=== PATIENT | female | born 1960 | race Caucasian/White ===

== ENCOUNTER 2020-07-10 14:17 | Outpatient (REF) | payer OTHER, SELFPAY ==
[2020-07-10 15:11] LABS: MANUAL DIFF FLAG NO
[2020-07-10 15:15] LABS: Basophils Percent Auto 0.3 % (0-2); Eosinophils Absolute Auto 0.4 X10*3/uL (0.0-0.4); Eosinophils Percent Auto 4.3 % (0-4); Hematocrit 40.3 % (37-47); Hemoglobin 12.6 g/dl (12.0-16.0); Imm Gran Abs Auto 0.02 X10*3/uL (0.00-0.03); Imm Gran Pct Auto 0.2 % (0.0-0.4); Lymphocytes Absolute Auto 1.5 X10*3/uL (1.2-4.9); Lymphocytes Percent Auto 16.5 % (20-40); Mean Corpuscular HGB Conc 31.3 g/dl (31.0-35.0); Mean Corpuscular Hemoglobin 29.6 pg (27.0-33.0); Mean Corpuscular Volume 94.6 fL (80-98); Mean Platelet Volume 9.6 fL (9.4-12.3); Monocytes Absolute Auto 0.6 X10*3/uL (0.1-1.2); Monocytes Percent Auto 6.3 % (2-11); Neutrophils Absolute Auto 6.5 X10*3/uL (2.0-8.3); Neutrophils Percent Auto 72.4 % (45-73); Platelet Count 260 X10*3/uL (160-400); Red Blood Count 4.26 X10*6/uL (4.20-5.50); Red Cell Distribution Width 15.1 % (11.0-16.0); White Blood Count 8.9 X10*3/uL (4.8-10.8)
[2020-07-10 15:23] LABS: Appearance Urine CLEAR; Color Urine YELLOW; Glucose Urine UA NEG (NEG); Leukocyte Esterase Urine NEG (NEG); Nitrite Urine NEG (NEG); PH 5.5 (5.0-8.0); Specific Gravity - Urine 1.025 (1.005-1.025); Urine Blood TRACE (NEG); Urine Ketones NEG (NEG); Urine Protein TRACE MG/DL (NEG-TRACE)
[2020-07-10 15:33] LABS: Bacteria Urine TRACE /LPF; RBC Urine 0-2 /HPF (0); Squamous Epithelial Cell Urine TRACE /LPF; WBC Urine 0 /HPF (0-4)
[2020-07-10 15:52] LABS: Alanine Aminotransferase 19 U/L (0-31); Anion Gap 12 (12-20); Aspartate Amino Transferase 22 U/L (5-31); Blood Urea Nitrogen 22 mg/dL (9-16); Calcium 9.8 mg/dL (8.4-10.2); Carbon Dioxide 33 mmol/L (22-29); Chloride 101 mmol/L (96-108); Estimated Glomerular Filt Rate 48; Potassium 4.7 mmol/l (3.3-5.1); Sodium 141 mmol/L (135-145)
[2020-07-10 15:54] LABS: Creatinine Urine 149.08 mg/dL; Protein/Creatinine Ratio, Ur 0.19 (<0.2); Total Protein Urine Random 29 mg/dL (<12)
[2020-07-11 13:32] LABS: Complement C3 152 mg/dL (83-193)
== END 2020-07-10 14:18 | disposition home or self-care (01) ==
LOC: HO.LAB 14:17
PROVIDERS: PCP Internal Medicine; Visit Provider Internal Medicine Hypertension Specialist
DX: N18.30 Chronic kidney disease, stage 3 unspecified (principal); Z95.0 Presence of cardiac pacemaker
CPT/HCPCS: 36415; 80051; 81001; 82310; 82565; 84156; 84450; 84460; 84520; 85025; 86160

== ENCOUNTER 2020-10-17 14:49 | Outpatient (REF) | payer OTHER, SELFPAY ==
--- NOTE | 2020-10-17 16:07 | XR_ITS ---
EXAMINATION: XR ANKLE, RIGHT XR ANKLE, LEFT XR LUMBAR SPINE XR KNEE, LEFT XR KNEE, RIGHT XR SHOULDER, RIGHT CLINICAL INFORMATION: Pain. COMPARISON: None TECHNIQUE: Three views each ankle, 3 views each knee, 3 views lumbar spine, and 4 views right shoulder. FINDINGS: RIGHT ANKLE: There is a right flatfoot appearance. The ankle mortise joint appears unremarkable. The subtalar joint is suboptimally visualized. There is a small calcaneal heel spur. There is mild bimalleolar soft tissue swelling secondary to edema or obesity. LEFT ANKLE: There is a left flatfoot appearance. The ankle mortise is intact. The subtalar joint is not well visualized. There is likely eversion deformity of the ankle joint. The soft tissues are unremarkable. LEFT KNEE: There is loss of tricompartment joint space without periarticular spurring. No bony erosive changes seen. The soft tissues are normal. RIGHT KNEE: There is loss of tricompartment joint space, severe along the lateral compartment with moderate periarticular spurring in the lateral and the patellofemoral compartments. No loose body seen. There is mild suprapatellar joint effusion suspected. LUMBAR SPINE: There is normal lumbar lordosis. The vertebral heights and alignment are normal. Mild loss of L5-S1 disc height is seen. The rest of the disc heights are normal. RIGHT SHOULDER: There is no visible acute fracture, dislocation or subluxation seen. The soft tissues are normal. XR/XR shoulder RT min 2V IMPRESSION: Severe degenerative changes lateral and patellofemoral compartment right knee with moderate periarticular spurring and mild suprapatellar joint effusion. Unremarkable left knee, right ankle, lumbar spine and right shoulder. Likely eversion deformity left ankle with incomplete visualization of subtalar joint. No visible fracture seen. Bimalleolar soft tissue edema or obesity changes in both ankle joints.
[2020-10-17 18:26] LABS: MANUAL DIFF FLAG NO
[2020-10-17 18:31] LABS: Basophils Percent Auto 0.4 % (0-2); Eosinophils Absolute Auto 0.2 X10*3/uL (0.0-0.4); Eosinophils Percent Auto 2.2 % (0-4); Hematocrit 43.6 % (37-47); Hemoglobin 13.5 g/dl (12.0-16.0); Imm Gran Abs Auto 0.02 X10*3/uL (0.00-0.03); Imm Gran Pct Auto 0.2 % (0.0-0.4); Lymphocytes Absolute Auto 1.3 X10*3/uL (1.2-4.9); Lymphocytes Percent Auto 12.3 % (20-40); Mean Corpuscular Hemoglobin 29.3 pg (27.0-33.0); Mean Corpuscular Volume 94.8 fL (80-98); Mean Platelet Volume 10.1 fL (9.4-12.3); Monocytes Absolute Auto 0.7 X10*3/uL (0.1-1.2); Neutrophils Absolute Auto 8.2 X10*3/uL (2.0-8.3); Neutrophils Percent Auto 77.9 % (45-73); Platelet Count 342 X10*3/uL (160-400); Red Cell Distribution Width 14.8 % (11.0-16.0); White Blood Count 10.5 X10*3/uL (4.8-10.8)
[2020-10-17 18:39] LABS: Estimated Average Glucose 128 mg/dL; Hemoglobin A1C 152.5188 umol/L; Hemoglobin A1c % 6.1 %
[2020-10-17 19:01] LABS: Cholesterol 115 mg/dL; HDL Cholesterol 32 mg/dL; LDL Cholesterol Calculated 63 mg/dl; Triglycerides 101 mg/dL
[2020-10-17 19:02] LABS: Alanine Aminotransferase 15 U/L (0-31); Albumin Level 4.2 g/dL (3.5-5.0); Alkaline Phosphatase 97 U/L (39-117); Anion Gap 15 (12-20); Aspartate Amino Transferase 21 U/L (5-31); Bilirubin Total 0.9 mg/dL (0.0-1.0); Blood Urea Nitrogen 22 mg/dL (9-16); C Reactive Protein 4.32 mg/dL (< or = 0.50); Calcium 9.4 mg/dL (8.4-10.2); Carbon Dioxide 31 mmol/L (22-29); Chloride 97 mmol/L (96-108); Estimated Glomerular Filt Rate 43; Glucose Random 130 mg/dL (60-115); Potassium 4.4 mmol/l (3.3-5.1); Rheumatoid Factor < 15.0 IU/mL (<15.0); Sodium 139 mmol/L (135-145); Total Protein 7.9 g/dL (6.5-8.0)
[2020-10-17 19:20] LABS: Creatinine Urine 38.37 mg/dL; Microalbum/Creatinine Ratio Ur 117.2 ug/mg cr
[2020-10-17 19:22] LABS: Thyroid Stimulating Hormone 1.39 uIU/mL (0.32-4.0)
[2020-10-17 19:24] LABS: Thyroid Stimulating Hormone 1.39 uIU/mL (0.32-4.0)
[2020-10-17 19:30] LABS: Erythrocyte Sedimentation Rate 32 MM/HR (0-20)
[2020-10-19 20:52] LABS: Anti Nuclear Antibody Screen NEGATIVE (NEGATIVE)
[2020-10-20 22:43] LABS: Cyclic Citrullinated Peptide <16 UNITS
[2020-10-22 12:22] LABS: Vitamin D 25-OH, D2 <4 ng/mL; Vitamin D 25-OH, D3 33 ng/mL; Vitamin D 25-OH, Total 33 ng/mL (30-100)
== END 2020-10-17 14:50 | disposition home or self-care (01) ==
LOC: HO.LAB 14:49
PROVIDERS: PCP Internal Medicine; Referring Provider Internal Medicine; Visit Provider Student in an Organized Health Care Education/Training Program
DX: M25.50 Pain in unspecified joint (principal)
CPT/HCPCS: 36415; 72100; 73030; 73562; 73600; 80053; 80061; 82043; 82306; 83036; 84443; 85025; 85652; 86038; 86039; 86140; 86200; 86431; 99202

== ENCOUNTER → 2020-11-07 15:21 | Outpatient (BNVA) | payer OTHER, SELFPAY | PROVIDERS: PCP Internal Medicine; Visit Provider Student in an Organized Health Care Education/Training Program | DX: M25.50 Pain in unspecified joint (principal); M79.7 Fibromyalgia | CPT/HCPCS: 99212 ==

== ENCOUNTER 2021-10-20 11:19 | Outpatient (REF) | payer OTHER, SELFPAY ==
[2021-10-20 11:41] LABS: MANUAL DIFF FLAG NO
[2021-10-20 11:48] LABS: Basophils Percent Auto 0.4 % (0-2); Eosinophils Absolute Auto 0.5 X10*3/uL (0.0-0.4); Eosinophils Percent Auto 5.1 % (0-4); Hemoglobin 12.5 g/dl (12.0-16.0); Imm Gran Abs Auto 0.03 X10*3/uL (0.00-0.03); Imm Gran Pct Auto 0.3 % (0.0-0.4); Lymphocytes Absolute Auto 1.3 X10*3/uL (1.2-4.9); Mean Corpuscular HGB Conc 30.5 g/dl (31.0-35.0); Mean Corpuscular Hemoglobin 29.2 pg (27.0-33.0); Mean Corpuscular Volume 95.8 fL (80.0-98.0); Mean Platelet Volume 9.1 fL (9.4-12.3); Monocytes Absolute Auto 0.6 X10*3/uL (0.1-1.2); Monocytes Percent Auto 6.3 % (2-11); Neutrophils Absolute Auto 6.6 x10*3/uL (2.0-8.3); Neutrophils Percent Auto 73.9 % (45-73); Platelet Count 307 X10*3/uL (160-400); Red Blood Count 4.28 X10*6/uL (4.20-5.50); Red Cell Distribution Width 15.8 % (11.0-16.0); White Blood Count 8.9 X10*3/uL (4.8-10.8)
[2021-10-20 11:53] LABS: Estimated Average Glucose 123 mg/dL; Hemoglobin A1c % 5.9 %
[2021-10-20 12:23] LABS: Alanine Aminotransferase 15 U/L (0-31); Albumin Level 3.9 g/dL (3.5-5.0); Alkaline Phosphatase 106 U/L (39-117); Anion Gap 14 (12-20); Aspartate Amino Transferase 21 U/L (5-31); Bilirubin Total 0.8 mg/dL (0.0-1.0); Blood Urea Nitrogen 34 mg/dL (9-16); Calcium 9.5 mg/dL (8.4-10.2); Carbon Dioxide 30 mmol/L (22-29); Chloride 100 mmol/L (96-108); Cholesterol 103 mg/dL; Estimated Glomerular Filt Rate 35; Glucose Random 138 mg/dL (60-115); HDL Cholesterol 29 mg/dL; LDL Cholesterol Calculated 55 mg/dl; Potassium 4.6 mmol/L (3.3-5.1); Sodium 139 mmol/L (135-145); Triglycerides 98 mg/dL
[2021-10-20 12:44] LABS: Thyroid Stimulating Hormone 2.93 uIU/mL (0.32-4.0)
== END 2021-10-20 11:20 | disposition home or self-care (01) ==
LOC: HO.LAB 11:19
PROVIDERS: PCP Internal Medicine; Visit Provider Internal Medicine
DX: Z00.01 Encounter for general adult medical examination with abnormal findings (principal); I12.9 Hypertensive chronic kidney disease with stage 1 through stage 4 chronic kidney disease, or unspecified chronic kidney disease; N18.9 Chronic kidney disease, unspecified
CPT/HCPCS: 36415; 80053; 80061; 83036; 84443; 85025

== ENCOUNTER 2022-02-09 14:07 | Outpatient (REF) | payer OTHER, SELFPAY ==
[2022-02-09 14:22] LABS: MANUAL DIFF FLAG NO
[2022-02-09 14:45] LABS: Basophils Absolute Auto 0.1 X10*3/uL (0.0-0.2); Basophils Percent Auto 0.7 % (0-2); Eosinophils Absolute Auto 0.3 X10*3/uL (0.0-0.4); Hemoglobin 12.9 g/dl (12.0-16.0); Imm Gran Abs Auto 0.06 X10*3/uL (0.00-0.03); Imm Gran Pct Auto 0.6 % (0.0-0.4); Lymphocytes Percent Auto 9.6 % (20-40); Mean Corpuscular HGB Conc 30.7 g/dl (31.0-35.0); Mean Corpuscular Hemoglobin 29.5 pg (27.0-33.0); Mean Corpuscular Volume 95.9 fL (80.0-98.0); Mean Platelet Volume 9.1 fL (9.4-12.3); Monocytes Absolute Auto 0.7 X10*3/uL (0.1-1.2); Monocytes Percent Auto 6.7 % (2-11); NRBC Pct Auto 0.4 /100WBC (0.0-0.2); Neutrophils Absolute Auto 8.5 x10*3/uL (2.0-8.3); Neutrophils Percent Auto 79.4 % (45-73); Platelet Count 358 X10*3/uL (160-400); Red Blood Count 4.38 X10*6/uL (4.20-5.50); Red Cell Distribution Width 15.9 % (11.0-16.0); White Blood Count 10.7 X10*3/uL (4.8-10.8)
[2022-02-09 14:58] LABS: Estimated Average Glucose 117 mg/dL; Hemoglobin A1c % 5.7 %
[2022-02-09 15:11] LABS: Alanine Aminotransferase 14 U/L (0-31); Albumin Level 4.3 g/dL (3.5-5.0); Alkaline Phosphatase 93 U/L (39-117); Anion Gap 15 (12-20); Aspartate Amino Transferase 18 U/L (5-31); Bilirubin Total 1.4 mg/dL (0.0-1.0); Blood Urea Nitrogen 25 mg/dL (9-16); Calcium 10.1 mg/dL (8.4-10.2); Carbon Dioxide 29 mmol/L (22-29); Chloride 99 mmol/L (96-108); Estimated Glomerular Filt Rate 40; Glucose Random 118 mg/dL (60-115); Potassium 4.8 mmol/L (3.3-5.1); Sodium 138 mmol/L (135-145); Total Protein 8.4 g/dL (6.5-8.0)
== END 2022-02-09 14:08 | disposition home or self-care (01) ==
LOC: HO.LAB 14:07
PROVIDERS: PCP Internal Medicine; Visit Provider Internal Medicine
DX: I12.9 Hypertensive chronic kidney disease with stage 1 through stage 4 chronic kidney disease, or unspecified chronic kidney disease (principal); N18.9 Chronic kidney disease, unspecified; M21.072 Valgus deformity, not elsewhere classified, left ankle; R00.2 Palpitations
CPT/HCPCS: 36415; 80053; 83036; 85025

== ENCOUNTER 2022-05-18 15:06 | Outpatient (REF) | payer OTHER, SELFPAY ==
[2022-05-18 16:29] LABS: Anion Gap 16 (12-20); Blood Urea Nitrogen 30 mg/dL (9-16); Calcium 9.4 mg/dL (8.4-10.2); Carbon Dioxide 30 mmol/L (22-29); Chloride 100 mmol/L (96-108); Estimated Glomerular Filt Rate 44; Glucose Random 119 mg/dL (60-115); Potassium 5.1 mmol/L (3.3-5.1); Sodium 141 mmol/L (135-145)
[2022-05-18 18:06] LABS: Creatinine Urine 113.91 mg/dL; Microalbum/Creatinine Ratio Ur 94.8 ug/mg cr; Protein/Creatinine Ratio, Ur 0.22 (<0.2); Total Protein Urine Random 25 mg/dL (<12)
== END 2022-05-18 15:07 | disposition home or self-care (01) ==
LOC: HO.LAB 15:06
PROVIDERS: PCP Internal Medicine; Visit Provider Internal Medicine Hypertension Specialist
DX: N18.30 Chronic kidney disease, stage 3 unspecified (principal)
CPT/HCPCS: 36415; 80048; 82043; 84156

== ENCOUNTER 2022-10-23 10:40 | Outpatient (REF) | payer OTHER, SELFPAY ==
--- NOTE | ~2022-10-23 | US_ITS ---
EXAMINATION: US RETROPERITONEAL LIMITED (RENAL ONLY) CLINICAL INFORMATION: Chronic kidney disease stage 3. COMPARISON: CTA abdomen and pelvis dated 05/27/2019; abdominal ultrasound dated 04/11/2018. TECHNIQUE: Real-time imaging of the kidneys. FINDINGS: RIGHT KIDNEY: Surgically removed. LEFT KIDNEY: 13.3 x 7.0 x 7.0 cm (SAG x AP x TRV). The kidney is normal in size, contour, and echogenicity. Renal cortical thickness is normal. No renal calculi or hydronephrosis. At the interpolar aspect, a 3.7 cm in maximal diameter anechoic, simple cyst is seen. US/US renal BI IMPRESSION: 1. The right kidney is surgically absent. No abnormal mass or fluid collection is seen within the former right renal bed. 2. A 3.7 cm in maximal diameter benign, simple left renal cyst is redemonstrated, for which no imaging follow-up is recommended.
== END 2022-10-23 10:41 | disposition home or self-care (01) ==
LOC: HO.US 10:40
PROVIDERS: PCP Internal Medicine; Visit Provider Internal Medicine Hypertension Specialist
DX: N18.30 Chronic kidney disease, stage 3 unspecified (principal)
CPT/HCPCS: 76775

== ENCOUNTER 2023-05-14 11:30 | Outpatient (AMB) | payer OTHER, SELFPAY ==
[2023-05-14 11:31] VITALS: BP 128/86; PULSE 70; O2SAT 90
--- NOTE | 2023-05-14 11:31 | MHC.PC.OV ---
Vital Signs 05/14/23 11:31 Height 5 ft 2 in BMI Reason not done Patient refused/unable BP 128/86 Blood Pressure Location Lt brachial Position Sitting Pulse 70 Pulse Source Pulse Oximeter Pulse Oximetry (%) 90 L Oxygen Delivery Method Room Air Intake Visit Reasons: med review Allergies No Known Allergies [No Known Allergies*] Allergy (Unknown, Verified 05/14/23 11:37) Tobacco use date assessed: 02/01/23 Dental Screening Dental Screen Date: 05/14/23 Did you have a dental visit in the last 12 months?: No Did you have a dental problem in the last 6 months where you did not have access to dental care?: No Was dental information given to patient?: Yes HPI HPI Comments History of Present Illness Details 62-year-old female past medical history significant for hypertension, asthma, fibromyalgia, renal cell carcinoma status post right nephrectomy, CKD, anxiety and depression, substance abuse on methadone.? Patient currently on methadone 34 mg, follows with [facility] methadone clinic.? Patient also states she has a counselor through [facility] that she speaks with every 2 weeks as well as the psychiatrist who she follows with a couple months who prescribes her clonazepam, aripiprazole,sertraline and bupropion.??The patient presents today for prescriptions for compression stockings, a new later wheelchair as hers is broken for gas and electric paperwork completed. Past check paperwork completed the patient requires continuous electricity due to her history of asthma and require nebulizer treatments. Form copied in to be scanned to patient's chart. Patient handed scripts for compression socks and Rollator walker to be filled at medical supply store patient is using. Patient does report bilateral worsening knee pain x-rays completed in 2020 showed Severe degenerative changes lateral and patellofemoral compartmentright knee with moderate periarticular spurring and mild suprapatellar,joint effusion. Unremarkable left knee. Referral placed to orthopedic for severe degenerative changes and right knee. Patient advised time x-ray data ice to reduce BMI to alleviate pressure on her joints. [facility] Medical History (Updated 05/14/23 @ 12:01 by JOHN Gary) H/O renal cell cancer History of opioid abuse Hypertension Morbid obesity Surgical History History of right nephrectomy Family History Father HTN (hypertension) Diabetes Mother HTN (hypertension) Diabetes Sister Diabetes Brother HTN (hypertension) Maternal Aunt Breast cancer Social History Housing: Apartment Alcohol intake: never Patient Tobacco Use Status: Never used Tobacco service: No Cognitive needs: Yes Hearing needs: No Vision needs: No Questionnaire PHQ-9 Over the last 2 weeks, how often have you been bothered by any of the following problems? 1. Little interest or pleasure in doing things: more than half the days 2. Feeling down, depressed, or hopeless: more than half the days 3. Trouble falling or staying asleep, or sleeping too much: nearly every day 4. Feeling tired or having little energy: not at all 5. Poor appetite or overeating: several days 6. Feeling bad about yourself - or that you are a failure or have let yourself or your family down: nearly every day 7. Trouble concentrating on things, such as reading the newspaper or watching television: more than half the days 8. Moving or speaking so slowly that other people could have noticed. Or the opposite - being so fidgety or restless that you have been moving around a lot more than usual: not at all 9. Thoughts that you would be better off or of hurting yourself in some way: not at all Total score: 13 Depression Screening Interpretation: Positive 68206 - PHQ-9 Billing: Yes Source: Developed by Drs. Ryan Pendleton, Rebecca High, Jose M Wilson and colleagues, with an educational ayan from [email or web address]. Thrive Questionnaire Date Thrive assessed: 05/14/23 I am a: Patient What is your living situation today?: I have a steady place to live Within the past 12 months, did the food you bought not last and you didn't have the money to get more?: Never true Within the past 12 months, did you worry whether your food would run out before you got money to buy more?: Never true Do you have trouble paying for medicines?: No Do you have trouble getting transportation to medical appointments?: No Do you have trouble paying your heating and electricity bill?: Yes Do you have trouble taking care of your child, family member or friend?: No Do you have trouble with day-to-day activities such as bathing, preparing meals, shopping, managing finances, etc.?: No Are you currently unemployed and looking for a job?: No Are you interested in more education?: No Currently or been in a relationship where the following occur: no concerns reported AUDIT C Alcohol Use Questionnaire (AUDIT-C) 1. How often do you have a drink containing alcohol?: Never 3. How often do you have six or more drinks on one occasion?: Never Total Score: 0 ISHMAEL-7 AMB Questionnaire ISHMAEL-7 Date ISHMAEL - 7 assessed: 02/01/23 Feeling nervous, anxious, or on edge: 1 = Several days Not being able to stop or control worryin = Several days Worrying too much about different things: 1 = Several days Trouble relaxin = Not at all Being so restless that it is hard to sit still: 0 = Not at all Becoming easily annoyed or irritable: 1 = Several days Feeling afraid as if something awful might happen: 1 = Several days Total ISHMAEL-7 score (0-4 normal; 5-9 mild; 10-14 moderate; 15-21 severe): 5 Source: Developed by Drs. Ryan Pendleton, Rebecca High, Jose M Wilson and colleagues, with an educational ayan from [email or web address]. Review of Systems Const Denies chills, Denies fatigue, Denies fever(s) and Denies poor appetite Eyes Denies no additional complaints ENT Reports Normal hearing present Card Denies chest pain, Denies syncope, Denies rapid heart rate and Denies dyspnea Resp Denies cough and Denies dyspnea GI Denies change in stool character, Denies constipation, Denies diarrhea, Denies nausea and Denies vomiting Denies urinary frequency, Denies dysuria and Denies urinary urgency Neuro Reports Normal hearing present, Denies confusion and Denies syncope Psych Denies confusion Endo Denies fatigue Physical exam (Primary Care) Vital Signs: Last Vital Signs Pulse 70 05/14/23 11:31 BP 128/86 05/14/23 11:31 Pulse Ox 90 L 05/14/23 11:31 Oxygen Delivery Method Room Air 05/14/23 11:31 Tobacco/Smoking Status: Tobacco use Status Tobacco use date assessed 02/01/23 05/14/23 11:42 Patient Tobacco Use Status Never used Tobacco 05/14/23 11:42 PHQ-9: PHQ-9 Score PHQ-9: Total score 13 05/14/23 11:50 Depression Screening Interpretation: Positive Thrive Assessment: Date of Thrive Assessment Date Thrive assessed 05/14/23 05/14/23 11:42 Currently or been in a relationship where the following occur: no concerns reported Const General: No confusion Orientation/consciousness: No confusion HENMT Head: Yes normocephalic and Yes atraumatic Eyes Conjunctivae: conjunctivae normal Chest Chest palpation & inspection: normal inspection of the chest Resp Effort & Inspection: normal respiratory effort Auscultation: clear to auscultation bilaterally, no crackles, no rhonchi and no wheezes Cardio Rate: regular rate Rhythm: regular rhythm Heart sounds: S1 normal heart sound present and S2 normal heart sound present GI Inspection: Yes normal to inspection Neuro General: No confusion Cranial nerves: Yes Normal hearing present Extrem General: No edema Assessment and Plan Assessment & Plan (1) CKD (chronic kidney disease): Code(s): N18.9 - Chronic kidney disease, unspecified Plan: Patient previous reffered to nerphology. (2) Asthma: Code(s): J45.909 - Unspecified asthma, uncomplicated Plan: Continue on albuterol as needed. (3) Anxiety and depression: Code(s): F41.9 - Anxiety disorder, unspecified; F32.A - Depression, unspecified Plan: Continue to follow with [facility]. (4) Fibromyalgia: Code(s): M79.7 - Fibromyalgia (5) Bilateral knee pain: Code(s): M25.561 - Pain in right knee; M25.562 - Pain in left knee Plan: Referral entered orthopedic. Plan Schedule follow-up in 1 month. Orders: Referrals Orthopedics Referral M25.561 - Pain in right knee, M25.562 - Pain in left knee Medications: New miscellaneous medical supply 1 pair of compression stockings 1 ea miscellaneous DAILY 1 ea 0RF R60.0 - Localized edema miscellaneous medical supply Rollator walker 1 ea miscellaneous ONCE 1 ea 0RF Coding Level of Care Code Est Pt Level 4 (49629) Diagnoses CKD (chronic kidney disease) N18.9 Asthma J45.909 Anxiety and depression F41.9; F32.A Fibromyalgia M79.7 Bilateral knee pain M25.561; M25.562
== END 2023-05-14 12:06 | disposition home or self-care (01) ==
PROVIDERS: PCP Nurse Practitioner Family; Visit Provider Nurse Practitioner Family
DX: N18.9 Chronic kidney disease, unspecified (principal); J45.909 Unspecified asthma, uncomplicated; F41.9 Anxiety disorder, unspecified; F32.A Depression, unspecified; M79.7 Fibromyalgia; M25.561 Pain in right knee; M25.562 Pain in left knee
CPT/HCPCS: 99214

== ENCOUNTER 2023-05-19 07:47 | Outpatient (REF) | payer OTHER, SELFPAY ==
--- NOTE | ~2023-05-19 | XR_ITS ---
EXAMINATION: XR KNEE, RIGHT XR KNEE, LEFT CLINICAL INFORMATION: Bilateral knee pain. COMPARISON: Bilateral knees 10/17/2020 TECHNIQUE: 3 views each knee. FINDINGS: RIGHT KNEE: Tricompartmental degenerative changes are present most marked in the lateral compartment with increased sclerosis and subchondral cyst formation. There is some narrowing and osteophyte formation in the medial compartment as well as the patellofemoral compartment. A small right knee joint effusion is present. When comparison is made to the 10/17/2020 study, there has been no interval change LEFT KNEE: Mild degenerative changes are present in the left knee with some narrowing in the medial compartment. Small osteophytes are present in the lateral compartment. The patellofemoral compartment is unremarkable. A tiny knee joint effusion is seen. Compared to the prior 10/17/2020 study, there has been no significant interval change. XR/XR knee LT 3V IMPRESSION: Bilateral degenerative changes, right greater than left. No significant interval change since 10/17/2020.
--- NOTE | ~2023-05-19 | XR_ITS ---
EXAMINATION: XR KNEE, RIGHT XR KNEE, LEFT CLINICAL INFORMATION: Bilateral knee pain. COMPARISON: Bilateral knees 10/17/2020 TECHNIQUE: 3 views each knee. FINDINGS: RIGHT KNEE: Tricompartmental degenerative changes are present most marked in the lateral compartment with increased sclerosis and subchondral cyst formation. There is some narrowing and osteophyte formation in the medial compartment as well as the patellofemoral compartment. A small right knee joint effusion is present. When comparison is made to the 10/17/2020 study, there has been no interval change LEFT KNEE: Mild degenerative changes are present in the left knee with some narrowing in the medial compartment. Small osteophytes are present in the lateral compartment. The patellofemoral compartment is unremarkable. A tiny knee joint effusion is seen. Compared to the prior 10/17/2020 study, there has been no significant interval change. XR/XR knee RT 3V IMPRESSION: Bilateral degenerative changes, right greater than left. No significant interval change since 10/17/2020.
== END 2023-05-19 07:48 | disposition home or self-care (01) ==
LOC: HO.HOSX 07:47
PROVIDERS: Visit Provider Orthopaedic Surgery
DX: M17.0 Bilateral primary osteoarthritis of knee (principal); Z79.899 Other long term (current) drug therapy
CPT/HCPCS: 73562; 99202

== ENCOUNTER 2023-05-19 10:05 | Outpatient (AMB) | payer OTHER, SELFPAY ==
[2023-05-19 10:18] VITALS: BMI 51.6
--- NOTE | 2023-05-19 10:18 | MHC.OFFVIS ---
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 She describes her pains as sharp and severe in nature, 10/10. Her pains have gotten worse over the last few years in spite of continued non operative treatments. At this time she gets around mostly in a wheelchair. She has tried Tylenol and anti-inflammatory medicines which gave her minimal relief. She has also had multiple cortisone injections in the recent past which gave her no relief. She has done physical therapy exercises which aggravated her pain. She has not tried a viscosupplementation injection. The patient has difficulty walking even short distances because of her pain. Allergies No Known Allergies [No Known Allergies*] Allergy (Unknown, Verified 05/19/23 10:30) Medication List - Last Reconciled 05/19/23 by Omega Fierro MD albuterol (refill) 90 mcg/actuation mcg inhalation albuterol sulfate 90 mcg/actuation (Ventolin HFA) 2 puffs inhalation Q4-6H PRN aripiprazole 2 mg PO DAILY aspirin 81 mg PO DAILY atorvastatin 80 mg PO DAILY bupropion HCl 150 mg PO .twice a day cholecalciferol (vitamin D3) 125 mcg PO DAILY clonazepam 1 mg PO TID docusate sodium 100 mg PO BID fluticasone propionate 220 mcg/actuation (Flovent HFA) 1 puff inhalation BID gabapentin 300 mg PO DAILY hydrochlorothiazide 25 mg PO DAILY lisinopril 20 mg PO DAILY metoprolol succinate ER 50 mg PO DAILY miscellaneous medical supply 1 ea miscellaneous DAILY miscellaneous medical supply 1 ea miscellaneous DAILY miscellaneous medical supply 1 ea miscellaneous ONCE montelukast 10 mg PO DAILY sertraline 100 mg PO DAILY zolpidem 10 mg PO BEDTIME [facility] Medical History (Updated 05/19/23 @ 10:58 by Omega Fierro MD) H/O renal cell cancer History of opioid abuse Hypertension Morbid obesity Surgical History History of right nephrectomy Family History Father HTN (hypertension) Diabetes Mother HTN (hypertension) Diabetes Sister Diabetes Brother HTN (hypertension) Maternal Aunt Breast cancer Social History Housing: Apartment Alcohol intake: never Patient Tobacco Use Status: Never used Tobacco service: No Cognitive needs: Yes Hearing needs: No Vision needs: No Physical Exam Vital Signs: BMI result Body Mass Index 51.6 Const Other: Well-nourished well-developed very friendly female awake alert and oriented x3 in no acute distress Extrem Other: Bilateral upper extremity examination shows good capillary refill, no skin lesions noted, normal sensation light touch Bilateral knee examination shows minimal effusions, palpable crepitus with range of motion, pain with range of motion, no instability Results Reviewed Results Reviewed: X-rays of the patient's left knee taken today show moderate joint space narrowing, subchondral sclerosis, no acute bony abnormalities X-rays of the patient's right knee taken today show severe joint space narrowing with grade 4 [id number] arthritis, subchondral sclerosis, osteophyte formation, no acute bony abnormalities Assessment & Plan Assessment & Plan (1) Arthritis of both knees: Code(s): M17.0 - Bilateral primary osteoarthritis of knee Plan Ms. Ramirez presents with progressively worsening bilateral knee pain due to degenerative joint disease. I had a lengthy discussion with the patient regarding the treatment options. At this point the patient is non a surgical candidate because her BMI is 51. In order to be a candidate for a total knee replacement she would need to get her BMI below 40. We did discuss the risks and benefits of a viscosupplementation injection for both of her knees. The patient has not gotten relief from cortisone injections in the past. She wishes to proceed with the viscosupplementation injections. Thus, I will see whether not her insurance company will cover a viscosupplementation injection for both of her knees. I will see her back once the injections are available. I also discussed the importance of weight loss with the patient. She states that she has been to the [facility] weight loss clinic approximately 2 years ago. She states that she was not able to stick to the program and did not lose any weight. I did recommend that she think about going back to the clinic to try again. Feel free to call me at any time should questions regarding her orthopedic management arise. Thank you very much for asking me to see this very friendly patient. Her I spent 22 minutes in reviewing the patient's records and imaging studies, seeing the patient and documenting in the medical record. Orders: Orders XR knee LT 3V Today M25.562 - Pain in left knee XR knee RT 3V Today M25.561 - Pain in right knee Coding Level of Care Code New Pt Level 2 (66017) Diagnoses Arthritis of both knees M17.0
== END 2023-05-19 11:02 | disposition home or self-care (01) ==
PROVIDERS: PCP Nurse Practitioner Family; Visit Provider Orthopaedic Surgery
DX: M17.0 Bilateral primary osteoarthritis of knee (principal)
CPT/HCPCS: 99202

== ENCOUNTER 2023-06-08 11:23 | Outpatient (AMB) | payer OTHER, SELFPAY ==
--- NOTE | 2023-06-08 11:38 | MHC.OFFVIS ---
Intake Vital Signs 06/08/23 11:39 Height 5 ft 2 in Weight 282 lb BMI 51.6 Intake Visit Reasons: ov- bilateral knee Durolane injection Intake Note: Nicolasa a 62 year old female who presents today as a new patient with complaints of progressively worsening bilateral knee pains, right greater than left. She describes her pains as sharp and severe in nature, 10/10. Her pains have gotten worse over the last few years in spite of continued non operative treatments. At this time she gets around mostly in a wheelchair. She has tried Tylenol and anti-inflammatory medicines which gave her minimal relief. She has also had multiple cortisone injections in the recent past which gave her no relief. She has done physical therapy exercises which aggravated her pain. She has not tried a viscosupplementation injection. The patient has difficulty walking even short distances because of her pain. Allergies No Known Allergies [No Known Allergies*] Allergy (Unknown, Verified 05/19/23 10:30) Medication List - Last Reconciled 06/08/23 by Omega Fierro MD albuterol (refill) 90 mcg/actuation mcg inhalation albuterol sulfate 90 mcg/actuation (Ventolin HFA) 2 puffs inhalation Q4-6H PRN aripiprazole 2 mg PO DAILY aspirin 81 mg PO DAILY atorvastatin 80 mg PO DAILY bupropion HCl 150 mg PO .twice a day cholecalciferol (vitamin D3) 125 mcg PO DAILY clonazepam 1 mg PO TID docusate sodium 100 mg PO BID fluticasone propionate 220 mcg/actuation (Flovent HFA) 1 puff inhalation BID gabapentin 300 mg PO DAILY hydrochlorothiazide 25 mg PO DAILY lisinopril 20 mg PO DAILY metoprolol succinate ER 50 mg PO DAILY miscellaneous medical supply 1 ea miscellaneous DAILY miscellaneous medical supply 1 ea miscellaneous DAILY miscellaneous medical supply 1 ea miscellaneous ONCE montelukast 10 mg PO DAILY sertraline 100 mg PO DAILY zolpidem 10 mg PO BEDTIME [facility] Medical History (Updated 06/08/23 @ 12:19 by Omega Fierro MD) History of opioid abuse H/O renal cell cancer Morbid obesity Hypertension Surgical History History of right nephrectomy Family History Father HTN (hypertension) Diabetes Mother HTN (hypertension) Diabetes Sister Diabetes Brother HTN (hypertension) Maternal Aunt Breast cancer Social History Housing: Apartment Alcohol intake: never Patient Tobacco Use Status: Never used Tobacco service: No Cognitive needs: Yes Hearing needs: No Vision needs: No Physical Exam Vital Signs: BMI result Body Mass Index 51.6 Const Other: Well-nourished well-developed very friendly female awake alert and oriented x3 in no acute distress Extrem Other: Bilateral lower extremity examination shows good capillary refill, no skin lesions noted, normal sensation light touch Bilateral knee examination shows minimal effusions, palpable crepitus with range of motion, pain with range of motion, range of motion from -3 degrees to 115 degrees, no instability Office Procedures Joint Injection/Drain Joint Injection/Drain Primary Site: left knee Prep: site was prepped using aseptic technique Injected: 60 mg of (Durolane) and 1% plain lidocaine Procedure: The patient tolerated the procedure well Coding 76724 - Large joint Procedure code (CPT) selection complete Joint Injection/Drain Joint Injection/Drain Primary Site: right knee Prep: site was prepped using aseptic technique Injected: 60 mg of (Durolane) and 1% plain lidocaine Procedure: The patient tolerated the procedure well Coding 86196 - Large joint Procedure code (CPT) selection complete Results Reviewed Results Reviewed: 06/08/23 11:37 Hyaluronate Sodium, Stabilized [Durolane] 60 mg INTRAARTIC .STK-MED ONE Lidocaine HCl 2 % MPF [Xylocaine 2 % MPF] 5 ml .ROUTE .STK-MED ONE X-rays of the patient's bilateral knee show joint space narrowing, subchondral sclerosis, no acute bony abnormalities Assessment & Plan Assessment & Plan (1) Arthritis of right knee: Code(s): M17.11 - Unilateral primary osteoarthritis, right knee Plan: Ms. Ramirez presents with bilateral knee pains due to degenerative joint disease. I had a lengthy discussion with the patient regarding the treatment options. At this point the patient is not a candidate for total knee replacement surgery because her BMI is greater than 50. She has had cortisone injections in the past which gave her minimal relief. Thus, the risks and benefits of bilateral knee viscosupplementation injections were discussed at length with the patient. The patient wished to proceed. She tolerated the bilateral knee Durolane injections well. She will continue with her home exercise program and weight loss program. She will follow up with me on an as-needed basis should her symptoms not plateau at an unacceptable level over the next few months. Feel free to call me at any time should questions regarding her orthopedic management arise. I spent 23 minutes in reviewing the patient's records and imaging studies, seeing the patient and documenting in the medical record. (2) Arthritis of left knee: Code(s): M17.12 - Unilateral primary osteoarthritis, left knee Orders: Orders AMB Joint Injection/Aspiration Today M17.12 - Unilateral primary osteoarthritis, left knee AMB Joint Injection/Aspiration Today M17.11 - Unilateral primary osteoarthritis, right knee Coding Level of Care Code Est Pt Level 2 (09838) Diagnoses Arthritis of right knee M17.11 Arthritis of left knee M17.12 CPT Codes Coding - 59490 Large joint: 96596 - Large joint ([id number]) Coding - 33132 Large joint: 30434 - Large joint ([id number])
[2023-06-08 11:39] VITALS: BMI 51.6
== END 2023-06-08 12:03 | disposition home or self-care (01) ==
PROVIDERS: PCP Nurse Practitioner Family; Visit Provider Orthopaedic Surgery
DX: M17.0 Bilateral primary osteoarthritis of knee (principal)
CPT/HCPCS: 20610; 99214

== ENCOUNTER → 2023-06-08 11:23 | Outpatient (BNVA) | payer OTHER, SELFPAY | PROVIDERS: PCP Nurse Practitioner Family; Visit Provider Orthopaedic Surgery | DX: M17.0 Bilateral primary osteoarthritis of knee (principal) | CPT/HCPCS: 20610; J7318 ==

== ENCOUNTER 2023-07-23 16:14 | Outpatient (AMB) | payer OTHER, SELFPAY ==
--- NOTE | 2023-07-23 16:14 | A.OFFPC_ITS ---
Intake Visit Reasons: Hospital Bed RX Intake Note: pt states bed bound due to bilateral knee pain, pt states comode in pt bathroom, pt has wheel chair, no transportation wheel chair. 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 Allergies No Known Allergies [No Known Allergies*] Allergy (Unknown, Verified 07/23/23 16:36) Medication List - Last Reconciled 07/23/23 by Libertad Collazo, JOHN albuterol (refill) 90 mcg/actuation mcg inhalation albuterol sulfate 90 mcg/actuation (Ventolin HFA) 2 puffs inhalation Q4-6H PRN amlodipine 5 mg PO DAILY aripiprazole 2 mg PO DAILY aspirin 81 mg PO DAILY atorvastatin 80 mg PO DAILY bupropion HCl 150 mg PO .twice a day cholecalciferol (vitamin D3) 125 mcg PO DAILY clonazepam 1 mg PO TID docusate sodium 100 mg PO BID fluticasone propionate 220 mcg/actuation (Flovent HFA) 1 puff inhalation BID gabapentin 300 mg PO DAILY hydrochlorothiazide 25 mg PO DAILY lisinopril 20 mg PO DAILY metoprolol succinate ER 50 mg PO DAILY miscellaneous medical supply 1 ea miscellaneous DAILY miscellaneous medical supply 1 ea miscellaneous DAILY miscellaneous medical supply 1 ea miscellaneous ONCE montelukast 10 mg PO DAILY sertraline 100 mg PO DAILY zolpidem 10 mg PO BEDTIME Tobacco use date assessed: 07/23/23 [facility] Hospital Bed RX HPI Details This is a telehealth visit and patient was verified by name and date of . Patient is a 62-year-old female who presents today requesting prescription for a hospital bed, this is a first-time talking to this patient. Medical history significant for fibromyalgia, asthma, CKD, anxiety, depression, arthritis of both knees, hypertension. Patient reports that she is bedbound due to bilateral knee pains, she has commode in her bedroom, she also has a big wheelchair and she requesting prescription for a transport wheelchair. She also followed by [facility] for bilateral knee injections, last injection 05/2023, patient reports relief only for 3 days. She also reports taking Tylenol with no much improvement. Patient reports that she is always in bed and hardly walk, she reports when she takes 1-2 steps her knees crack and she hardly can move. 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 04/2023 XR/XR knee RT 3V IMPRESSION: Bilateral degenerative changes, right greater than left. No significant interval change since 10/17/2020. [facility] Medical History History of opioid abuse H/O renal cell cancer Morbid obesity Hypertension Surgical History History of right nephrectomy Family History Father HTN (hypertension) Diabetes Mother HTN (hypertension) Diabetes Sister Diabetes Brother HTN (hypertension) Maternal Aunt Breast cancer Social History Housing: Apartment Alcohol intake: never Patient Tobacco Use Status: Never used Tobacco service: No Cognitive needs: Yes Hearing needs: No Vision needs: No Questionnaire Thrive Questionnaire Date Thrive assessed: 05/14/23 AUDIT C Alcohol Use Questionnaire (AUDIT-C) 1. How often do you have a drink containing alcohol?: Never 3. How often do you have six or more drinks on one occasion?: Never Total Score: 0 Score Reviewed/Action Taken: No ISHMAEL-7 AMB Questionnaire ISHMAEL-7 Date ISHMAEL - 7 assessed: 02/01/23 Source: Developed by Drs. Ryan Pendleton, Rebecca High, Jose M Wilson and colleagues, with an educational ayan from [employer]. Review of Systems Const Reports no additional complaints ENT Reports no additional complaints Card Reports no additional complaints Resp Reports no additional complaints GI Reports no additional complaints Musc Reports as per HPI Physical exam (Primary Care) Tobacco/Smoking Status: Tobacco use Status Tobacco use date assessed 07/23/23 07/23/23 16:22 Patient Tobacco Use Status Never used Tobacco 07/23/23 16:17 Thrive Assessment: Date of Thrive Assessment Date Thrive assessed 05/14/23 07/23/23 16:17 Const Other: Speech is normal Telehealth Telehealth Location of provider rendering services: practice address Location of patient: address on file Patient Identification confirmed using: Name, : Yes Telehealth method: voice only Patient verbally consented to treatment: Yes Patient verbally consented to billing insurance company: Yes Patient informed of any privacy concerns related to visit: Yes Minutes spent on Phone/Video with Pt.: 12 Assessment and Plan Assessment & Plan (1) Arthritis of left knee: Code(s): M17.12 - Unilateral primary osteoarthritis, left knee Plan: Continue to follow-up with orthopedics Prescriptions provided for transport wheelchair and hospital bed Will also provide patient with lidocaine patch p.r.n. (2) Arthritis of right knee: Code(s): M17.11 - Unilateral primary osteoarthritis, right knee Plan: Same as above Medications: New hospital bed As directed 1 ea 0RF M17.11 - Unilateral primary osteoarthritis, right knee, M17.12 - Unilateral primary osteoarthritis, left knee miscellaneous medical supply Transport wheelchair 1 ea miscellaneous DAILY 1 ea 0RF M17.11 - Unilateral primary osteoarthritis, right knee, M17.12 - Unilateral primary osteoarthritis, left knee lidocaine 4% (Aspercreme (lidocaine)) 2 patches topical DAILY PRN 30 ea 1RF pain M17.11 - Unilateral primary osteoarthritis, right knee, M17.12 - Unilateral primary osteoarthritis, left knee Coding Level of Care Code Tele Est Pt Level 3 (44009) Diagnoses Arthritis of left knee M17.12 Arthritis of right knee M17.11
== END 2023-07-23 16:59 | disposition home or self-care (01) ==
LOC: HO.HMGH 16:14
PROVIDERS: PCP Nurse Practitioner Family; Visit Provider Nurse Practitioner Family
DX: M17.0 Bilateral primary osteoarthritis of knee (principal)
CPT/HCPCS: 99442

== ENCOUNTER 2023-08-13 10:55 | Outpatient (AMB) | payer OTHER, SELFPAY ==
[2023-08-13 11:00] VITALS: BP 140/92; PULSE 76; O2SAT 92
--- NOTE | 2023-08-13 11:00 | MHC.PC.OV ---
Vital Signs 08/13/23 11:00 Height 5 ft 2 in BMI Reason not done Patient refused/unable BP 140/92 H Blood Pressure Location Lt brachial Position Sitting Pulse 76 Pulse Source Pulse Oximeter Pulse Oximetry (%) 92 Oxygen Delivery Method Room Air Intake Visit Reasons: PE Intake Note: Patient is here today for a physical. 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: No Allergies No Known Allergies [No Known Allergies*] Allergy (Unknown, Verified 08/13/23 11:11) Medication List - Last Reconciled 08/13/23 by JOHN Ray albuterol (refill) 90 mcg/actuation mcg inhalation albuterol sulfate 90 mcg/actuation (Ventolin HFA) 2 puffs inhalation Q4-6H PRN amlodipine 5 mg PO DAILY aripiprazole 2 mg PO DAILY aspirin 81 mg PO DAILY atorvastatin 80 mg PO DAILY bupropion HCl 150 mg PO .twice a day clonazepam 1 mg PO TID docusate sodium 100 mg PO BID fluticasone propionate 220 mcg/actuation (Flovent HFA) 1 puff inhalation BID gabapentin 300 mg PO DAILY hospital bed As directed hydrochlorothiazide 25 mg PO DAILY lidocaine 4% (Aspercreme (lidocaine)) 2 patches topical DAILY PRN lisinopril 20 mg PO DAILY metoprolol succinate ER 50 mg PO DAILY miscellaneous medical supply 1 ea miscellaneous DAILY miscellaneous medical supply 1 ea miscellaneous DAILY montelukast 10 mg PO DAILY sertraline 100 mg PO DAILY Tobacco use date assessed: 08/13/23 Dental Screening Dental Screen Date: 08/13/23 Did you have a dental visit in the last 12 months?: No Did you have a dental problem in the last 6 months where you did not have access to dental care?: No HPI PE HPI Details Patient is a 62-year-old female who presents today for physical exam. Medical history significant for polyarthralgia, fibromyalgia, asthma, CKD-followed by [facility]-reports next visit 08/2023, anxiety and depression-followed by Psychiatry and therapist who manage mental health medications, arthritis of both knees, hypertension. Today we discussed patient's need for mammogram, Pap smear, pneumonia and tetanus vaccines. She reports normal blood pressures at home, BP this morning 116/76. She reports normal colonoscopy at [facility] in 2018 and repeat in 10 years per patient. Patient was encouraged to complete her blood work. Patient is in a wheelchair, unable to transfer on exam table. Also patient requesting hospital bed due to arthritis of both knees, see below from previous visit. Patient is due for eye exam and she will call for an appointment. 07/23/23 Patient is a 62-year-old female who presents today requesting prescription for a hospital bed, this is a first-time talking to this patient. Medical history significant for fibromyalgia, asthma, CKD, anxiety, depression, arthritis of both knees, hypertension. Patient reports that she is bedbound due to bilateral knee pains, she has commode in her bedroom, she also has a big wheelchair and she requesting prescription for a transport wheelchair. She also followed by [facility] for bilateral knee injections, last injection 05/2023, patient reports relief only for 3 days. She also reports taking Tylenol with no much improvement. Patient reports that she is always in bed and hardly walk, she reports when she takes 1-2 steps her knees crack and she hardly can move. 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 04/2023ORDER #: [id number] XR/XR knee RT 3V IMPRESSION: Bilateral degenerative changes, right greater than left. No significant interval change since 10/17/2020. [facility] Medical History (Updated 08/13/23 @ 13:30 by JOHN Ray) History of opioid abuse H/O renal cell cancer Morbid obesity Hypertension Surgical History (Updated 08/13/23 @ 13:30 by JHON Ray) History of colonoscopy History of right nephrectomy Family History Father HTN (hypertension) Diabetes Mother HTN (hypertension) Diabetes Sister Diabetes Brother HTN (hypertension) Maternal Aunt Breast cancer Social History Housing: Apartment Alcohol intake: never Patient Tobacco Use Status: Never used Tobacco service: No Cognitive needs: Yes Hearing needs: No Vision needs: No Questionnaire PHQ-9 Over the last 2 weeks, how often have you been bothered by any of the following problems? 1. Little interest or pleasure in doing things: more than half the days 2. Feeling down, depressed, or hopeless: more than half the days 3. Trouble falling or staying asleep, or sleeping too much: nearly every day 4. Feeling tired or having little energy: not at all 5. Poor appetite or overeating: several days 6. Feeling bad about yourself - or that you are a failure or have let yourself or your family down: nearly every day 7. Trouble concentrating on things, such as reading the newspaper or watching television: more than half the days 8. Moving or speaking so slowly that other people could have noticed. Or the opposite - being so fidgety or restless that you have been moving around a lot more than usual: not at all 9. Thoughts that you would be better off or of hurting yourself in some way: not at all Total score: 13 Depression Screening Interpretation: Positive Depression Screening Follow-up: In treatment Depression Screening Done: Yes 80123 - PHQ-9 Billing: Yes Source: Developed by Drs. Ryan Pendleton, Rebecca High, Jose M Wilson and colleagues, with an educational ayan from [employer]. Thrive Questionnaire Date Thrive assessed: 05/14/23 AUDIT C Alcohol Use Questionnaire (AUDIT-C) 1. How often do you have a drink containing alcohol?: Never 3. How often do you have six or more drinks on one occasion?: Never Total Score: 0 Score Reviewed/Action Taken: No ISHMAEL-7 AMB Questionnaire ISHMAEL-7 Date ISHMAEL - 7 assessed: 02/01/23 Feeling nervous, anxious, or on edge: 1 = Several days Not being able to stop or control worryin = Several days Worrying too much about different things: 1 = Several days Trouble relaxin = Several days Being so restless that it is hard to sit still: 1 = Several days Becoming easily annoyed or irritable: 1 = Several days Feeling afraid as if something awful might happen: 0 = Not at all Total ISHMAEL-7 score (0-4 normal; 5-9 mild; 10-14 moderate; 15-21 severe): 6 Source: Developed by Drs. Ryan Pendleton, Rebecca High, Jose M Wilson and colleagues, with an educational ayan from [employer]. ISHMAEL-7 Assessment Billing ISHMAEL-7 Assessment Tool: ISHMAEL-7 Assessment 50915 Review of Systems Const Denies body aches, Denies chills, Denies fever(s) and Denies headache(s) Eyes Denies change in vision ENT Denies dizziness, Denies otalgia, Denies headache(s), Denies nasal discharge, Denies sinus pain and Denies sore throat Card Denies chest pain, Denies edema, Denies lightheadedness and Denies dyspnea Resp Denies cough, Denies dyspnea and Denies wheezing GI Denies abdominal pain, Denies constipation, Denies diarrhea, Denies nausea and Denies vomiting Denies dysuria Musc Reports as per HPI, Denies myalgias, Reports arthralgias and Denies joint swelling Skin/Breast Denies rash Neuro Denies dizziness and Denies headache(s) Aller/Immun Denies wheezing Physical exam (Primary Care) Vital Signs: Last Vital Signs Pulse 76 08/13/23 11:00 BP 140/92 H 08/13/23 11:00 Pulse Ox 92 08/13/23 11:00 Oxygen Delivery Method Room Air 08/13/23 11:00 Tobacco/Smoking Status: Tobacco use Status Tobacco use date assessed 08/13/23 08/13/23 11:01 Patient Tobacco Use Status Never used Tobacco 08/13/23 11:01 PHQ-9: PHQ-9 Score PHQ-9: Total score 13 08/13/23 11:11 Depression Screening Interpretation: Positive Depression Screening Follow-up: In treatment Thrive Assessment: Date of Thrive Assessment Date Thrive assessed 05/14/23 08/13/23 11:01 Const Other: Patient is in a wheelchair, unable to transfer on the exam table General: cooperative and no acute distress Orientation/consciousness: patient oriented x3 HENMT Head: Yes normocephalic and Yes atraumatic Ears: TM's normal bilaterally Face and sinus: Yes sinuses nontender Mouth: oropharynx normal and moist mucous membranes Throat: Yes posterior oropharynx normal Eyes General: appearance normal, both eyes and all related structures Pupils: Equal, round and reactive pupils present EOM: EOMs intact bilaterally Neck Neck: Yes normal visual inspection, Yes full ROM and Yes no lymphadenopathy Thyroid: Thyroid normal Resp Effort & Inspection: normal respiratory effort and able to speak in complete sentences Auscultation: clear to auscultation bilaterally, no crackles, no rales, no rhonchi and no wheezes Cardio Rate: regular rate Rhythm: regular rhythm Heart sounds: S1 normal heart sound present, S2 normal heart sound present and no murmurs GI Palpation (GI): Soft to palpation, not firm, nontender, no guarding, not rigid and no hepatosplenomegaly Auscultation: normal bowel sounds Skin General skin exam: no rashes or lesions noted Neuro General: patient oriented x3 Cranial nerves: Yes Equal, round and reactive pupils present Extrem Other: Trace edema to bilateral lower extremity General: Yes full ROM Immunizations pneumoc 20-aditya conj-dip cr(PF) 0.5 mL IM syringe Performing Provider: JOHN Ray Performing Location: [facility] Adult Primary [facility] Administered by: BOO Enriquez on 08/13/23 11:33 Dose Route Admin Location Dispensed Lot Number Expiration Date ND Freight Caller 0.5 mL IM Left Deltoid 0.5 mL [id number] 05/28/24 6419-2420-68 [place]/[employer] VIS Given Date VIS Provided VIS Publication Date 08/13/23 Single Vaccine 21 Eligibility Eligibility Date Funding Source Not VFC Eligible 08/13/23 Private Boostrix Tdap 2.5 Lf unit-8 mcg-5 Lf/0.5 mL intramuscular syringe Performing Provider: JOHN Ray Performing Location: [facility] Administered by: BOO Enriquez on 08/13/23 11:33 Dose Route Admin Location Dispensed Lot Number Expiration Date NDC Freight Caller 0.5 mL IM Left Deltoid 0.5 mL [id number] 08/13/23 05931-677-37 SIM Digital VIS Given Date VIS Provided VIS Publication Date 08/13/23 Single Vaccine 21 Eligibility Eligibility Date Funding Source Not VFC Eligible 08/13/23 Private Assessment and Plan Assessment & Plan (1) Adult general medical exam: Code(s): Z00.00 - Encounter for general adult medical examination without abnormal findings (2) Cervical cancer screening: Code(s): Z12.4 - Encounter for screening for malignant neoplasm of cervix (3) Hypertension: Code(s): I10 - Essential (primary) hypertension Plan: Goal BP equal or less than 140/90 Patient reports normal blood pressures at home Continue amlodipine, hydrochlorothiazide, lisinopril, metoprolol Low-sodium diet (4) Arthritis of both knees: Code(s): M17.0 - Bilateral primary osteoarthritis of knee Plan: Continue to follow-up with [facility] Prescription provided for hospital bed (5) CKD (chronic kidney disease): Code(s): N18.9 - Chronic kidney disease, unspecified Plan: Patient was encouraged to complete her blood work Continue to follow-up with [facility] (6) Anxiety and depression: Code(s): F41.9 - Anxiety disorder, unspecified; F32.A - Depression, unspecified Plan: Continue current treatment as prescribed by Psychiatry, also follows with therapist (7) Asthma: Code(s): J45.909 - Unspecified asthma, uncomplicated Plan: Stable Continue current inhalers as prescribed (8) Screening for breast cancer: Code(s): Z12.39 - Encounter for other screening for malignant neoplasm of breast Orders: Orders TDaP Immunization Today Z23 - Encounter for immunization MM tomosynthesis screening BI Today Z12.31 - Encounter for screening mammogram for malignant neoplasm of breast Pneumococcal 20 Immunization Today Z23 - Encounter for immunization Referrals DINING CHAIR SEAT CUSHION TRIMMER Referral Z12.4 - Encounter for screening for malignant neoplasm of cervix Medications: Changed From hospital bed As directed 1 ea 0RF M17.11 - Unilateral primary osteoarthritis, right knee, M17.12 - Unilateral primary osteoarthritis, left knee To hospital bed As directed. Full electric 1 ea 0RF M17.11 - Unilateral primary osteoarthritis, right knee, M17.12 - Unilateral primary osteoarthritis, left knee Coding Level of Care Code Est Pt Prev Care 40-64y(23103) Diagnoses Adult general medical exam Z00.00 Cervical cancer screening Z12.4 Hypertension I10 Arthritis of both knees M17.0 CKD (chronic kidney disease) N18.9 Anxiety and depression F41.9; F32.A Asthma J45.909 Screening for breast cancer Z12.39 Additional Codes ISHMAEL-7 Assessment Billing - ISHMAEL-7 Assessment Tool: ISHMAEL-7 Assessment 35314 ([id number])
== END 2023-08-13 11:35 | disposition home or self-care (01) ==
PROVIDERS: PCP Nurse Practitioner Family; Visit Provider Nurse Practitioner Family
DX: Z00.00 Encounter for general adult medical examination without abnormal findings (principal); I12.9 Hypertensive chronic kidney disease with stage 1 through stage 4 chronic kidney disease, or unspecified chronic kidney disease; N18.9 Chronic kidney disease, unspecified; M17.0 Bilateral primary osteoarthritis of knee; F41.9 Anxiety disorder, unspecified; F32.A Depression, unspecified; J45.909 Unspecified asthma, uncomplicated; Z12.39 Encounter for other screening for malignant neoplasm of breast; Z23 Encounter for immunization
CPT/HCPCS: 90471; 90677; 90715; 96127; 99396

== ENCOUNTER 2023-08-26 17:43 | Inpatient (IN) | payer OTHER, SELFPAY ==
[2023-08-26] VITALS (7 sets, daily range): BP systolic 103–175; BP diastolic 44–91; PULSE 66–100; RESP 11–26; TEMP 36.7; O2SAT 80–100; BMI 56.0
--- NOTE | ~2023-08-26 | XR_ITS ---
EXAMINATION: XR CHEST CLINICAL INFORMATION: Shortness of breath. COMPARISON: Chest radiograph 05/19/2020. CTA chest 05/20/2020. TECHNIQUE: Frontal view of the chest was obtained. FINDINGS: Patient is rotated, limiting evaluation. Stable prominence of the cardiomediastinal silhouette, including unchanged asymmetric engorgement of the right hilum/parahilar region. Mild diffuse interstitial prominence. No focal consolidation, pleural effusion or pneumothorax. No acute osseous findings. XR/XR chest 1V IMPRESSION: Findings suggesting mild pulmonary edema versus infectious/inflammatory process of the small airways.
--- NOTE | ~2023-08-26 | CT_ITS ---
EXAMINATION: CT HEAD WITHOUT CONTRAST CLINICAL INFORMATION: Altered mental status COMPARISON: None available. TECHNIQUE: Contiguous axial imaging was performed from the skull base to vertex without intravenous administration of contrast. This CT examination was performed using dose optimization techniques as appropriate, variously including the following: *Automated exposure control *Adjustment of mA and/or kV according to patient size (this includes techniques or standardized protocols for targeted exams where dose is matched to indication/reason for exam; i.e. extremities or head) *Use of iterative reconstruction technique DLP: 1521 mGy-cm FINDINGS: There is no evidence of acute intracranial hemorrhage or territorial infarction. No abnormal mass-effect is seen. There is mild rightward bowing of the falx, of uncertain chronicity and clinical significance. Gross to white matter differentiation is well preserved. No extra-axial fluid collections are identified. The ventricles are normal in size. There is mild periventricular white matter hypoattenuation consistent with chronic small vessel ischemic disease. The osseous structures and soft tissues are normal. The mastoid air cells and visualized portions of the paranasal sinuses are well-aerated. CT/CT head/brain wo IV con IMPRESSION: Mild rightward bowing of the falx, of uncertain chronicity and clinical significance. No additional findings are seen to suggest edema in the brain parenchyma. Further workup could be performed with pre and postcontrast brain MRI as clinically warranted to exclude an underlying mass lesion.
--- NOTE | ~2023-08-26 | CT_ITS ---
EXAMINATION: CT CHEST WITHOUT CONTRAST CLINICAL INFORMATION: Rule out pneumonia COMPARISON: 05/20/2020, 05/19/2020 TECHNIQUE: Multidetector volumetric CT imaging of the chest was done. Axial MIP volume rendering provided. Sagittal and coronal reformatted images were obtained. This CT examination was performed using dose optimization techniques as appropriate, variously including the following: *Automated exposure control *Adjustment of mA and/or kV according to patient size (this includes techniques or standardized protocols for targeted exams where dose is matched to indication/reason for exam; i.e. extremities or head) *Use of iterative reconstruction technique DLP: 1521 mGy-cm FINDINGS: LUNGS: Limited detailed evaluation due to respiratory motion artifact. There are a few regions of subpleural opacity bilaterally which are more suggestive of atelectasis. No definite superimposed consolidation is seen, though assessment in the perihilar regions is limited due to prominent unenhanced central vasculature. There is a redemonstrated left lower lobe nodule measuring 5 mm on image [id number] which was also present on 05/19/2020, most consistent with a benign etiology for which no specific follow-up is recommended. MEDIASTINUM: The visualized thyroid gland is unremarkable. There is suggestion of a small hiatal hernia. No definite lymphadenopathy is seen, though assessment is limited on this noncontrast exam. There is cardiomegaly without significant pericardial effusion. Scattered calcification along the aorta. CORONARY ARTERY CALCIFICATION: Mild PLEURA: No pneumothorax or pleural effusion. AXILLA: No lymphadenopathy. UPPER ABDOMEN: Mild fatty atrophy of the pancreas. OSSEOUS STRUCTURES: Multilevel degenerative changes in the spine. CT/CT chest wo IV con IMPRESSION: 1. Limited detailed evaluation due to respiratory motion artifact. There are a few regions of subpleural opacity bilaterally which are more suggestive of atelectasis. No definite superimposed consolidation is seen, though assessment in the perihilar regions is limited due to prominent unenhanced central vasculature. 2. Cardiomegaly. 3. Suggestion of a small hiatal hernia. 4. Coronary artery calcifications. Correlation with cardiac risk factors is recommended.
--- NOTE | 2023-08-26 17:51 | ECG_ITS ---
Test Reason : DYSPNEA Blood Pressure : / mmHG Vent. Rate : 075 BPM Atrial Rate : 075 BPM P-R Int : 176 ms QRS Dur : 100 ms QT Int : 360 ms P-R-T Axes : 056 -05 032 degrees QTc Int : 402 ms Normal sinus rhythm Minimal voltage criteria for LVH, may be normal variant ( Bodega product ) Borderline ECG When compared with ECG of 19-MAY-2020 14:42, Vent. rate has increased BY 25 BPM Nonspecific T wave abnormality has replaced inverted T waves in Inferior leads Nonspecific T wave abnormality no longer evident in Anterior leads Referred By: Alanis Root Electronically Signed By:MYA BARRON MD
--- NOTE | 2023-08-26 18:04 | PC.NURSE ---
Placed on BiPAP by respiratory therapist. Dr. Root evaluated the patient at the bedside. Increased work of breathing. Hx asthma. Denies hx of COPD, denies smoking currently or in the past. Acute onset this AM per EMS & patient statements.
[2023-08-26] MEDS: Albuterol Sulfate 5 MG, Albuterol/Iprat 2.5/0.5MG 3 ML 3 ML INHALE (18:10)
--- NOTE | 2023-08-26 18:16 | PC.NURSE ---
18g IV access established in left AC. Patent, functional. Labs drawn and sent for analysis. Awaiting results. EKG in progress. Provider aware.
[2023-08-26 18:19] LABS: MANUAL DIFF FLAG NO
[2023-08-26 18:20] LABS: Basophils Absolute Auto 0.1 X10*3/uL (0.0-0.2); Basophils Percent Auto 0.6 % (0-2); Eosinophils Absolute Auto 0.3 X10*3/uL (0.0-0.4); Eosinophils Percent Auto 2.9 % (0-4); Hematocrit 40.8 % (37.0-47.0); Hemoglobin 12.4 g/dl (12.0-16.0); Imm Gran Abs Auto 0.03 X10*3/uL (0.00-0.03); Imm Gran Pct Auto 0.3 % (0.0-0.4); Lymphocytes Absolute Auto 0.3 X10*3/uL (1.2-4.9); Lymphocytes Percent Auto 3.6 % (20-40); Mean Corpuscular HGB Conc 30.4 g/dl (31.0-35.0); Mean Corpuscular Hemoglobin 29.4 pg (27.0-33.0); Mean Corpuscular Volume 96.7 fL (80.0-98.0); Mean Platelet Volume 9.3 fL (9.4-12.3); Monocytes Absolute Auto 0.7 X10*3/uL (0.1-1.2); Monocytes Percent Auto 7.9 % (2-11); Neutrophils Absolute Auto 7.6 x10*3/uL (2.0-8.3); Neutrophils Percent Auto 84.7 % (45-73); Platelet Count 260 X10*3/uL (160-400); Red Blood Count 4.22 X10*6/uL (4.20-5.50); Red Cell Distribution Width 15.1 % (11.0-16.0)
[2023-08-26 18:21] LABS: Venous Blood Gas Refer to POC result
[2023-08-26 18:21] LABS: VBG HCO3 31 mmol/L (22-26); VBG pCO2 65 mmHg; VBG pH 7.28 (7.32-7.43); VBG pO2 61 mmHg
[2023-08-26 18:26] LABS: Prothrombin Time 11.7 SEC (11.1-13.3)
[2023-08-26 18:34] LABS: Alanine Aminotransferase 16 U/L (0-31); Albumin Level 4.1 g/dL (3.5-5.0); Alkaline Phosphatase 93 U/L (39-117); Anion Gap 10 (12-20); Aspartate Amino Transferase 22 U/L (5-31); Bilirubin Direct 0.3 mg/dL (0.0-0.5); Bilirubin Total 0.5 mg/dL (0.0-1.0); Blood Urea Nitrogen 26 mg/dL (9-16); Calcium 9.2 mg/dL (8.4-10.2); Carbon Dioxide 32 mmol/L (22-29); Chloride 102 mmol/L (96-108); Creatinine Clr Calc Pharmacy 64.9; Estimated Glomerular Filt Rate 47; Glucose Random 136 mg/dL (60-115); Magnesium 2.7 mg/dL (1.6-2.6); Potassium 4.5 mmol/L (3.3-5.1); Sodium 139 mmol/L (135-145); Total Protein 8.3 g/dL (6.5-8.0)
[2023-08-26 18:39] LABS: B Type Natriuretic Peptide 164 pg/mL (<100)
[2023-08-26 18:40] LABS: Troponin-I High Sensitivity 9.5 ng/L (<3.5-17.0)
[2023-08-26 18:45] LABS: COVID-19 Test Negative (Negative); IDNOW Serial# 9DB6401D; IDNOW Serial# BCCEAD1C; Influenza A Negative (Negative); Influenza B2 Negative (Negative)
--- NOTE | 2023-08-26 20:02 | ED.GENADULT ---
HPI - General Adult General Chief complaint: Dyspnea Stated complaint: SOB,HX ASTHMA, 84% RA, ON DUO NEB, 96%CURRENTLY Source: patient and EMS Mode of arrival: EMS Limitations: other (Difficulty breathing) History of Present Illness HPI narrative: Patient comes to the emergency room complaining of severe shortness of breath. Patient states that this morning she woke up with asthma exacerbations, she has used several nebulization treatments but having been working. When EMS arrived, patient's oxygen saturation was in the low 80s. Patient was given per EMS 125 mg Solu-Medrol, DuoNeb, albuterol, 2 g of magnesium. On arrival, patient is somnolent, still able to answer some questions with 1 or 2 words due to the shortness of breath. Denies chest pain. And states that she has never smoked, diagnosis of COPD. Related Data Home Medications Medication Instructions Recorded Confirmed albuterol (refill) 90 mcg inhalation 10/17/20 08/13/23 mcg/actuation aerosol inhaler aripiprazole 2 mg tablet 2 mg PO DAILY 10/17/20 08/13/23 aspirin 81 mg tablet,delayed 81 mg PO DAILY 10/17/20 08/13/23 release bupropion HCl 150 mg 24 hr tablet, 150 mg PO .twice a day 10/17/20 08/13/23 extended release clonazepam 1 mg tablet 1 mg PO TID 10/17/20 08/13/23 fluticasone propionate 220 1 puff inhalation BID 10/17/20 08/13/23 mcg/actuation HFA aerosol inhaler (Flovent HFA) hydrochlorothiazide 25 mg tablet 25 mg PO DAILY 10/17/20 08/13/23 docusate sodium 100 mg tablet 100 mg PO BID 02/01/23 08/13/23 montelukast 10 mg tablet 10 mg PO DAILY 02/01/23 08/13/23 sertraline 100 mg tablet 100 mg PO DAILY 02/01/23 08/13/23 gabapentin 300 mg capsule 300 mg PO DAILY 05/14/23 08/13/23 albuterol sulfate 90 mcg/actuation 2 puff inhalation Q4-6H PRN 05/19/23 08/13/23 aerosol inhaler (Ventolin HFA) Previous Rx's Medication Instructions Recorded atorvastatin 80 mg tablet 80 mg PO DAILY #90 tabs 02/14/21 miscellaneous medical supply 1 miscellaneous DAILY #1 ea 05/14/23 lisinopril 20 mg tablet 20 mg PO DAILY #30 tabs 06/25/23 lidocaine 4 % topical patch 2 patch topical DAILY PRN pain #30 07/23/23 [facility] miscellaneous DAILY #1 ea 08/03/23 amlodipine 5 mg tablet 5 mg PO DAILY #30 tabs 08/04/23 metoprolol succinate 50 mg 50 mg PO DAILY #30 tabs 08/04/23 tablet,extended release 24 hr hospital bed #1 08/13/23 Allergies Allergy/AdvReac Type Severity Reaction Status Date / Time No Known Allergies Allergy Unknown Verified 08/26/23 18:03 [No Known Allergies*] Review of Systems Review of Systems: Constitutional : No Weight loss, No Fever, No Chills, No Night Sweats, No Fatigue, No Malaise ENT/Mouth : No Hearing loss, No Ear Pain, No Nasal Congestion, No Sinus Pain, No Hoarseness, No sore throat, No Rhinorrhea, No Swallowing Difficulty Eyes: No Eye Pain, No Swelling, No Redness, No Foreign Body, No Discharge, No Vision Changes Cardiovascular : No Chest Pain, No SOB, No Dyspnea on Exertion, No Orthopnea, No Edema, No Palpitations Respiratory : Complaining of difficulty breathing since this morning, coughing, no relief from nebulization treatment Gastrointestinal : No Nausea, No Vomiting, No Diarrhea, No Constipation, No abdominal Pain, No Hematochezia, No Melena Genitourinary : no irregular bleeding, No Dysuria, No Urinary Frequency, No Hematuria, No Urinary Incontinence, No Urgency, No Flank Pain, No Urinary Flow Changes, No Hesitancy Musculoskeletal : No joint pain, No Myalgias, No Joint Swelling Skin : No Skin Lesions, No rash Neuro : No Weakness, No Numbness, No Paresthesias, No Loss of Consciousness, No Dizziness, No Headache Psych : No Anxiety/Panic, No Depression, No SI/HI/AH/VH, No Social Issues, Heme/Lymph: No Bruising, No Bleeding,No Lymphadenopathy Endocrine : No Polyuria, No Polydipsia, No Temperature Intolerance [facility] Past Medical History Medical History (Updated 08/27/23 @ 01:32 by Alanis oRot MD) Cocaine abuse History of opioid abuse H/O renal cell cancer Morbid obesity Hypertension Surgical History (Updated 08/13/23 @ 13:30 by JOHN Ray) History of colonoscopy History of right nephrectomy Family History Family History Father HTN (hypertension) Diabetes Mother HTN (hypertension) Diabetes Sister Diabetes Brother HTN (hypertension) Maternal Aunt Breast cancer Social History Social History Housing: Apartment Alcohol intake: never Patient Tobacco Use Status: Never used Tobacco Smoked in Last 30 Days: No Use of substances other than those prescribed or required for medical reasons: No Advance Directives: No Patient : No service: No Cognitive needs: Yes Hearing needs: No Vision needs: No Physical Exam ED Vital Signs: Vital Signs - 24 hr 08/26/23 17:55 08/26/23 18:08 08/26/23 18:10 Temperature 98.0 F Pulse Rate 76 72 Respiratory Rate 26 H 12 14 Blood Pressure 130/63 Pulse Oximetry 99 Oxygen Delivery Method Non-Rebreather Mask Oxygen Flow Rate 08/26/23 20:01 08/26/23 20:02 08/26/23 20:08 Temperature Pulse Rate 66 90 Respiratory Rate 14 14 14 Blood Pressure 121/44 L Pulse Oximetry 100 Oxygen Delivery Method BiPAP Oxygen Flow Rate 08/26/23 23:08 Temperature Pulse Rate 74 Respiratory Rate 11 L Blood Pressure 103/47 L Pulse Oximetry 92 Oxygen Delivery Method BiPAP Oxygen Flow Rate 3 BMI result Body Mass Index 56.0 Const Other: Appearance: Very somnolent, barely arousable Eyes: Pupils equal, round and reactive to light. ENT: Pharynx normal. Neck: Normal inspection. Neck supple. No lymph nodes noted. No crepitus CVS: Normal heart rate and rhythm. Pulses normal. Normal S1 and S2 Respiratory: Patient having difficulty breathing, tachypneic, CPAP, bilateral wheezing, significantly decreased air movement Abdomen: Soft and nontender. No rigidity. No distention. Skin: Skin warm and dry. Normal skin color. Normal skin turgor. Extremities: No lower extremity edema. No Lacerations. No Rash Neuro: Unable to participate in cranial nerve assessment Psych: Somnolent Medications Administered Discontinued Medications Generic Name Dose Route Start Last Admin Trade Name Freq PRN Reason Stop Dose Admin Albuterol Sulfate 5 mg/ 7.5 mg 08/26/23 20:02 08/26/23 20:08 Albuterol Sulfate 2.5 mg INHALE 08/26/23 20:03 7.5 mg ONCE ONE Administration Albuterol Sulfate 5 mg/ 0 mg 08/26/23 17:57 08/26/23 18:10 Albuterol/Ipratropium 3 ml INHALE 08/26/23 17:58 1 each ONCE ONE Administration Medical Decision Making Medical Decision Making [facility] Narrative: -patient was on CPAP, already got Solu-Medrol per EMS, also magnesium, albuterol and DuoNeb -we will continue albuterol treatments and DuoNebs in the ED. -after 2 hours of CPAP, blood gases were checked, no changes. PCO2 still elevated in the mid 60s. -after 4 hours of CPAP in total, the blood gases have no change. However, clinically the patient seems to be slightly more awake, responsive, list wheezing and significantly improved air movement. Patient was switched from CPAP to OxyMask, oxygen saturation remained around 94% on 6 L. No desaturation. However, patient continues being very drowsy. -patient has known history of opiate abuse. Patient's urine toxicology tested negative for opiates with positive for cocaine which patient admits. -I discussed the patient with Dr. Bryson and Dr. Meléndez, borderline admission to ICU versus telemetry unit. For the moment, it would be best to admit the patient to the ICU. Since patient is still significantly somnolent, we will go ahead and restart BiPAP -per ICU request, we will obtain a head CT and a chest CT, results pending, patient has been admitted to the ICU. -patient's urinalysis positive for cocaine. It is possible the cocaine may have triggered patient's asthma exacerbation -chest x-ray shows mild pulmonary edema versus infectious/inflammatory process. More likely this is an inflammatory process. Patient has no history of pulmonary edema. The BNP is slightly elevated which has been elevated in the past, patient is morbidly obese. No history of CHF. Also, patient has no fever, no chills, pneumonia not suspected at this time, no antibiotics indicated. As mentioned above, after 4 hours of CPAP, patient did not improve but not as expected Differential Diagnosis Differential Diagnoses: The differential diagnosis associated with the presentation includes (Asthma, undiagnosed COPD, drug overdose, pneumonia) Admission/Observation Consideration of admission/observation: Escalation of care including admission/observation considered Consult Healthcare Provider Management of the patient was discussed with: Hospitalist and Blanket Cutter Hand Lab Data MDM Lab Attestation statement: I reviewed the patient's lab results. 08/26/23 18:10 08/26/23 18:10 Labs: Lab Results 08/26/23 08/26/23 08/26/23 Range/Units 18:10 18:16 20:20 WBC 9.0 (4.8-10.8) X10*3/uL RBC 4.22 (4.20-5.50) X10*6/uL Hgb 12.4 (12.0-16.0) g/dl Hct 40.8 (37.0-47.0) % MCV 96.7 (80.0-98.0) fL MCH 29.4 (27.0-33.0) pg MCHC 30.4 L (31.0-35.0) g/dl RDW 15.1 (11.0-16.0) % Plt Count 260 D (160-400) X10*3/uL MPV 9.3 L (9.4-12.3) fL Immature Gran % (Auto) 0.3 (0.0-0.4) % Neut % (Auto) 84.7 H (45-73) % Lymph % (Auto) 3.6 L (20-40) % [place] % (Auto) 7.9 (2-11) % Eos % (Auto) 2.9 (0-4) % Baso % (Auto) 0.6 (0-2) % Lymph # (Auto) 0.3 L (1.2-4.9) X10*3/uL [place] # (Auto) 0.7 (0.1-1.2) X10*3/uL Eos # (Auto) 0.3 (0.0-0.4) X10*3/uL Baso # (Auto) 0.1 (0.0-0.2) X10*3/uL Abs Immat Gran (auto) 0.03 (0.00-0.03) X10*3/uL Absolute Neuts (auto) 7.6 (2.0-8.3) x10*3/uL Absolute Nucleated RBC 0.000 (0.0-0.012) X10*3/uL Nucleated RBC % (auto) 0.0 (0.0-0.2) /100WBC PT 11.7 (11.1-13.3) SEC INR 1.0 (0.9-1.1) VBG pH 7.28 L 7.31 L (7.32-7.43) VBG pCO2 65 62 mmHg VBG pO2 61 65 mmHg VBG HCO3 31 H 32 H (22-26) mmol/L VBG O2 Saturation 87.0 91.0 % VBG Base Excess 3.0 4.0 mmol/L Sodium 139 (135-145) mmol/L Potassium 4.5 (3.3-5.1) mmol/L Chloride 102 (96-108) mmol/L Carbon Dioxide 32 H (22-29) mmol/L Anion Gap 10 L (12-20) BUN 26 H (9-16) mg/dL Creatinine 1.17 (0.5-1.4) mg/dL Estim Creat Clear Calc 64.9 Estimated GFR 47 Random Glucose 136 H (60-115) mg/dL Calcium 9.2 (8.4-10.2) mg/dL Magnesium 2.7 H (1.6-2.6) mg/dL Total Bilirubin 0.5 (0.0-1.0) mg/dL Direct Bilirubin 0.3 (0.0-0.5) mg/dL AST 22 (5-31) U/L ALT 16 (0-31) U/L Alkaline Phosphatase 93 (39-117) U/L Troponin I High Sens 9.5 (<3.5-17.0) ng/L B-Natriuretic Peptide 164 H (<100) pg/mL Total Protein 8.3 H (6.5-8.0) g/dL Albumin 4.1 (3.5-5.0) g/dL Urine Color Urine Appearance Urine pH (5.0-9.0) Ur Specific [place] (1.005-1.025) Urine Protein (Neg-Trace) mg/dL Urine Glucose (UA) (Negative) mg/dL Urine Ketones (Negative) mg/dL Urine Blood (Negative) Urine Nitrite (Negative) Ur Leukocyte Esterase (Negative) Urine RBC (0-2) /HPF Urine WBC (0-5) /HPF Ur Squamous Epith Cells (0-2) /HPF Urine Bacteria (None Seen) Hyaline Casts (0-2) /LPF Urine Opiates Screen (Not Detect) Urine Fentanyl Screen (Not Detect) Ur Barbiturates Screen (Not Detect) Ur Phencyclidine Scrn (Not Detect) Ur Amphetamines Screen (Not Detect) U Benzodiazepines Scrn (Not Detect) Urine Cocaine Screen (Not Detect) U Marijuana (THC) Screen (Not Detect) COVID-19 (LUANN) Negative (Negative) COVID-19 Clin Com See Note Influenza Type A (LENA) Negative (Negative) Influenza Type B (LENA) Negative (Negative) Influenza A & B Note See Note 08/26/23 08/26/23 Range/Units 22:46 23:46 WBC (4.8-10.8) X10*3/uL RBC (4.20-5.50) X10*6/uL Hgb (12.0-16.0) g/dl Hct (37.0-47.0) % MCV (80.0-98.0) fL MCH (27.0-33.0) pg MCHC (31.0-35.0) g/dl RDW (11.0-16.0) % Plt Count (160-400) X10*3/uL MPV (9.4-12.3) fL Immature Gran % (Auto) (0.0-0.4) % Neut % (Auto) (45-73) % Lymph % (Auto) (20-40) % [place] % (Auto) (2-11) % Eos % (Auto) (0-4) % Baso % (Auto) (0-2) % Lymph # (Auto) (1.2-4.9) X10*3/uL [place] # (Auto) (0.1-1.2) X10*3/uL Eos # (Auto) (0.0-0.4) X10*3/uL Baso # (Auto) (0.0-0.2) X10*3/uL Abs Immat Gran (auto) (0.00-0.03) X10*3/uL Absolute Neuts (auto) (2.0-8.3) x10*3/uL Absolute Nucleated RBC (0.0-0.012) X10*3/uL Nucleated RBC % (auto) (0.0-0.2) /100WBC PT (11.1-13.3) SEC INR (0.9-1.1) VBG pH 7.30 L (7.32-7.43) VBG pCO2 62 mmHg VBG pO2 95 mmHg VBG HCO3 31 H (22-26) mmol/L VBG O2 Saturation 99.0 % VBG Base Excess 3.5 mmol/L Sodium (135-145) mmol/L Potassium (3.3-5.1) mmol/L Chloride (96-108) mmol/L Carbon Dioxide (22-29) mmol/L Anion Gap (12-20) BUN (9-16) mg/dL Creatinine (0.5-1.4) mg/dL Estim Creat Clear Calc Estimated GFR Random Glucose (60-115) mg/dL Calcium (8.4-10.2) mg/dL Magnesium (1.6-2.6) mg/dL Total Bilirubin (0.0-1.0) mg/dL Direct Bilirubin (0.0-0.5) mg/dL AST (5-31) U/L ALT (0-31) U/L Alkaline Phosphatase (39-117) U/L Troponin I High Sens (<3.5-17.0) ng/L B-Natriuretic Peptide (<100) pg/mL Total Protein (6.5-8.0) g/dL Albumin (3.5-5.0) g/dL Urine Color Yellow Urine Appearance Cloudy Urine pH 5.0 (5.0-9.0) Ur Specific [place] 1.020 (1.005-1.025) Urine Protein 30 (1+) H (Neg-Trace) mg/dL Urine Glucose (UA) Negative (Negative) mg/dL Urine Ketones Negative (Negative) mg/dL Urine Blood Negative (Negative) Urine Nitrite Negative (Negative) Ur Leukocyte Esterase Negative (Negative) Urine RBC 0-2 (0-2) /HPF Urine WBC 0-5 (0-5) /HPF Ur Squamous Epith Cells 3-5 (0-2) /HPF Urine Bacteria 1+ (None Seen) Hyaline Casts 0-2 (0-2) /LPF Urine Opiates Screen Not Detected (Not Detect) Urine Fentanyl Screen Not Detected (Not Detect) Ur Barbiturates Screen Not Detected (Not Detect) Ur Phencyclidine Scrn Not Detected (Not Detect) Ur Amphetamines Screen Not Detected (Not Detect) U Benzodiazepines Scrn Not Detected (Not Detect) Urine Cocaine Screen POSITIVE H (Not Detect) U Marijuana (THC) Screen Not Detected (Not Detect) COVID-19 (LUANN) (Negative) COVID-19 Clin Com Influenza Type A (LENA) (Negative) Influenza Type B (LENA) (Negative) Influenza A & B Note Independent Interpretation I performed an independent interpretation of an: CT Scan Radiology Impression Discussion of test interpretation with radiology: I have reviewed the radiologist's reading. Radiologist Impression: FINDINGS: Patient is rotated, limiting evaluation. Stable prominence of the cardiomediastinal silhouette, including unchanged asymmetric engorgement of the right hilum/parahilar region. Mild diffuse interstitial prominence. No focal consolidation, pleural effusion or pneumothorax. No acute osseous findings. XR/XR chest 1V IMPRESSION: Findings suggesting mild pulmonary edema versus infectious/inflammatory process of the small airways. Critical Care Time Critical Care Time Critical Care Time: Yes Total Critical Care Time: 120 Attestation: I have personally provided critical care time. Time includes review of lab data, radiology results, discussion with consultants, and monitoring for potential decompensation. Intervention performed as documented. Discharge Plan Discharge Clinical Impression: Asthma exacerbation, Cocaine abuse Patient Disposition: Admitted As Inpatient Prescriptions: No Action atorvastatin 80 mg tablet 80 mg PO DAILY Qty: 90 3RF lisinopril 20 mg tablet 20 mg PO DAILY Qty: 30 1RF miscellaneous medical supply Misc 1 ea miscellaneous DAILY Qty: 1 0RF Rx Instructions: Transport wheelchair amlodipine 5 mg tablet 5 mg PO DAILY Qty: 30 1RF metoprolol succinate 50 mg tablet extended release 24 hr 50 mg PO DAILY Qty: 30 1RF montelukast 10 mg tablet 10 mg PO DAILY docusate sodium 100 mg tablet 100 mg PO BID sertraline 100 mg tablet 100 mg PO DAILY (DME) hospital bed Kit See Rx Instructions .Route Qty: 1 0RF Rx Instructions: As directed. Full electric gabapentin 300 mg capsule 300 mg PO DAILY miscellaneous medical supply Kit 1 ea miscellaneous DAILY Qty: 1 0RF Rx Instructions: 1 pair of compression stockings lidocaine [Aspercreme (lidocaine)] 4 % adhesive patch,medicated 2 patch topical DAILY PRN (Reason: pain) Qty: 30 1RF aspirin 81 mg tablet,delayed release (DR/EC) 81 mg PO DAILY hydrochlorothiazide 25 mg tablet 25 mg PO DAILY Flovent HFA 220 mcg/actuation HFA aerosol inhaler 1 puff inhalation BID albuterol (refill) 90 mcg/actuation aerosol inhalation aripiprazole 2 mg tablet 2 mg PO DAILY clonazepam 1 mg tablet 1 mg PO TID bupropion HCl 150 mg tablet extended release 24 hr 150 mg PO .twice a day albuterol sulfate [Ventolin HFA] 90 mcg/actuation HFA aerosol inhaler 2 puff inhalation Q4-6H PRN
[2023-08-26] MEDS: Albuterol Sulfate 5 MG, Albuterol Sulfate (0.083%) 2.5 MG 7.5 MG INHALE (20:08)
[2023-08-26 20:26] LABS: VBG HCO3 32 mmol/L (22-26); VBG pCO2 62 mmHg; VBG pH 7.31 (7.32-7.43); VBG pO2 65 mmHg
[2023-08-26 20:26] LABS: Venous Blood Gas Refer to POC result
--- NOTE | 2023-08-26 20:32 | PC.NURSE ---
pt resting comfortably on stretcher wearing bipap machine. RT in room assessing pt. repeat vbg sent to lab. pt on cardiac catheterization technologist. sister at bedside. resp even and unlabored. pt reporting pain in bilateral LE d/t increased swelling to the ankles. call mojica within reach. plan of care ongoing
[2023-08-26 22:52] LABS: VBG Base Excess 3.5 mmol/L; VBG HCO3 31 mmol/L (22-26); VBG pCO2 62 mmHg; VBG pO2 95 mmHg
[2023-08-26 22:53] LABS: Venous Blood Gas Refer to POC result
[2023-08-27] VITALS (24 sets, daily range): BP systolic 95–142; BP diastolic 41–74; PULSE 59–97; RESP 10–18; TEMP 36.1–37.4; O2SAT 89–97; BMI 53.9
[2023-08-27 00:11] LABS: Appearance Urine Cloudy; Color Urine Yellow; Glucose Urine UA Negative (Negative); Leukocyte Esterase Urine Negative (Negative); Nitrite Urine Negative (Negative); UMIC TRIGGER UACC YES; Urine Blood Negative (Negative); Urine Ketones Negative (Negative); Urine Protein 30 (1+) mg/dL (Neg-Trace)
[2023-08-27 00:14] LABS: Bacteria Urine 1+ (None Seen); Hyaline Casts Urine 0-2 /LPF (0-2); RBC Urine 0-2 /HPF (0-2); WBC Urine 0-5 /HPF (0-5)
--- NOTE | 2023-08-27 00:27 | PC.NURSE ---
@2330 pt taken off bipap placed on 4L oxymask reports relief of breathing symptoms, O2 96%. pt resting comfortably. no increased work of breathing or apparent respiratory distress. aware.
[2023-08-27 01:06] LABS: Amphetamine Screen Urine Not Detected (Not Detect); Barbiturates, Urine Not Detected (Not Detect); Benzodiazepines Screen Urine Not Detected (Not Detect); Cannabinoid Screen Urine Not Detected (Not Detect); Cocaine Screen Urine POSITIVE (Not Detect); Fentanyl, urine Not Detected (Not Detect); Opiate Screen Urine Not Detected (Not Detect); Phencyclidine Screen Urine Not Detected (Not Detect)
--- NOTE | 2023-08-27 01:25 | P.HPCC_ITS ---
History of Present Illness Date of Service: 08/27/23 Attending physician on admission: Tracy Bryson Chief Complaint: Hypercarbic respiratory failure/toxic encephalopathy/cocaine abuse HPI:? 62-year-old female with underlying history of morbid obesity, renal cell carcinoma status post right nephrectomy, hypertension, fibromyalgia and polyarthralgia, anxiety, depression, chronic kidney disease stage 3, asthma, opioid abuse.? Patient presented to the emergency room complaints of shortness of breath satting 85% on room air which improved with a DuoNeb.? Patient's symptoms had started yesterday morning and had been using her nebulizer quite frequently.? Patient was transported via EMS noted her O2 sat was in the low 80s, she received Solu-Medrol 125 mg x 1 along with DuoNeb and albuterol, magnesium and route.? Upon arrival to the emergency room the patient's O2 sat had improved to 96% however the patient had continuously being somnolent, about 2 hours after arrival the patient was placed on BiPAP as her initial VBG showed pH of 7.28, pCO2 65, PO2 61, HC03 of 31, despite of BiPAP for about 4 hours, repeated venous blood gases did not show significant improvement and the patient continues to be somnolent.? It was subsequently noted that the patient's U tox is negative for opioids but positive for cocaine.? Otherwise the remainder of her workup does not have any significant findings on laboratories.? Her chest x- ray however shows slight pattern pulmonary edema to my view.? Her BNP is only 164 but given her significant body habitus this would not correlate with the clinical picture. Currently patient still has some work of breathing, head CT and chest CT is pending, following these studies the patient will be admitted to the ICU for further care. ROS:? Unable to obtain Past Medical History:? As above Past Surgical History: Right nephrectomy Colonoscopy Family history:? Both of her parents, brother and sister had hypertension and diabetes.? Maternal aunt had breast cancer. Social History:? Lives at home, bedbound, prior history of opioid abuse, no history of tobacco or alcohol use. CODE STATUS: FULL CODE Allergies: NKDA Home Medications: See Med Rec PHYSICAL EXAM: VS:? 103/47, 74, 11, 92% on BiPAP 14 over 8 at 21% FiO2 General:? Morbidly obese, Alert, oriented x3 no acute distress, not somnolent at all, speaking full sentences, thought process is coherent.? Following all commands. Skin:? Intact, no lesions, edema, erythema, clubbing or cyanosis.? No ulcers. HEENT:? Head is normocephalic, atraumatic, pupils equal round reactive to light accommodation bilaterally.? Extraocular movements appear intact.? Buccal mucosa is moist, Neck is supple without lymphadenopathy. Cardiac:? Clear S1-S2, no murmurs rubs or gallops. Pulmonary:? Diminished lung sounds bilaterally with fine crackles at the bases and expiratory wheezing, no rhonchi. Abdomen:? Protuberant, positive bowel sounds in all 4 quadrants.? Soft, nontender, no rebound or guarding.? Musculoskeletal:? Moving all 4 extremities upon request a major joints, there is no crepitus or tenderness.? The strength is 5/5 bilaterally and throughout all 4 extremities.? There is no leg edema , no calf tenderness , no leg asymmetry.? Gait not assessed at this point. Neurologic:? As above, cranial nerves 2-12 are grossly intact.? No focal deficits noted. Vascular:? 2+ pulses upper and lower extremities distally. SIGNIFICANT LABORATORY DATA:? As above REVIEW OF IMAGES: CHEST X-RAY IMPRESSION Findings suggesting mild pulmonary edema versus infectious/inflammatory process of the small airways. EKG REVIEW:? To my view this sinus rhythm ventricular rate of 75 beats per minute.? There is no ST elevations, no ST depressions.? LVH criteria.? QTC 402.? No comparison available. ASSESSMENT : 1. Acute hypercarbic respiratory failure 2. Resolved Toxic encephalopathy due to CO2 retention and other substance abuse 3. Acute asthma exacerbation 4. Stable essential hypertension 5. Chronic kidney disease stage 3 (stable) single kidney (left) 6. Chronic polyarthralgia and fibromyalgia 7. Chronic anxiety and depression 8. Cocaine use with prior history of opioid abuse 9. Morbid obesity and bed-bound PLAN OF CARE: Patient will be admitted to the ICU, monitor vital signs, I and O's, case discussed with the ER physician Dr. Root to my kindly asked for a head CT to rule out other causes of her encephalopathy, she will also have a CT of the chest given her ongoing somnolence, I kindly asked her to put her back on BiPAP 14/8 and with a FiO2 achieving a goal O2 sat of 92% or above, will place the patient on standing doses of DuoNeb and steroids, albuterol p.r.n. wheezing, will hold her home medications for now until she is off BiPAP, opiates for work of breathing as needed, avoid sedatives.? Repeat laboratories in the morning as well as venous blood gas.? I do not think the patient is fluid overloaded, order a formal echo.? Avoid BB. GI PROPHYLAXIS:? Famotidine IV DVT PROPHYLAXIS:? Lovenox subQ Critical care time used for critical evaluation of this patient, diagnosis, treatment and coordination of care, review her records and documentation TOTAL CRITICAL CARE TIME 90?? MIN . discussion and coordination with consultants, completely separate from any procedures performed. Patient's care was discussed in detail with Dr. Bryson.? He is aware of all the above as well as the plan of care for this patient. [facility] Past Medical History Medical History Cocaine abuse History of opioid abuse H/O renal cell cancer Morbid obesity Hypertension Family History Family History Father HTN (hypertension) Diabetes Mother HTN (hypertension) Diabetes Sister Diabetes Brother HTN (hypertension) Maternal Aunt Breast cancer Surgical History Surgical History History of colonoscopy History of right nephrectomy Social History Social History Household Members: None Housing: Apartment Do you presently have visiting nurse or other home services: Yes ([facility] TO GIVE METHADONE DAILY, [employer] EVERYDAY) Alcohol intake: never Patient Tobacco Use Status: Never used Tobacco Smoked in Last 30 Days: No Use of substances other than those prescribed or required for medical reasons: Yes Substance Use Type: Crack/Cocaine Substance Use Frequency: Daily Last Used Substance: Days (ago) Currently Displaying Signs/Symptoms of Drug Intoxication Withdrawal: No Any prior treatment program specific to substance use: Yes Have you been hit, kicked, punched, or otherwise hurt by someone within the past year? If so, by whom?: No Do you feel safe in your current relationship?: No Current Relationship Is there a partner from a previous relationship who is making you feel unsafe now?: No Are you made to feel afraid or neglected: No Spiritual Healthcare Practices: PENTACOSTAL Sabianist Healthcare Practices: NONE Cultural Healthcare Practices: NONE Advance Directives: No Do you have thoughts of harming others: None Do you have a plan to hurt others: No Plan Recently lost weight without trying: No Eating poorly because of decreased appetite: No Nutrition Risks: No Nutritional Risk Patient : No : No Poor oral hygiene: No service: No Cognitive needs: Yes Hearing needs: No Vision needs: No Meds Allergies Allergy/AdvReac Type Severity Reaction Status Date / Time No Known Allergies Allergy Unknown Verified 08/26/23 18:03 [No Known Allergies*] Active Medications: Current Medications Albuterol Sulfate (Albuterol Sulfate (0.083%) 2.5 Mg/3 Ml Vial.Neb) 2.5 mg INHALE Q2H PRN PRN Reason: wheezing Famotidine (Famotidine/Pf 20 Mg/2 Ml Vial) 20 mg IVPUSH DAILY ONE Stop: 08/27/23 06:01 Doxycycline Hyclate 100 mg/ (Sodium Chloride) 250 mls @ 166.67 mls/hr IV ONCE ONE Stop: 08/27/23 02:38 Methylprednisolone Sodium Succinate (Methylprednisolone Sod Succ 125 Mg/2 Ml Vial) 60 mg IVPUSH Q8H KENZIE Home Medications Medication Instructions Recorded Confirmed Last Taken Type aripiprazole 2 mg tablet 2 mg PO DAILY 10/17/20 08/27/23 Unknown History aspirin 81 mg tablet,delayed 81 mg PO DAILY 10/17/20 08/27/23 Unknown History release fluticasone propionate 220 1 puff inhalation BID 10/17/20 08/27/23 Unknown History mcg/actuation HFA aerosol inhaler (Flovent HFA) hydrochlorothiazide 25 mg tablet 25 mg PO DAILY 10/17/20 08/27/23 Unknown History montelukast 10 mg tablet 10 mg PO DAILY 02/01/23 08/27/23 Unknown History albuterol sulfate 90 mcg/actuation 2 puff inhalation Q4H PRN Wheezing 05/19/23 08/27/23 Unknown History aerosol inhaler (Ventolin HFA) bupropion HCl 300 mg 24 hr tablet, 300 mg PO QAM 08/27/23 08/27/23 Unknown History extended release clonazepam 1 mg tablet 1.5 mg PO DAILY PRN ANEXITY 08/27/23 08/27/23 Unknown History sertraline 100 mg tablet 150 mg PO DAILY 08/27/23 08/27/23 Unknown History Physical Exam 2 Vital Signs: Vital Signs: Last Vital Signs Temp 98.0 F 08/26/23 17:55 Pulse 74 08/26/23 23:08 Resp 11 L 08/26/23 23:08 BP 103/47 L 08/26/23 23:08 Pulse Ox 92 08/26/23 23:08 O2 Del Method BiPAP 08/26/23 23:08 O2 Flow Rate 3 08/26/23 23:08 BMI result Body Mass Index 56.0 Results Labs 08/27/23 05:11 08/27/23 05:11 Labs: Laboratory Results - last 24 hr 08/26/23 08/26/23 08/26/23 18:10 18:16 20:20 MCV 96.7 MCH 29.4 MCHC 30.4 L RDW 15.1 Plt Count 260 D MPV 9.3 L Immature Gran % (Auto) 0.3 Neut % (Auto) 84.7 H Lymph % (Auto) 3.[address] % (Auto) 7.9 Eos % (Auto) 2.9 Baso % (Auto) 0.6 Lymph # (Auto) 0.[address] # (Auto) 0.7 Eos # (Auto) 0.3 Baso # (Auto) 0.1 Abs Immat Gran (auto) 0.03 Absolute Neuts (auto) 7.6 Absolute Nucleated RBC 0.000 Nucleated RBC % (auto) 0.0 PT 11.7 INR 1.0 VBG pH 7.28 L 7.31 L VBG pCO2 65 62 VBG pO2 61 65 VBG HCO3 31 H 32 H VBG O2 Saturation 87.0 91.0 VBG Base Excess 3.0 4.0 Anion Gap 10 L Estim Creat Clear Calc 64.9 Estimated GFR 47 Random Glucose 136 H Calcium 9.2 Magnesium 2.7 H Total Bilirubin 0.5 Direct Bilirubin 0.3 AST 22 ALT 16 Alkaline Phosphatase 93 B-Natriuretic Peptide 164 H Total Protein 8.3 H Albumin 4.1 Urine Color Urine Appearance Urine pH Ur Specific [place] Urine Protein Urine Glucose (UA) Urine Ketones Urine Blood Urine Nitrite Ur Leukocyte Esterase Urine RBC Urine WBC Ur Squamous Epith Cells Urine Bacteria Hyaline Casts Urine Opiates Screen Urine Fentanyl Screen Ur Barbiturates Screen Ur Phencyclidine Scrn Ur Amphetamines Screen U Benzodiazepines Scrn Urine Cocaine Screen U Marijuana (THC) Screen COVID-19 (LUANN) Negative COVID-19 Clin Com See Note Influenza Type A (LENA) Negative Influenza Type B (LENA) Negative Influenza A & B Note See Note 08/26/23 08/26/23 22:46 23:46 MCV MCH MCHC RDW Plt Count MPV Immature Gran % (Auto) Neut % (Auto) Lymph % (Auto) Lane % (Auto) Eos % (Auto) Baso % (Auto) Lymph # (Auto) Lane # (Auto) Eos # (Auto) Baso # (Auto) Abs Immat Gran (auto) Absolute Neuts (auto) Absolute Nucleated RBC Nucleated RBC % (auto) PT INR VBG pH 7.30 L VBG pCO2 62 VBG pO2 95 VBG HCO3 31 H VBG O2 Saturation 99.0 VBG Base Excess 3.5 Anion Gap Estim Creat Clear Calc Estimated GFR Random Glucose Calcium Magnesium Total Bilirubin Direct Bilirubin AST ALT Alkaline Phosphatase B-Natriuretic Peptide Total Protein Albumin Urine Color Yellow Urine Appearance Cloudy Urine pH 5.0 Ur Specific [place] 1.020 Urine Protein 30 (1+) H Urine Glucose (UA) Negative Urine Ketones Negative Urine Blood Negative Urine Nitrite Negative Ur Leukocyte Esterase Negative Urine RBC 0-2 Urine WBC 0-5 Ur Squamous Epith Cells 3-5 Urine Bacteria 1+ Hyaline Casts 0-2 Urine Opiates Screen Not Detected Urine Fentanyl Screen Not Detected Ur Barbiturates Screen Not Detected Ur Phencyclidine Scrn Not Detected Ur Amphetamines Screen Not Detected U Benzodiazepines Scrn Not Detected Urine Cocaine Screen POSITIVE H U Marijuana (THC) Screen Not Detected COVID-19 (LUANN) COVID-19 Clin Com Influenza Type A (LENA) Influenza Type B (LENA) Influenza A & B Note Imaging Radiologist's Impressions: Impressions Chest X-Ray 08/26/23 19:16 IMPRESSION: Findings suggesting mild pulmonary edema versus infectious/inflammatory process of the small airways.
[2023-08-27] MEDS: Enoxaparin Sodium 40 MG/0.4 ML SYRINGE SUBCUT (01:45)
[2023-08-27] MEDS: methylPREDNISolone Sod Succ 125 MG/2 ML VIAL 60 MG IVPUSH ×3 (01:45→17:53)
[2023-08-27 01:46] LABS: Thyroid Stimulating Hormone 1.43 uIU/mL (0.32-4.0)
[2023-08-27] MEDS: Doxycycline Hyclate 100 MG in 0.9 % Sodium Chloride 250 ML 166.67 MG IV (01:46)
--- NOTE | 2023-08-27 02:04 | PC.NURSE ---
per ED doctor - tried to admit to hospitalist since pt came off bipap, however hospitalist not wiling to accept pt to floor d/t vbg's and feels she needs admit to ICU - ICU accepting pt. pt placed back on bipap for the night to improve vbg. rudi ordered but held d/t BP low BP. DELL Corrales informed pt BP is 99/41 and advised this RN to hold lasix.
[2023-08-27] MEDS: Albuterol/Iprat 2.5/0.5MG 3 ML AMPUL.NEB INHALE ×4 (02:05→20:21)
--- NOTE | 2023-08-27 03:02 | PC.NURSE ---
report called to Yuli DE LEON. pt going to ICU
--- NOTE | 2023-08-27 04:38 | PC.NURSE ---
TO ICU IN NO ACUTE DISTRESS ON BIPAP [id number]/5 AND 21 % O2. O2 SATS 94-95%. PT AWAKE, A&OX3. BIPAP TAKEN OFF AND OXYMASK APPLIED AT 1L FOR ADMISSION ASSESSMENT. PT ABLE TO SPEAK FULL SENTANCES. DENIES PAIN. MONITOR SHOWS NSR, RATE 60'S-70'S, OCC PAC NOTED. BP STABLE 140/74 ON ARRRIVAL. PT SEEN BY PROVIDER NGUYỄN BORRERO PA-C. PLAN TO DO ECHO IN AM. AFTER ADMISSION ASSESSMENT DONE, PT PUT BACK ON BIPAP MASK AND WILL TRY TO NAP BEFORE LAB COMES TO DRAW BLOOD.
[2023-08-27 05:29] LABS: VBG Base Excess 3.7 mmol/L; VBG HCO3 29 mmol/L (22-26); VBG pCO2 48 mmHg; VBG pH 7.39 (7.32-7.43); VBG pO2 70 mmHg
[2023-08-27 05:30] LABS: Venous Blood Gas Refer to POC result
[2023-08-27 05:50] LABS: Basophils Percent Auto 0.2 % (0-2); Hematocrit 36.8 % (37.0-47.0); Hemoglobin 11.2 g/dl (12.0-16.0); Imm Gran Abs Auto 0.03 X10*3/uL (0.00-0.03); Imm Gran Pct Auto 0.6 % (0.0-0.4); Lymphocytes Absolute Auto 0.3 X10*3/uL (1.2-4.9); Lymphocytes Percent Auto 5.3 % (20-40); MANUAL DIFF FLAG SCAN; Mean Corpuscular HGB Conc 30.4 g/dl (31.0-35.0); Mean Corpuscular Hemoglobin 29.9 pg (27.0-33.0); Mean Corpuscular Volume 98.1 fL (80.0-98.0); Mean Platelet Volume 9.6 fL (9.4-12.3); Monocytes Absolute Auto 0.1 X10*3/uL (0.1-1.2); Monocytes Percent Auto 1.2 % (2-11); Neutrophils Absolute Auto 4.5 x10*3/uL (2.0-8.3); Neutrophils Percent Auto 92.7 % (45-73); Platelet Count 244 X10*3/uL (160-400); Red Blood Count 3.75 X10*6/uL (4.20-5.50); Red Cell Distribution Width 15.1 % (11.0-16.0); SCAN SMEAR FLAG 1; White Blood Count 4.9 X10*3/uL (4.8-10.8)
[2023-08-27 06:07] LABS: Alanine Aminotransferase 12 U/L (0-31); Albumin Level 3.6 g/dL (3.5-5.0); Alkaline Phosphatase 71 U/L (39-117); Anion Gap 13 (12-20); Aspartate Amino Transferase 19 U/L (5-31); Bilirubin Total 0.3 mg/dL (0.0-1.0); Blood Urea Nitrogen 27 mg/dL (9-16); Carbon Dioxide 26 mmol/L (22-29); Chloride 105 mmol/L (96-108); Creatinine Clr Calc Pharmacy 64.3; Estimated Glomerular Filt Rate 48; Glucose Random 171 mg/dL (60-115); Potassium 4.5 mmol/L (3.3-5.1); Sodium 139 mmol/L (135-145); Total Protein 7.1 g/dL (6.5-8.0)
[2023-08-27] MEDS: Famotidine/PF 20 MG/2 ML VIAL IVPUSH (06:10)
[2023-08-27 06:32] LABS: SLIDE REVIEW VERIFIED
--- NOTE | 2023-08-27 07:00 | CA_ITS ---
Transthoracic Echocardiogram Patient (Last, First, Middle): Nicolasa Ramirez L Gender: Female Date of : 1960 Age: 62 Procedure Date: 08/27/2023 Procedure Type: Transthoracic Echocardiogram Location: ICU Height: 154.94 cm Weight: 129.28 kg BSA: 2.20 m2 Heart Rate: bpm BP: 128 / 59 mmHg Clinical Documentation Consultant: TO Referring MD: Toñito SHARPE Director Corporate: Jos Hancock MD Symptoms: chf Study Quality: Technically Difficult/contrast ECG Rhythm: Sinus Conclusions: - 1. Normal LV ejection fraction of 60 65% with mild LVH with possible pseudonormal filling pattern 2. At least mildly dilated left atrium 3. Mild mitral regurgitation 4. Upper limits of normal RV systolic pressure with mildly elevated right atrial pressures 5. No gross pericardial effusion Findings Procedure Information Contrast agent, definity, is being given per protocol without apparent complications. Left Ventricle Normal left ventricular size and systolic function. There is mildly increased left ventricular wall thickness. The visually estimated ejection fraction is between 60-65%. Spectral Doppler is indicative of a pseudonormal filling pattern. There is mild septal asymmetric hypertrophy. Right Ventricle The right ventricle was not well visualized. Atria The left atrium is mildly dilated. Interatrial shunt cannot be excluded. The right atrium was not well visualized. Aortic Valve The aortic valve was not well visualized. There is no aortic valve stenosis. There is no aortic valve regurgitation. Mitral Valve The mitral valve was not well visualized. There is mild mitral valve regurgitation. There is no mitral valve stenosis. Pulmonic Valve The pulmonic valve was not well visualized. Tricuspid Valve Likely normal tricuspid valve structure and function. There is mild tricuspid valve regurgitation. Mildly elevated right atrial pressure. There is no evidence of pulmonary hypertension. Great Vessels All visible segments of the aorta are normal in size. The pulmonary artery was not well visualized. Venous The inferior vena cava is mildly dilated and collapses greater than 50% with inspiration. Pericardium/Pleural There is no evidence of pericardial effusion. Prior Study Comparison No significant change compared to prior study dated: 06/09/2017. Measurements 2D Linear Measurements IVSd: 1.44 0.6-0.9/0.6-1.0 cm LVIDd: 5.62 3.9-5.3/4.2-5.9 cm LVIDd Index: 2.55 2.4-3.2/2.2-3.1 cm/m2 LVIDs: 3.90 2.0-3.6 cm LVPWd: 1.05 0.7-1.1 cm LV Mass: 370.14 67-162/88-224 g LV Mass Index: 168.25 43-95/49-115 g/m2 LVOT Diam: 2.10 3.0+(-)1.3 cm 2D Systolic Function EF 4C: 64.80 >55% EF 2C: 57.60 >55% EF BiP: 61.70 >55% Mitral Valve MV VTI: 0.32 MV Pk Jr: 1.13 MV Mn Jr: 0.63 MV Pk Grad: 5.00 MV Mn Grad: 2.00 MV Pk E: 1.10 MV PK A: 0.78 MV Decel Time: 212.00 E/A: 1.40 E'Lateral: 7.40 E'Medial: 5.44 E/E' Med: 20.20 E/E' Lat: 14.90 PHT: 62.00 MVA PHT: 3.55 MVA Continuity: 3.21 Decel Rooks: 5.17 Aortic Valve AoV Pk Jr: 2.02 AoV Mn Jr: 1.27 AoV VTI: 0.37 AoV Pk Grad: 16.00 Aov Mn Grad: 7.00 DANIELLA Cont.VTI: 2.78 LVOT LVOT Pk Jr: 1.33 LVOT Mn Jr: 0.95 LVOT VTI: 0.30 LVOT Pk Grad: 7.00 LVOT Mn Grad: 4.00 LVOT Diam: 2.10 LVOT Area: 3.46 Diastolic Function MV Pk E: 1.10 MV Pk A: 0.78 E/A: 1.40 E'Medial: 5.44 E/E' Med: 20.20 E' Laterial: 7.40 E/E' Lat: 14.90 Right Ventricle TAPSE (mm): 29.80 TVS' Jr: 18.20 Tricuspid Valve TR Pk Jr: 2.74 TR Pk Grad: 30.00 RA Press: 8.00 RVSP: 38.00 Great Vessels Aorta Sinus of Valsalva: 3.52 2.0-3.[address] [place]: 2.71 1.7-3.4 cm Ao Asc: 3.40 2.1-3.4 cm Updated in Other Vendor System with Status of Final Jos Hancock MD electronically signed on 08/27/2023 1:23:56 PM with status of Final
--- NOTE | 2023-08-27 09:28 | HE.PHANOTE ---
RE: METHADONE VERIFICATION Last methadone dose 43mg was given on 08/26/23 per Leslie HALE ([facility], Estela Macdonald RN [phone]).
--- NOTE | 2023-08-27 09:51 | MHC.CM.PN ---
Addendum entered by Hailee Nava RN 08/27/23 10:18: PT'S VISITING NURSE FROM [facility] IS DAWSON [phone] Original Note: IMM 08/27/2023, EMR REVIEWED, PT ADMITTED HYPERCARBIC RESP FAILURE, ON BIPAP INITIALLY AND NOW ON 2L NC. ANTIC PT WILL DOWNGRADE TO MEDICAL UNIT TODAY. PT IS SERBIAN SPEAKING AND REPORTS SHE LIVES ALONE IN [place] AND SON LIVES IN [place] ABOVE HER, MS REPORTS SHE HAS A NEBULIZER, A CANE/WALKER AND A WC FOR OUTINGS. PT ACTIVE W/ [facility] FOR DAILY METHADONE DELIVERY, REFERRAL PLACED. PT REPORTS GOAL FOR DC IS HOME W/RESUMPTION OF SERVICES, PT'S SISTER GEORGETET FOR TRANSPORT. PT REPORTS SHE IS FULLY VACC FOR COVID 19, PCP IS BO BALTAZAR AND HCP IS SISTER/PRIMARY CONTACT [address] [phone].
[2023-08-27] MEDS: lisinopriL 20 MG TABLET PO (10:27)
[2023-08-27] MEDS: Atorvastatin Calcium 80 MG TABLET PO (10:27)
[2023-08-27] MEDS: Aspirin 81 MG TAB.CHEW PO (10:27)
[2023-08-27] MEDS: amLODIPine Besylate 5 MG TABLET PO (10:27)
[2023-08-27] MEDS: methADONE HCl 20 MG/2 ML ORAL.CONC 43 MG PO (10:28)
[2023-08-27] MEDS: hydroCHLOROthiazide 25 MG TABLET PO (10:28)
--- NOTE | 2023-08-27 10:42 | PHA.MEDREC ---
Pharmacy Consult ? Medication Reconciliation Pharmacy has completed the medication reconciliation.
[2023-08-27] MEDS: cefTRIAXone sodium 1 GM in 0.9 % Sodium Chloride 50 ML IV (12:05)
[2023-08-27] MEDS: Azithromycin 500 MG TABLET PO (12:07)
[2023-08-27] MEDS: Montelukast Sodium 10 MG TABLET PO (21:22)
--- NOTE | 2023-08-27 22:57 | PC.RT ---
Pt started on overnight sleep study on room air. RN aware
[2023-08-28] VITALS (9 sets, daily range): BP systolic 103–151; BP diastolic 60–76; PULSE 62–89; RESP 16–20; TEMP 36.1–36.6; O2SAT 90–96
[2023-08-28] MEDS: Acetaminophen 325 MG TABLET 650 MG PO (01:50)
[2023-08-28] MEDS: methylPREDNISolone Sod Succ 125 MG/2 ML VIAL 60 MG IVPUSH ×4 (01:51→23:47)
--- NOTE | 2023-08-28 04:31 | ECG_ITS ---
Test Reason : afib Blood Pressure : / mmHG Vent. Rate : 058 BPM Atrial Rate : 000 BPM P-R Int : 000 ms QRS Dur : 116 ms QT Int : 396 ms P-R-T Axes : 000 193 185 degrees QTc Int : 388 ms Atrial fibrillation with slow ventricular response Right superior axis deviation ST & T wave abnormality, consider inferior ischemia Abnormal ECG When compared with ECG of 26-AUG-2023 18:16, Atrial fibrillation has replaced Sinus rhythm QRS axis Shifted left T wave inversion now evident in Inferior leads Referred By: Viry Vivar Electronically Signed By:DELANO DOWLING
--- NOTE | 2023-08-28 04:38 | ECG_ITS ---
Test Reason : afib Blood Pressure : / mmHG Vent. Rate : 063 BPM Atrial Rate : 000 BPM P-R Int : 000 ms QRS Dur : 118 ms QT Int : 394 ms P-R-T Axes : 000 193 181 degrees QTc Int : 403 ms Atrial fibrillation with premature ventricular or aberrantly conducted complexes and with ventricular escape complexes Right superior axis deviation Non-specific intra-ventricular conduction delay ST & T wave abnormality, consider inferior ischemia Abnormal ECG When compared with ECG of 28-AUG-2023 04:37, No significant changes seen Referred By: Viry Vivar Electronically Signed By:DELANO DOWLING
[2023-08-28] MEDS: Albuterol Sulfate (0.083%) 2.5 MG/3 ML VIAL.NEB INHALE (06:41)
[2023-08-28 08:44] LABS: Hematocrit 41.1 % (37.0-47.0); Hemoglobin 12.7 g/dl (12.0-16.0); Mean Corpuscular HGB Conc 30.9 g/dl (31.0-35.0); Mean Corpuscular Volume 97.2 fL (80.0-98.0); Mean Platelet Volume 9.5 fL (9.4-12.3); Platelet Count 239 X10*3/uL (160-400); Red Blood Count 4.23 X10*6/uL (4.20-5.50); Red Cell Distribution Width 15.2 % (11.0-16.0)
[2023-08-28 09:04] LABS: Anion Gap 11 (12-20); Blood Urea Nitrogen 29 mg/dL (9-16); Calcium 8.7 mg/dL (8.4-10.2); Carbon Dioxide 27 mmol/L (22-29); Chloride 105 mmol/L (96-108); Creatinine Clr Calc Pharmacy 59.7; Estimated Glomerular Filt Rate 44; Glucose Random 162 mg/dL (60-115); Potassium 4.6 mmol/L (3.3-5.1); Sodium 138 mmol/L (135-145)
[2023-08-28] MEDS: methADONE HCl 20 MG/2 ML ORAL.CONC 43 MG PO (09:46)
[2023-08-28] MEDS: cefTRIAXone sodium 1 GM in 0.9 % Sodium Chloride 50 ML IV (09:47)
[2023-08-28] MEDS: Atorvastatin Calcium 80 MG TABLET PO (09:47)
[2023-08-28] MEDS: Aspirin 81 MG TAB.CHEW PO (09:47)
[2023-08-28] MEDS: hydroCHLOROthiazide 25 MG TABLET PO (09:47)
[2023-08-28] MEDS: Azithromycin 500 MG TABLET PO (09:47)
[2023-08-28] MEDS: ARIPiprazole 2 MG TABLET PO (11:15)
[2023-08-28] MEDS: clonazePAM 0.5 MG TABLET 1.5 MG PO (11:15)
[2023-08-28] MEDS: Albuterol/Iprat 2.5/0.5MG 3 ML AMPUL.NEB INHALE ×3 (12:00→20:23)
--- NOTE | 2023-08-28 12:20 | HO.PM.IMPN ---
Subjective Subjective Date of Service: 08/28/23 Interval History: seen and examined this morning follow up for respiratory failure downgraded from the ICU on 08/27 reports improvement in breathing although still endorses wheezing, dry cough Review of Systems Review of Systems: Yes all other systems are reviewed and are negative Constitutional Constitutional: Denies chills and Denies fever(s) Cardiovascular Cardiovascular: Denies chest pain and Denies palpitations Respiratory Respiratory: Reports cough Gastrointestinal Gastrointestinal: Denies abdominal pain Endocrine Endocrine: Denies palpitations Physical Exam Vital Signs: Vital Signs: Last Vital Signs Temp 97.5 F 08/28/23 11:16 Pulse 73 08/28/23 12:00 Resp 16 08/28/23 12:00 BP 151/71 H 08/28/23 11:16 Pulse Ox 94 08/28/23 11:16 O2 Del Method Nasal Cannula 08/28/23 11:16 O2 Flow Rate 2 08/28/23 11:16 FiO2 24 08/27/23 08:00 BMI result Body Mass Index 53.9 Const: General: cooperative, comfortable, alert and awake Nutritional Appearance: obese Orientation/consciousness: patient oriented x3 Resp: Other: b/l expiratory wheezing Effort & Inspection: normal respiratory effort, able to speak in complete sentences and no respiratory distress Cardio: Rate: regular rate Rhythm: abnormal rhythm irregularly irregular GI: Inspection: Yes obesity Palpation (GI): Soft to palpation and nontender Neuro: General: patient oriented x3, moves all extremities and CN's II-XI intact bilaterally Extrem: General: Yes no pedal edema Objective Data Active Medications Acetaminophen (Acetaminophen 325 Mg Tablet) 650 mg PO Q6H PRN PRN Reason: Headache Last Admin: 08/28/23 01:50 Dose: 650 mg Documented By: CHARY Albuterol Sulfate (Albuterol Sulfate (0.083%) 2.5 Mg/3 Ml Vial.Neb) 2.5 mg INHALE Q2H PRN PRN Reason: wheezing Last Admin: 08/28/23 06:41 Dose: 2.5 mg Documented By: CLEO Albuterol/Ipratropium (Albuterol/Iprat 2.5/0.5mg 3 Ml Ampul.Neb) 3 ml INHALE RQ4H WHILE AWAKE KENZIE Last Admin: 08/28/23 12:00 Dose: 3 ml Documented By: GRZEGORZ Amlodipine Besylate (Amlodipine Besylate 5 Mg Tablet) 5 mg PO DAILY [facility]; Protocol Last Admin: 08/27/23 10:27 Dose: 5 mg Documented By: CORTNEY Aripiprazole (Aripiprazole 2 Mg Tablet) 2 mg PO DAILY [facility] Last Admin: 08/28/23 11:15 Dose: 2 mg Documented By: ROSA M Aspirin (Aspirin 81 Mg Tab.Chew) 81 mg PO DAILY [facility] Last Admin: 08/28/23 09:47 Dose: 81 mg Documented By: ROSA M Atorvastatin Calcium (Atorvastatin Calcium 80 Mg Tablet) 80 mg PO DAILY KENZIE Last Admin: 08/28/23 09:47 Dose: 80 mg Documented By: ROSA M Azithromycin (Azithromycin 500 Mg Tablet) 500 mg PO Q24H KENZIE Last Admin: 08/28/23 09:47 Dose: 500 mg Documented By: ROSA M Clonazepam (Clonazepam 0.5 Mg Tablet) 1.5 mg PO DAILY PRN PRN Reason: ANEXITY Last Admin: 08/28/23 11:15 Dose: 1.5 mg Documented By: ROSA M Guaifenesin/Dextromethorphan (Guaifenesin Dm 100/10/5 Ml 5 Ml Syrup) 5 ml PO Q6H PRN PRN Reason: Cough Hydrochlorothiazide (Hydrochlorothiazide 25 Mg Tablet) 25 mg PO DAILY [facility]; Protocol Last Admin: 08/28/23 09:47 Dose: 25 mg Documented By: ROSA M Ceftriaxone Sodium 1 gm/ (Sodium Chloride) 50 mls @ 100 mls/hr IV Q24H [facility] Last Infusion: 08/28/23 10:34 Dose: Infused Documented By: ROSA M Lisinopril (Lisinopril 20 Mg Tablet) 20 mg PO DAILY [facility]; Protocol Last Admin: 08/27/23 10:27 Dose: 20 mg Documented By: CORTNEY Methadone HCl (Methadone Hcl 20 Mg/2 Ml Oral.Conc) 43 mg PO DAILY [facility] Last Admin: 08/28/23 09:46 Dose: 43 mg Documented By: ROSA M Methylprednisolone Sodium Succinate (Methylprednisolone Sod Succ 125 Mg/2 Ml Vial) 60 mg IVPUSH Q12H [facility] Last Admin: 08/28/23 11:15 Dose: 60 mg Documented By: ROSA M Montelukast Sodium (Montelukast Sodium 10 Mg Tablet) 10 mg PO BEDTIME KENZIE Last Admin: 08/27/23 21:22 Dose: 10 mg Documented By: CHARY Labs 08/28/23 08:30 08/28/23 08:30 Labs: Laboratory Results - last 24 hr 08/28/23 08:30 MCV 97.2 MCH 30.0 MCHC 30.9 L RDW 15.2 Plt Count 239 MPV 9.5 Absolute Nucleated RBC 0.000 Nucleated RBC % (auto) 0.0 Anion Gap 11 L Estim Creat Clear Calc 59.7 Estimated GFR 44 Random Glucose 162 H Calcium 8.7 Assessment and Plan (1) Asthma exacerbation: Status: Acute Plan This is a 62-year-old female with underlying history of morbid obesity, renal cell carcinoma status post right nephrectomy, hypertension, fibromyalgia and polyarthralgia, anxiety, depression, chronic kidney disease stage 3, asthma, opioid abuse.? Patient presented to the emergency room complaints of shortness of breath satting 85% on room air and was admitted to the ICU for bipap. Acute hypoxic and hypercarbic respiratory failure due to asthma, obesity hypoventilation, and cocaine use and possible [place] s/p bipap in ICU, now on 2L NC start to wean steroids continue breathing treatments was covered empirically for possible pna, no definite evidence on CT, will d/c ceftriaxone, azithromycin possible [place] had sleep study overnight will need outpatient follow up with pulmonology to obtain results new onset atrial fibrillation echo from preserved EF [id number] - currently on ASA, will obtain cardiology input regarding need for anticoagulation rate controlled TSH, mag wnl avoid BB due to cocaine use cardiology consult pending toxic encephalopathy due to co2 retention, and substance abuse resolved HTN bp was soft norvasc, lisinopril, metoprolol on hold HCTZ continued follow bp closely ckd3 renal function at baseline HLD continue statin anxiety/depression resume home meds, abilify, klonopin h/o cocaine use seen by addiction medicine h/o opiate abuse on methadone at baseline per patient morbid obesity bmi 53.9 likely contributing to respiratory issues dvt ppx - lovenox attending - dr. arciniega patient requires ongoing inpatient stay for cardiology eval, cardiac monitoring, new afib, supplemental o2 Quality Stroke Does the patient have a stroke diagnosis?: No VTE Prior VTE?: No VTE Risk Level:: Medical - moderate - high VTE Device Contraindication: N/A - Device Ordered VTE Drug Contraindication: N/A - Med Ordered
[2023-08-28] MEDS: guaiFENesin DM 100/10/5 ML 5 ML SYRUP PO (13:02)
[2023-08-28] MEDS: Sertraline HCL 50 MG TABLET 150 MG PO (13:02)
--- NOTE | 2023-08-28 14:53 | MHC.RECOVRN ---
Recovery Support note: 62 year old Slovenian/Lao speaking female presented to [facility] ED on 08/26/23 via EMS for Resp. distress.? She was subsequently admitted to ICU and then tx to [facility] [place] where she is currently being treated for respiratory failure. T/w, met with pt to discuss opiate and cocaine use. Pt reports that she started using heroin via nasal route in her mid 30?s.? She was using a bag a day up until approx..a little over a year ago when she started methadone. Pt is currently receiving methadone 43mg/day for opiate use and reports effectiveness at this dose. No observed or reported cravings/W/D sx.? ?Pt reports that approx. 6 months ago she started using cocaine and has used ever since, approx.. ?2 sniffs a day?.? Up until now she has been unable to stop her cocaine use.? ?Pt denies IVDU or overdoses. Pt reports that she has narcan at home She reports that her father suffered from AUD but at an early age.? She shares her sadness of losing her mother a few years ago and not being able to be there due to her substance use.? She has gone to therapy in the past and it has helped and is interested in trying again.? She also shares a strong support sx in her pentecostal.? ??Pt reports family h/o alcoholism in both parents.? Pt reports he attended detox for drinking ?a few times? several years ago and that it was effective for a brief period.? Pt sees his drinking as now effecting his marriage, family relationships and health and wants to stop. Pt denied any other ongoing substance use.? ? Medication for StUD was discussed with patient along with services available to include CCC and therapy.? Harm reduction education was also provided to pt.? T/W will bring additional resources to pt. tomorrow and attempt to get her a clinic appt. prior to her D/C.? Case discussed with patients RN and Yaritza Andrews. T/w available as needed.
[2023-08-28] MEDS: Enoxaparin Sodium 40 MG/0.4 ML SYRINGE SUBCUT (18:07)
[2023-08-28] MEDS: Montelukast Sodium 10 MG TABLET PO (20:27)
[2023-08-28] MEDS: Fluticasone Propionate 250 MCG BLST.W.DEV 1 PUFF INHALE (20:35)
[2023-08-29] VITALS (10 sets, daily range): BP systolic 99–154; BP diastolic 66–99; PULSE 57–84; RESP 18–20; TEMP 36.1–36.8; O2SAT 90–100
[2023-08-29] MEDS: Albuterol/Iprat 2.5/0.5MG 3 ML AMPUL.NEB INHALE ×3 (08:11→20:08)
[2023-08-29] MEDS: Fluticasone Propionate 250 MCG BLST.W.DEV 1 PUFF INHALE ×2 (08:12→20:09)
[2023-08-29] MEDS: hydroCHLOROthiazide 25 MG TABLET PO (09:29)
[2023-08-29] MEDS: Atorvastatin Calcium 80 MG TABLET PO (09:29)
[2023-08-29] MEDS: Sertraline HCL 50 MG TABLET 150 MG PO (09:29)
[2023-08-29] MEDS: buPROPion HCl XL 300 MG TAB.ER.24H PO (09:29)
[2023-08-29] MEDS: methADONE HCl 20 MG/2 ML ORAL.CONC 43 MG PO (09:29)
[2023-08-29] MEDS: Aspirin 81 MG TAB.CHEW PO (09:29)
[2023-08-29] MEDS: ARIPiprazole 2 MG TABLET PO (09:35)
--- NOTE | 2023-08-29 10:46 | P.CONCA_ITS ---
History of Present Illness History of Present Illness Date of Service: 08/29/23 Consult reason: atrial fibrillation Chief complaint: Hypercarbic Resp Failure Narrative: I was consulted to see Nicolasa in cardiology consultation today for atrial fibrillation which is new onset. Patient is 62-year-old female with prior history of morbid obesity, asthma, hypertension, chronic kidney disease, cocaine use by urine toxicology this admission. Patient came to the hospital with acute shortness of breath diagnosed with asthma exacerbation. Was admitted to intensive care unit treated and subsequently transferred to the hospitalist team. Patient was noted to have new onset atrial fibrillation with controlled ventricular response by EKG. Patient denies any clear symptoms of palpitation or rapid heart rate. Heart rate at rest as remained controlled in the 70s and 80s although with mobility goes up to 160 beats per minute with going to the bathroom. Patient denies any worsening symptoms of shortness of breath, chest pain, lightheadedness, syncope. Cardiology consult was sought for new onset atrial fibrillation. Patient has no prior history of atrial fibrillation. Denies prior history of cardiac issues including prior history of heart attack or congestive heart failure. No history of diabetes. Echocardiogram was done while in intensive care unit which showed normal LV ejection fraction with pseudonormal filling pattern and mildly dilated left atrium. Patient has been told that she has sleep apnea but no results of sleep study in the chart here. Patient in between prior to this asthma exacerbation says walks around the house with help of a walker. Not on chronic oxygen therapy. Review of Systems 2 Constitutional: Constitutional: Reports no additional constitutional complaints Cardiovascular: Cardiovascular: Denies chest pain, Denies lightheadedness, Denies Loss of Consciousness, Denies palpitations and Reports dyspnea on exertion Respiratory: Respiratory: Reports dyspnea on exertion Gastrointestinal: Gastrointestinal: Reports no additional gastrointestinal complaints Genitourinary: Genitourinary: Reports no additional female genitourinary complaints Neurologic: Reports system reviewed and no additional complaints, except as documented Psychiatric: Psychiatric: Reports no additional psychiatric complaints Endocrine: Endocrine: Reports no additional endocrine complaints and Denies palpitations PMFSH Past Medical History Medical History Cocaine abuse History of opioid abuse H/O renal cell cancer Morbid obesity Hypertension Family History Family History Father HTN (hypertension) Diabetes Mother HTN (hypertension) Diabetes Sister Diabetes Brother HTN (hypertension) Maternal Aunt Breast cancer Surgical History Surgical History History of colonoscopy History of right nephrectomy Social History Social History Household Members: None Housing: Apartment Do you presently have visiting nurse or other home services: Yes ([facility] TO GIVE METHADONE DAILY, NEEDLE LO[employer] EVERYDAY) Alcohol intake: never Patient Tobacco Use Status: Never used Tobacco Smoked in Last 30 Days: No Use of substances other than those prescribed or required for medical reasons: Yes Substance Use Type: Crack/Cocaine Substance Use Frequency: Daily Last Used Substance: Days (ago) Currently Displaying Signs/Symptoms of Drug Intoxication Withdrawal: No Any prior treatment program specific to substance use: Yes Have you been hit, kicked, punched, or otherwise hurt by someone within the past year? If so, by whom?: No Do you feel safe in your current relationship?: No Current Relationship Is there a partner from a previous relationship who is making you feel unsafe now?: No Are you made to feel afraid or neglected: No Spiritual Healthcare Practices: [facility] Practices: NONE Cultural Healthcare Practices: NONE Advance Directives: No Do you have thoughts of harming others: None Do you have a plan to hurt others: No Plan Recently lost weight without trying: No Eating poorly because of decreased appetite: No Nutrition Risks: No Nutritional Risk Patient : No : No Poor oral hygiene: No service: No Cognitive needs: Yes Hearing needs: No Vision needs: No Meds Allergies Allergy/AdvReac Type Severity Reaction Status Date / Time No Known Allergies Allergy Unknown Verified 08/26/23 18:03 [No Known Allergies*] Active Medications: Current Medications Acetaminophen (Acetaminophen 325 Mg Tablet) 650 mg PO Q6H PRN PRN Reason: Headache Last Admin: 08/28/23 01:50 Dose: 650 mg Albuterol Sulfate (Albuterol Sulfate (0.083%) 2.5 Mg/3 Ml Vial.Neb) 2.5 mg INHALE Q2H PRN PRN Reason: wheezing Last Admin: 08/28/23 06:41 Dose: 2.5 mg Albuterol/Ipratropium (Albuterol/Iprat 2.5/0.5mg 3 Ml Ampul.Neb) 3 ml INHALE RQ4H WHILE AWAKE [facility] Last Admin: 08/29/23 08:11 Dose: 3 ml Apixaban (Apixaban 5 Mg Tablet) 5 mg PO BID [facility] Aripiprazole (Aripiprazole 2 Mg Tablet) 2 mg PO DAILY [facility] Last Admin: 08/29/23 09:35 Dose: 2 mg Atorvastatin Calcium (Atorvastatin Calcium 80 Mg Tablet) 80 mg PO DAILY [facility] Last Admin: 08/29/23 09:29 Dose: 80 mg Bupropion HCl (Bupropion Hcl Xl 300 Mg Tab.Er.24h) 300 mg PO DAILY [facility] Last Admin: 08/29/23 09:29 Dose: 300 mg Clonazepam (Clonazepam 0.5 Mg Tablet) 1.5 mg PO DAILY PRN PRN Reason: ANEXITY Last Admin: 08/28/23 11:15 Dose: 1.5 mg Diltiazem HCl (Diltiazem Hcl Cd 180 Mg Cap.Er.24h) 180 mg PO DAILY [facility]; Protocol Fluticasone Propionate (Fluticasone Propionate 250 Mcg Blst.W.Dev) 1 puff INHALE RBID [facility] Last Admin: 08/29/23 08:12 Dose: 1 puff Guaifenesin/Dextromethorphan (Guaifenesin Dm 100/10/5 Ml 5 Ml Syrup) 5 ml PO Q6H PRN PRN Reason: Cough Last Admin: 08/28/23 13:02 Dose: 5 ml Hydrochlorothiazide (Hydrochlorothiazide 25 Mg Tablet) 25 mg PO DAILY [facility]; Protocol Last Admin: 08/29/23 09:29 Dose: 25 mg Lisinopril (Lisinopril 20 Mg Tablet) 20 mg PO DAILY [facility]; Protocol Last Admin: 08/27/23 10:27 Dose: 20 mg Methadone HCl (Methadone Hcl 20 Mg/2 Ml Oral.Conc) 43 mg PO DAILY [facility] Last Admin: 08/29/23 09:29 Dose: 43 mg Methylprednisolone Sodium Succinate (Methylprednisolone Sod Succ 125 Mg/2 Ml Vial) 60 mg IVPUSH Q12H KENZIE Last Admin: 08/28/23 23:47 Dose: 60 mg Montelukast Sodium (Montelukast Sodium 10 Mg Tablet) 10 mg PO BEDTIME KENZIE Last Admin: 08/28/23 20:27 Dose: 10 mg Sertraline HCl (Sertraline Hcl 50 Mg Tablet) 150 mg PO DAILY KENZIE Last Admin: 08/29/23 09:29 Dose: 150 mg Home Medications Medication Instructions Recorded Confirmed Last Taken Type aripiprazole 2 mg tablet 2 mg PO DAILY 10/17/20 08/27/23 Unknown History aspirin 81 mg tablet,delayed 81 mg PO DAILY 10/17/20 08/27/23 Unknown History release fluticasone propionate 220 1 puff inhalation BID 10/17/20 08/27/23 Unknown History mcg/actuation HFA aerosol inhaler (Flovent HFA) hydrochlorothiazide 25 mg tablet 25 mg PO DAILY 10/17/20 08/27/23 Unknown History montelukast 10 mg tablet 10 mg PO DAILY 02/01/23 08/27/23 Unknown History albuterol sulfate 90 mcg/actuation 2 puff inhalation Q4H PRN Wheezing 05/19/23 08/27/23 Unknown History aerosol inhaler (Ventolin HFA) bupropion HCl 300 mg 24 hr tablet, 300 mg PO QAM 08/27/23 08/27/23 Unknown History extended release clonazepam 1 mg tablet 1.5 mg PO DAILY PRN ANEXITY 08/27/23 08/27/23 Unknown History sertraline 100 mg tablet 150 mg PO DAILY 08/27/23 08/27/23 Unknown History methadone 10 mg/mL oral 43 mg PO DAILY 08/28/23 08/28/23 08/26/23 History concentrate (Methadone Intensol) Physical Exam 2 Vital Signs: Vital Signs: Last Vital Signs Temp 98.3 F 08/29/23 08:00 Pulse 59 08/29/23 08:13 Resp 18 08/29/23 08:13 BP 154/99 H 08/29/23 08:00 Pulse Ox 96 08/29/23 08:00 O2 Del Method Nasal Cannula 08/29/23 08:00 O2 Flow Rate 2 08/29/23 00:00 FiO2 24 08/27/23 08:00 BMI result Body Mass Index 53.9 Const: General: cooperative, comfortable, no acute distress, alert and awake Nutritional Appearance: obese morbidly obese Orientation/consciousness: p atient oriented x3 HEENT: Head: Yes normocephalic and Yes atraumatic Neck: Neck: Yes trachea midline, Yes supple and Yes no JVD Resp: Effort & Inspection: normal respiratory effort Auscultation: clear to auscultation bilaterally Cardio: Jugular venous distension: no JVD Rhythm: abnormal rhythm irregularly irregular Heart sounds: S1 normal heart sound present, S2 normal heart sound present, no click, no gallops, no murmurs and no rubs GI: Auscultation: normal bowel sounds Skin: General skin exam: no rashes or lesions noted Neuro: General: patient oriented x3 and no focal motor deficits Extrem: General: Yes no clubbing, cyanosis or edema Objective Labs and Meds 08/28/23 08:30 08/28/23 08:30 Assessment and Plan (1) Atrial fibrillation: Status: Acute New onset atrial fibrillation this middle-aged woman with morbid obesity and hypertension risk factor with high likelihood of underlying obstructive sleep apnea. Will need sleep study as an outpatient. Currently rate is not controlled when she is moving around and will require rate control therapy. Will start on Cardizem CD 1 80 mg daily given her underlying asthma. Also CHADSVASc score of 2-3 with left atrial enlargement makes her at high risk for thromboembolic complication. Will start on Eliquis 5 mg b.i.d.. Discussed with her about it. She is agreeable. If rate remains controlled by tomorrow can potentially be discharged home tomorrow with outpatient follow-up for discussion for rhythm control. Complete cessation of cocaine as a stimulant should be pursued. Will set up for outpatient Holter and sleep study. Will sign of the case and follow-up as outpatient. Thank you for allowing me to partake in the care Procedures Date of Service Date of Service: 08/29/23
[2023-08-29] MEDS: methylPREDNISolone Sod Succ 125 MG/2 ML VIAL 60 MG IVPUSH ×2 (11:00→22:50)
[2023-08-29] MEDS: Apixaban 5 MG TABLET PO ×2 (11:00→20:36)
[2023-08-29] MEDS: dilTIAZem HCL CD 180 MG CAP.ER.24H PO (11:00)
--- NOTE | 2023-08-29 12:21 | P.PNIM_ITS ---
Subjective Subjective Date of Service: 08/29/23 Interval History: seen and examined this morning follow up for respiratory failure, asthma reports improvement in breathing, no fever, no significant cough and denies sob at rest desaturates with ambulation Review of Systems Review of Systems: Yes all other systems are reviewed and are negative Physical Exam 2 Vital Signs: Vital Signs: Last Vital Signs Temp 97.9 F 08/29/23 11:06 Pulse 60 08/29/23 11:55 Resp 18 08/29/23 11:55 BP 146/71 H 08/29/23 11:06 Pulse Ox 96 08/29/23 11:06 O2 Del Method Nasal Cannula 08/29/23 11:06 O2 Flow Rate 2 08/29/23 11:06 FiO2 24 08/27/23 08:00 BMI result Body Mass Index 53.9 Const: General: cooperative, comfortable, no acute distress, alert and awake Nutritional Appearance: obese Orientation/consciousness: patient oriented x3 Resp: Other: b/l expiratory wheezing Effort & Inspection: normal respiratory effort, able to speak in complete sentences, no respiratory distress and no use of accessory muscles Cardio: Rate: regular rate Rhythm: abnormal rhythm irregularly irregular GI: Inspection: Yes obesity Palpation (GI): Soft to palpation and nontender Neuro: General: patient oriented x3, moves all extremities and CN's II-XI intact bilaterally Extrem: General: Yes no pedal edema Objective Data Active Medications Acetaminophen (Acetaminophen 325 Mg Tablet) 650 mg PO Q6H PRN PRN Reason: Headache Last Admin: 08/28/23 01:50 Dose: 650 mg Documented By: CHARY Albuterol Sulfate (Albuterol Sulfate (0.083%) 2.5 Mg/3 Ml Vial.Neb) 2.5 mg INHALE Q2H PRN PRN Reason: wheezing Last Admin: 08/28/23 06:41 Dose: 2.5 mg Documented By: CLEO Albuterol/Ipratropium (Albuterol/Iprat 2.5/0.5mg 3 Ml Ampul.Neb) 3 ml INHALE RQ4H WHILE AWAKE [facility] Last Admin: 08/29/23 11:55 Dose: 3 ml Documented By: GRZEGORZ Apixaban (Apixaban 5 Mg Tablet) 5 mg PO BID [facility] Last Admin: 08/29/23 11:00 Dose: 5 mg Documented By: ROSA M Aripiprazole (Aripiprazole 2 Mg Tablet) 2 mg PO DAILY [facility] Last Admin: 08/29/23 09:35 Dose: 2 mg Documented By: ROSA M Atorvastatin Calcium (Atorvastatin Calcium 80 Mg Tablet) 80 mg PO DAILY [facility] Last Admin: 08/29/23 09:29 Dose: 80 mg Documented By: ROSA M Bupropion HCl (Bupropion Hcl Xl 300 Mg Tab.Er.24h) 300 mg PO DAILY [facility] Last Admin: 08/29/23 09:29 Dose: 300 mg Documented By: ROSA M Clonazepam (Clonazepam 0.5 Mg Tablet) 1.5 mg PO DAILY PRN PRN Reason: ANEXITY Last Admin: 08/28/23 11:15 Dose: 1.5 mg Documented By: ROSA M Diltiazem HCl (Diltiazem Hcl Cd 180 Mg Cap.Er.24h) 180 mg PO DAILY [facility]; Protocol Last Admin: 08/29/23 11:00 Dose: 180 mg Documented By: ROSA M Fluticasone Propionate (Fluticasone Propionate 250 Mcg Blst.W.Dev) 1 puff INHALE RBID [facility] Last Admin: 08/29/23 08:12 Dose: 1 puff Documented By: JONATHAN Guaifenesin/Dextromethorphan (Guaifenesin Dm 100/10/5 Ml 5 Ml Syrup) 5 ml PO Q6H PRN PRN Reason: Cough Last Admin: 08/28/23 13:02 Dose: 5 ml Documented By: ROSA M Hydrochlorothiazide (Hydrochlorothiazide 25 Mg Tablet) 25 mg PO DAILY [facility]; Protocol Last Admin: 08/29/23 09:29 Dose: 25 mg Documented By: ROSA M Lisinopril (Lisinopril 20 Mg Tablet) 20 mg PO DAILY [facility]; Protocol Last Admin: 08/27/23 10:27 Dose: 20 mg Documented By: CORTNEY Methadone HCl (Methadone Hcl 20 Mg/2 Ml Oral.Conc) 43 mg PO DAILY [facility] Last Admin: 08/29/23 09:29 Dose: 43 mg Documented By: ROSA M Methylprednisolone Sodium Succinate (Methylprednisolone Sod Succ 125 Mg/2 Ml Vial) 60 mg IVPUSH Q12H [facility] Last Admin: 08/29/23 11:00 Dose: 60 mg Documented By: ROSA M Montelukast Sodium (Montelukast Sodium 10 Mg Tablet) 10 mg PO BEDTIME [facility] Last Admin: 08/28/23 20:27 Dose: 10 mg Documented By: CHARY Sertraline HCl (Sertraline Hcl 50 Mg Tablet) 150 mg PO DAILY [facility] Last Admin: 08/29/23 09:29 Dose: 150 mg Documented By: ROSA M Labs 08/28/23 08:30 08/28/23 08:30 Assessment and Plan (1) Atrial fibrillation: Status: Acute (2) Cocaine abuse: Status: Acute (3) Asthma exacerbation: Status: Acute Plan This is a 62-year-old female with underlying history of morbid obesity, renal cell carcinoma status post right nephrectomy, hypertension, fibromyalgia and polyarthralgia, anxiety, depression, chronic kidney disease stage 3, asthma, opioid abuse.? Patient presented to the emergency room complaints of shortness of breath satting 85% on room air and was admitted to the ICU for bipap. Acute hypoxic and hypercarbic respiratory failure multifactorial due to asthma, obesity hypoventilation, and cocaine use and probable [place] continues to desaturate with ambulation s/p bipap in ICU, now on 2L NC start to wean steroids continue breathing treatments was covered empirically for possible pna, no definite evidence on CT, no white count, fever or phlegm production will d/c abx may need home o2 eval possible [place] had inpatient sleep study will need outpatient follow up with pulmonology to obtain results new onset atrial fibrillation echo from preserved EF [id number] 2 rate controlled at rest, but increases with ambulation TSH, mag wnl avoid BB due to cocaine use seen by cardiology - plan to start on Cardizem (d/c norvasc) and Eliquis for AC (will d/c ASA) toxic encephalopathy due to co2 retention, and substance abuse resolved HTN bp was soft and lisinopril, metoprolol were placed on hold, HCTZ was continued d/c metoprolol due to cocaine use d/c norvasc as starting cardizem for afib cardizem started for afib follow bp closely, if bp allows resume lisinopril ckd3 renal function at baseline HLD continue statin anxiety/depression resumed on home meds, abilify, klonopin h/o cocaine use seen by addiction medicine h/o opiate abuse on methadone at baseline per patient morbid obesity bmi 53.9 likely contributing to respiratory issues dvt ppx - [facility] attending - dr. arciniega patient requires ongoing inpatient stay for cardiac monitoring, new afib, supplemental o2 Quality Stroke Does the patient have a stroke diagnosis?: No VTE Prior VTE?: No VTE Risk Level:: Medical - moderate - high VTE Device Contraindication: N/A - Device Ordered VTE Drug Contraindication: N/A - Med Ordered
--- NOTE | 2023-08-29 14:21 | MHC.RECOVRN ---
T/W returned to bring pt. resources for StU[facility] including therapy services, medication services, harm reduction and community supports. Pt was thankful for the information and would like to explore medications for stimulant use disorder. We will continue to follow and offer support PRN
[2023-08-29] MEDS: clonazePAM 0.5 MG TABLET 1.5 MG PO (18:55)
[2023-08-29] MEDS: Montelukast Sodium 10 MG TABLET PO (20:36)
[2023-08-30] MEDS: guaiFENesin DM 100/10/5 ML 5 ML SYRUP PO ×2 (01:45→08:27)
[2023-08-30 03:41] VITALS: BP 136/86; PULSE 54; RESP 14; TEMP 36.1; O2SAT 93
[2023-08-30] MEDS: Albuterol/Iprat 2.5/0.5MG 3 ML AMPUL.NEB INHALE ×2 (07:27→11:20)
[2023-08-30 07:28] VITALS: PULSE 57; RESP 18; O2SAT 97
[2023-08-30] MEDS: Fluticasone Propionate 250 MCG BLST.W.DEV 1 PUFF INHALE (07:37)
[2023-08-30 08:00] VITALS: BP 144/75; PULSE 56; RESP 18; TEMP 36.4; O2SAT 96
[2023-08-30] MEDS: methADONE HCl 20 MG/2 ML ORAL.CONC 43 MG PO (08:25)
[2023-08-30] MEDS: Apixaban 5 MG TABLET PO (08:26)
[2023-08-30] MEDS: buPROPion HCl XL 300 MG TAB.ER.24H PO (08:26)
[2023-08-30] MEDS: Sertraline HCL 50 MG TABLET 150 MG PO (08:26)
[2023-08-30] MEDS: Atorvastatin Calcium 80 MG TABLET PO (08:26)
[2023-08-30] MEDS: dilTIAZem HCL CD 180 MG CAP.ER.24H PO (08:26)
[2023-08-30] MEDS: ARIPiprazole 2 MG TABLET PO (08:26)
[2023-08-30] MEDS: hydroCHLOROthiazide 25 MG TABLET PO (08:26)
[2023-08-30 09:21] LABS: Anion Gap 12 (12-20); Blood Urea Nitrogen 40 mg/dL (9-16); Calcium 8.9 mg/dL (8.4-10.2); Carbon Dioxide 32 mmol/L (22-29); Chloride 100 mmol/L (96-108); Creatinine Clr Calc Pharmacy 57.4; Estimated Glomerular Filt Rate 42; Glucose Random 166 mg/dL (60-115); Potassium 4.6 mmol/L (3.3-5.1); Sodium 139 mmol/L (135-145)
--- NOTE | 2023-08-30 09:59 | PM.PNCARD ---
Subjective Subjective Date of Service: 08/30/23 Interval history: Patient states she is feeling okay. No new complaints. Review of Systems Review of Systems Yes all other systems are reviewed and are negative Constitutional: Reports as per HPI and Reports no additional constitutional complaints Eyes: Reports as per HPI and Denies no additional eye complaints Denies system reviewed and no additional complaints, except as documented and Reports as per HPI Cardiovascular: Reports as per HPI, Reports no additional cardiovascular complaints, Denies acrocyanosis, Denies cool extremities, Denies chest pain, Denies leg edema, Denies lightheadedness, Denies palpitations and Denies dyspnea Respiratory: Reports as per HPI, Denies no additional respiratory complaints and Denies dyspnea Gastrointestinal: Reports as per HPI and Denies no additional gastrointestinal complaints Genitourinary: Reports as per HPI Musculoskeletal: Reports no additional musculoskeletal complaints and Reports as per HPI Skin/Breast: Reports system reviewed and no additional complaints, except as docu Reports system reviewed and no additional complaints, except as documented and Reports as per HPI Psychiatric: Reports no additional psychiatric complaints and Reports as per HPI Endocrine: Reports no additional endocrine complaints, Reports as per HPI and Denies palpitations Hematologic/Lymphatic: Reports no additional hematologic/lymphatic complaints and Reports as per HPI Allergic/Immunologic: Reports no additional allergic/immunologic complaints and Reports as per HPI Physical Exam Vital Signs: Last Vital Signs Temp 97.5 F 08/30/23 08:00 Pulse 56 08/30/23 08:00 Resp 18 08/30/23 08:00 BP 144/75 H 08/30/23 08:00 Pulse Ox 96 08/30/23 08:00 O2 Del Method Nasal Cannula 08/30/23 08:00 O2 Flow Rate 2 08/30/23 08:00 FiO2 24 08/27/23 08:00 BMI result Body Mass Index 53.9 Const General: comfortable and no acute distress Orientation/consciousness: patient oriented x3 HEENT Other: Unremarkable Head: Yes normal to inspection Neck Neck: Yes normal visual inspection Chest Chest palpation & inspection: normal inspection of the chest Resp Auscultation: clear to auscultation bilaterally Cardio Palpation: normal PMI Heart sounds: S1 normal heart sound present, S2 normal heart sound present, no gallops, no murmurs and no rubs GI Palpation (GI): Soft to palpation Back/Spine/Pelvis Other: unremarkable Skin General skin exam: no rashes or lesions noted Neuro General: patient oriented x3 Extrem General: Yes normal to inspection Psych Mental Status: mental status grossly normal Objective Labs and Meds 08/28/23 08:30 08/30/23 08:49 Lab results: Laboratory Results - last 24 hr 08/30/23 08:49 Hold Purple Top SEE NOTE Sodium 139 Potassium 4.6 Chloride 100 Carbon Dioxide 32 H Anion Gap 12 BUN 40 H Creatinine 1.29 Estim Creat Clear Calc 57.4 Estimated GFR 42 Random Glucose 166 H Calcium 8.9 Progress Note: A&P Assessment and plan (1) Atrial fibrillation: Status: Acute Assessment and Plan: On telemetry, she is in atrial fibrillation but controlled rate. Continue diltiazem and Eliquis. On the echocardiogram, LVEF is 60-65% with at least mildly dilated left atrium. (2) Cocaine abuse: Status: Acute Assessment and Plan: Cocaine positive on admission. Must abstain in the future. Time Spent With Patient Time: Total time managing care of this patient today ____ minutes. Progress Note: Quality Stroke Does the patient have a stroke diagnosis?: No Procedures Date of Service Date of Service: 08/30/23
--- NOTE | 2023-08-30 11:13 | PM.DS ---
DS: Providers Provider Date of Service: 08/30/23 Date of admission: 08/27/23 01:03 Primary care physician: Samantha Alejo MD Consults: 08/27/23 16:16 Addiction Medicine Routine Consulting Provider: Addiction Covering Reason for consultation: cocaine abuse Has provider been notified: No 08/28/23 15:13 Consult to Cardiology Routine Consulting Provider: [facility] Cardi[facility] Services Reason for consultation: new onset atrial fibrillation Has provider been notified: No DS: Diagnosis Discharge Diagnosis (1) Atrial fibrillation: Status: Acute (2) Cocaine abuse: Status: Acute DS: Summary Hospital Course Hospital Course: history and physical as per admitting provider. 62-year-old female with underlying history of morbid obesity, renal cell carcinoma status post right nephrectomy, hypertension, fibromyalgia and polyarthralgia, anxiety, depression, chronic kidney disease stage 3, asthma, opioid abuse.? Patient presented to the emergency room complaints of shortness of breath satting 85% on room air which improved with a DuoNeb.? Patient's symptoms had started yesterday morning and had been using her nebulizer quite frequently.? Patient was transported via EMS noted her O2 sat was in the low 80s, she received Solu-Medrol 125 mg x 1 along with DuoNeb and albuterol, magnesium and route.? Upon arrival to the emergency room the patient's O2 sat had improved to 96% however the patient had continuously being somnolent, about 2 hours after arrival the patient was placed on BiPAP as her initial VBG showed pH of 7.28, pCO2 65, PO2 61, HC03 of 31, despite of BiPAP for about 4 hours, repeated venous blood gases did not show significant improvement and the patient continues to be somnolent.? It was subsequently noted that the patient's U tox is negative for opioids but positive for cocaine.? Otherwise the remainder of her workup does not have any significant findings on laboratories.? Her chest x-ray however shows slight pattern pulmonary edema to my view.? Her BNP is only 164 but given her significant body habitus this would not correlate with the clinical picture. Currently patient still has some work of breathing, head CT and chest CT is pending, following these studies the patient will be admitted to the ICU for further care. 62-year-old woman treated for acute hypoxic and hypercarbic respiratory failure secondary to asthma, obesity hypoventilation syndrome and cocaine use. Patient was treated with BiPAP initially in the ICU and transition to 2 L nasal cannula on the medical floor. She was treated with IV steroids and scheduled albuterol treatments. Covered empirically for pneumonia with no definitive evidence on CT scan. She had home O2 evaluation but not requiring oxygen at home. She also had an inpatient sleep study which results should be followed up with by her primary care provider to determine whether she will need a CPAP at nighttime. During the hospitalization she developed new onset atrial fibrillation, echocardiogram showed a preserved ejection fraction. ChadsVasc score was 2. She was started on Eliquis and Cardizem, her metoprolol, Norvasc and aspirin were stopped. Metoprolol was also stopped in light of her history of cocaine abuse that she should avoid beta-blockers in this instance. CKD stage 3. Renal function at baseline Hyperlipidemia. Continue statin Mental health. Continue medications History of cocaine use. Discussed importance of cessation History of opiate abuse. On methadone at baseline Morbid obesity. Discussed importance of weight management as this may be contributing to worsening of other comorbidities Time Attestation Discharge coordination time: Greater than 30 minutes Quality: Safe Use of Opioids Does Pt have an Active Cancer Diagnosis on the Problem List?: No Quality: Stroke Does the patient have a stroke diagnosis?: No Physical Exam Vital Signs: Vital Signs: Last Vital Signs Temp 97.5 F 08/30/23 08:00 Pulse 56 08/30/23 08:00 Resp 18 08/30/23 08:00 BP 144/75 H 08/30/23 08:00 Pulse Ox 96 08/30/23 08:00 O2 Del Method Nasal Cannula 08/30/23 08:00 O2 Flow Rate 2 08/30/23 08:00 FiO2 24 08/27/23 08:00 BMI result Body Mass Index 53.9 Appearing in no acute distress head is normocephalic atraumatic eyes pupils are PERRLA sclera is anicteric mouth throat mucous membranes are intact and moist neck is supple no lymphadenopathy, no JVD noted lung sounds are clear to auscultation heart regular rate rhythm, clear S1, S2 positive bowel sounds, abdomen is soft, nontender neuro patient is alert x3, no focal deficits DS: Data Data Completed and Pending Labs on day of discharge: Laboratory Results - last 24 hr 08/30/23 08:49 Hold Purple Top SEE NOTE Sodium 139 Potassium 4.6 Chloride 100 Carbon Dioxide 32 H Anion Gap 12 BUN 40 H Creatinine 1.29 Estim Creat Clear Calc 57.4 Estimated GFR 42 Random Glucose 166 H Calcium 8.9 Discharge Plan Discharge Anticipated Discharge Date/Time: 08/30/23 11:05 Patient Disposition: Home, Self-Care Discharge Diagnosis: Acute hypoxic and hypercarbic respiratory failure New onset atrial fibrillation Toxic metabolic encephalopathy Referrals: [facility] [Other] - 1 Week Samantha Alejo MD [Primary Care Provider] - 1 Week Discharge Medications: New diltiazem HCl [Cardizem CD] 180 mg Capsule,Extended Release 24hr 180 mg PO DAILY Qty: 30 0RF Protocol: Hold for SBP/HR < HOLD for SBP < : 90 HOLD for HR < : 60 Eliquis 5 mg Tablet 5 mg PO BID Qty: 60 0RF Continued atorvastatin 80 mg tablet 80 mg PO DAILY Qty: 90 3RF lisinopril 20 mg tablet 20 mg PO DAILY Qty: 30 1RF clonazepam 1 mg tablet 1.5 mg PO DAILY PRN (Reason: ANEXITY) sertraline 100 mg tablet 150 mg PO DAILY bupropion HCl 300 mg tablet extended release 24 hr 300 mg PO QAM methadone [Methadone Intensol] 10 mg/mL Concentrate 43 mg PO DAILY montelukast 10 mg tablet 10 mg PO DAILY (DME) hospital bed Kit See Rx Instructions .Route Qty: 1 0RF Rx Instructions: As directed. Full electric lidocaine [Aspercreme (lidocaine)] 4 % adhesive patch,medicated 2 patch topical DAILY PRN (Reason: pain) Qty: 30 1RF Rx Instructions: APPLY TO BOTH KNEES hydrochlorothiazide 25 mg tablet 25 mg PO DAILY Flovent HFA 220 mcg/actuation HFA aerosol inhaler 1 puff inhalation BID aripiprazole 2 mg tablet 2 mg PO DAILY albuterol sulfate [Ventolin HFA] 90 mcg/actuation HFA aerosol inhaler 2 puff inhalation Q4H PRN (Reason: Wheezing) Discontinued amlodipine 5 mg tablet 5 mg PO DAILY Qty: 30 1RF metoprolol succinate 50 mg tablet extended release 24 hr 50 mg PO DAILY Qty: 30 1RF aspirin 81 mg tablet,delayed release (DR/EC) 81 mg PO DAILY Discharge Orders: Discharge Order (Routine); Ordered 08/30/23 Ordered By: Virgen Jenkins Diet: Advance to usual diet Activity on Discharge: As tolerated Care Plan Goals: Complete resolution of symptoms You have been started on 2 new medications for atrial fibrillation, Cardizem and Eliquis Health Concerns: Acute hypoxic and hypercarbic respiratory failure New onset atrial fibrillation Toxic metabolic encephalopathy Plan of Treatment: Follow-up with primary care provider for results of sleep study See Assessment: see discharge summary
[2023-08-30] MEDS: methylPREDNISolone Sod Succ 125 MG/2 ML VIAL 60 MG IVPUSH (11:16)
[2023-08-30 11:22] VITALS: PULSE 72; RESP 18; O2SAT 94
[2023-08-30 11:25] VITALS: BP 128/69; PULSE 70; RESP 20; TEMP 36.8; O2SAT 97
--- NOTE | 2023-08-30 11:30 | P.F2F_ITS ---
Service Date Service Date: 08/30/23 Reasons for Services Homebound: Leaving the home is medically contraindicated at this time without the asist of a device and/or another person due th the listed conditions above and below. Certification: Based on the above findings, I certify that this patient is confined to the home and needs intermittent intermediate care, physical therapy and/or speech therapy, or continues to need occupational therapy. The patient is under my care, and I have initiated the establishment of the plan of care. The patient will be followed by a physician who will periodically review the plan of care. Time Spent With Patient Time: Total time managing care of this patient today ____ minutes.
[2023-08-30 12:04] VITALS: PULSE 120; PULSE 88; O2SAT 95
--- NOTE | 2023-08-30 12:59 | MHC.CM.PN ---
Second IMM given 08/30. Pt is medically cleared for D/C home with resumption of [facility]. D/C summary faxed to [facility] at [phone]. Pts sister Geovanna will transport her home.
== END 2023-08-30 14:50 | disposition home or self-care (01) | DRG 917 ==
LOC: HO.ED 18:27 → HO.EDOVER 08-27 01:31 → HO.ICU 08-27 02:52 → HO.IMC 08-27 17:36
PROVIDERS: Physician Assistant Medical; Admitting Provider Physician Assistant Medical; Emergency Provider Emergency Medicine; PCP Internal Medicine; Visit Provider Nurse Practitioner Acute Care
DX: T40.5X1A Poisoning by cocaine, accidental (unintentional), initial encounter (principal); G92.8 Other toxic encephalopathy; J96.01 Acute respiratory failure with hypoxia; J45.901 Unspecified asthma with (acute) exacerbation; F11.20 Opioid dependence, uncomplicated; Z68.43 Body mass index [BMI] 50.0-59.9, adult; E66.2 Morbid (severe) obesity with alveolar hypoventilation; I48.91 Unspecified atrial fibrillation; F14.10 Cocaine abuse, uncomplicated; Z20.822 Contact with and (suspected) exposure to COVID-19; Z74.01 Bed confinement status; Z90.5 Acquired absence of kidney; Z79.51 Long term (current) use of inhaled steroids; Z79.899 Other long term (current) drug therapy
CPT/HCPCS: 36415; 70450; 71045; 71250; 80048; 80053; 80076; 80307; 81001; 81003; 82803; 83735; 83880; 84443; 84484; 85025; 85027; 85610; 87502; 87635; 93005; 93306; 94640; 94660; 99285; J0696; J1650; J2930

== ENCOUNTER → 2023-08-26 17:51 | Outpatient (BNV) | payer OTHER, SELFPAY | PROVIDERS: Admitting Provider Physician Assistant Medical; Emergency Provider Emergency Medicine; PCP Internal Medicine; Visit Provider Internal Medicine Cardiovascular Disease | DX: R06.09 Other forms of dyspnea (principal) | CPT/HCPCS: 93010 ==

== ENCOUNTER 2023-08-27 01:03 | Outpatient (BNV) | payer OTHER, SELFPAY | END 2023-08-28 04:31 | PROVIDERS: Admitting Provider Physician Assistant Medical; Emergency Provider Emergency Medicine; PCP Internal Medicine; Visit Provider Internal Medicine | DX: I48.91 Unspecified atrial fibrillation (principal); R94.31 Abnormal electrocardiogram [ECG] [EKG] | CPT/HCPCS: 93010 ==

== ENCOUNTER 2023-08-27 01:03 | Outpatient (BNV) | payer OTHER, SELFPAY | END 2023-08-27 07:00 | PROVIDERS: Admitting Provider Physician Assistant Medical; Emergency Provider Emergency Medicine; PCP Internal Medicine; Visit Provider Internal Medicine Cardiovascular Disease | DX: I34.0 Nonrheumatic mitral (valve) insufficiency (principal); I36.1 Nonrheumatic tricuspid (valve) insufficiency; I50.9 Heart failure, unspecified | CPT/HCPCS: 93306 ==

== ENCOUNTER → 2023-08-27 01:03 | Outpatient (BNV) | payer OTHER, SELFPAY | PROVIDERS: Admitting Provider Physician Assistant Medical; Emergency Provider Emergency Medicine; PCP Internal Medicine; Visit Provider Physician Assistant Medical | DX: I48.91 Unspecified atrial fibrillation (principal); F14.10 Cocaine abuse, uncomplicated | CPT/HCPCS: 99232; 99233; 99239 ==

== ENCOUNTER → 2023-08-27 01:03 | Outpatient (BNV) | payer OTHER, SELFPAY | PROVIDERS: Admitting Provider Physician Assistant Medical; Emergency Provider Emergency Medicine; PCP Internal Medicine; Visit Provider Internal Medicine Cardiovascular Disease | DX: I48.91 Unspecified atrial fibrillation (principal); F14.10 Cocaine abuse, uncomplicated | CPT/HCPCS: 99222; 99233 ==

== ENCOUNTER → 2023-08-27 01:03 | Outpatient (BNV) | payer OTHER, SELFPAY | PROVIDERS: Admitting Provider Physician Assistant Medical; Emergency Provider Emergency Medicine; PCP Internal Medicine; Visit Provider Physician Assistant Medical | DX: J96.00 Acute respiratory failure, unspecified whether with hypoxia or hypercapnia (principal); J45.901 Unspecified asthma with (acute) exacerbation; N18.30 Chronic kidney disease, stage 3 unspecified | CPT/HCPCS: 99291; 99292 ==

== ENCOUNTER 2023-09-01 11:02 | Inpatient (IN) | payer OTHER, SELFPAY ==
[2023-09-01] VITALS (9 sets, daily range): BP systolic 115–152; BP diastolic 71–104; PULSE 67–89; RESP 12–20; TEMP 36.9–37.4; O2SAT 89–97; BMI 45.4
--- NOTE | ~2023-09-01 | XR_ITS ---
EXAMINATION: XR CHEST CLINICAL INFORMATION: SOB. COMPARISON: CT chest 08/27/2023 TECHNIQUE: Frontal view of the chest was obtained. FINDINGS: The lungs are hypovolemic with patchy atelectasis right lung base.. The heart size and pulmonary vascularity is normal. No gross bony abnormality see XR/XR chest 1V IMPRESSION: Hypovolemic lungs with patchy atelectasis right lung base. No acute pneumonic process seen.
--- NOTE | ~2023-09-01 | CT_ITS ---
EXAMINATION: CT ANGIOGRAM OF THE CHEST WITH AND WITHOUT CONTRAST (CT PULMONARY ANGIOGRAM FOR PE) CLINICAL INFORMATION: Reason for Exam hypoxia. recent hospitalization COMPARISON: Chest x-ray 09/01/2023. TECHNIQUE: Prior to contrast administration, noncontrast localization images were obtained. Subsequently, multidetector volumetric imaging was performed from the thoracic inlet to below the diaphragms following the administration of 80 mL Omnipaque 350 intravenous contrast. No contrast reaction reported Sagittal, coronal, and MIP oblique sagittal reformatted images were obtained on the CT workstation, uploaded to PACS, and reviewed. This CT examination was performed using dose optimization techniques as appropriate, variously including the following: *Automated exposure control *Adjustment of mA and/or kV according to patient size (this includes techniques or standardized protocols for targeted exams where dose is matched to indication/reason for exam; i.e. extremities or head) *Use of iterative reconstruction technique Total exam dose-length product 418 mGy-cm FINDINGS: QUALITY OF STUDY/CONTRAST BOLUS: Satisfactory. PULMONARY ARTERIES: No pulmonary emboli. THORACIC AORTA: No aneurysm. LUNG: The lungs are well-expanded with bilateral lower lobe patchy opacities likely combination of infiltrate/atelectasis. Mild groundglass attenuation is seen in both upper lobes slightly greater on the right side. PLEURA: No pleural effusion or pneumothorax. MEDIASTINUM: Normal heart size. No pericardial effusion. No hilar or mediastinal lymphadenopathy. No evidence of septal bowing or right heart strain. CORONARY ARTERY CALCIFICATION: Mild coronary artery calcification is present. CHEST WALL/AXILLA: No axillary or internal mammary lymphadenopathy. OSSEOUS STRUCTURES: There is mild scoliosis and degenerative disc changes dorsal spine. No aggressive lytic or sclerotic process seen. No fracture identified. UPPER ABDOMEN: The liver is diffusely attenuated without focal lesion. Visualized spleen, pancreas appears unremarkable. The head of the pancreas on the [id number]. No reflux of contrast into the hepatic veins to suggest elevated right heart pressures. CT/CT angio chest PE protocol IMPRESSION: Bilateral lower lobe patchy infiltrate/atelectasis. Mild groundglass densities likely atelectatic changes seen in both upper lobes, slightly more prominent on the right side. Findings are concordant with abnormal chest x-ray from today No evidence of PE. No evidence aortic dissection or aneurysm. VTE: negative
--- NOTE | 2023-09-01 11:35 | ECG_ITS ---
Test Reason : DYSPNEA Blood Pressure : / mmHG Vent. Rate : 101 BPM Atrial Rate : 000 BPM P-R Int : 000 ms QRS Dur : 088 ms QT Int : 336 ms P-R-T Axes : 000 -01 038 degrees QTc Int : 435 ms Atrial fibrillation with rapid ventricular response Minimal voltage criteria for LVH, may be normal variant ( [place] product ) Abnormal ECG When compared with ECG of 28-AUG-2023 04:38, Vent. rate has increased BY 38 BPM Referred By: Judy Cortés Electronically Signed By:DELANO DOWLING
--- NOTE | 2023-09-01 11:40 | ED.SOB ---
HPI - SOB/Dyspnea General Chief Complaint: Dyspnea Stated Complaint: SOB Time Seen by Provider: 09/01/23 11:40 Source: patient, EMS, RN notes reviewed and old records reviewed Mode of arrival: EMS History of Present Illness HPI Narrative: 62-year-old female with a past medical history asthma, obesity, HTN, opiate abuse, recently admitted to our ICU on 08/26/2023 for acute hypoxic and hypercarbic respiratory failure secondary to asthma discharged from floor on 08/30/23, presenting to the ED via EMS from home complaining of continued/worsening SOB. Patient reports cough, noted to be 88-89% on RA. Reports compliance with DuoNebs/medications at home. Denies chest pain, worsening pedal edema, fever/chills or illicit substance use MD elicited complaint: shortness of breath and cough Related Data Home Medications Medication Instructions Recorded Confirmed aripiprazole 2 mg tablet 2 mg PO DAILY 10/17/20 08/27/23 fluticasone propionate 220 1 puff inhalation BID 10/17/20 08/27/23 mcg/actuation HFA aerosol inhaler (Flovent HFA) hydrochlorothiazide 25 mg tablet 25 mg PO DAILY 10/17/20 08/27/23 montelukast 10 mg tablet 10 mg PO DAILY 02/01/23 08/27/23 albuterol sulfate 90 mcg/actuation 2 puff inhalation Q4H PRN Wheezing 05/19/23 08/27/23 aerosol inhaler (Ventolin HFA) bupropion HCl 300 mg 24 hr tablet, 300 mg PO QAM 08/27/23 08/27/23 extended release clonazepam 1 mg tablet 1.5 mg PO DAILY PRN ANEXITY 08/27/23 08/27/23 sertraline 100 mg tablet 150 mg PO DAILY 08/27/23 08/27/23 methadone 10 mg/mL oral 43 mg PO DAILY 08/28/23 08/28/23 concentrate (Methadone Intensol) Previous Rx's Medication Instructions Recorded atorvastatin 80 mg tablet 80 mg PO DAILY #90 tabs 02/14/21 lisinopril 20 mg tablet 20 mg PO DAILY #30 tabs 06/25/23 lidocaine 4 % topical patch 2 patch topical DAILY PRN pain #30 07/23/23 (Aspercreme (lidocaine)) ea hospital bed #1 ea 08/13/23 apixaban 5 mg tablet (Eliquis) 5 mg PO BID #60 tabs 08/30/23 diltiazem HCl 180 mg 180 mg PO DAILY #30 caps 08/30/23 capsule,extended release 24 hr (Cardizem CD) Allergies Allergy/AdvReac Type Severity Reaction Status Date / Time No Known Allergies Allergy Unknown Verified 09/01/23 11:49 [No Known Allergies*] Review of Systems Review of Systems: Constitutional: No Fever, No Chills, No Fatigue, No Malaise ENT/Mouth: No Ear Pain, No sore throat, No Rhinorrhea, No Swallowing Difficulty Eyes: No Eye Pain, No Swelling, No Vision Changes Cardiovascular: No Chest Pain, + SOB, No Dyspnea on Exertion, No Orthopnea, No Edema, No Palpitations Respiratory: + Cough, No Sputum, No Wheezing, No Dyspnea Gastrointestinal: No Nausea, No Vomiting, No Diarrhea, No Constipation, No Abdominal pain Genitourinary: No Dysuria, No Urinary Frequency, No Hematuria, No Flank Pain Musculoskeletal: No joint pain, No Myalgias, No Joint Swelling Skin: No Skin Lesions, No rash Neuro: No Weakness, NNo Dizziness, No Headache Yes all other systems are reviewed and are negative Constitutional: Constitutional: Reports as per [facility] Past Medical History Attestation statement: The following information was validated with the patient. Source: old records reviewed Medical History Cocaine abuse History of opioid abuse H/O renal cell cancer Morbid obesity Hypertension Surgical History History of colonoscopy History of right nephrectomy Family History Family History Father HTN (hypertension) Diabetes Mother HTN (hypertension) Diabetes Sister Diabetes Brother HTN (hypertension) Maternal Aunt Breast cancer Social History Social History Household Members: None Housing: Apartment Do you presently have visiting nurse or other home services: Yes ([facility] TO GIVE METHADONE DAILY, [employer] EVERY[employer]) Alcohol intake: never Patient Tobacco Use Status: Never used Tobacco Substance Use Type: Crack/Cocaine Advance Directives: No Advance Directives Information Provided: Yes service: No Cognitive needs: Yes Hearing needs: No Vision needs: No Physical Exam Vital Signs: Vital Signs: Last Vital Signs Temp 99.3 F 09/01/23 11:45 Pulse 86 09/01/23 14:41 Resp 14 09/01/23 14:41 BP 128/84 09/01/23 14:41 Pulse Ox 96 09/01/23 14:41 O2 Del Method Nasal Cannula 09/01/23 14:41 O2 Flow Rate 2 09/01/23 14:41 BMI result Body Mass Index 45.4 Const: General: cooperative, healthy appearing and no acute distress Nutritional Appearance: obese Orientation/consciousness: patient oriented x3 Limitations: no limitations HEENT: Head: Yes normal to inspection and Yes atraumatic Ears: hearing grossly normal bilaterally General nose exam: Normal external nose present Face and sinus: Yes normal facial exam Eyes: General: appearance normal, both eyes and all related structures EOM: EOMs intact bilaterally Neck: Neck: Yes normal visual inspection and Yes no meningeal signs Resp: Other: Shallow breath sounds Effort & Inspection: normal respiratory effort and no respiratory distress Auscultation: no rhonchi and no wheezes Cardio: Rate: regular rate Heart sounds: S1 normal heart sound present and S2 normal heart sound present GI: Inspection: Yes normal to inspection Palpation (GI): Soft to palpation, nontender, no guarding and not rigid Skin: Rashes: no rashes Wounds: no wounds Neuro: General: patient oriented x3, tone normal and no meningeal signs Cranial nerves: Yes CN's II-XII intact bilaterally Gait exam (Neuro): Normal gait present Extrem: Other: + bilateral LE nonpitting edema Course Course Course Narrative: -1301--no leukocytosis. T bili minimally elevated. Troponin 57.3 > likely demand/from hypoxia > will obtain 3hr repeat -Influenza A positive 1516--XR chest 1V IMPRESSION: Hypovolemic lungs with patchy atelectasis right lung base. No acute pneumonic process seen CT angio chest PE protocol IMPRESSION: Bilateral lower lobe patchy infiltrate/atelectasis. Mild groundglass densities likely atelectatic changes seen in both upper lobes, slightly more prominent on the right side. Findings are concordant with abnormal chest x-ray from today No evidence of PE. No evidence aortic dissection or aneurysm. VTE: negative > likely viral with known influenza. Will defer antibiotics at this time, Tamiflu ordered. Will admit for further management Medications Administered Discontinued Medications Generic Name Dose Route Start Last Admin Trade Name Moy PRN Reason Stop Dose Admin Albuterol Sulfate 5 mg/ 0 mg 09/01/23 12:37 09/01/23 12:45 Albuterol/Ipratropium 3 ml INHALE 09/01/23 12:38 2.5 each ONCE ONE Administration Iohexol 65 ml 09/01/23 14:01 09/01/23 14:01 Iohexol 350 Mg/Ml 100 Ml Infus..Btl IV 09/01/23 14:02 65 ml ONCE ONE Administration Methylprednisolone Sodium Succinate 125 mg 09/01/23 11:49 09/01/23 12:06 Methylprednisolone Sod Succ 125 Mg/2 Ml Vial IVPUSH 09/01/23 11:50 125 mg ONCE ONE Administration Medical Decision Making Medical Decision Making MDM Narrative: 62-year-old female with a past medical history asthma, obesity, HTN, opiate abuse, recently admitted to our ICU on 08/26/2023 for acute hypoxic and hypercarbic respiratory failure secondary to asthma discharged from floor on 08/30/23, presenting to the ED via EMS from home complaining of continued/worsening SOB. Patient noted to be 88-89% on RA, 91-92% on 2 L NC, low-grade temp 99.3 degrees, shallow breath sounds however no appreciable wheeze or crackles. Obese, bilateral LE nonpitting edema, sleepy but arousable. Concern for substance abuse vs asthma exacerbation vs viral syndrome vs pneumonia or PE (with recent hospitalization/hypoxia). Lower suspicion for dissection/acute ACS Plan: EKG, labs, viral testing, UA, CXR, CT PE, ED bronch protocol, IV Solu-Medrol, admission Please refer to course for remaining clinical decision making, interpretation of labs/imaging results, and discussions with consultants and/or family members. Differential Diagnosis Differential Diagnoses: The differential diagnosis associated with the presentation includes As above Admission/Observation Consideration of admission/observation: Escalation of care including admission/observation considered Consult Healthcare Provider Management of the patient was discussed with: Hospitalist Lab Data [facility] Lab Attestation statement: I reviewed the patient's lab results. 09/01/23 12:24 09/01/23 12:23 Labs: Lab Results 12/06/23 12/06/23 12/06/23 Range/Units 12:04 12:23 12:24 WBC 9.2 (4.8-10.8) X10*3/uL RBC 4.71 (4.20-5.50) X10*6/uL Hgb 14.1 (12.0-16.0) g/dl Hct 44.0 (37.0-47.0) % MCV 93.4 (80.0-98.0) fL MCH 29.9 (27.0-33.0) pg MCHC 32.0 (31.0-35.0) g/dl RDW 15.0 (11.0-16.0) % Plt Count 248 (160-400) X10*3/uL MPV 9.5 (9.4-12.3) fL Immature Gran % (Auto) 0.8 H (0.0-0.4) % Neut % (Auto) 78.4 H (45-73) % Lymph % (Auto) 10.7 L (20-40) % [place] % (Auto) 9.8 (2-11) % Eos % (Auto) 0.2 (0-4) % Baso % (Auto) 0.1 (0-2) % Lymph # (Auto) 1.0 L (1.2-4.9) X10*3/uL [place] # (Auto) 0.9 (0.1-1.2) X10*3/uL Eos # (Auto) 0.0 (0.0-0.4) X10*3/uL Baso # (Auto) 0.0 (0.0-0.2) X10*3/uL Abs Immat Gran (auto) 0.07 H (0.00-0.03) X10*3/uL Absolute Neuts (auto) 7.2 (2.0-8.3) x10*3/uL Absolute Nucleated RBC 0.000 (0.0-0.012) X10*3/uL Nucleated RBC % (auto) 0.0 (0.0-0.2) /100WBC PT 14.3 H D (11.1-13.3) SEC INR 1.2 H (0.9-1.1) APTT 32.8 (26.0-36.4) SEC VBG pH (7.32-7.43) VBG pCO2 mmHg VBG pO2 mmHg VBG HCO3 (22-26) mmol/L VBG O2 Saturation % VBG Base Excess mmol/L Sodium 140 (135-145) mmol/L Potassium 4.4 (3.3-5.1) mmol/L Chloride 98 (96-108) mmol/L Carbon Dioxide 33 H (22-29) mmol/L Anion Gap 13 (12-20) BUN 33 H (9-16) mg/dL Creatinine 1.40 (0.5-1.4) mg/dL Estim Creat Clear Calc 49.4 Estimated GFR 38 Random Glucose 124 H (60-115) mg/dL Calcium 8.9 (8.4-10.2) mg/dL Magnesium 2.2 (1.6-2.6) mg/dL Total Bilirubin 1.4 H (0.0-1.0) mg/dL AST 31 (5-31) U/L ALT 27 (0-31) U/L Alkaline Phosphatase 76 (39-117) U/L Troponin I High Sens 57.3 H* D (<3.5-17.0) ng/L B-Natriuretic Peptide 39 (<100) pg/mL Total Protein 7.4 (6.5-8.0) g/dL Albumin 3.7 (3.5-5.0) g/dL Urine Color Urine Appearance Urine pH (5.0-9.0) Ur Specific [place] (1.005-1.025) Urine Protein (Neg-Trace) mg/dL Urine Glucose (UA) (Negative) mg/dL Urine Ketones (Negative) mg/dL Urine Blood (Negative) Urine Nitrite (Negative) Ur Leukocyte Esterase (Negative) Urine RBC (0-2) /HPF Urine WBC (0-5) /HPF Ur Squamous Epith Cells (0-2) /HPF Urine Bacteria (None Seen) Hyaline Casts (0-2) /LPF Urine Opiates Screen (Not Detect) Urine Fentanyl Screen (Not Detect) Ur Barbiturates Screen (Not Detect) Ur Phencyclidine Scrn (Not Detect) Ur Amphetamines Screen (Not Detect) U Benzodiazepines Scrn (Not Detect) Urine Cocaine Screen (Not Detect) U Marijuana (THC) Screen (Not Detect) Influenza Type A (PCR) POSITIVE A (Negative) Influenza Type B (PCR) NEGATIVE (Negative) RSV RNA Qual (PCR) NEGATIVE (Negative) SARS-CoV-2 RNA (RT-PCR) NEGATIVE (Negative) 09/01/23 09/01/23 Range/Units 12:27 14:42 WBC (4.8-10.8) X10*3/uL RBC (4.20-5.50) X10*6/uL Hgb (12.0-16.0) g/dl Hct (37.0-47.0) % MCV (80.0-98.0) fL MCH (27.0-33.0) pg MCHC (31.0-35.0) g/dl RDW (11.0-16.0) % Plt Count (160-400) X10*3/uL MPV (9.4-12.3) fL Immature Gran % (Auto) (0.0-0.4) % Neut % (Auto) (45-73) % Lymph % (Auto) (20-40) % [place] % (Auto) (2-11) % Eos % (Auto) (0-4) % Baso % (Auto) (0-2) % Lymph # (Auto) (1.2-4.9) X10*3/uL [place] # (Auto) (0.1-1.2) X10*3/uL Eos # (Auto) (0.0-0.4) X10*3/uL Baso # (Auto) (0.0-0.2) X10*3/uL Abs Immat Gran (auto) (0.00-0.03) X10*3/uL Absolute Neuts (auto) (2.0-8.3) x10*3/uL Absolute Nucleated RBC (0.0-0.012) X10*3/uL Nucleated RBC % (auto) (0.0-0.2) /100WBC PT (11.1-13.3) SEC INR (0.9-1.1) APTT (26.0-36.4) SEC VBG pH 7.35 (7.32-7.43) VBG pCO2 61 mmHg VBG pO2 41 mmHg VBG HCO3 34 H (22-26) mmol/L VBG O2 Saturation 64.0 % VBG Base Excess 7.0 mmol/L Sodium (135-145) mmol/L Potassium (3.3-5.1) mmol/L Chloride (96-108) mmol/L Carbon Dioxide (22-29) mmol/L Anion Gap (12-20) BUN (9-16) mg/dL Creatinine (0.5-1.4) mg/dL Estim Creat Clear Calc Estimated GFR Random Glucose (60-115) mg/dL Calcium (8.4-10.2) mg/dL Magnesium (1.6-2.6) mg/dL Total Bilirubin (0.0-1.0) mg/dL AST (5-31) U/L ALT (0-31) U/L Alkaline Phosphatase (39-117) U/L Troponin I High Sens (<3.5-17.0) ng/L B-Natriuretic Peptide (<100) pg/mL Total Protein (6.5-8.0) g/dL Albumin (3.5-5.0) g/dL Urine Color Yellow Urine Appearance Clear Urine pH 5.5 (5.0-9.0) Ur Specific [place] >= 1.030 H (1.005-1.025) Urine Protein 30 (1+) H (Neg-Trace) mg/dL Urine Glucose (UA) Negative (Negative) mg/dL Urine Ketones Negative (Negative) mg/dL Urine Blood Small (1+) H (Negative) Urine Nitrite Negative (Negative) Ur Leukocyte Esterase Negative (Negative) Urine RBC 3-5 H (0-2) /HPF Urine WBC 0-5 (0-5) /HPF Ur Squamous Epith Cells 0-2 (0-2) /HPF Urine Bacteria None Seen (None Seen) Hyaline Casts 0-2 (0-2) /LPF Urine Opiates Screen Not Detected (Not Detect) Urine Fentanyl Screen Not Detected (Not Detect) Ur Barbiturates Screen Not Detected (Not Detect) Ur Phencyclidine Scrn Not Detected (Not Detect) Ur Amphetamines Screen Not Detected (Not Detect) U Benzodiazepines Scrn Not Detected (Not Detect) Urine Cocaine Screen POSITIVE H (Not Detect) U Marijuana (THC) Screen Not Detected (Not Detect) Influenza Type A (PCR) (Negative) Influenza Type B (PCR) (Negative) RSV RNA Qual (PCR) (Negative) SARS-CoV-2 RNA (RT-PCR) (Negative) Radiology Impression Discussion of test interpretation with radiology: I have reviewed the radiologist's reading. Independent Historian Clinical information obtained from an independent historian. History obtained from or confirmed by: EMS External Record Review External record reviewed: Inpatient record, Office record, Outpatient record, Prior outpatient labs, Prior outpatient radiology, Primary care record and Outside ED record Tests considered The following testing was considered but not selected: As above Chronic Conditions Patient?s care impacted by: Hypertension and Other (Asthma) Social Determinants Patient?s care significantly limited by Social Determinants of Health including: Alcoholism and drug addiction in family Critical Care Time Critical Care Time Critical Care Time: Yes Total Critical Care Time: 50 Attestation: I have personally provided critical care time exclusive of time spent on separately billable procedures. Time includes review of lab data, radiology results, discussion with consultants, and monitoring for potential decompensation. Intervention performed as documented. Discharge Plan Discharge Clinical Impression: Influenza A, Hypoxia Patient Disposition: Admitted As Inpatient
[2023-09-01] MEDS: methylPREDNISolone Sod Succ 125 MG/2 ML VIAL IVPUSH (12:06)
[2023-09-01 12:30] LABS: MANUAL DIFF FLAG NO; Venous Blood Gas Refer to POC result
[2023-09-01 12:33] LABS: Basophils Percent Auto 0.1 % (0-2); Eosinophils Percent Auto 0.2 % (0-4); Hemoglobin 14.1 g/dl (12.0-16.0); Imm Gran Abs Auto 0.07 X10*3/uL (0.00-0.03); Imm Gran Pct Auto 0.8 % (0.0-0.4); Lymphocytes Percent Auto 10.7 % (20-40); Mean Corpuscular Hemoglobin 29.9 pg (27.0-33.0); Mean Corpuscular Volume 93.4 fL (80.0-98.0); Mean Platelet Volume 9.5 fL (9.4-12.3); Monocytes Absolute Auto 0.9 X10*3/uL (0.1-1.2); Monocytes Percent Auto 9.8 % (2-11); Neutrophils Absolute Auto 7.2 x10*3/uL (2.0-8.3); Neutrophils Percent Auto 78.4 % (45-73); Platelet Count 248 X10*3/uL (160-400); Red Blood Count 4.71 X10*6/uL (4.20-5.50); White Blood Count 9.2 X10*3/uL (4.8-10.8)
[2023-09-01 12:33] LABS: VBG HCO3 34 mmol/L (22-26); VBG pCO2 61 mmHg; VBG pH 7.35 (7.32-7.43); VBG pO2 41 mmHg
[2023-09-01 12:41] LABS: INTERNATIONAL NORM RATIO 1.2 (0.9-1.1); Prothrombin Time 14.3 SEC (11.1-13.3)
[2023-09-01 12:43] LABS: Partial Thromboplastin Time 32.8 SEC (26.0-36.4)
[2023-09-01] MEDS: Albuterol Sulfate 5 MG, Albuterol/Iprat 2.5/0.5MG 3 ML 3 ML INHALE (12:45)
[2023-09-01 12:46] LABS: Alanine Aminotransferase 27 U/L (0-31); Albumin Level 3.7 g/dL (3.5-5.0); Alkaline Phosphatase 76 U/L (39-117); Anion Gap 13 (12-20); Aspartate Amino Transferase 31 U/L (5-31); Bilirubin Total 1.4 mg/dL (0.0-1.0); Blood Urea Nitrogen 33 mg/dL (9-16); Calcium 8.9 mg/dL (8.4-10.2); Carbon Dioxide 33 mmol/L (22-29); Chloride 98 mmol/L (96-108); Creatinine Clr Calc Pharmacy 49.4; Estimated Glomerular Filt Rate 38; Glucose Random 124 mg/dL (60-115); Magnesium 2.2 mg/dL (1.6-2.6); Potassium 4.4 mmol/L (3.3-5.1); Sodium 140 mmol/L (135-145); Total Protein 7.4 g/dL (6.5-8.0)
[2023-09-01 12:53] LABS: B Type Natriuretic Peptide 39 pg/mL (<100)
[2023-09-01 13:01] LABS: Influenza A PCR POSITIVE (Negative); Influenza B PCR NEGATIVE (Negative); Resp Syncy Virus RNA Qual PCR NEGATIVE (Negative); SARS COV2 PCR INHOUSE NEGATIVE (Negative)
[2023-09-01 13:01] LABS: Troponin-I High Sensitivity 57.3 ng/L (<3.5-17.0)
[2023-09-01] MEDS: iohexoL 350 MG/ML 100 ML INFUS..BTL 65 ML IV (14:01)
[2023-09-01 14:55] LABS: Appearance Urine Clear; Color Urine Yellow; Glucose Urine UA Negative (Negative); Leukocyte Esterase Urine Negative (Negative); Nitrite Urine Negative (Negative); PH 5.5 (5.0-9.0); Specific Gravity - Urine >= 1.030 (1.005-1.025); UMIC TRIGGER UACC YES; Urine Blood Small (1+) (Negative); Urine Ketones Negative (Negative); Urine Protein 30 (1+) mg/dL (Neg-Trace)
[2023-09-01 15:00] LABS: Amphetamine Screen Urine Not Detected (Not Detect); Barbiturates, Urine Not Detected (Not Detect); Benzodiazepines Screen Urine Not Detected (Not Detect); Cannabinoid Screen Urine Not Detected (Not Detect); Cocaine Screen Urine POSITIVE (Not Detect); Fentanyl, urine Not Detected (Not Detect); Opiate Screen Urine Not Detected (Not Detect); Phencyclidine Screen Urine Not Detected (Not Detect)
[2023-09-01 15:16] LABS: Bacteria Urine None Seen (None Seen); Hyaline Casts Urine 0-2 /LPF (0-2); Squamous Epithelial Cell Urine 0-2 /HPF (0-2); WBC Urine 0-5 /HPF (0-5)
[2023-09-01] MEDS: Oseltamivir Phosphate 75 MG CAPSULE PO (15:28)
--- NOTE | 2023-09-01 15:38 | PHA.MEDREC ---
Pharmacy Consult ? Medication Reconciliation Pharmacy has completed the medication reconciliation. Patient recently discharge 08/30 from [facility]. Utilized discharge summary for med rec. Amlodipine, aspirin and metoprolol were discontinue on discharge. RN will need to verify last dose of methadone. Chelsea Brown, PharmD
--- NOTE | 2023-09-01 15:42 | PC.NURSE ---
Patient resting on stretcher, calm and cooperative with staff. Patient took Tamiflu without issue. No s/s of distress noted at this time.
--- NOTE | 2023-09-01 16:03 | P.HPHOSP_ITS ---
History of Present Illness Date of Service: 09/01/23 Chief Complaint: Shortness of Breath 62-year-old female morbid obesse with history of renal cell carcinoma status post right nephrectomy, hypertension, fibromyalgia and polyarthralgia, anxiety, depression, chronic kidney disease stage 3, asthma, substance abuse and AFIB on eliquis. She was recently admitted to the hospital from 08/27 to 08/30 for acute hypoxic respiratory failure d/t exacerbation of asthma and hypoventilation and required ICU level of care with rescue BIPAP use. She had inpatient sleep study but will need outpatient titration study to qualify for CPAP. Additionally was diagnosed with AFIB and was started on Eliquis. She report feeling fine when she went home, yet the the next day started having shortness of breath, dry cough, chills, malaise and body ache and not getting relief with use of inhalers and at home. In ED she was hypoxic with O2 of 89, work up revealed Influenza A. She's vaccinated for influenza. CXR abd CT of chest show no pneumonia Further testing has revealed elevated troponin I of 57-->48, however she is reporting no chest pain. ED treatment: Neb, IV steroid. Review of Systems 2 Review of Systems: Gen: no fever, +chills, body aches Resp: n+ sob, + cough CV: no chest pain, no LOUISE, no leg edema GI: No n/v, no abd pain Neuro: No confusion [facility] Medical History Cocaine abuse History of opioid abuse H/O renal cell cancer Morbid obesity Hypertension Family History Father HTN (hypertension) Diabetes Mother HTN (hypertension) Diabetes Sister Diabetes Brother HTN (hypertension) Maternal Aunt Breast cancer Surgical History History of colonoscopy History of right nephrectomy Social History Household Members: None Housing: Apartment Do you presently have visiting nurse or other home services: Yes ([facility] TO GIVE METHADONE DAILY, [employer] EVERYDAY) Alcohol intake: never Patient Tobacco Use Status: Never used Tobacco Substance Use Type: Crack/Cocaine service: No Cognitive needs: Yes Hearing needs: No Vision needs: No Meds Allergies Allergy/AdvReac Type Severity Reaction Status Date / Time No Known Allergies Allergy Unknown Verified 09/01/23 11:49 [No Known Allergies*] Home Medications Medication Instructions Recorded Confirmed Last Taken Type aripiprazole 2 mg tablet 2 mg PO DAILY 10/17/20 09/01/23 Unknown History fluticasone propionate 220 1 puff inhalation BID 10/17/20 09/01/23 Unknown History mcg/actuation HFA aerosol inhaler (Flovent HFA) hydrochlorothiazide 25 mg tablet 25 mg PO DAILY 10/17/20 09/01/23 Unknown History montelukast 10 mg tablet 10 mg PO DAILY 02/01/23 09/01/23 Unknown History albuterol sulfate 90 mcg/actuation 2 puff inhalation Q4H PRN Wheezing 05/19/23 09/01/23 Unknown History aerosol inhaler (Ventolin HFA) bupropion HCl 300 mg 24 hr tablet, 300 mg PO QAM 08/27/23 09/01/23 Unknown History extended release clonazepam 1 mg tablet 1.5 mg PO DAILY PRN ANEXITY 08/27/23 09/01/23 Unknown History sertraline 100 mg tablet 150 mg PO DAILY 08/27/23 09/01/23 Unknown History methadone 10 mg/mL oral 43 mg PO DAILY 08/28/23 08/28/23 08/26/23 History concentrate (Methadone Intensol) Physical Exam 2 Vital Signs and Narrative: Vital Signs: Last Vital Signs Temp 99.1 F 09/01/23 15:30 Pulse 86 09/01/23 14:41 Resp 14 09/01/23 14:41 BP 128/84 09/01/23 14:41 Pulse Ox 96 09/01/23 14:41 O2 Del Method Nasal Cannula 09/01/23 14:41 O2 Flow Rate 2 09/01/23 14:41 BMI result Body Mass Index 45.4 Const: Other: Constitutional: Alert, in no distress, overweight. Mental Status: Oriented to person, place and time. Eyes: Pupils are equal, round and reactive to light. Ear, Nose and Throat: Oropharynx clear, mucous membranes moist. Ears and nose without deformities. Trachea midline. Respiratory:some rhonchi, diminished breath sounds, no wheezes, no accessory muslce use Cardiovascular: S1 S2 regular. No murmurs, rubs or gallops. Gastrointestinal: Abdomen soft, non-tender, non-distended. Normal bowel sounds.? Neurologic: Cranial nerves II-XII grossly intact. No focal neurological deficits. Moves all extremities spontaneously.? Skin: No rashes or lesions.? Musculoskeletal: No cyanosis or clubbing. Psychiatric: Normal mood and affect? Results Labs 09/01/23 12:24 09/01/23 12: Labs: Laboratory Results - last 24 hr 09/01/23 09/01/23 09/01/23 12:04 12:23 12:24 MCV 93.4 MCH 29.9 MCHC 32.0 RDW 15.0 Plt Count 248 MPV 9.5 Immature Gran % (Auto) 0.8 H Neut % (Auto) 78.4 H Lymph % (Auto) 10.7 L [place] % (Auto) 9.8 Eos % (Auto) 0.2 Baso % (Auto) 0.1 Lymph # (Auto) 1.0 L [place] # (Auto) 0.9 Eos # (Auto) 0.0 Baso # (Auto) 0.0 Abs Immat Gran (auto) 0.07 H Absolute Neuts (auto) 7.2 Absolute Nucleated RBC 0.000 Nucleated RBC % (auto) 0.0 PT 14.3 H D INR 1.2 H APTT 32.8 VBG pH VBG pCO2 VBG pO2 VBG HCO3 VBG O2 Saturation VBG Base Excess Anion Gap 13 Estim Creat Clear Calc 49.4 Estimated GFR 38 Random Glucose 124 H Calcium 8.9 Magnesium 2.2 Total Bilirubin 1.4 H AST 31 ALT 27 Alkaline Phosphatase 76 B-Natriuretic Peptide 39 Total Protein 7.4 Albumin 3.7 Urine Color Urine Appearance Urine pH Ur Specific [place] Urine Protein Urine Glucose (UA) Urine Ketones Urine Blood Urine Nitrite Ur Leukocyte Esterase Urine RBC Urine WBC Ur Squamous Epith Cells Urine Bacteria Hyaline Casts Urine Opiates Screen Urine Fentanyl Screen Ur Barbiturates Screen Ur Phencyclidine Scrn Ur Amphetamines Screen U Benzodiazepines Scrn Urine Cocaine Screen U Marijuana (THC) Screen Influenza Type A (PCR) POSITIVE A Influenza Type B (PCR) NEGATIVE RSV RNA Qual (PCR) NEGATIVE SARS-CoV-2 RNA (RT-PCR) NEGATIVE 09/01/23 09/01/23 12:27 14:42 MCV MCH MCHC RDW Plt Count MPV Immature Gran % (Auto) Neut % (Auto) Lymph % (Auto) [place] % (Auto) Eos % (Auto) Baso % (Auto) Lymph # (Auto) [place] # (Auto) Eos # (Auto) Baso # (Auto) Abs Immat Gran (auto) Absolute Neuts (auto) Absolute Nucleated RBC Nucleated RBC % (auto) PT INR APTT VBG pH 7.35 VBG pCO2 61 VBG pO2 41 VBG HCO3 34 H VBG O2 Saturation 64.0 VBG Base Excess 7.0 Anion Gap Estim Creat Clear Calc Estimated GFR Random Glucose Calcium Magnesium Total Bilirubin AST ALT Alkaline Phosphatase B-Natriuretic Peptide Total Protein Albumin Urine Color Yellow Urine Appearance Clear Urine pH 5.5 Ur Specific [place] >= 1.030 H Urine Protein 30 (1+) H Urine Glucose (UA) Negative Urine Ketones Negative Urine Blood Small (1+) H Urine Nitrite Negative Ur Leukocyte Esterase Negative Urine RBC 3-5 H Urine WBC 0-5 Ur Squamous Epith Cells 0-2 Urine Bacteria None Seen Hyaline Casts 0-2 Urine Opiates Screen Not Detected Urine Fentanyl Screen Not Detected Ur Barbiturates Screen Not Detected Ur Phencyclidine Scrn Not Detected Ur Amphetamines Screen Not Detected U Benzodiazepines Scrn Not Detected Urine Cocaine Screen POSITIVE H U Marijuana (THC) Screen Not Detected Influenza Type A (PCR) Influenza Type B (PCR) RSV RNA Qual (PCR) SARS-CoV-2 RNA (RT-PCR) Imaging Radiologist's Impressions: Impressions Chest X-Ray 09/01/23 13:33 IMPRESSION: Hypovolemic lungs with patchy atelectasis right lung base. No acute pneumonic process seen. Chest CTA 09/01/23 14:10 IMPRESSION: Bilateral lower lobe patchy infiltrate/atelectasis. Mild groundglass densities likely atelectatic changes seen in both upper lobes, slightly more prominent on the right side. Findings are concordant with abnormal chest x-ray from today No evidence of PE. No evidence aortic dissection or aneurysm. VTE: negative Assessment and Plan (1) Hypoxia: Status: Acute (2) Influenza A: Status: Acute Plan This is a 62-year-old female with underlying history of morbid obesity, renal cell carcinoma status post right nephrectomy, hypertension, fibromyalgia and polyarthralgia, anxiety, depression, chronic kidney disease stage 3, asthma, substance use desorder, just discharged from the hospital 2 days ago following management fof acute respiratory failure that required ICU level of care and new AFIB and here again with acute hypoxic resp failure d/t influenza. Acute hypoxic respiratory failure due influeza with underlying asthma and obesity hypoventilation. Supportive care with oxygen goal of O2 92%, breathing treatment, cough medications. Add Tamiflu Moderate peristent asthma without exacerbation, continue bronchodilators. O2 as above Suspected [place], has inpatient sleep during last visit, result to be reviewed by gas maker on outpatient basis new onset atrial fibrillation, rate is controlled on cardizem, continue Eliquis for stroke prevention. Elevated troponin I 57 repeat 48, likely type 2 DC from hypoxia, no chest pain and therefore no further testing at this time HTN--BP presently within normal limit, resume home meds. CKD 3--renal function within baseline, monitor HLD--resume statin Moderate persistent asthma, no acute exacerbation at this time, nebs as above, avoid steroids for now anxiety/depression, continue abilify and klonopin Elevated glucose, trend less than 150--likely pre diabetic, check Hgb A1C h/o cocaine use, + cocaine, was seen by addiction med within the last week, cessation discussed yet again. h/o opioid use desorder, continue methadone morbid obesity d/t excess calory, weight loss advised to mitigate health effect dvt ppx - eliquis Given patient's recent admission for acute resp failure and dc days ago and returning with acute respiratory failure again with hypoxia d/t influenza, she nees close attention to unsure she does not deteliorate espceially in light of likely underlying [place]/hypoventilation and ASthma Full code Quality Stroke Does the patient have a stroke diagnosis?: No VTE Prior VTE?: No VTE Risk Level:: Medical - moderate - high VTE Device Contraindication: Treatment Not Tolerated VTE Drug Contraindication: N/A - Med Ordered
[2023-09-01 16:11] LABS: Troponin-I High Sensitivity 48.7 ng/L (<3.5-17.0)
[2023-09-01 17:09] LABS: Estimated Average Glucose 123 mg/dL; Hemoglobin A1C 148.8583 umol/L; Hemoglobin A1c % 5.9 % (<6.0)
[2023-09-01] MEDS: Albuterol Sulfate (0.083%) 2.5 MG/3 ML VIAL.NEB INHALE (18:55)
[2023-09-01] MEDS: Apixaban 5 MG TABLET PO (21:50)
[2023-09-01] MEDS: Acetaminophen 325 MG TABLET 650 MG PO (21:50)
--- NOTE | 2023-09-01 22:00 | PC.NURSE ---
Patient resting on stretcher, no s/s of distress noted. Patient complaining of headache at this time, medicated per NOV. Patient continues to be on 2l via NC, sating in the high 90's.
[2023-09-02] VITALS (14 sets, daily range): BP systolic 121–161; BP diastolic 72–96; PULSE 52–93; RESP 12–20; TEMP 36.3–37; O2SAT 86–97
[2023-09-02] MEDS: 0.9 % Sodium Chloride Flush 3 ML SYRINGE IVFLUSH ×3 (00:09→18:14)
--- NOTE | 2023-09-02 02:43 | PC.NURSE ---
Patient heart rate noted to be low on monitor, going down into the thirties. Patient asleep during points of severe bradycardia, when patient wakes up her heart rate comes up into the 50's. Vital signs obtained and noted to be within normal limits. Patient easily wakes with verbal and tactile stimulation, very drowsy at this time. Dr Root aware of heart rate and no new orders at this time.
[2023-09-02] MEDS: Albuterol Sulfate (0.083%) 2.5 MG/3 ML VIAL.NEB INHALE ×4 (07:41→20:39)
--- NOTE | 2023-09-02 07:45 | PC.NURSE ---
Pt is a&ox3 reports having a 3/10 headache from coughing. Denies N/V/D. Respirations even and unlabored on 2lt NC. Denies o2 use at home. Abd soft non tender. + cough.
[2023-09-02] MEDS: Sertraline HCL 50 MG TABLET 150 MG PO (08:44)
[2023-09-02] MEDS: ARIPiprazole 2 MG TABLET PO (08:44)
[2023-09-02] MEDS: Montelukast Sodium 10 MG TABLET PO (08:44)
[2023-09-02] MEDS: Atorvastatin Calcium 80 MG TABLET PO (08:45)
[2023-09-02] MEDS: hydroCHLOROthiazide 25 MG TABLET PO (08:45)
[2023-09-02] MEDS: dilTIAZem HCL CD 180 MG CAP.ER.24H PO (08:46)
[2023-09-02] MEDS: Apixaban 5 MG TABLET PO ×2 (08:46→21:30)
[2023-09-02] MEDS: lisinopriL 20 MG TABLET PO (08:46)
[2023-09-02] MEDS: buPROPion HCl XL 300 MG TAB.ER.24H PO (08:47)
--- NOTE | 2023-09-02 09:17 | MHC.CM.PN ---
Patient has Influenza; CM spoke to her via phone @ [phone] and addressed IMM with her (original will be given to Patient and a copy will be placed on the chart). Patient lives alone in her apartment and she uses a cane and a walker to assist with mobility. Patient receives a [employer] 49 hours/week and her Methadone from [facility] on [facility] in [place]. Home/resume said services is the goal and CM has initiated and will follow for dc planning. PCP is from [address] [place] [address] Alejo, as listed).
--- NOTE | 2023-09-02 09:23 | MHC.CM.PN ---
Patient's Sister is her HCP.
--- NOTE | 2023-09-02 10:01 | PC.NURSE ---
Pt assisted onto bedside commode, had bowel movement. Mild SOB with exertion. Hospitalist and Pulmo at bedside for eval. ?home 02. sat on room air 88-89% Dr Keys aware
--- NOTE | 2023-09-02 12:43 | P.CONPL_ITS ---
History of Present Illness History of Present Illness Consult date: 09/02/23 Chief complaint: Acute hypoxic resp failure Narrative: This is an inpatient pulmonary consultation. The patient is a 62-year-old female morbid obesse with history of renal cell carcinoma status post right nephrectomy, hypertension, fibromyalgia and polyarthralgia, anxiety, depression, chronic kidney disease stage 3, asthma, substance abuse and AFIB on eliquis. She was recently admitted to the hospital from 08/27 to 08/30 for acute hypoxic respiratory failure d/t exacerbation of asthma and hypoventilation and required ICU level of care with rescue BIPAP use. She had inpatient sleep study but will need outpatient titration study to qualify for CPAP. Additionally was diagnosed with AFIB and was started on Eliquis. She report feeling fine when she went home, yet the the next day started having shortness of breath, dry cough, chills, malaise and body ache and not getting relief with use of inhalers and at home. In ED she was hypoxic with O2 of 89, work up revealed Influenza A. She's vaccinated for influenza. CT of chest personally by me demonstrating decreased lung volumes in addition to airspace disease bilaterally consistent with viral pneumonia. Further testing has revealed elevated troponin I of 57-->48, however she is reporting no chest pain. ED treatment: Neb, IV steroid. The patient currently is feeling a little better on the oxygen. I did review the preliminary sleep study results demonstrating evidence of nocturnal hypoxia. But, no evidence of any sleep apnea. If the patient understands that the home sleep studies are very limited. She should be treated for her flow related pneumonia and should be provided with oxygen at this time. Closer to discharge the patient should have a 6 minute walk test to see if she qualifies for portability other oxygen and then ultimately be sent home on oxygen hopefully with portability and to use with activity and also to use at nighttime while sleeping. Once the patient is discharge she should follow up with outpatient Pulmonary and then at that point be scheduled to undergo an in-lab sleep study where additional evaluation for sleep apnea can be completed. Review of Systems 2 Review of Systems: Gen: no fever, +chills, body aches Resp: n+ sob, + cough CV: no chest pain, no LOUISE, no leg edema GI: No n/v, no abd pain Neuro: No confusion PMFSH Past Medical History Medical History Cocaine abuse History of opioid abuse H/O renal cell cancer Morbid obesity Hypertension Family History Family History Father HTN (hypertension) Diabetes Mother HTN (hypertension) Diabetes Sister Diabetes Brother HTN (hypertension) Maternal Aunt Breast cancer Surgical History Surgical History History of colonoscopy History of right nephrectomy Social History Social History Household Members: None Housing: Apartment Do you presently have visiting nurse or other home services: Yes ([facility] TO GIVE METHADONE DAILY, [employer] EVERYDAY) Alcohol intake: never Patient Tobacco Use Status: Never used Tobacco Substance Use Type: Crack/Cocaine service: No Cognitive needs: Yes Hearing needs: No Vision needs: No Meds Allergies Allergy/AdvReac Type Severity Reaction Status Date / Time No Known Allergies Allergy Unknown Verified 09/01/23 11:49 [No Known Allergies*] Active Medications: Current Medications Acetaminophen (Acetaminophen 325 Mg Tablet) 650 mg PO Q6H PRN PRN Reason: Pain, Mild (Pain Scale 1-3) Last Admin: 09/01/23 21:50 Dose: 650 mg Albuterol Sulfate (Albuterol Sulfate 90 Mcg 8 Gm Inhaler) 2 puff INHALE Q4H PRN PRN Reason: Wheezing Albuterol Sulfate (Albuterol Sulfate (0.083%) 2.5 Mg/3 Ml Vial.Neb) 2.5 mg INHALE RQ4H WHILE AWAKE [facility] Last Admin: 09/02/23 11:01 Dose: 2.5 mg Apixaban (Apixaban 5 Mg Tablet) 5 mg PO BID EKNZIE Last Admin: 09/02/23 08:46 Dose: 5 mg Aripiprazole (Aripiprazole 2 Mg Tablet) 2 mg PO DAILY KENZIE Last Admin: 09/02/23 08:44 Dose: 2 mg Atorvastatin Calcium (Atorvastatin Calcium 80 Mg Tablet) 80 mg PO DAILY KENZIE Last Admin: 09/02/23 08:45 Dose: 80 mg Bupropion HCl (Bupropion Hcl Xl 300 Mg Tab.Er.24h) 300 mg PO DAILY [facility] Last Admin: 09/02/23 08:47 Dose: 300 mg Clonazepam (Clonazepam 0.5 Mg Tablet) 1.5 mg PO DAILY PRN PRN Reason: ANEXITY Diltiazem HCl (Diltiazem Hcl Cd 180 Mg Cap.Er.24h) 180 mg PO DAILY [facility]; Protocol Last Admin: 09/02/23 08:46 Dose: 180 mg Fluticasone Propionate (Fluticasone Propionate 250 Mcg Blst.W.Dev) 1 puff INHALE RBID [facility] Last Admin: 09/02/23 07:44 Dose: Not Given Guaifenesin (Guaifenesin 100 Mg/5 Ml Liquid) 5 ml PO Q6H PRN PRN Reason: cough Hydrochlorothiazide (Hydrochlorothiazide 25 Mg Tablet) 25 mg PO DAILY [facility]; Protocol Last Admin: 09/02/23 08:45 Dose: 25 mg Lisinopril (Lisinopril 20 Mg Tablet) 20 mg PO DAILY [facility]; Protocol Last Admin: 09/02/23 08:46 Dose: 20 mg Melatonin (Melatonin 3 Mg Tablet) 3 mg PO BEDTIME PRN PRN Reason: Insomnia Montelukast Sodium (Montelukast Sodium 10 Mg Tablet) 10 mg PO DAILY [facility] Last Admin: 09/02/23 08:44 Dose: 10 mg Ondansetron HCl (Ondansetron Hcl 4 Mg/2 Ml Vial) 4 mg IVPUSH Q8H PRN PRN Reason: Nausea and Vomiting Oseltamivir Phosphate (Oseltamivir Phosphate 75 Mg Capsule) 75 mg PO BID [facility] Stop: 09/07/23 09:01 Sertraline HCl (Sertraline Hcl 50 Mg Tablet) 150 mg PO DAILY [facility] Last Admin: 09/02/23 08:44 Dose: 150 mg Sodium Chloride (0.9 % Sodium Chloride Flush 3 Ml Syringe) 3 ml IVFLUSH QSHIFT [facility] Last Admin: 09/02/23 08:48 Dose: 3 ml Home Medications Medication Instructions Recorded Confirmed Last Taken Type aripiprazole 2 mg tablet 2 mg PO DAILY 10/17/20 09/01/23 Unknown History fluticasone propionate 220 1 puff inhalation BID 10/17/20 09/01/23 Unknown History mcg/actuation HFA aerosol inhaler (Flovent HFA) hydrochlorothiazide 25 mg tablet 25 mg PO DAILY 10/17/20 09/01/23 Unknown History montelukast 10 mg tablet 10 mg PO DAILY 02/01/23 09/01/23 Unknown History albuterol sulfate 90 mcg/actuation 2 puff inhalation Q4H PRN Wheezing 05/19/23 09/01/23 Unknown History aerosol inhaler (Ventolin HFA) bupropion HCl 300 mg 24 hr tablet, 300 mg PO QAM 08/27/23 09/01/23 Unknown History extended release clonazepam 1 mg tablet 1.5 mg PO DAILY PRN ANEXITY 08/27/23 09/01/23 Unknown History sertraline 100 mg tablet 150 mg PO DAILY 08/27/23 09/01/23 Unknown History methadone 10 mg/mL oral 43 mg PO DAILY 08/28/23 08/28/23 08/26/23 History concentrate (Methadone Intensol) Physical Exam 2 Vital Signs: Vital Signs: Last Vital Signs Temp 98.6 F 09/02/23 07:39 Pulse 65 09/02/23 11:01 Resp 16 09/02/23 11:01 BP 141/82 H 09/02/23 07:39 Pulse Ox 88 L 09/02/23 10:04 O2 Del Method Room Air 09/02/23 10:04 O2 Flow Rate 2 09/02/23 07:39 BMI result Body Mass Index 45.4 Appearing in no acute distress head is normocephalic atraumatic eyes pupils are PERRLA sclera is anicteric mouth throat mucous membranes are intact and moist neck is supple no lymphadenopathy, no JVD noted lung sounds are clear to auscultation heart regular rate rhythm, clear S1, S2 positive bowel sounds, abdomen is soft, nontender neuro patient is alert x3, no focal deficits Results Laboratory Findings 09/01/23 12:24 09/01/23 12:23 ABG, PT/INR, D-dimer: PT/INR, D-dimer PT 14.3 SEC (11.1-13.3) H D 09/01/23 12:23 INR 1.2 (0.9-1.1) H 09/01/23 12:23 Abnormal lab findings: Abnormal Labs 09/01/23 09/01/23 09/01/23 12:04 12:23 12:24 Immature Gran % (Auto) 0.8 H Neut % (Auto) 78.4 H Lymph % (Auto) 10.7 L Lymph # (Auto) 1.0 L Abs Immat Gran (auto) 0.07 H PT 14.3 H D INR 1.2 H VBG HCO3 Carbon Dioxide 33 H BUN 33 H Random Glucose 124 H Total Bilirubin 1.4 H Troponin I High Sens 57.3 H* D Ur Specific [place] Urine Protein Urine Blood Urine RBC Urine Cocaine Screen Influenza Type A (PCR) POSITIVE A 09/01/23 09/01/23 09/01/23 12:27 14:42 15:38 Immature Gran % (Auto) Neut % (Auto) Lymph % (Auto) Lymph # (Auto) Abs Immat Gran (auto) PT INR VBG HCO3 34 H Carbon Dioxide BUN Random Glucose Total Bilirubin Troponin I High Sens 48.7 H Ur Specific [place] >= 1.030 H Urine Protein 30 (1+) H Urine Blood Small (1+) H Urine RBC 3-5 H Urine Cocaine Screen POSITIVE H Influenza Type A (PCR) Assessment and Plan (1) Asthma exacerbation: Qualifiers: Asthma severity: moderate Asthma persistence: persistent Qualified Code(s): J45.41 - Moderate persistent asthma with (acute) exacerbation Status: Acute (2) Influenza A: Status: Acute (3) Pneumonia: Qualifiers: Pneumonia type: due to influenza A virus Qualified Code(s): J10.00 - Influenza due to other identified influenza virus with unspecified type of pneumonia Status: Acute (4) Hypoxia: Status: Acute Plan Continue Tamiflu Continue respiratory therapy Start doxycycline Continue oxygen supplementation to maintain a pulse ox above 90%. Closer to discharge the patient should have a 6 minute walk test. Nasal start oxygen supplementation at nighttime while sleeping based on her sleep study results. The patient should use oxygen while sleeping and once she is discharged from the hospital she should follow up with Pulmonary in order to be set up for an in-lab sleep study to further address the question of sleep apnea. Procedures Date of Service Date of Service: 09/02/23
[2023-09-02] MEDS: Doxycycline Monohydrate 100 MG CAPSULE PO (13:35)
[2023-09-02 14:05] LABS: MRSA Nasal PCR POSITIVE (Negative); SA Nasal PCR POSITIVE (Negative)
[2023-09-02 15:03] LABS: Troponin-I High Sensitivity 17.9 ng/L (<3.5-17.0)
--- NOTE | 2023-09-02 15:57 | HO.PM.IMPN ---
Subjective Subjective Date of Service: 09/02/23 Interval History: f/u on acute resp failure due to flu, overall better +MRSA nasal screen Review of Systems Gen: no fever, +chills, body aches Resp: n+ sob, + cough CV: no chest pain, no LOUISE, no leg edema GI: No n/v, no abd pain Neuro: No confusion Physical Exam Vital Signs: Vital Signs: Last Vital Signs Temp 98.6 F 09/02/23 07:39 Pulse 93 09/02/23 13:36 Resp 18 09/02/23 13:36 BP 150/77 H 09/02/23 13:36 Pulse Ox 96 09/02/23 13:36 O2 Del Method Nasal Cannula 09/02/23 13:36 O2 Flow Rate 3 09/02/23 13:36 BMI result Body Mass Index 45.4 Const: Other: General: AO X 3, no acute distress Resp: diminished breath sounds CVS: S1,S2,RRR GI: +BS, NT, no distention Skin: No rash Neuro: motor grossly intact Psych: appropriate affect Objective Data Active Medications Acetaminophen (Acetaminophen 325 Mg Tablet) 650 mg PO Q6H PRN PRN Reason: Pain, Mild (Pain Scale 1-3) Last Admin: 09/01/23 21:50 Dose: 650 mg Documented By: YULIYA Albuterol Sulfate (Albuterol Sulfate 90 Mcg 8 Gm Inhaler) 2 puff INHALE Q4H PRN PRN Reason: Wheezing Albuterol Sulfate (Albuterol Sulfate (0.083%) 2.5 Mg/3 Ml Vial.Neb) 2.5 mg INHALE RQ4H WHILE AWAKE [facility] Last Admin: 09/02/23 11:01 Dose: 2.5 mg Documented By: GRZEGORZ Apixaban (Apixaban 5 Mg Tablet) 5 mg PO BID [facility] Last Admin: 09/02/23 08:46 Dose: 5 mg Documented By: JHONNY Aripiprazole (Aripiprazole 2 Mg Tablet) 2 mg PO DAILY [facility] Last Admin: 09/02/23 08:44 Dose: 2 mg Documented By: JHONNY Atorvastatin Calcium (Atorvastatin Calcium 80 Mg Tablet) 80 mg PO DAILY [facility] Last Admin: 09/02/23 08:45 Dose: 80 mg Documented By: JHONNY Bupropion HCl (Bupropion Hcl Xl 300 Mg Tab.Er.24h) 300 mg PO DAILY [facility] Last Admin: 09/02/23 08:47 Dose: 300 mg Documented By: JHONNY Clonazepam (Clonazepam 0.5 Mg Tablet) 1.5 mg PO DAILY PRN PRN Reason: ANEXITY Diltiazem HCl (Diltiazem Hcl Cd 180 Mg Cap.Er.24h) 180 mg PO DAILY [facility]; Protocol Last Admin: 09/02/23 08:46 Dose: 180 mg Documented By: JHONNY Doxycycline Monohydrate (Doxycycline Monohydrate 100 Mg Capsule) 100 mg PO Q12H [facility] Last Admin: 09/02/23 13:35 Dose: 100 mg Documented By: GONZALO Doxycycline Monohydrate (Doxycycline Monohydrate 100 Mg Capsule) 100 mg PO Q12H [facility] Fluticasone Propionate (Fluticasone Propionate 250 Mcg Blst.W.Dev) 1 puff INHALE RBID [facility] Last Admin: 09/02/23 07:44 Dose: Not Given Documented By: GRZEGORZ Non-Admin Reason: Med Not Available Guaifenesin (Guaifenesin 100 Mg/5 Ml Liquid) 5 ml PO Q6H PRN PRN Reason: cough Hydrochlorothiazide (Hydrochlorothiazide 25 Mg Tablet) 25 mg PO DAILY [facility]; Protocol Last Admin: 09/02/23 08:45 Dose: 25 mg Documented By: JHONNY Lisinopril (Lisinopril 20 Mg Tablet) 20 mg PO DAILY [facility]; Protocol Last Admin: 09/02/23 08:46 Dose: 20 mg Documented By: JHONNY Melatonin (Melatonin 3 Mg Tablet) 3 mg PO BEDTIME PRN PRN Reason: Insomnia Montelukast Sodium (Montelukast Sodium 10 Mg Tablet) 10 mg PO DAILY [facility] Last Admin: 09/02/23 08:44 Dose: 10 mg Documented By: JHONNY Ondansetron HCl (Ondansetron Hcl 4 Mg/2 Ml Vial) 4 mg IVPUSH Q8H PRN PRN Reason: Nausea and Vomiting Oseltamivir Phosphate (Oseltamivir Phosphate 75 Mg Capsule) 75 mg PO BID [facility] Stop: 09/07/23 09:01 Sertraline HCl (Sertraline Hcl 50 Mg Tablet) 150 mg PO DAILY [facility] Last Admin: 09/02/23 08:44 Dose: 150 mg Documented By: JHONNY Sodium Chloride (0.9 % Sodium Chloride Flush 3 Ml Syringe) 3 ml IVFLUSH QSHIFT [facility] Last Admin: 09/02/23 08:48 Dose: 3 ml Documented By: JHONNY Labs 09/01/23 12:24 12 12:23 Labs: Laboratory Results - last 24 hr 09/01/23 09/01/23 12:23 18:35 Estimat Average Glucose 123 Hemoglobin A1c % 5.9 Nasal Screen MRSA (PCR) POSITIVE A Nasal S. aureus Screen POSITIVE A Nasal MRSA/S.aureus Interp SEE NOTE Assessment and Plan (1) Influenza A: Status: Acute Plan This is a 62-year-old female with underlying history of morbid obesity, renal cell carcinoma status post right nephrectomy, hypertension, fibromyalgia and polyarthralgia, anxiety, depression, chronic kidney disease stage 3, asthma, substance use desorder, just discharged from the hospital 2 days ago following management fof acute respiratory failure that required ICU level of care and new AFIB and here again with acute hypoxic resp failure d/t influenza. Acute hypoxic respiratory failure due influeza with underlying asthma and obesity hypoventilation and positive MRSA in the nose Supportive care with oxygen goal of O2 92%, breathing treatment, cough medications, Tamiflu and Doxy for MRSA Moderate persistent asthma without exacerbation, continue bronchodilators. O2 as above, qualifies for home O2 Suspected [place], has inpatient sleep during last visit, result to be reviewed by car checker on outpatient basis new onset atrial fibrillation, rate is controlled on cardizem, continue Eliquis for stroke prevention. Elevated troponin I 57 repeat 48, then 17likely type 2 ID from hypoxia, no chest pain and therefore no further testing at this time HTN--BP presently within normal limit, resume home meds. CKD 3--renal function within baseline, monitor HLD--continue statin Moderate persistent asthma, no acute exacerbation at this time, nebs as above, avoid steroids for now anxiety/depression, continue abilify and klonopin Elevated glucose, trend less than 150--likely pre diabetic. Hgb AC1 is 5.9 h/o cocaine use, + cocaine, was seen by addiction med within the last week, cessation discussed yet again. h/o opioid use desorder, continue methadone morbid obesity d/t excess calory, weight loss advised to mitigate health effect dvt ppx - eliquis Given patient's recent admission for acute resp failure and dc days ago and returning with acute respiratory failure again with hypoxia d/t influenza, she nees close attention to unsure she does not deteliorate espceially in light of likely underlying [place]/hyperventilation and Asthma Full code Quality Stroke Does the patient have a stroke diagnosis?: No VTE Prior VTE?: No VTE Risk Level:: Medical - moderate - high VTE Device Contraindication: Treatment Not Tolerated VTE Drug Contraindication: N/A - Med Ordered
[2023-09-02] MEDS: Acetaminophen 325 MG TABLET 650 MG PO (18:14)
[2023-09-02] MEDS: Doxycycline Hyclate 100 MG in 0.9 % Sodium Chloride 250 ML 166.67 MG IV (21:28)
[2023-09-02] MEDS: Oseltamivir Phosphate 75 MG CAPSULE PO (22:58)
[2023-09-03 03:47] VITALS: BP 166/74; PULSE 60; RESP 18; TEMP 36.6; O2SAT 97
[2023-09-03 07:24] LABS: Glucose, Whole Blood 98 mg/dL (60-115)
[2023-09-03] MEDS: Albuterol Sulfate (0.083%) 2.5 MG/3 ML VIAL.NEB INHALE (07:32)
[2023-09-03 07:35] VITALS: PULSE 59; RESP 18; O2SAT 94
[2023-09-03 07:47] VITALS: BP 119/81; PULSE 67; RESP 20; TEMP 36.1; O2SAT 98
[2023-09-03] MEDS: Doxycycline Hyclate 100 MG in 0.9 % Sodium Chloride 250 ML 166.67 MG IV (08:46)
[2023-09-03] MEDS: 0.9 % Sodium Chloride Flush 3 ML SYRINGE IVFLUSH (08:46)
[2023-09-03] MEDS: Montelukast Sodium 10 MG TABLET PO (08:47)
[2023-09-03] MEDS: lisinopriL 20 MG TABLET PO (08:47)
[2023-09-03] MEDS: ARIPiprazole 2 MG TABLET PO (08:47)
[2023-09-03] MEDS: dilTIAZem HCL CD 180 MG CAP.ER.24H PO (08:47)
[2023-09-03] MEDS: buPROPion HCl XL 300 MG TAB.ER.24H PO (08:47)
[2023-09-03] MEDS: Apixaban 5 MG TABLET PO (08:47)
[2023-09-03] MEDS: Atorvastatin Calcium 80 MG TABLET PO (08:47)
[2023-09-03] MEDS: Sertraline HCL 50 MG TABLET 150 MG PO (08:47)
[2023-09-03] MEDS: Oseltamivir Phosphate 75 MG CAPSULE PO (08:47)
[2023-09-03] MEDS: hydroCHLOROthiazide 25 MG TABLET PO (08:47)
--- NOTE | 2023-09-03 09:44 | PM.DS ---
DS: Providers Provider Date of Service: 09/03/23 Date of admission: 09/01/23 16:33 Primary care physician: Samantha Alejo MD Consults: 09/01/23 16:44 Consult to Pulmonology Routine Consulting Provider: [facility] Reason for consultation: recurrent resp failure, asses for cpap use Has provider been notified: No DS: Diagnosis Discharge Diagnosis (1) Influenza A: Status: Acute DS: Summary Hospital Course Hospital Course: Admission HPI 62-year-old female morbid [place]esse with history of renal cell carcinoma status post right nephrectomy, hypertension, fibromyalgia and polyarthralgia, anxiety, depression, chronic kidney disease stage 3, asthma, substance abuse and AFIB on eliquis. She was recently admitted to the hospital from 08/27 to 08/30 for acute hypoxic respiratory failure d/t exacerbation of asthma and hypoventilation and required ICU level of care with rescue BIPAP use. She had inpatient sleep study but will need outpatient titration study to qualify for CPAP. Additionally was diagnosed with AFIB and was started on Eliquis. She report feeling fine when she went home, yet the the next day started having shortness of breath, dry cough, chills, malaise and body ache and not getting relief with use of inhalers and at home. In ED she was hypoxic with O2 of 89, work up revealed Influenza A. She's vaccinated for influenza. CXR abd CT of chest show no pneumonia Further testing has revealed elevated troponin I of 57-->48, however she is reporting no chest pain. ED treatment: Neb, IV steroid. Hospital course: The patient was hospitalized due to acute hypoxic respiratory failure caused by influenza, compounded by a preexisting hypoventilation syndrome. The coding validator reviewed her previous sleep study from a prior hospital stay and determined her eligibility for home oxygen therapy. Consequently, she will receive a prescription for oxygen at home. Regarding the flu, treatment with Tamiflu has been initiated to shorten the duration of symptoms, she will complete a 5 day course of Tamiflu. Additionally, a positive MRSA nasal swab prompted the coding validator to recommend doxycycline treatment for potential pneumonia. Overall, the patient's recovery is progressing well; her breathing is no longer labored. Despite a recommendation for rehabilitation, she prefers to go home instead. Time Attestation Discharge coordination time: Greater than 30 minutes Quality: Safe Use of Opioids Does Pt have an Active Cancer Diagnosis on the Problem List?: No Quality: Stroke Does the patient have a stroke diagnosis?: No Physical Exam Vital Signs: Vital Signs: Last Vital Signs Temp 97.0 F 09/03/23 07:47 Pulse 67 09/03/23 07:47 Resp 20 09/03/23 07:47 BP 119/81 09/03/23 07:47 Pulse Ox 98 09/03/23 07:47 O2 Del Method Nasal Cannula 09/03/23 07:47 O2 Flow Rate 3.5 09/03/23 07:47 BMI result Body Mass Index 45.4 DS: Data Data Completed and Pending Labs on day of discharge: Laboratory Results - last 24 hr 09/01/23 09/02/23 09/03/23 18:35 13:53 07:19 POC Glucose 98 Troponin I High Sens 17.9 H D Nasal Screen MRSA (PCR) POSITIVE A Nasal S. aureus Screen POSITIVE A Nasal MRSA/S.aureus Interp SEE NOTE Discharge Plan Discharge Anticipated Discharge Date/Time: 09/03/23 09:27 Patient Disposition: Home, Self-Care Discharge Diagnosis: Influenza pneumonia, acute respiratory failure Referrals: Samantha Alejo MD [Primary Care Provider] - 1 Week Discharge Medications: New doxycycline hyclate 100 mg capsule 100 mg PO DAILY Qty: 14 0RF oseltamivir [Tamiflu] 75 mg Capsule 75 mg PO BID Qty: 7 0RF Continued atorvastatin 80 mg tablet 80 mg PO DAILY Qty: 90 3RF lisinopril 20 mg tablet 20 mg PO DAILY Qty: 30 1RF clonazepam 1 mg tablet 1.5 mg PO DAILY PRN (Reason: ANEXITY) sertraline 100 mg tablet 150 mg PO DAILY bupropion HCl 300 mg tablet extended release 24 hr 300 mg PO QAM methadone [Methadone Intensol] 10 mg/mL Concentrate 43 mg PO DAILY diltiazem HCl [Cardizem CD] 180 mg Capsule,Extended Release 24hr 180 mg PO DAILY Qty: 30 0RF Protocol: Hold for SBP/HR < HOLD for SBP < : 90 HOLD for HR < : 60 Eliquis 5 mg Tablet 5 mg PO BID Qty: 60 0RF montelukast 10 mg tablet 10 mg PO DAILY (DME) hospital bed Kit See Rx Instructions .Route Qty: 1 0RF Rx Instructions: As directed. Full electric lidocaine [Aspercreme (lidocaine)] 4 % adhesive patch,medicated 2 patch topical DAILY PRN (Reason: pain) Qty: 30 1RF Rx Instructions: APPLY TO BOTH KNEES hydrochlorothiazide 25 mg tablet 25 mg PO DAILY Flovent HFA 220 mcg/actuation HFA aerosol inhaler 1 puff inhalation BID aripiprazole 2 mg tablet 2 mg PO DAILY albuterol sulfate [Ventolin HFA] 90 mcg/actuation HFA aerosol inhaler 2 puff inhalation Q4H PRN (Reason: Wheezing) Discharge Orders: Discharge Order (Routine); Ordered 09/03/23 Ordered By: Master Keys Diet: Advance to usual diet Activity on Discharge: As tolerated Stand Alone Forms: Patient Portal Discharge page Care Plan Goals: Resendiz recuperation from influenza and respiratory failure. Health Concerns: Influenza, chronic respiratory failure, Plan of Treatment: Take Tamiflu as recommended and follow up with your Doctor in a week, Use oxygen as directed Take Doxycycline as recommended for possible pneumonia follow-up with your doctor in a week, call for appointment. Assessment: as above
--- NOTE | 2023-09-03 10:30 | MHC.CM.PN ---
Pt has been medically cleared for DC. She will resume her prior home health services.
== END 2023-09-03 13:00 | disposition home or self-care (01) | DRG 193 ==
LOC: HO.ED 15:19 → HO.EDOVER 16:42 → HO.IMC 09-02 13:40
PROVIDERS: Hospitalist; Physician Assistant; Physician Assistant Medical; Admitting Provider Internal Medicine; Emergency Provider Emergency Medicine Emergency Medical Services; PCP Nurse Practitioner Family; Visit Provider Internal Medicine
DX: J10.01 Influenza due to other identified influenza virus with the same other identified influenza virus pneumonia (principal); I21.A1 Myocardial infarction type 2; J96.21 Acute and chronic respiratory failure with hypoxia; E66.2 Morbid (severe) obesity with alveolar hypoventilation; J45.41 Moderate persistent asthma with (acute) exacerbation; F11.20 Opioid dependence, uncomplicated; I12.9 Hypertensive chronic kidney disease with stage 1 through stage 4 chronic kidney disease, or unspecified chronic kidney disease; F41.9 Anxiety disorder, unspecified; F32.A Depression, unspecified; I48.91 Unspecified atrial fibrillation; E78.5 Hyperlipidemia, unspecified; R73.03 Prediabetes; N18.30 Chronic kidney disease, stage 3 unspecified; Z20.822 Contact with and (suspected) exposure to COVID-19; Z90.5 Acquired absence of kidney; Z85.528 Personal history of other malignant neoplasm of kidney; Z79.01 Long term (current) use of anticoagulants; Z79.899 Other long term (current) drug therapy
CPT/HCPCS: 0241U; 36415; 71045; 71275; 80053; 80307; 81001; 82803; 82947; 83036; 83735; 83880; 84484; 85025; 85610; 85730; 87640; 87641; 93005; 94640; 99285; J2930; Q9967

== ENCOUNTER → 2023-09-01 11:35 | Outpatient (BNV) | payer OTHER, SELFPAY | PROVIDERS: Emergency Provider Emergency Medicine Emergency Medical Services; PCP Internal Medicine; Visit Provider Internal Medicine | DX: I48.91 Unspecified atrial fibrillation (principal); R94.31 Abnormal electrocardiogram [ECG] [EKG] | CPT/HCPCS: 93010 ==

== ENCOUNTER → 2023-09-01 16:33 | Outpatient (BNV) | payer OTHER, SELFPAY | PROVIDERS: Admitting Provider Internal Medicine; Emergency Provider Emergency Medicine Emergency Medical Services; PCP Internal Medicine; Visit Provider Internal Medicine | DX: J96.01 Acute respiratory failure with hypoxia (principal); J10.1 Influenza due to other identified influenza virus with other respiratory manifestations | CPT/HCPCS: 99223; 99232; 99239 ==

== ENCOUNTER → 2023-09-01 16:33 | Outpatient (BNV) | payer OTHER, SELFPAY | PROVIDERS: Admitting Provider Internal Medicine; Emergency Provider Emergency Medicine Emergency Medical Services; PCP Internal Medicine; Visit Provider Hospitalist | DX: J45.41 Moderate persistent asthma with (acute) exacerbation (principal); J10.00 Influenza due to other identified influenza virus with unspecified type of pneumonia; R09.02 Hypoxemia | CPT/HCPCS: 99222 ==

== ENCOUNTER 2023-10-05 14:09 | Outpatient (AMB) | payer OTHER, SELFPAY ==
--- NOTE | 2023-10-05 14:12 | A.OFFPC_ITS ---
Vital Signs 10/05/23 14:15 Height 5 ft 2 in Weight 275 lb BMI 50.3 BP 114/68 Blood Pressure Location Lt brachial Position Sitting Intake Visit Reasons: [facility] Acute Respiratory Failure Intake Note: Patient is here for hospital discharge follow up. Patient was discharged from [facility] on 09/02/23 . Transfer of care from Data Officer Required: No School Photographer: Present Accompanied by: Sister Allergies No Known Allergies [No Known Allergies*] Allergy (Unknown, Verified 10/05/23 14:14) Medication List - Last Reconciled 10/05/23 by Rajiv Nguyen MD albuterol sulfate 90 mcg/actuation (Ventolin HFA) 2 puffs inhalation Q4H PRN apixaban (Eliquis) 5 mg PO BID aripiprazole 2 mg PO DAILY atorvastatin 80 mg PO DAILY bupropion HCl 300 mg PO QAM clonazepam 1.5 mg PO DAILY PRN diltiazem HCl (Cardizem CD) 180 mg See Protocol PO DAILY fluticasone propionate 220 mcg/actuation (Flovent HFA) 1 puff inhalation BID hospital bed As directed. Full electric hydrochlorothiazide 25 mg PO DAILY lidocaine 4% (Aspercreme (lidocaine)) 2 patches topical DAILY PRN lisinopril 20 mg PO DAILY methadone (Methadone Intensol) 43 mg PO DAILY montelukast 10 mg PO DAILY sertraline 150 mg PO DAILY Tobacco use date assessed: 10/05/23 Dental Screening Dental Screen Date: 10/05/23 Did you have a dental visit in the last 12 months?: No Did you have a dental problem in the last 6 months where you did not have access to dental care?: No Was dental information given to patient?: No HPI [facility] Acute Respiratory Failure HPI Details 62-year-old female [facility] a recent hospitalization. Patient was admitted twice with respiratory failure. During the 1st admission she developed atrial fibrillation and was put on Eliquis and Cardizem. She is feeling better and is not having much to use her home oxygen to a large extent. Patient is now wheelchair-bound for ambulation. At home she can walk a few steps. Unable to take care of her personal hygiene by herself. Patient has multiple recycling director at home. [facility] Medical History (Updated 10/05/23 @ 15:03 by Rajiv Nguyen MD) Atrial fibrillation Cocaine abuse Cocaine abuse History of opioid abuse H/O renal cell cancer Morbid obesity Hypertension Surgical History History of colonoscopy History of right nephrectomy Family History (Updated 10/05/23 @ 14:12 by BOO Swenson) Father HTN (hypertension) Diabetes Mother HTN (hypertension) Diabetes Sister Diabetes Brother HTN (hypertension) Maternal Aunt Breast cancer Social History Household Members: None Housing: Apartment Do you presently have visiting nurse or other home services: Yes Alcohol intake: never Patient Tobacco Use Status: Never used Tobacco e-Cigarette/Vaping Use: Never Used Second Hand Smoke Exposure: No Substance Use Type: Crack/Cocaine service: No Current occupational status: disabled Cognitive needs: Yes (wheelchair) Hearing needs: No Vision needs: No Questionnaire PHQ-9 Over the last 2 weeks, how often have you been bothered by any of the following problems? 1. Little interest or pleasure in doing things: not at all 2. Feeling down, depressed, or hopeless: not at all 3. Trouble falling or staying asleep, or sleeping too much: not at all 4. Feeling tired or having little energy: not at all 5. Poor appetite or overeating: not at all 6. Feeling bad about yourself - or that you are a failure or have let yourself or your family down: not at all 7. Trouble concentrating on things, such as reading the newspaper or watching television: not at all 8. Moving or speaking so slowly that other people could have noticed. Or the opposite - being so fidgety or restless that you have been moving around a lot more than usual: not at all 9. Thoughts that you would be better off or of hurting yourself in some way: not at all Total score: 0 Depression Screening Interpretation: Negative Depression Screening Done: Yes Source: Developed by Drs. Ryan Pendleton, Rebecca High, Jose M Wilson and colleagues, with an educational ayan from [employer]. Thrive Questionnaire Date Thrive assessed: 10/05/23 I am a: Patient What is your living situation today?: I have a steady place to live Within the past 12 months, did the food you bought not last and you didn't have the money to get more?: Never true Within the past 12 months, did you worry whether your food would run out before you got money to buy more?: Never true Do you have trouble paying for medicines?: No Do you have trouble getting transportation to medical appointments?: No Do you have trouble paying your heating and electricity bill?: No Do you have trouble taking care of your child, family member or friend?: No Do you have trouble with day-to-day activities such as bathing, preparing meals, shopping, managing finances, etc.?: No Are you currently unemployed and looking for a job?: No Are you interested in more education?: No Currently or been in a relationship where the following occur: no concerns reported AUDIT C Alcohol Use Questionnaire (AUDIT-C) 1. How often do you have a drink containing alcohol?: Never Total Score: 0 ISHMAEL-7 AMB Questionnaire ISHMAEL-7 Date ISHMAEL - 7 assessed: 10/05/23 Feeling nervous, anxious, or on edge: 1 = Several days Not being able to stop or control worryin = Several days Worrying too much about different things: 1 = Several days Trouble relaxin = Several days Being so restless that it is hard to sit still: 1 = Several days Becoming easily annoyed or irritable: 1 = Several days Feeling afraid as if something awful might happen: 1 = Several days Total ISHMAEL-7 score (0-4 normal; 5-9 mild; 10-14 moderate; 15-21 severe): 7 Source: Developed by Drs. Ryan Pendleton, Rebecca High, Jose M Wilson and colleagues, with an educational ayan from [employer]. Physical exam (Primary Care) Vital Signs: Last Vital Signs BP 114/68 10/05/23 14:15 BMI result Body Mass Index 50.3 Tobacco/Smoking Status: Tobacco use Status Tobacco use date assessed 10/05/23 10/05/23 14:18 Patient Tobacco Use Status Never used Tobacco 10/05/23 14:13 e-Cigarette/Vaping Use Never Used 10/05/23 14:13 PHQ-9: PHQ-9 Score PHQ-9: Total score 0 10/05/23 14:13 Depression Screening Interpretation: Negative Thrive Assessment: Date of Thrive Assessment Date Thrive assessed 10/05/23 10/05/23 14:13 Currently or been in a relationship where the following occur: no concerns reported Const General: cooperative and healthy appearing Nutritional Appearance: well nourished Orientation/consciousness: patient oriented x3 Limitations: no limitations HENMT Head: Yes normal to inspection Eyes General: appearance normal, both eyes and all related structures Neck Neck: Yes normal visual inspection Chest Chest palpation & inspection: normal palpation of entire chest wall Resp Effort & Inspection: normal respiratory effort Neuro General: patient oriented x3 Assessment and Plan Assessment & Plan (1) Atrial fibrillation: Code(s): I48.91 - Unspecified atrial fibrillation Plan: Hospital records reviewed for 30 minutes. Cardizem and Eliquis blood thinner was reordered. Other medications have been refilled. Patient has an appointment with the aerologist. (2) Influenza A: Code(s): J10.1 - Influenza due to other identified influenza virus with other respiratory manifestations Plan: Pulmonary appointment has been requested. Medications: Refilled diltiazem HCl (Cardizem CD) 180 mg See Protocol PO DAILY 30 caps 0RF Coding Level of Care Code Est Pt Level 4 (43390) Diagnoses Atrial fibrillation I48.91 Influenza A J10.1
[2023-10-05 14:15] VITALS: BP 114/68; BMI 50.3
== END 2023-10-05 14:53 | disposition home or self-care (01) ==
PROVIDERS: PCP Internal Medicine; Visit Provider Internal Medicine
DX: I48.91 Unspecified atrial fibrillation (principal); J10.1 Influenza due to other identified influenza virus with other respiratory manifestations
CPT/HCPCS: 99214

== ENCOUNTER 2023-10-27 10:12 | Outpatient (AMB) | payer OTHER, SELFPAY ==
[2023-10-27 10:28] VITALS: BP 147/77; PULSE 81; O2SAT 90
--- NOTE | 2023-10-27 10:28 | A.OFFVIS_ITS ---
Intake Vital Signs 10/27/23 10:28 Height 5 ft 2 in BP 147/77 H Blood Pressure Location Lt brachial Pulse 81 Pulse Source Doppler Pulse Oximetry (%) 90 L Oxygen Delivery Method Room Air Intake Visit Reasons: Idiopathic nonobstructive alveolar hypoventilation Allergies No Known Allergies [No Known Allergies*] Allergy (Unknown, Verified 10/27/23 10:36) HPI Idiopathic nonobstructive alveolar hypoventilation HPI Details 62-year-old lady with underlying morbid obesity, asthma, CO2 retention here for hospital follow-up. Patient has been admitted with acute hypercapnic respiratory failure requiring BiPAP rescue. She did have an unrevealing home sleep study. She denies any recent exacerbations. [facility] Medical History (Updated 10/27/23 @ 10:59 by Oli Evans MD) Atrial fibrillation Cocaine abuse Cocaine abuse History of opioid abuse H/O renal cell cancer Morbid obesity Hypertension Surgical History History of colonoscopy History of right nephrectomy Family History (Updated 10/05/23 @ 14:12 by BOO Swenson) Father HTN (hypertension) Diabetes Mother HTN (hypertension) Diabetes Sister Diabetes Brother HTN (hypertension) Maternal Aunt Breast cancer Social History Household Members: None Housing: Apartment Do you presently have visiting nurse or other home services: Yes Alcohol intake: never Patient Tobacco Use Status: Never used Tobacco e-Cigarette/Vaping Use: Never Used Second Hand Smoke Exposure: No Substance Use Type: Crack/Cocaine service: No Current occupational status: disabled Cognitive needs: Yes (wheelchair) Hearing needs: No Vision needs: No Review of Systems Const Denies daytime sleepiness, Denies excessive sweating, Denies fatigue, Denies fever(s), Denies lethargy, Denies malaise, Denies night sweats, Denies snoring and Denies weight loss Eyes Denies blurry vision and Denies itchy eyes ENT Denies nasal congestion, Denies post nasal drip, Denies sinus pain, Denies sinus pressure and Denies other ( Thrush) Card Denies chest pain, Denies pedal edema, Denies dyspnea, Denies orthopnea and Denies paroxysmal nocturnal dyspnea Resp Denies cough, Denies hemoptysis, Denies excessive phlegm production, Denies dyspnea, Denies snoring and Denies wheezing GI Denies abdominal pain and Denies heartburn Musc Denies myalgias, Denies arthralgias and Denies joint swelling Skin/Breast Denies rash Neuro Denies memory loss and Denies seizure-like activity Psych Denies abnormal sleep pattern, Denies anxiety and Denies memory loss Endo Denies excessive sweating, Denies fatigue and Denies heat intolerance Hung/Lymph Denies easy bruising Aller/Immun Denies itchy eyes, Denies seasonal rhinorrhea and Denies wheezing Physical Exam Vital Signs: Last Vital Signs Pulse 81 10/27/23 10:28 BP 147/77 H 10/27/23 10:28 Pulse Ox 90 L 10/27/23 10:28 Oxygen Delivery Method Room Air 10/27/23 10:28 Const General: no acute distress and alert Nutritional Appearance: obese Orientation/consciousness: Other orientation findings ( oriented) HEENT Head: Yes atraumatic Eyes General: appearance normal, both eyes and all related structures Sclerae: sclerae normal EOM: EOMs intact bilaterally Neck Neck: Yes supple Lymphatic: no lymphadenopathy noted Resp Effort & Inspection: normal respiratory effort and no use of accessory muscles Auscultation: clear to auscultation bilaterally Cardio Rate: regular rate Rhythm: regular rhythm Heart sounds: no gallops, no murmurs and no rubs Skin General skin exam: other ( warm) Extrem General: No clubbing, No cyanosis and Yes edema (2+ bilateral) Assessment & Plan Assessment & Plan (1) LOUISE (dyspnea on exertion): Code(s): R06.09 - Other forms of dyspnea Plan: Multifactorial with contribution from underlying cardiac and obesity/deconditioning etiologies. Patient is scheduled to see mechanical research engineer. (2) CO2 retention: Code(s): E87.29 - Other acidosis Plan: Likely secondary to obesity hypoventilation syndrome. Will proceed with in-lab study. (3) TRENTON (obstructive sleep apnea): Code(s): G47.33 - Obstructive sleep apnea (adult) (pediatric) Plan: Unrevealing home sleep study, background of CO2 retention and morbid obesity. Will proceed with an in-lab study. (4) Asthma: Code(s): J45.909 - Unspecified asthma, uncomplicated Plan: Baseline controlled on Flovent 220 and albuterol MDI. Continue current regimen. Orders: Orders RT PSG in-lab sleep study Today E87.29 - Other acidosis, G47.33 - Obstructive sleep apnea (adult) (pediatric) Medications: Changed From albuterol sulfate 90 mcg/actuation (Ventolin HFA) 2 puffs inhalation Q4H P RN Wheezing G47.33 - Obstructive sleep apnea (adult) (pediatric) To albuterol sulfate 90 mcg/actuation (Ventolin HFA) 2 puffs inhalation Q4H 30 days PRN 1 ea 6RF Wheezing G47.33 - Obstructive sleep apnea (adult) (pediatric) Coding Level of Care Code Est Pt Level 4 (21364) Diagnoses LOUISE (dyspnea on exertion) R06.09 CO2 retention E87.29 TRENTON (obstructive sleep apnea) G47.33 Asthma J45.909
== END 2023-10-27 10:59 | disposition home or self-care (01) ==
PROVIDERS: PCP Internal Medicine; Visit Provider Internal Medicine Pulmonary Disease
DX: R06.09 Other forms of dyspnea (principal); E87.29 Other acidosis; G47.33 Obstructive sleep apnea (adult) (pediatric); J45.909 Unspecified asthma, uncomplicated
CPT/HCPCS: 99214

== ENCOUNTER → 2023-10-27 10:12 | Outpatient (BNVA) | payer OTHER, SELFPAY | PROVIDERS: PCP Internal Medicine; Visit Provider Internal Medicine Pulmonary Disease | DX: J45.909 Unspecified asthma, uncomplicated (principal); R06.09 Other forms of dyspnea; E87.29 Other acidosis; G47.33 Obstructive sleep apnea (adult) (pediatric); Z79.899 Other long term (current) drug therapy | CPT/HCPCS: 99212 ==

== ENCOUNTER 2023-12-08 10:06 | Inpatient (IN) | payer OTHER, SELFPAY ==
[2023-12-08] VITALS (12 sets, daily range): BP systolic 87–181; BP diastolic 58–100; PULSE 98–119; RESP 16–46; TEMP 36.8–38.8; O2SAT 90–98; BMI 44.3
--- NOTE | ~2023-12-08 | XR_ITS ---
EXAMINATION: XR CHEST CLINICAL INFORMATION: Endotracheal tube placement. COMPARISON: 12/08/2023. TECHNIQUE: Frontal view of the chest was obtained. FINDINGS: The lung volumes are low. The cardiomediastinal silhouette is stable. There is an endotracheal tube in adequate position above the tiana. A gastric tube extends below the diaphragm beyond the field of imaging. There is mild diffuse increased markings and likely atelectatic change at the lung bases. The bony structures and soft tissues are unremarkable. XR/XR chest 1V IMPRESSION: Endotracheal tube in adequate position above the tiana. Gastric tube extends below the diaphragm beyond the field of imaging. Mild diffuse increased markings and likely atelectatic change at the lung bases.
--- NOTE | ~2023-12-08 | XR_ITS ---
EXAMINATION: XR CHEST CLINICAL INFORMATION: Central line placement. COMPARISON: Previous of the same day. TECHNIQUE: Frontal view of the chest was obtained. FINDINGS: The lung volumes are low and the patient is rotated both Limiting examination. The cardiomediastinal silhouette is stable. There is an endotracheal tube in a stable position. A gastric tube extends below the diaphragm beyond the field of imaging. A left approach central line terminates at the lower SVC/right atrial junction. Diffuse increased markings and lower lung field apparent atelectatic change is again noted. There is no pneumothorax. The bony structures and soft tissues are unremarkable. XR/XR chest 1V IMPRESSION: 1. Left approach central line terminates at the lower SVC/right atrial junction. The endotracheal tube and gastric tube are in stable position. 2. Low lung volumes with diffuse increased markings and lower lung field atelectatic change.
--- NOTE | ~2023-12-08 | XR_ITS ---
EXAMINATION: XR ABDOMEN KUB CLINICAL INDICATION: Abdominal pain. COMPARISON: None available. TECHNIQUE: AP view of the abdomen. FINDINGS: The bowel gas pattern is normal with no evidence of ileus or obstruction. A gastric tube extends below the diaphragm with tip at the midline mid to upper abdomen. There is retained stool. No unusual soft tissue calcifications are noted. The bones are unremarkable. XR/XR KUB IMPRESSION: Nonobstructive bowel gas pattern. Retained stool of uncertain significance. Gastric tube in place.
--- NOTE | ~2023-12-08 | XR_ITS ---
EXAMINATION: XR CHEST CLINICAL INFORMATION: NG tube placement. COMPARISON: Most recent CTA chest dated 09/01/2023. TECHNIQUE: Frontal view of the chest was obtained. FINDINGS: Hypoinflation of the lungs. Right basilar atelectasis, similar when compared to the prior CT. No pleural effusion or pneumothorax. Stable cardiomediastinal silhouette. Enterogastric tube with the tip in the region of the gastric body. XR/XR chest 1V IMPRESSION: 1. Enterogastric tube in appropriate position. 2. Hypoinflation of the lungs with right basilar atelectasis, similar when compared to the prior CT.
--- NOTE | ~2023-12-08 | CT_ITS ---
EXAMINATION: CT ABDOMEN AND PELVIS WITHOUT CONTRAST CLINICAL INFORMATION: Diffuse abdominal pain, vomiting COMPARISON: CT 05/27/2018 TECHNIQUE: Multidetector volumetric imaging was performed from the superior aspect of the liver through the pubic symphysis. Sagittal and coronal reformatted images were obtained on the technologist's workstation. This CT examination was performed using dose optimization techniques as appropriate, variously including the following: *Automated exposure control *Adjustment of mA and/or kV according to patient size (this includes techniques or standardized protocols for targeted exams where dose is matched to indication/reason for exam; i.e. extremities or head) *Use of iterative reconstruction technique DLP: 1166 mGy-cm FINDINGS: LUNG BASES: Bibasilar atelectasis. Small fluid-filled hiatal hernia. LIVER, GALLBLADDER, AND BILIARY TREE: The liver is normal in size, shape, and attenuation. No focal hepatic lesion or biliary ductal dilatation is present. The gallbladder is unremarkable with no evidence of radiopaque gallstones, gallbladder wall thickening, or obvious pericholecystic inflammatory changes. PANCREAS: Unremarkable. SPLEEN: Unremarkable. ADRENAL GLANDS: Unremarkable. KIDNEYS AND URETERS: The right kidney is surgically absent. There is a 3.2 cm simple fluid density left renal cyst which has increased in size since 2018. This does not require additional follow-up. BLADDER: Unremarkable. GASTROINTESTINAL TRACT: Small bowel loops are mildly prominent and diffusely fluid-filled with scattered air-fluid levels. The large bowel is stool filled and nondilated with a normal-appearing appendix. Some formed stool is present within the distal ileum and there is mild inflammatory stranding in the region of the distal ileum where the small bowel is slightly dilated. ABDOMINAL WALL: No significant hernia is appreciated. LYMPH NODES: Normal. VASCULAR: Scattered atherosclerotic calcifications. PELVIC VISCERA: Unremarkable. OSSEOUS STRUCTURES: Unremarkable. CT/CT abdomen pelvis wo IV con IMPRESSION: 1. Mildly prominent and fluid-filled small bowel loops with scattered air-fluid levels and mild inflammatory stranding in the region of the distal ileum where the bowel is mildly dilated with some formed stool contents. This may represent a low-grade partial small bowel obstruction and/or enteritis. 2. Small hiatal hernia. 3. Status post right nephrectomy. Fleischner guidelines were followed.
--- NOTE | ~2023-12-08 | XR_ITS ---
EXAMINATION: XR CHEST CLINICAL INFORMATION: Dyspnea. COMPARISON: Previous chest x-ray from earlier the same day TECHNIQUE: Frontal view of the chest was obtained. FINDINGS: The lung volumes are low. The cardiac and mediastinal contours are stable. The lungs are clear. No pleural effusion or pneumothorax. There is a nasogastric tube that projects over the mid stomach. Tip not seen. XR/XR chest 1V IMPRESSION: Low lung volumes. No evidence for acute disease in the chest.
--- NOTE | ~2023-12-08 | XR_ITS ---
EXAMINATION: XR CHEST CLINICAL INFORMATION: Hypoxia. Aspiration. COMPARISON: 12/09/2023 TECHNIQUE: Frontal view of the chest was obtained. FINDINGS: Endotracheal tube is approximately 2.5 cm of the tiana. The enteric tube courses along the esophagus has tip is in the region of the gastric body. The tip of the left IJ catheter is in region of junction of the SVC with right atrium. No pneumothorax. Lungs remain hypoinflated and suboptimally evaluated. There appears to be minimal atelectasis in the right midlung. The opacity in the retrocardiac area of the left lower lobe is grossly unchanged compared to 12/09/2023 but worse compared to 12/08/2023. No acute osseous abnormalities. XR/XR chest 1V IMPRESSION: * The tubes/lines are in satisfactory position. * No pneumothorax or pneumomediastinum. * The lower lobes are suboptimally evaluated due to patient body habitus and hypoinflation. * The opacity in the retrocardiac area of the left lower lobe (from atelectasis and/or infiltrate) is similar in appearance compared to 12/09/2023.
--- NOTE | 2023-12-08 10:16 | ECG_ITS ---
Test Reason : N/V Blood Pressure : / mmHG Vent. Rate : 111 BPM Atrial Rate : 111 BPM P-R Int : 194 ms QRS Dur : 106 ms QT Int : 336 ms P-R-T Axes : 042 -27 072 degrees QTc Int : 456 ms Sinus tachycardia Brugada pattern, type 2 Minimal voltage criteria for LVH, may be normal variant ( Matthew product ) Abnormal ECG When compared with ECG of 01-SEP-2023 12:03, Sinus rhythm has replaced Atrial fibrillation QRS duration has increased Brugada pattern is noted Referred By: Judy Cortés Electronically Signed By:MYA BARRON MD
--- NOTE | 2023-12-08 10:20 | PC.NURSE ---
a&ox4. vss and up to date aside from being sinus tachy on the bus monitor. pt presents to ED w/ n/v that started around 0300 after eating food from a restaurant around 1700 the night prior. pt denies any episodes of diarrhea. pt also c/o 9/10 generalized abd pain - increases when vomiting. pt presents to ED on 4L via NC which is her baseline. no sob/wob noted. respirations even and unlabored. plan of care ongoing. call mojica placed within reach.
--- NOTE | 2023-12-08 10:33 | ED.NAVMDI ---
HPI - Nausea/Vomiting/Diarrhea General Chief complaint: Nausea/Vomiting/Diarrhea Stated complaint: N/V SINCE 3AM PER EMS Time Seen by Provider: 12/08/23 10:32 Source: patient, EMS and RN notes reviewed Mode of arrival: EMS Limitations: no limitations History of Present Illness HPI Narrative: Patient is a 63-year-old female with history of asthma, afib, HTN, cocaine and opioid abuse, [place], CKD, fibromyalgia presenting to the emergency department with complaint of nausea and vomiting since 3am. Non-bloody, non-bilious emesis. Also complains of generalized abdominal pain. Denies diarrhea. Complains of chills. States symptoms began after eating rice and vegetables at a restaurant last night. Reports only previous abdominal surgery was . Denies chest pain, palpitations, shortness of breath. Wear O2 via nasal cannula at home as needed. MD elicited complaint: nausea, vomiting and abdominal pain Onset (ago): hour(s) Description of vomiting: food contents Associated nausea: Yes Associated abdominal pain: Yes Location of pain: diffuse Radiation: does not radiate Pain consistency: colicky Severity: mild Quality: aching Exacerbating factors: movement Relieving factors: rest Context: possible food poisoning Associated symptoms: denies other symptoms Treatment prior to arrival: none Related Data Home Medications Medication Instructions Recorded Confirmed fluticasone propionate 220 1 puff inhalation BID 10/17/20 12/08/23 mcg/actuation HFA aerosol inhaler (Flovent HFA) bupropion HCl 300 mg 24 hr tablet, 300 mg PO QAM 08/27/23 12/08/23 extended release clonazepam 1 mg tablet 1.5 mg PO DAILY PRN ANEXITY 08/27/23 12/08/23 sertraline 100 mg tablet 150 mg PO DAILY 08/27/23 12/08/23 methadone 10 mg/mL oral 43 mg PO DAILY 08/28/23 10/05/23 concentrate (Methadone Intensol) aripiprazole 5 mg tablet 5 mg PO QAM 12/08/23 12/08/23 Previous Rx's Medication Instructions Recorded lisinopril 20 mg tablet 20 mg PO DAILY #30 tabs 06/25/23 lidocaine 4 % topical patch 2 patch topical DAILY PRN pain #30 07/23/23 (Aspercreme (lidocaine)) ea hospital bed #1 ea 11/17/23 atorvastatin 80 mg tablet 80 mg PO DAILY #90 tabs 10/05/23 hydrochlorothiazide 25 mg tablet 25 mg PO DAILY #90 tabs 10/05/23 montelukast 10 mg tablet 10 mg PO DAILY #90 tabs 10/05/23 apixaban 5 mg tablet (Eliquis) 5 mg PO BID #60 tabs 10/18/23 albuterol sulfate 90 mcg/actuation 2 puff inhalation Q4H PRN Wheezing 10/27/23 aerosol inhaler (Ventolin HFA) 30 days #1 ea diltiazem HCl 180 mg 180 mg PO DAILY #30 caps 11/28/23 capsule,extended release 24 hr Allergies Allergy/AdvReac Type Severity Reaction Status Date / Time No Known Allergies Allergy Unknown Verified 12/08/23 10:18 [No Known Allergies*] Review of Systems Review of Systems: As per HPI. Yes all other systems are reviewed and are negative Constitutional: Constitutional: Reports as per HPI Gastrointestinal: Gastrointestinal: Reports nausea PMFSH Past Medical History Medical History (Updated 12/08/23 @ 16:40 by Anyi Gross NP) Atrial fibrillation Cocaine abuse Cocaine abuse History of opioid abuse H/O renal cell cancer Morbid obesity Hypertension Surgical History History of colonoscopy History of right nephrectomy Family History Family History (Updated 10/05/23 @ 14:12 by BOO Swenson) Father HTN (hypertension) Diabetes Mother HTN (hypertension) Diabetes Sister Diabetes Brother HTN (hypertension) Maternal Aunt Breast cancer Social History Social History Household Members: None Housing: Apartment Do you presently have visiting nurse or other home services: Yes Alcohol intake: never Patient Tobacco Use Status: Never used Tobacco Smoked in Last 30 Days: No e-Cigarette/Vaping Use: Never Used Second Hand Smoke Exposure: No Use of substances other than those prescribed or required for medical reasons: No Substance Use Type: Crack/Cocaine Advance Directives: No Patient : No service: No Current occupational status: disabled Cognitive needs: Yes (wheelchair) Hearing needs: No Vision needs: No Physical Exam Vital Signs: Vital Signs: Last Vital Signs Temp 101 F H 12/08/23 20:47 Pulse 98 12/08/23 23:38 Resp 16 12/08/23 23:38 BP 92/58 L 12/08/23 23:38 Pulse Ox 92 12/08/23 23:38 O2 Del Method Nasal Cannula 12/08/23 23:12 O2 Flow Rate 4 12/08/23 23:12 Oxygen Flow Rate 4 12/08/23 10:18 BMI result Body Mass Index 44.3 Vital signs have been reviewed and appear to be correct. Blood pressure elevated. Heart rate tachycardic. Respiratory rate normal. Temperature normal. Oxygen saturation normal. Const: General: cooperative, no acute distress, alert and awake Nutritional Appearance: obese Orientation/consciousness: oriented to person, oriented to place, oriented to time and patient oriented x3 Limitations: no limitations HEENT: Head: Yes normocephalic and Yes atraumatic Ears: external ears normal General nose exam: Normal external nose present Face and sinus: Yes face symmetric Mouth: oropharynx normal and moist mucous membranes Throat: Yes uvula midline Eyes: Pupils: Equal, round and reactive pupils present Neck: Neck: Yes normal visual inspection and Yes supple Resp: Effort & Inspection: normal respiratory effort and able to speak in complete sentences Auscultation: clear to auscultation bilaterally Cardio: Rate: regular rate Rhythm: regular rhythm Heart sounds: S1 normal heart sound present and S2 normal heart sound present GI: Palpation (GI): Soft to palpation, Tenderness to palpation present (GI) other (mild diffuse tenderness), no guarding, no pulsatile masses and No Rebound tenderness present Auscultation: normoactive bowel sounds : General: Yes no CVA tenderness Back/Spine/Pelvis: Back: no CVA tenderness Skin: General skin exam: elasticity normal and turgor normal Neuro: General: oriented to person, oriented to place, oriented to time, patient oriented x3, moves all extremities, no focal motor deficits and CN's II-XI intact bilaterally Cranial nerves: Yes Equal, round and reactive pupils present Cognition (Neuro): normal cognition Extrem: General: Yes full ROM, Yes no pedal edema and Yes no calf tenderness Psych: Mental Status: mental status grossly normal Affect: normal affect Thought process: Normal thought process present Medications Administered Generic Name Dose Route Start Last Admin Trade Name Freq PRN Reason Stop Dose Admin Aripiprazole 5 mg 12/08/23 17:30 12/08/23 17:53 Aripiprazole 5 Mg Tablet PO 5 mg DAILY KENZIE Administration Fluticasone Propionate 1 puff 12/08/23 20:00 12/08/23 20:53 Fluticasone Propionate 250 Mcg Blst.W.Dev INHALE Not Given RBID KENZIE Metronidazole 500 mg in 100 mls @ 100 mls/hr 12/08/23 18:00 12/08/23 19:00 Flagyl IV Infused Q12H KENZIE Infusion Albumin Human 100 mls @ 100 mls/hr 12/08/23 22:45 12/08/23 23:17 Kedbumin 25 % IV 12/09/23 00:44 100 mls/hr Q1H KENZIE Administration Lactated Ringer's 500 mls @ 500 mls/hr 12/08/23 23:00 12/08/23 23:06 Lr IV 12/08/23 23:59 500 mls/hr .Q1H KENZIE Administration Propofol 1,000 mg in 100 mls @ 0 mls/hr 12/08/23 23:30 12/08/23 23:38 Diprivan IVCONT 30 mcg/kg/min .Q0M KENZIE 22.41 mls/hr Administration Protocol Per Protocol Morphine Sulfate 2 mg 12/08/23 17:26 12/08/23 20:41 Morphine Sulfate 2 Mg/Ml Cartridge IVPUSH 2 mg Q3H PRN Administration moderate pain Protocol Discontinued Medications Generic Name Dose Route Start Last Admin Trade Name Freq PRN Reason Stop Dose Admin Acetaminophen 650 mg 12/08/23 16:07 12/08/23 16:19 Acetaminophen Supp 650 Mg Supp.Rect [place] 12/08/23 16:08 650 mg ONCE ONE Administration Diphenhydramine HCl 25 mg 12/08/23 15:54 12/08/23 15:58 Diphenhydramine Hcl 50 Mg/Ml Vial IVPUSH 12/08/23 15:55 25 mg ONCE ONE Administration Etomidate 20 mg 12/08/23 23:25 12/08/23 23:35 Etomidate 20 Mg/10 Ml Vial IVPUSH 12/08/23 23:26 20 mg NOW STA Administration Hydromorphone HCl 1 mg 12/08/23 12:27 12/08/23 12:39 Hydromorphone Hcl 1 Mg/Ml Syringe IVPUSH 12/08/23 12:28 1 mg ONCE ONE Administration Protocol Sodium Chloride 1,000 mls @ 999 mls/hr 12/08/23 10:45 12/08/23 15:12 Ns IV 12/08/23 11:45 Infused .Q1H1M KENZIE Infusion Ceftriaxone Sodium 1 gm/ 50 mls @ 100 mls/hr 12/08/23 16:11 12/08/23 17:14 Sodium Chloride IV 12/08/23 16:40 Infused ONCE ONE Infusion Lactated Ringer's 1,000 mls @ 80 mls/hr 12/08/23 17:30 12/08/23 20:57 Lr IVCONT Infused .[id number] KENZIE Infusion Mineral Oil 133 ml 12/08/23 16:40 12/08/23 17:53 Mineral Oil Enema 133 Ml Enema WA 12/08/23 16:41 133 ml ONCE ONE Administration Ondansetron HCl 4 mg 12/08/23 10:38 12/08/23 10:49 Ondansetron Hcl 4 Mg/2 Ml Vial IVPUSH 12/08/23 10:39 4 mg ONCE ONE Administration Rocuronium [place] 100 mg 12/08/23 23:25 12/08/23 23:36 Rocuronium [place] 50 Mg/5 Ml Vial IVPUSH 12/08/23 23:26 100 mg ONCE ONE Administration Procedures Intubation Intubation Type:: Endotracheal Tube Insertion Intubation Date:: 12/08/23 Intubation Time:: 23:45 Time out performed: Yes sedative: Etomidate Mg Given: 20 paralytic: Rocuronium Mg Given: 100 Laryngoscope: other (GlideScope) ET Tube Size: 7 ET Tube Uncuffed: No Tube Secured Depth (cm): 24 Tube Secured Location: lips Tube Placement Confirmation: visualized tube passing through cords, equal breath sounds bilaterally and no breath sounds over epigastrium Patient Tolerated Procedure: well and no complications Intubation Complications: none Medical Decision Making Medical Decision Making MDM Narrative: 10:30 Patient is a 63-year-old female with history of asthma, afib, HTN, cocaine and opioid abuse, [place], CKD, fibromyalgia presenting to the emergency department with complaint of nausea and vomiting since 3am. On exam patient is awake, A+Ox3, tachycardic, BP elevated, afebrile, normal neurological exam without focal deficits, physical exam findings as above. Given reported symptoms and physical exam findings, initial differential includes food poisoning, gastroenteritis, ACS, dehydration, electrolyte abnormality, obstruction. Do not suspect sepsis. EKG shows sinus tachycardia with Brugada pattern type 2 in leads V1, V2, not present on prior EKGs. Labs notable for leukocytosis with left shift, no anemia, chronic elevation of BUN/creatinine, flat troponins. CT notable for mildly prominent and fluid filled small bowel loops with scattered air-fluid levels and mild inflammatory stranding in distal ileum where bowel is mildly dilated with some formed stool; low-grade SBO vs enteritis. My interpretation is in agreement with the radiologist's. Case discussed with Dr. Monroe who will review imaging. 16:10 Notified by RN that patient is febrile, [place] Tylenol ordered as well as ceftriaxone as patient now meeting sepsis criteria. Benadryl ordered for nausea. 16:30 Dr. Monroe recommends futher evaluation, repeat CT with oral contrast, can be done tomorrow depending on how patient progresses overnight, NGT, enema, feels possible terminal ileitis or ileus. Admission to medicine accepted by Dr. Meléndez. At 23:20, I was informed by Dr. Hunt the patient is minimally responsive, tachypneic with a respiratory rate in the 40s. Patient ill-appearing. It is likely that patient aspirated earlier today. We will go ahead and intubate the patient. Dr. Hunt discussed the patient with Dr. Bryson from the ICU. Differential Diagnosis Differential Diagnoses: The differential diagnosis associated with the presentation includes As per [facility] Admission/Observation Consideration of admission/observation: Escalation of care including admission/observation considered Consult Healthcare Provider Management of the patient was discussed with: Meter Shop Superintendent (Dr. Monroe) Lab Data [facility] Lab Attestation statement: I reviewed the patient's lab results. As per [facility] 12/08/23 10:43 12/08/23 10:43 Labs: Lab Results 12/08/23 12/08/23 12/08/23 Range/Units 10:31 10:43 13:45 WBC 14.1 H (4.8-10.8) X10*3/uL RBC 4.83 (4.20-5.50) X10*6/uL Hgb 14.4 (12.0-16.0) g/dl Hct 44.8 (37.0-47.0) % MCV 92.8 (80.0-98.0) fL MCH 29.8 (27.0-33.0) pg MCHC 32.1 (31.0-35.0) g/dl RDW 14.2 (11.0-16.0) % Plt Count 329 D (160-400) X10*3/uL MPV 9.4 (9.4-12.3) fL Immature Gran % (Auto) 0.4 (0.0-0.4) % Neut % (Auto) 91.5 H (45-73) % Lymph % (Auto) 3.8 L (20-40) % [place] % (Auto) 4.0 (2-11) % Eos % (Auto) 0.1 (0-4) % Baso % (Auto) 0.2 (0-2) % Lymph # (Auto) 0.5 L (1.2-4.9) X10*3/uL [place] # (Auto) 0.6 (0.1-1.2) X10*3/uL Eos # (Auto) 0.0 (0.0-0.4) X10*3/uL Baso # (Auto) 0.0 (0.0-0.2) X10*3/uL Abs Immat Gran (auto) 0.05 H (0.00-0.03) X10*3/uL Absolute Neuts (auto) 12.9 H (2.0-8.3) x10*3/uL Absolute Nucleated RBC 0.000 (0.0-0.012) X10*3/uL Nucleated RBC % (auto) 0.0 (0.0-0.2) /100WBC Smear Tech's Comments VERIFIED Sodium 137 (135-145) mmol/L Potassium 4.4 (3.3-5.1) mmol/L Chloride 98 (96-108) mmol/L Carbon Dioxide 29 (22-29) mmol/L Anion Gap 14 (12-20) BUN 36 H (9-16) mg/dL Creatinine 1.51 H (0.5-1.4) mg/dL Estim Creat Clear Calc 51.3 Estimated GFR 35 Random Glucose 202 H (60-115) mg/dL Lactic Acid (0.5-2.0) mmol/L Calcium 10.4 H D (8.4-10.2) mg/dL Magnesium 2.7 H (1.6-2.6) mg/dL Total Bilirubin 1.0 (0.0-1.0) mg/dL AST 24 (5-31) U/L ALT 19 (0-31) U/L Alkaline Phosphatase 111 (39-117) U/L Troponin I High Sens 5.7 D 6.5 (<3.5-17.0) ng/L Total Protein 8.7 H (6.5-8.0) g/dL Albumin 4.2 (3.5-5.0) g/dL Influenza Type A (PCR) NEGATIVE (Negative) Influenza Type B (PCR) NEGATIVE (Negative) RSV RNA Qual (PCR) NEGATIVE (Negative) SARS-CoV-2 RNA (RT-PCR) NEGATIVE (Negative) 12/08/23 Range/Units 16:24 WBC (4.8-10.8) X10*3/uL RBC (4.20-5.50) X10*6/uL Hgb (12.0-16.0) g/dl Hct (37.0-47.0) % MCV (80.0-98.0) fL MCH (27.0-33.0) pg MCHC (31.0-35.0) g/dl RDW (11.0-16.0) % Plt Count (160-400) X10*3/uL MPV (9.4-12.3) fL Immature Gran % (Auto) (0.0-0.4) % Neut % (Auto) (45-73) % Lymph % (Auto) (20-40) % [place] % (Auto) (2-11) % Eos % (Auto) (0-4) % Baso % (Auto) (0-2) % Lymph # (Auto) (1.2-4.9) X10*3/uL [place] # (Auto) (0.1-1.2) X10*3/uL Eos # (Auto) (0.0-0.4) X10*3/uL Baso # (Auto) (0.0-0.2) X10*3/uL Abs Immat Gran (auto) (0.00-0.03) X10*3/uL Absolute Neuts (auto) (2.0-8.3) x10*3/uL Absolute Nucleated RBC (0.0-0.012) X10*3/uL Nucleated RBC % (auto) (0.0-0.2) /100WBC Smear Tech's Comments Sodium (135-145) mmol/L Potassium (3.3-5.1) mmol/L Chloride (96-108) mmol/L Carbon Dioxide (22-29) mmol/L Anion Gap (12-20) BUN (9-16) mg/dL Creatinine (0.5-1.4) mg/dL Estim Creat Clear Calc Estimated GFR Random Glucose (60-115) mg/dL Lactic Acid 2.1 H* (0.5-2.0) mmol/L Calcium (8.4-10.2) mg/dL Magnesium (1.6-2.6) mg/dL Total Bilirubin (0.0-1.0) mg/dL AST (5-31) U/L ALT (0-31) U/L Alkaline Phosphatase (39-117) U/L Troponin I High Sens (<3.5-17.0) ng/L Total Protein (6.5-8.0) g/dL Albumin (3.5-5.0) g/dL Influenza Type A (PCR) (Negative) Influenza Type B (PCR) (Negative) RSV RNA Qual (PCR) (Negative) SARS-CoV-2 RNA (RT-PCR) (Negative) Independent Interpretation I performed an independent interpretation of an: EKG (Sinus tachycardia with Brugada pattern type 2 in V1, V2 , rate 111bpm, normal WA interval, mild prolongation of QTc) and CT Scan Interpretation: CT shows mildly prominent and fluid filled small bowel loops with scattered air-fluid levels and mild inflammatory stranding in distal ileum where bowel is mildly dilated with some formed stool; low-grade SBO vs enteritis. Radiology Impression Discussion of test interpretation with radiology: I have reviewed the radiologist's reading. Radiologist Impression: CT/CT abdomen pelvis wo IV con IMPRESSION: 1. Mildly prominent and fluid-filled small bowel loops with scattered air-fluid levels and mild inflammatory stranding in the region of the distal ileum where the bowel is mildly dilated with some formed stool contents. This may represent a low-grade partial small bowel obstruction and/or enteritis. 2. Small hiatal hernia. 3. Status post right nephrectomy. Fleischner guidelines were followed. External Record Review External record reviewed: Inpatient record and Office record Prescription Management I considered prescription management with: Pain Medication and Antibiotic Critical Care Time Critical Care Time Critical Care Time: Yes Total Critical Care Time: 75 Attestation: I have personally provided critical care time. Time includes review of lab data, radiology results, discussion with consultants, and monitoring for potential decompensation. Intervention performed as documented. Discharge Plan Discharge Clinical Impression: Abdominal pain, Nausea with vomiting Patient Disposition: Admitted As Inpatient
[2023-12-08] MEDS: 0.9 % Sodium Chloride 1,000 ML 999 ML IV (10:44)
[2023-12-08] MEDS: ondansetron HCL 4 MG/2 ML VIAL IVPUSH (10:49)
--- NOTE | 2023-12-08 10:49 | PC.NURSE ---
20gIV placed in the left AC - labs obtained/sent to lab.
[2023-12-08 11:01] LABS: Basophils Percent Auto 0.2 % (0-2); Eosinophils Percent Auto 0.1 % (0-4); Hematocrit 44.8 % (37.0-47.0); Hemoglobin 14.4 g/dl (12.0-16.0); Imm Gran Abs Auto 0.05 X10*3/uL (0.00-0.03); Imm Gran Pct Auto 0.4 % (0.0-0.4); Lymphocytes Absolute Auto 0.5 X10*3/uL (1.2-4.9); Lymphocytes Percent Auto 3.8 % (20-40); MANUAL DIFF FLAG SCAN; Mean Corpuscular HGB Conc 32.1 g/dl (31.0-35.0); Mean Corpuscular Hemoglobin 29.8 pg (27.0-33.0); Mean Corpuscular Volume 92.8 fL (80.0-98.0); Mean Platelet Volume 9.4 fL (9.4-12.3); Monocytes Absolute Auto 0.6 X10*3/uL (0.1-1.2); Neutrophils Absolute Auto 12.9 x10*3/uL (2.0-8.3); Neutrophils Percent Auto 91.5 % (45-73); Platelet Count 329 X10*3/uL (160-400); Red Blood Count 4.83 X10*6/uL (4.20-5.50); Red Cell Distribution Width 14.2 % (11.0-16.0); SCAN SMEAR FLAG 1; White Blood Count 14.1 X10*3/uL (4.8-10.8)
[2023-12-08 11:16] LABS: Alanine Aminotransferase 19 U/L (0-31); Albumin Level 4.2 g/dL (3.5-5.0); Alkaline Phosphatase 111 U/L (39-117); Anion Gap 14 (12-20); Aspartate Amino Transferase 24 U/L (5-31); Blood Urea Nitrogen 36 mg/dL (9-16); Calcium 10.4 mg/dL (8.4-10.2); Carbon Dioxide 29 mmol/L (22-29); Chloride 98 mmol/L (96-108); Creatinine Clr Calc Pharmacy 51.3; Estimated Glomerular Filt Rate 35; Glucose Random 202 mg/dL (60-115); Magnesium 2.7 mg/dL (1.6-2.6); Potassium 4.4 mmol/L (3.3-5.1); Sodium 137 mmol/L (135-145); Total Protein 8.7 g/dL (6.5-8.0)
[2023-12-08 11:18] LABS: SLIDE REVIEW VERIFIED
[2023-12-08 11:23] LABS: Troponin-I High Sensitivity 5.7 ng/L (<3.5-17.0)
[2023-12-08 11:33] LABS: Influenza A PCR NEGATIVE (Negative); Influenza B PCR NEGATIVE (Negative); Resp Syncy Virus RNA Qual PCR NEGATIVE (Negative); SARS COV2 PCR INHOUSE NEGATIVE (Negative)
[2023-12-08] MEDS: HYDROmorphone HCl 1 MG/ML SYRINGE IVPUSH (12:39)
--- NOTE | 2023-12-08 12:40 | PC.NURSE ---
pt c/o 07/06 generalized abd pain. pt medicated per provider order. effectiveness pending. pt to CT at this time.
--- NOTE | 2023-12-08 13:24 | PC.NURSE ---
pt verbalizing pain level stays the same despite medication administration. pt remains sinus tachy on the monitor - 110s bpm. pt seemingly diaphoretic but afebrile. pt continues to wait for TC results at this time - states she is still extremely nauseous. respirations remain even and unlabored. plan of care ongoing. call mojica placed within reach.
--- NOTE | 2023-12-08 13:46 | PC.NURSE ---
repeat troponin obtained/sent to lab.
[2023-12-08 14:18] LABS: Troponin-I High Sensitivity 6.5 ng/L (<3.5-17.0)
[2023-12-08] MEDS: diphenhydrAMINE HCL 50 MG/ML VIAL 25 MG IVPUSH (15:58)
--- NOTE | 2023-12-08 16:01 | ECG_ITS ---
Test Reason : repeat Blood Pressure : / mmHG Vent. Rate : 117 BPM Atrial Rate : 117 BPM P-R Int : 158 ms QRS Dur : 098 ms QT Int : 326 ms P-R-T Axes : 031 -14 070 degrees QTc Int : 454 ms Sinus tachycardia Minimal voltage criteria for LVH, may be normal variant ( Matthew product ) Nonspecific ST abnormality Abnormal ECG When compared with ECG of 08-DEC-2023 10:22, No significant change was found Referred By: Anyi Gross Electronically Signed By:MYA BARRON MD
--- NOTE | 2023-12-08 16:12 | PC.NURSE ---
pt vomited a large amount of foul smelling brown emesis onto her neck/chest/hospital attire. pt cleaned/changed/fresh linen applied. pt also incontinent of urine - purewick placed. pt's body warm to the touch while cleaning - rectal temp obtained displaying 100.9. provider notified/aware of all findings. plan of care ongoing.
[2023-12-08] MEDS: Acetaminophen Supp 650 MG SUPP.RECT PR (16:19)
[2023-12-08] MEDS: cefTRIAXone sodium 1 GM in 0.9 % Sodium Chloride 50 ML IV (16:44)
[2023-12-08 17:04] LABS: Lactic Acid 2.1 mmol/L (0.5-2.0)
--- NOTE | 2023-12-08 17:07 | PHA.MEDREC ---
Pharmacy Consult ? Medication Reconciliation Pharmacy has completed the medication reconciliation. Patient confirmed medications based on claim history. Unsure how good of a historian patient is. Patient confirmed using Flovent however no claim history for me. Per Nathan outpatient report in September, patient is maintained on Flovent therefore left in home list. Patient report methadone from [facility] will need to call for verify dose. Chelsea Brown, BekahD
--- NOTE | 2023-12-08 17:30 | P.HPHOSP_ITS ---
History of Present Illness Date of Service: 12/08/23 Chief Complaint: abd pain 63F PMH morbid obesity, chronic hypoxic and hypercapneice respiratory failure due to OHS on 1L home o2, paroxysmal afib, CKD III, polysubstance dependence (opiates, cocaine), skin cancer, htn, mood disorder, moderate persistent asthma, chronic diastolic chf, presented with abdominal pain and vomiting. patient states sypmtoms began day of presentation, RLQ pain, radiating diffusely, associated with nausea and vomiting, denies fever, chills, diarrhea, similar symptoms in past. in ED, CT noted to have low-grade partial small bowel obstruction and/or enteritis. Review of Systems 2 Review of Systems: Yes all other systems are reviewed and are negative [facility] Medical History (Updated 12/08/23 @ 16:40 by Anyi Gross NP) Atrial fibrillation Cocaine abuse Cocaine abuse History of opioid abuse H/O renal cell cancer Morbid obesity Hypertension Family History (Updated 10/05/23 @ 14:12 by BOO Swenson) Father HTN (hypertension) Diabetes Mother HTN (hypertension) Diabetes Sister Diabetes Brother HTN (hypertension) Maternal Aunt Breast cancer Surgical History History of colonoscopy History of right nephrectomy Social History Household Members: None Housing: Apartment Do you presently have visiting nurse or other home services: Yes Alcohol intake: never Patient Tobacco Use Status: Never used Tobacco e-Cigarette/Vaping Use: Never Used Second Hand Smoke Exposure: No Substance Use Type: Crack/Cocaine service: No Current occupational status: disabled Cognitive needs: Yes (wheelchair) Hearing needs: No Vision needs: No Meds Allergies Allergy/AdvReac Type Severity Reaction Status Date / Time No Known Allergies Allergy Unknown Verified 12/08/23 10:18 [No Known Allergies*] Active Medications: Current Medications Aripiprazole (Aripiprazole 5 Mg Tablet) 5 mg PO DAILY KENZIE Atorvastatin Calcium (Atorvastatin Calcium 80 Mg Tablet) 80 mg PO DAILY KENZIE Bupropion HCl (Bupropion Hcl Xl 300 Mg Tab.Er.24h) 300 mg PO DAILY KENZIE Clonazepam (Clonazepam 0.5 Mg Tablet) 1.5 mg PO DAILY PRN PRN Reason: ANEXITY Diltiazem HCl (Diltiazem Hcl Cd 180 Mg Cap.Er.24h) 180 mg PO DAILY KENZIE; Protocol Enoxaparin Sodium (Enoxaparin Sodium 100 Mg/Ml Syringe) 120 mg SUBCUT Q12H [facility] Fluticasone Propionate (Fluticasone Propionate 250 Mcg Blst.W.Dev) 1 puff INHALE RBID KENZIE Lisinopril (Lisinopril 20 Mg Tablet) 20 mg PO DAILY KENZIE; Protocol Montelukast Sodium (Montelukast Sodium 10 Mg Tablet) 10 mg PO DAILY [facility] Sertraline HCl (Sertraline Hcl 50 Mg Tablet) 150 mg PO DAILY [facility] Home Medications Medication Instructions Recorded Confirmed Last Taken Type fluticasone propionate 220 1 puff inhalation BID 10/17/20 12/08/23 Unknown History mcg/actuation HFA aerosol inhaler (Flovent HFA) bupropion HCl 300 mg 24 hr tablet, 300 mg PO QAM 08/27/23 12/08/23 Unknown History extended release clonazepam 1 mg tablet 1.5 mg PO DAILY PRN ANEXITY 08/27/23 12/08/23 Unknown History sertraline 100 mg tablet 150 mg PO DAILY 08/27/23 12/08/23 Unknown History methadone 10 mg/mL oral 43 mg PO DAILY 08/28/23 10/05/23 08/26/23 History concentrate (Methadone Intensol) aripiprazole 5 mg tablet 5 mg PO QAM 12/08/23 12/08/23 Unknown History Physical Exam 2 Vital Signs and Narrative: Vital Signs: Last Vital Signs Temp 100.9 F H 12/08/23 16:07 Pulse 115 H 12/08/23 16:43 Resp 22 H 12/08/23 16:43 BP 147/86 H 12/08/23 16:43 Pulse Ox 98 12/08/23 16:43 O2 Del Method Nasal Cannula 12/08/23 16:43 O2 Flow Rate 4 12/08/23 16:43 Oxygen Flow Rate 4 12/08/23 10:18 BMI result Body Mass Index 44.3 General: AO X 3, in acute distress Resp: CTA bilateral, no accessory muscles used CVS: S1,S2,RRR GI: soft, tender, non distended Neuro: motor grossly intact, alert Psych: appropriate affect, appropriate insight Results Labs 12/08/23 10:43 12/08/23 10:43 Labs: Laboratory Results - last 24 hr 12/08/23 12/08/23 12/08/23 10:31 10:43 13:45 MCV 92.8 MCH 29.8 MCHC 32.1 RDW 14.2 Plt Count 329 D MPV 9.4 Immature Gran % (Auto) 0.4 Neut % (Auto) 91.5 H Lymph % (Auto) 3.8 L [place] % (Auto) 4.0 Eos % (Auto) 0.1 Baso % (Auto) 0.2 Lymph # (Auto) 0.5 L [place] # (Auto) 0.6 Eos # (Auto) 0.0 Baso # (Auto) 0.0 Abs Immat Gran (auto) 0.05 H Absolute Neuts (auto) 12.9 H Absolute Nucleated RBC 0.000 Nucleated RBC % (auto) 0.0 Smear Tech's Comments VERIFIED Anion Gap 14 Estim Creat Clear Calc 51.3 Estimated GFR 35 Random Glucose 202 H Lactic Acid Calcium 10.4 H D Magnesium 2.7 H Total Bilirubin 1.0 AST 24 ALT 19 Alkaline Phosphatase 111 Troponin I High Sens 5.7 D 6.5 Total Protein 8.7 H Albumin 4.2 Influenza Type A (PCR) NEGATIVE Influenza Type B (PCR) NEGATIVE RSV RNA Qual (PCR) NEGATIVE SARS-CoV-2 RNA (RT-PCR) NEGATIVE 12/08/23 16:24 MCV MCH MCHC RDW Plt Count MPV Immature Gran % (Auto) Neut % (Auto) Lymph % (Auto) [place] % (Auto) Eos % (Auto) Baso % (Auto) Lymph # (Auto) [place] # (Auto) Eos # (Auto) Baso # (Auto) Abs Immat Gran (auto) Absolute Neuts (auto) Absolute Nucleated RBC Nucleated RBC % (auto) Smear Tech's Comments Anion Gap Estim Creat Clear Calc Estimated GFR Random Glucose Lactic Acid 2.1 H* Calcium Magnesium Total Bilirubin AST ALT Alkaline Phosphatase Troponin I High Sens Total Protein Albumin Influenza Type A (PCR) Influenza Type B (PCR) RSV RNA Qual (PCR) SARS-CoV-2 RNA (RT-PCR) Imaging Radiologist's Impressions: Impressions Abdomen/Pelvis CT 12/08/23 13:11 IMPRESSION: 1. Mildly prominent and fluid-filled small bowel loops with scattered air-fluid levels and mild inflammatory stranding in the region of the distal ileum where the bowel is mildly dilated with some formed stool contents. This may represent a low-grade partial small bowel obstruction and/or enteritis. 2. Small hiatal hernia. 3. Status post right nephrectomy. Fleischner guidelines were followed. Assessment and Plan (1) Nausea with vomiting: Status: Acute Plan 63F PMH morbid obesity, chronic hypoxic and hypercapneic respiratory failure due to OHS on 1L home o2, paroxysmal afib, CKD III, polysubstance dependence (opiates, cocaine), skin cancer, htn, mood disorder, moderate persistent asthma, chronic diastolic chf, presented with abdominal pain and vomiting distal ileitis complicated by partial SBO npo, ivf, pain meds, antiemetics, NGT, surgery and gi eval rocephin, flagyl chronic hypoxic and hypercapneic respiraotry failure due to OHS (due to morbid obesity) and chronic diastolic chf continue baseline 1L o2 hypovolemic, monitor for overload paroxymal afib in sinus continue cardizem hold eliquis for now (potential surgery), therpaeutic lovenox mood disorder ariprazole, sertraline moderate persistent asthma stable htn lisinopril dvt prophylaxis - lovenox full code patient with partial sbo, not tolerating po, requiring ivf hydration and abx, therefore expected to require atleast 2 midnights inpatient Quality Stroke Does the patient have a stroke diagnosis?: No VTE Prior VTE?: No VTE Risk Level:: Medical - moderate - high VTE Device Contraindication: Treatment Not Indicated VTE Drug Contraindication: N/A - Med Ordered
[2023-12-08] MEDS: ARIPiprazole 5 MG TABLET PO (17:53)
[2023-12-08] MEDS: Lactated Ringers 1,000 ML 80 ML IVCONT (17:53)
[2023-12-08] MEDS: Mineral OiL enema 133 ML ENEMA PR (17:53)
[2023-12-08] MEDS: metroNIDAZOLE/NS 500 MG/100 ML PIGGYBACK 100 MG IV (17:54)
--- NOTE | 2023-12-08 18:19 | PC.NURSE ---
medication/IVF administered per provider order. repeat rectal temp post tylenol suppository = 101.9. dr. masters made aware. fleet enema administered. effectiveness pending.
[2023-12-08 18:28] LABS: Reflex Lactate? Lactic Acid Added
--- NOTE | 2023-12-08 19:18 | PC.NURSE ---
16Fr NG tube placed in the right nare. 1st attempt unsuccessful d/t excessively large amounts of foul/putrid brown/cloudy emesis that the pt produced onto herself. pt cleaned into fresh hospital attire. 2nd attempt at NG tube placement successful. per ED provider Dr. Major - pt placed to wall suction at 100mmHg. pt tolerating wall suction well. pt positioned upright to promote patent airway. plan of care ongoing at this time. call mojica placed within reach.
--- NOTE | 2023-12-08 20:35 | PC.NURSE ---
PT laying in bed, NG tube in place and suction currently at 100 mmhg, light brown fluid in canister. Crackles heard in bilaterally, Dr. Hunt made aware and respiratory called to perform deep suctioning. BP 147/87 HR 107. O2 94 % on 4 L (baseline).
[2023-12-08] MEDS: Morphine Sulfate 2 MG/ML CARTRIDGE IVPUSH (20:41)
--- NOTE | 2023-12-08 20:54 | PC.NURSE ---
PT having difficult work of breathing, RR 45. Dr. Hunt called to bedside and examined pt. Fluids ordered to be stopped verbally by Dr. Hunt @ this time. CXR and ABGs ordered.
--- NOTE | 2023-12-08 22:54 | PC.NURSE ---
BP 87/64 HR 116, Dr Hunt at bedside. VO to continue LR @ 80mls/hr. VBG STAT. Plan of care ongoing.
[2023-12-08] MEDS: Lactated Ringers 500 ML IV (23:06)
--- NOTE | 2023-12-08 23:15 | P.EN_ITS ---
Event Note Date of Service: 12/08/23 Event Note: Was called by the nurse as patient was tachypneic and hypotensive. Patient very lethargic and is breathing about 45 times a minute. Crackles+ Concern for aspiration. Blood pressure 87/60. Heart rate 118. Ordered bolus fluids. Ordered VBG and repeat lactic acid. Limited access as patient is a difficult stick. Consulted Dr Tracy Bryson, housing management representative for further evaluation. Is saturating 90% on 4 L supplemental oxygen Time Spent With Patient Time: Total time managing care of this patient today ____ minutes.
[2023-12-08] MEDS: Albumin Human 25 % 100 ML IV (23:17)
[2023-12-08 23:31] LABS: Venous Blood Gas Refer to POC result
[2023-12-08 23:32] LABS: VBG Base Excess -6.9 mmol/L; VBG HCO3 15 mmol/L (22-26); VBG pCO2 25 mmHg; VBG pH 7.39 (7.32-7.43); VBG pO2 86 mmHg
[2023-12-08] MEDS: Etomidate 20 MG/10 ML VIAL IVPUSH (23:35)
[2023-12-08] MEDS: Rocuronium Bromide 50 MG/5 ML VIAL 100 MG IVPUSH (23:36)
[2023-12-08] MEDS: propofoL 1,000 MG/100 ML VIAL 22.41 MG IVCONT (23:38)
[2023-12-08 23:50] LABS: B Type Natriuretic Peptide 145 pg/mL (<100)
--- NOTE | 2023-12-08 23:50 | P.PNCC_ITS ---
Critical Care Event Note Summary Date of Service: 12/08/23 Code activated: No Narrative: This case had a high probability of a clinically significant, sudden, or life threatening deterioration of this patient's condition which required my full and direct attention, intervention and personal management. Critical Care Time (minutes): 60 Comment: Patient was initially admitted to the hospitalist service and while in the ER, she decompensated requiring intubation for airway protection due to respiratory distress in the setting of aspiration of gastric contents post NG tube placement for decompression of possible SBO; please see admission H&P for details; pt was then transferred to the ICU. HPI/ brief hospital course summary 63-year-old morbidly obese female with history of chronic hypoxic/hypercapnic respiratory failure due to 0 HS who were 1 L of oxygen at home, history of paroxysmal atrial fibrillation on Eliquis, opiate dependence including prescript ion drugs cocaine, chronic kidney disease trace 3, hypertension, mood disorder, skin cancer, asthma, CHF with diastolic dysfunction, patient had presented to the emergency room earlier with complaints of right lower quadrant pain in a diffuse manner associated with nausea and vomiting.? Workup in the emergency room revealed that the patient had a low-grade fever of 109, tachycardic at 01:15 blue was with normal blood pressure.? Laboratories were significant for white count 14.1 with a creatinine of 1.51 her baseline 0.9, otherwise unremarkable.? Patient had a CT of the abdomen pelvis which revealed ?mildly prominent air-filled small bowel loops with scattered air-fluid levels and mild inflammatory stranding in the region distal to the ileum were the bowel is mildly dilated with some formed stool contents, may represent a low-grade partial small bowel obstruction and/or enteritis.? Small hiatal hernia?; case had been discussed with the general surgeon Dr. Monroe who advised for conser vative management at this time.? Patient was admitted to the hospitalist Service, subsequently an NG tube had been placed in the ER and placed to suction during which time the patient might have aspirated but about 1 L of grows food like contents were obtained, soon after the patient became obtunded, difficult to arouse, shows signs of respiratory distress a which point we were called to evaluate the patient. As soon as I saw the patient, she appeared to be using accessory muscles, she was not responding to verbal stimuli and not able to follow commands, and I was clear that the patient was becoming tired, tachypneic and quite tachycardic.? At this point I advised that the best thing would be to intubate the patient for airway protection and to further escalate her workup.? Patient lacks asses, the patient will need a central line placement.? The ED physicians that the Root would kindly intubate the patient. Intubation was done by the above-mentioned physician without any problems, patient was placed on propofol and became hypotensive, Levophed started, central line placed in the emergency room, please see separate procedure note for details. ABG requested, this revealed significant metabolic acidosis, bicarb 2 amps push given and the patient will be transferred to the ICU where further labs will be done, IV fluids x3 L will be done in addition to the 1500 disease she had earlier forearm concern of early sepsis and bowel ischemia. At 23:20, ID reach out to Dr. Monroe again informed him of the above-mentioned changes in the patient's medical condition, he understood and is aware, will follow along. ?Continue with antibiotics which include Zosyn, place her on insulin sliding scale.? Will place her on heparin for DVT prophylaxis, but continued to whole Eliquis given possible complication the needle surgical intervention. Critical care time used for critical evaluation of this patient, diagnosis, treatment and coordination of care, review her records and documentation TOTAL CRITICAL CARE TIME 60??? MIN . discussion and coordination with consultants, completely separate from any procedures performed. . Patient's care was discussed in detail with Dr. Bryson.? sHe is aware of all the above as well as the plan of care for this patient. . ?
[2023-12-08 23:58] LABS: VBG Base Excess -7.6 mmol/L; VBG HCO3 16 mmol/L (22-26); VBG pCO2 29 mmHg; VBG pH 7.34 (7.32-7.43); VBG pO2 61 mmHg
[2023-12-09] VITALS (54 sets, daily range): BP systolic 64–142; BP diastolic 23–84; PULSE 80–114; RESP 13–27; TEMP 34.9–40; O2SAT 84–97; BMI 44.6
[2023-12-09 00:06] LABS: ~Lactic Acid-LAB USE ONLY 5.2 mmol/L (0.5-2.0)
--- NOTE | 2023-12-09 00:21 | W.PM.CCHP ---
Procedures Date of Service Date of Service: 12/09/23 Central Line Placement Left IJ: Consent for Procedure: Emergent-no informed consent obtained Time out performed: Yes Sterile Technique Used: Yes Patient placed on monitor/pulse ox: Yes MD prep: mask, gown and gloves Central line prep: Chlorhexidine scrub Ultrasound used for placement: Yes Central line lumen inserted: triple Post procedure: sutured in place, good blood return, all ports aspirated, flushed, capped and sterile dressing applied Post procedure x-ray: tip of catheter in good position and no pneumothorax seen Patient tolerated procedure: well Complications: none
[2023-12-09 00:41] LABS: ABG Base Excess -12.4 mmol/L; ABG HCO3 12 mmol/L (22-26); ABG pCO2 28 mmHg (32-45); ABG pH 7.26 (7.35-7.45); ABG pO2 172 mmHg (83-108)
[2023-12-09 00:43] LABS: ABG Refer to POC result
[2023-12-09 00:45] LABS: Venous Blood Gas Refer to POC result
[2023-12-09 01:08] LABS: Basophils Absolute Auto 0.1 X10*3/uL (0.0-0.2); Basophils Percent Auto 0.4 % (0-2); Eosinophils Percent Auto 0.1 % (0-4); Hemoglobin 15.1 g/dl (12.0-16.0); Imm Gran Abs Auto 0.06 X10*3/uL (0.00-0.03); Imm Gran Pct Auto 0.4 % (0.0-0.4); Lymphocytes Percent Auto 7.2 % (20-40); MANUAL DIFF FLAG NO; Mean Corpuscular HGB Conc 31.5 g/dl (31.0-35.0); Mean Corpuscular Hemoglobin 29.8 pg (27.0-33.0); Mean Corpuscular Volume 94.9 fL (80.0-98.0); Mean Platelet Volume 9.6 fL (9.4-12.3); Monocytes Absolute Auto 0.7 X10*3/uL (0.1-1.2); Monocytes Percent Auto 4.6 % (2-11); Neutrophils Absolute Auto 12.3 x10*3/uL (2.0-8.3); Neutrophils Percent Auto 87.3 % (45-73); Platelet Count 349 X10*3/uL (160-400); Red Blood Count 5.06 X10*6/uL (4.20-5.50); Red Cell Distribution Width 14.6 % (11.0-16.0); White Blood Count 14.1 X10*3/uL (4.8-10.8)
[2023-12-09] MEDS: Sodium Bicarbonate 8.4% 50 MEQ/50 ML SYRINGE 100 MEQ IVPUSH (01:12)
[2023-12-09] MEDS: Norepinephrine Bitartrate/D5W 8 MG/250 ML PLAST..BAG 70.03 MG IV ×2 (01:13→04:35)
[2023-12-09 01:28] LABS: Alanine Aminotransferase 25 U/L (0-31); Albumin Level 3.7 g/dL (3.5-5.0); Alkaline Phosphatase 109 U/L (39-117); Anion Gap 20 (12-20); Aspartate Amino Transferase 40 U/L (5-31); Bilirubin Total 1.3 mg/dL (0.0-1.0); Blood Urea Nitrogen 53 mg/dL (9-16); Calcium 9.4 mg/dL (8.4-10.2); Carbon Dioxide 20 mmol/L (22-29); Chloride 106 mmol/L (96-108); Estimated Glomerular Filt Rate 18; Glucose Random 168 mg/dL (60-115); Magnesium 3.1 mg/dL (1.6-2.6); Phosphorus 3.5 mg/dL (2.7-4.5); Potassium 3.8 mmol/L (3.3-5.1); Sodium 142 mmol/L (135-145); Total Protein 7.5 g/dL (6.5-8.0)
[2023-12-09 01:50] LABS: Reflex Lactate? 2 Y
--- NOTE | 2023-12-09 02:06 | PC.NURSE ---
At approximately 23:30 DELL Sibley was at bedside and the decision to intubate was made due to patient's deteriorating condition. PT was no longer responding verbally but would only open eyes and groan. (Etomidate and Rocuronium given per NOV) and pt was successfully intubated at 23:48. Tube 7.02 and 22 @ the lip. Vital signs were as follows following intubation; 92/58 HR 95 O2 94 % on 4L and RR 16.
[2023-12-09] MEDS: Sodium Bicarbonate 8.4% 150 MEQ in Dextrose 5 % 850 ML 100 MEQ IV ×3 (02:12→21:15)
[2023-12-09 02:17] LABS: Glucose, Whole Blood 159 mg/dL (60-115)
[2023-12-09] MEDS: Lactated Ringers 1,000 ML 999 ML IV ×4 (02:19→08:50)
[2023-12-09] MEDS: Piperacillin Sodium/Tazobactam 4.5 GM in 0.9 % Sodium Chloride 100 ML IV ×4 (02:22→17:31)
[2023-12-09 02:51] LABS: Appearance Urine Clear; Color Urine Dark Yellow; Glucose Urine UA Negative (Negative); Leukocyte Esterase Urine Small (1+) (Negative); Nitrite Urine Negative (Negative); Specific Gravity - Urine 1.025 (1.005-1.025); UMIC TRIGGER UACC YES; Urine Blood Negative (Negative); Urine Ketones Trace mg/dL (Negative); Urine Protein Trace mg/dL (Neg-Trace)
[2023-12-09 03:29] LABS: Bacteria Urine None Seen (None Seen); Hyaline Casts Urine 0-2 /LPF (0-2); Squamous Epithelial Cell Urine 0-2 /HPF (0-2); UACC Culture Trigger YES; WBC Urine 0-5 /HPF (0-5)
[2023-12-09 03:30] LABS: RBC Urine 0-2 /HPF (0-2)
[2023-12-09] MEDS: propofoL 1,000 MG/100 ML VIAL 18.68 MG IVCONT (03:39)
[2023-12-09 04:02] LABS: Amphetamine Screen Urine Not Detected (Not Detect); Barbiturates, Urine Not Detected (Not Detect); Benzodiazepines Screen Urine Not Detected (Not Detect); Cannabinoid Screen Urine Not Detected (Not Detect); Cocaine Screen Urine Not Detected (Not Detect); Fentanyl, urine Not Detected (Not Detect); Opiate Screen Urine POSITIVE (Not Detect); Phencyclidine Screen Urine Not Detected (Not Detect)
[2023-12-09 04:08] LABS: Lactic Acid 3.3 mmol/L (0.5-2.0)
[2023-12-09 05:02] LABS: Reflex Lactate? Lactic Acid Added
[2023-12-09 05:34] LABS: VBG Base Excess -2.3 mmol/L; VBG HCO3 24 mmol/L (22-26); VBG pCO2 49 mmHg; VBG pO2 46 mmHg
[2023-12-09 05:36] LABS: Hematocrit 48.6 % (37.0-47.0); Hemoglobin 15.7 g/dl (12.0-16.0); Mean Corpuscular HGB Conc 32.3 g/dl (31.0-35.0); Mean Corpuscular Volume 92.7 fL (80.0-98.0); Mean Platelet Volume 9.7 fL (9.4-12.3); Platelet Count 322 X10*3/uL (160-400); Red Blood Count 5.24 X10*6/uL (4.20-5.50); Red Cell Distribution Width 14.7 % (11.0-16.0); White Blood Count 21.5 X10*3/uL (4.8-10.8)
[2023-12-09 05:38] LABS: Venous Blood Gas Refer to POC result
[2023-12-09 05:54] LABS: Alanine Aminotransferase 130 U/L (0-31); Alkaline Phosphatase 94 U/L (39-117); Anion Gap 17 (12-20); Aspartate Amino Transferase 156 U/L (5-31); Bilirubin Total 1.6 mg/dL (0.0-1.0); Blood Urea Nitrogen 55 mg/dL (9-16); Calcium 8.8 mg/dL (8.4-10.2); Carbon Dioxide 23 mmol/L (22-29); Chloride 104 mmol/L (96-108); Creatinine Clr Calc Pharmacy 28.7; Estimated Glomerular Filt Rate 18; Glucose Random 168 mg/dL (60-115); Sodium 141 mmol/L (135-145); Total Protein 5.8 g/dL (6.5-8.0)
[2023-12-09 05:57] LABS: ~Lactic Acid-LAB USE ONLY 3.3 mmol/L (0.5-2.0)
[2023-12-09] MEDS: Heparin Sodium,Porcine 5,000 UNIT/ML VIAL 5000 UNIT SUBCUT ×3 (06:25→21:21)
[2023-12-09] MEDS: Potassium Chloride/H20 40 MEQ/100 ML PIGGYBACK 100 MEQ IV (06:33)
[2023-12-09 07:30] LABS: Glucose, Whole Blood 120 mg/dL (60-115)
[2023-12-09 07:30] LABS: Reflex Lactate? 2 Y
--- NOTE | 2023-12-09 07:31 | PC.NURSE ---
Patient arrived from the ED at 0145, intubated. Propofol and levophed were infusing on arrival. OGT was connected to continuous suction, switched to LIWS at 0400; OGT put back on low continuous suction at at approximately 0530 after patient with large amount of emesis. Patient did not tolerate being wedged on 2 attempts and remained supine.
--- NOTE | 2023-12-09 07:48 | PM.CNGS ---
History of Present Illness Consult details Consult date: 12/09/23 Requesting physician: Toñito Bentley Narrative: 63 year old female patient with history of obesity, chronic hypoxia, hypercapnia, respiratory failure due to OHS on home O2, PAF, CKD 3, polysubstance abuse (cocaine), chronic diastolic CHF presenting with abdominal distension, nausea and vomiting, constipation and right lower quadrant abdominal pain. Patient was initially evaluated in the ED and noted to have a mildly elevated WBC. Abdomen was noted to be distended with some tenderness in the right lower quadrant. CT abdomen and pelvis revealed diffusely dilated small bowel without a clear transition point. There is evidence of some mild wall thickening in the terminal ileum. Colon was full of stool from cecum to rectum. While placing nasogastric tube, the patient apparently aspirated and developed respiratory failure. She subsequently required intubation and transferred to the ICU. Abdominal x-ray revealed no evidence of small-bowel obstruction, free air or pneumatosis coli. She remains full of stool. Review of Systems Review of Systems: Yes unobtainable due to endotracheal tube PMFSH Past Medical History Medical History (Updated 12/09/23 @ 07:59 by Chava Monroe MD) Atrial fibrillation Cocaine abuse Cocaine abuse History of opioid abuse H/O renal cell cancer Morbid obesity Hypertension Family History Family History (Updated 10/05/23 @ 14:12 by BOO Swenson) Father HTN (hypertension) Diabetes Mother HTN (hypertension) Diabetes Sister Diabetes Brother HTN (hypertension) Maternal Aunt Breast cancer Surgical History Surgical History History of colonoscopy History of right nephrectomy Social History Social History Household Members: Unknown / Unable to assess Housing: Unknown / Unable to assess Alcohol intake: never Patient Tobacco Use Status: Never used Tobacco e-Cigarette/Vaping Use: Never Used Second Hand Smoke Exposure: No Substance Use Type: Crack/Cocaine service: No Current occupational status: disabled Cognitive needs: Yes (wheelchair) Hearing needs: No Vision needs: No Meds Allergies Allergy/AdvReac Type Severity Reaction Status Date / Time No Known Allergies Allergy Unknown Verified 12/08/23 10:18 [No Known Allergies*] Active Medications: Current Medications Dextrose (Dextrose 50 % 25 Gm/50 Ml Syringe) 25 gm IVPUSH Q15M PRN; Protocol PRN Reason: per Hypoglycemia Standing Ord. Glucose (Glucose Gel 15 Gm Gel..Gram.) 15 gm PO Q15M PRN; Protocol PRN Reason: per Hypoglycemia Standing Ord. Heparin Sodium (Porcine) (Heparin Sodium,Porcine 5,000 Unit/Ml Vial) 5,000 unit SUBCUT Q8H [facility] Last Admin: 12/09/23 06:25 Dose: 5,000 unit Propofol (Diprivan) 1,000 mg in 100 mls @ 0 mls/hr IVCONT .Q0M [facility]; Protocol Last Admin: 12/09/23 03:39 Dose: 25 mcg/kg/min, 18.68 mls/hr Piperacillin Sod/Tazobactam (Sod 4.5 gm/ Sodium Chloride) 100 mls @ 200 mls/hr IV Q6H [facility] Last Infusion: 12/09/23 06:58 Dose: Infused Sodium Bicarbonate 150 meq/ (Dextrose) 1,000 mls @ 100 mls/hr IV .Q10H [facility] Last Admin: 12/09/23 02:12 Dose: 100 mls/hr Norepinephrine Bitartrate (Levophed) 8 mg in 250 mls @ 0 mls/hr IV .Q0M [facility]; Protocol Last Admin: 12/09/23 04:35 Dose: 0.3 mcg/kg/min, 70.03 mls/hr Acetaminophen (Ofirmev) 1,000 mg in 100 mls @ 400 mls/hr IV Q8H PRN PRN Reason: fever Albumin Human (Kedbumin 25 %) 100 mls @ 100 mls/hr IV Q1H [facility] Stop: 12/09/23 11:59 Insulin Human Lispro (Insulin Lispro 100 Unit/Ml 3 Ml Vial) 0 unit SUBCUT Q6H [facility]; Protocol Last Admin: 12/09/23 07:29 Dose: Not Given Ondansetron HCl (Ondansetron Hcl 4 Mg/2 Ml Vial) 4 mg IVPUSH Q8H PRN PRN Reason: Nausea and Vomiting Home Medications Medication Instructions Recorded Confirmed Last Taken Type fluticasone propionate 220 1 puff inhalation BID 10/17/20 12/08/23 Unknown History mcg/actuation HFA aerosol inhaler (Flovent HFA) bupropion HCl 300 mg 24 hr tablet, 300 mg PO QAM 08/27/23 12/08/23 Unknown History extended release clonazepam 1 mg tablet 1.5 mg PO DAILY PRN ANEXITY 08/27/23 12/08/23 Unknown History sertraline 100 mg tablet 150 mg PO DAILY 08/27/23 12/08/23 Unknown History methadone 10 mg/mL oral 43 mg PO DAILY 08/28/23 10/05/23 08/26/23 History concentrate (Methadone Intensol) aripiprazole 5 mg tablet 5 mg PO QAM 12/08/23 12/08/23 Unknown History Physical Exam Vital Signs: Vital Signs: Last Vital Signs Temp 100.6 F H 12/09/23 06:00 Pulse 113 H 12/09/23 06:00 Resp 18 12/09/23 06:00 BP 102/45 L 12/09/23 06:00 Pulse Ox 84 L 12/09/23 06:00 O2 Del Method Mechanical Ventil ation 12/09/23 06:00 O2 Flow Rate 4 12/08/23 23:12 FiO2 80 12/09/23 06:00 Oxygen Flow Rate 4 12/08/23 10:18 BMI result Body Mass Index 44.6 Const: Other: Patient intubated, status dated on follow-up, Levophed drip; obese HEENT: Head: Yes normocephalic and Yes atraumatic Resp: Other: Breathing on vent GI: Other: Obese abdomen, roughly distended, nasogastric tube in place with feculent discharge. No tympany to percussion Skin: Other: Lower extremities cool to touch Extrem: Other: No peripheral edema Results Labs 12/09/23 05:20 12/09/23 05:20 Labs: Abnormal lab results 12/08/23 12/08/23 12/08/23 Range/Units 10:43 16:24 22:52 WBC 14.1 H (4.8-10.8) X10*3/uL Hct (37.0-47.0) % Neut % (Auto) 91.5 H (45-73) % Lymph % (Auto) 3.8 L (20-40) % Lymph # (Auto) 0.5 L (1.2-4.9) X10*3/uL Abs Immat Gran (auto) 0.05 H (0.00-0.03) X10*3/uL Absolute Neuts (auto) 12.9 H (2.0-8.3) x10*3/uL ABG pH at Pt Temp (7.35-7.45) ABG pCO2 at Pt Temp (32-45) mmHg ABG pO2 at Pt Temp (83-108) mmHg ABG HCO3 (22-26) mmol/L VBG pH (7.32-7.43) VBG HCO3 (22-26) mmol/L Potassium (3.3-5.1) mmol/L Carbon Dioxide (22-29) mmol/L BUN 36 H (9-16) mg/dL Creatinine 1.51 H (0.5-1.4) mg/dL POC Glucose (60-115) mg/dL Random Glucose 202 H (60-115) mg/dL Lactic Acid 2.1 H* (0.5-2.0) mmol/L Lactic Acid F/U @ 2Hr 5.2 H* (0.5-2.0) mmol/L Calcium 10.4 H D (8.4-10.2) mg/dL Magnesium 2.7 H (1.6-2.6) mg/dL Total Bilirubin (0.0-1.0) mg/dL AST (5-31) U/L ALT (0-31) U/L B-Natriuretic Peptide (<100) pg/mL Total Protein 8.7 H (6.5-8.0) g/dL Albumin (3.5-5.0) g/dL Ur Leukocyte Esterase (Negative) Urine Opiates Screen (Not Detect) 12/08/23 12/08/23 12/08/23 Range/Units 23:22 23:25 23:51 WBC (4.8-10.8) X10*3/uL Hct (37.0-47.0) % Neut % (Auto) (45-73) % Lymph % (Auto) (20-40) % Lymph # (Auto) (1.2-4.9) X10*3/uL Abs Immat Gran (auto) (0.00-0.03) X10*3/uL Absolute Neuts (auto) (2.0-8.3) x10*3/uL ABG pH at Pt Temp (7.35-7.45) ABG pCO2 at Pt Temp (32-45) mmHg ABG pO2 at Pt Temp (83-108) mmHg ABG HCO3 (22-26) mmol/L VBG pH (7.32-7.43) VBG HCO3 15 L 16 L (22-26) mmol/L Potassium (3.3-5.1) mmol/L Carbon Dioxide (22-29) mmol/L BUN (9-16) mg/dL Creatinine (0.5-1.4) mg/dL POC Glucose (60-115) mg/dL Random Glucose (60-115) mg/dL Lactic Acid (0.5-2.0) mmol/L Lactic Acid F/U @ 2Hr (0.5-2.0) mmol/L Calcium (8.4-10.2) mg/dL Magnesium (1.6-2.6) mg/dL Total Bilirubin (0.0-1.0) mg/dL AST (5-31) U/L ALT (0-31) U/L B-Natriuretic Peptide 145 H (<100) pg/mL Total Protein (6.5-8.0) g/dL Albumin (3.5-5.0) g/dL Ur Leukocyte Esterase (Negative) Urine Opiates Screen (Not Detect) 12/09/23 12/09/23 12/09/23 Range/Units 00:33 01:04 02:04 WBC 14.1 H (4.8-10.8) X10*3/uL Hct 48.0 H (37.0-47.0) % Neut % (Auto) 87.3 H (45-73) % Lymph % (Auto) 7.2 L (20-40) % Lymph # (Auto) 1.0 L (1.2-4.9) X10*3/uL Abs Immat Gran (auto) 0.06 H (0.00-0.03) X10*3/uL Absolute Neuts (auto) 12.3 H (2.0-8.3) x10*3/uL ABG pH at Pt Temp 7.26 L (7.35-7.45) ABG pCO2 at Pt Temp 28 L (32-45) mmHg ABG pO2 at Pt Temp 172 H (83-108) mmHg ABG HCO3 12 L (22-26) mmol/L VBG pH (7.32-7.43) VBG HCO3 (22-26) mmol/L Potassium (3.3-5.1) mmol/L Carbon Dioxide 20 L (22-29) mmol/L BUN 53 H (9-16) mg/dL Creatinine 2.67 H (0.5-1.4) mg/dL POC Glucose 159 H (60-115) mg/dL Random Glucose 168 H (60-115) mg/dL Lactic Acid (0.5-2.0) mmol/L Lactic Acid F/U @ 2Hr (0.5-2.0) mmol/L Calcium (8.4-10.2) mg/dL Magnesium 3.1 H (1.6-2.6) mg/dL Total Bilirubin 1.3 H (0.0-1.0) mg/dL AST 40 H (5-31) U/L ALT (0-31) U/L B-Natriuretic Peptide (<100) pg/mL Total Protein (6.5-8.0) g/dL Albumin (3.5-5.0) g/dL Ur Leukocyte Esterase (Negative) Urine Opiates Screen (Not Detect) 12/09/23 12/09/23 12/09/23 Range/Units 02:16 02:20 02:59 WBC (4.8-10.8) X10*3/uL Hct (37.0-47.0) % Neut % (Auto) (45-73) % Lymph % (Auto) (20-40) % Lymph # (Auto) (1.2-4.9) X10*3/uL Abs Immat Gran (auto) (0.00-0.03) X10*3/uL Absolute Neuts (auto) (2.0-8.3) x10*3/uL ABG pH at Pt Temp (7.35-7.45) ABG pCO2 at Pt Temp (32-45) mmHg ABG pO2 at Pt Temp (83-108) mmHg ABG HCO3 (22-26) mmol/L VBG pH (7.32-7.43) VBG HCO3 (22-26) mmol/L Potassium (3.3-5.1) mmol/L Carbon Dioxide (22-29) mmol/L BUN (9-16) mg/dL Creatinine (0.5-1.4) mg/dL POC Glucose (60-115) mg/dL Random Glucose (60-115) mg/dL Lactic Acid 3.3 H* (0.5-2.0) mmol/L Lactic Acid F/U @ 2Hr (0.5-2.0) mmol/L Calcium (8.4-10.2) mg/dL Magnesium (1.6-2.6) mg/dL Total Bilirubin (0.0-1.0) mg/dL AST (5-31) U/L ALT (0-31) U/L B-Natriuretic Peptide (<100) pg/mL Total Protein (6.5-8.0) g/dL Albumin (3.5-5.0) g/dL Ur Leukocyte Esterase Small (1+) H (Negative) Urine Opiates Screen POSITIVE H (Not Detect) 12/09/23 12/09/23 12/09/23 Range/Units 05:12 05:20 05:27 WBC 21.5 H (4.8-10.8) X10*3/uL Hct 48.6 H (37.0-47.0) % Neut % (Auto) (45-73) % Lymph % (Auto) (20-40) % Lymph # (Auto) (1.2-4.9) X10*3/uL Abs Immat Gran (auto) (0.00-0.03) X10*3/uL Absolute Neuts (auto) (2.0-8.3) x10*3/uL ABG pH at Pt Temp (7.35-7.45) ABG pCO2 at Pt Temp (32-45) mmHg ABG pO2 at Pt Temp (83-108) mmHg ABG HCO3 (22-26) mmol/L VBG pH 7.30 L (7.32-7.43) VBG HCO3 (22-26) mmol/L Potassium 3.0 L D (3.3-5.1) mmol/L Carbon Dioxide (22-29) mmol/L BUN 55 H (9-16) mg/dL Creatinine 2.71 H (0.5-1.4) mg/dL POC Glucose (60-115) mg/dL Random Glucose 168 H (60-115) mg/dL Lactic Acid (0.5-2.0) mmol/L Lactic Acid F/U @ 2Hr 3.3 H* (0.5-2.0) mmol/L Calcium (8.4-10.2) mg/dL Magnesium (1.6-2.6) mg/dL Total Bilirubin 1.6 H (0.0-1.0) mg/dL AST 156 H (5-31) U/L ALT 130 H (0-31) U/L B-Natriuretic Peptide (<100) pg/mL Total Protein 5.8 L (6.5-8.0) g/dL Albumin 3.0 L (3.5-5.0) g/dL Ur Leukocyte Esterase (Negative) Urine Opiates Screen (Not Detect) 12/09/23 Range/Units 07:26 WBC (4.8-10.8) X10*3/uL Hct (37.0-47.0) % Neut % (Auto) (45-73) % Lymph % (Auto) (20-40) % Lymph # (Auto) (1.2-4.9) X10*3/uL Abs Immat Gran (auto) (0.00-0.03) X10*3/uL Absolute Neuts (auto) (2.0-8.3) x10*3/uL ABG pH at Pt Temp (7.35-7.45) ABG pCO2 at Pt Temp (32-45) mmHg ABG pO2 at Pt Temp (83-108) mmHg ABG HCO3 (22-26) mmol/L VBG pH (7.32-7.43) VBG HCO3 (22-26) mmol/L Potassium (3.3-5.1) mmol/L Carbon Dioxide (22-29) mmol/L BUN (9-16) mg/dL Creatinine (0.5-1.4) mg/dL POC Glucose 120 H (60-115) mg/dL Random Glucose (60-115) mg/dL Lactic Acid (0.5-2.0) mmol/L Lactic Acid F/U @ 2Hr (0.5-2.0) mmol/L Calcium (8.4-10.2) mg/dL Magnesium (1.6-2.6) mg/dL Total Bilirubin (0.0-1.0) mg/dL AST (5-31) U/L ALT (0-31) U/L B-Natriuretic Peptide (<100) pg/mL Total Protein (6.5-8.0) g/dL Albumin (3.5-5.0) g/dL Ur Leukocyte Esterase (Negative) Urine Opiates Screen (Not Detect) Short CBC 12/08/23 12/09/23 12/09/23 Range/Units 10:43 01:04 05:20 WBC 14.1 H 14.1 H 21.5 H (4.8-10.8) X10*3/uL Hgb 14.4 15.1 15.7 (12.0-16.0) g/dl Hct 44.8 48.0 H 48.6 H (37.0-47.0) % Plt Count 329 D 349 322 (160-400) X10*3/uL BMP 12/08/23 12/09/23 12/09/23 10:43 01:04 05:20 Sodium 137 142 141 Potassium 4.4 3.8 3.0 L D Chloride 98 106 104 Carbon Dioxide 29 20 L 23 BUN 36 H 53 H 55 H Creatinine 1.51 H 2.67 H 2.71 H Calcium 10.4 H D 9.4 D 8.8 D Liver Function 12/08/23 12/09/23 12/09/23 Range/Units 10:43 01:04 05:20 Total Bilirubin 1.0 1.3 H 1.6 H (0.0-1.0) mg/dL AST 24 40 H 156 H (5-31) U/L ALT 19 25 130 H (0-31) U/L Alkaline Phosphatase 111 109 94 (39-117) U/L Albumin 4.2 3.7 3.0 L (3.5-5.0) g/dL Urine 12/09/23 Range/Units 02:16 Urine Color Dark Yellow Urine Appearance Clear Urine pH 5.0 (5.0-9.0) Ur Specific [place] 1.025 (1.005-1.025) Urine Protein Trace (Neg-Trace) mg/dL Urine Glucose (UA) Negative (Negative) mg/dL All other labs normal. Assessment and Plan (1) Nausea with vomiting: Qualifiers: Vomiting type: bilious vomiting Qualified Code(s): R11.14 - Bilious vomiting Status: Acute (2) Abdominal pain: Qualifiers: Abdominal location: right lower quadrant Qualified Code(s): R10.31 - Right lower quadrant pain Status: Acute Plan 63-year-old female with abdominal distension and multiple medical problems requiring intubation during the night for respiratory failure. Initial evaluation with CT abdomen and pelvis revealed a diffusely dilated small bowel with no transition point. Possible wall thickening in the distal terminal ileum suggestive of ileitis. Colon is full of stool which may be the primary problem possibly related to patient's cocaine use. Recommend enemas (fleets or soapsuds) once patient hemodynamically stable. No surgical intervention recommended at this time. Procedures Date of Service Date of Service: 12/09/23
[2023-12-09] MEDS: Norepinephrine Bitartrate/D5W 8 MG/250 ML PLAST..BAG 81.7 MG IV (07:57)
[2023-12-09] MEDS: Lactated Ringers 500 ML IVCONT (08:10)
[2023-12-09 08:11] LABS: ~Lactic Acid-LAB USE ONLY 3.9 mmol/L (0.5-2.0)
--- NOTE | 2023-12-09 08:11 | PM.CCPN ---
Subjective Subjective Date of Service: 12/09/23 Interval History: c/f ileus, aspiration, c/b acute hypoxic respiratory failure, intubated Critical Care Time (minutes): 90 Physical Exam Vital Signs: Vital Signs: Last Vital Signs Temp 100.6 F H 12/09/23 06:00 Pulse 107 H 12/09/23 07:57 Resp 18 12/09/23 06:00 BP 98/60 12/09/23 07:57 Pulse Ox 84 L 12/09/23 06:00 O2 Del Method Mechanical Ventil ation 12/09/23 06:00 O2 Flow Rate 4 12/08/23 23:12 FiO2 80 12/09/23 06:00 Oxygen Flow Rate 4 12/08/23 10:18 BMI result Body Mass Index 44.6 Const: Other: intubated, sedated General: no acute distress HEENT: Head: Yes normal to inspection, Yes normocephalic and Yes atraumatic Eyes: General: appearance normal, both eyes and all related structures Neck: Neck: Yes normal visual inspection, Yes full ROM and Yes supple Chest: Chest palpation & inspection: normal inspection of the chest Resp: Other: appreciable rhonchi throughout; no appreciable rales, wheezing Cardio: Rate: regular rate Rhythm: regular rhythm GI: Other: hypoactive bowel sounds Inspection: Yes normal to inspection, No Abdominal wall edema and No distended Palpation (GI): Soft to palpation, not firm, nontender, no guarding and not rigid Skin: General skin exam: no rashes or lesions noted Neuro: Other: no appreciable spontaneous movements Extrem: Other: appreciable cool extremities Psych: Other: unable to assess Objective Data Labs 12/09/23 05:20 12/09/23 05:20 Labs: Laboratory Results - last 24 hr 12/08/23 12/08/23 12/08/23 10:31 10:43 13:45 WBC 14.1 H RBC 4.83 Hgb 14.4 Hct 44.8 MCV 92.8 MCH 29.8 MCHC 32.1 RDW 14.2 Plt Count 329 D MPV 9.4 Immature Gran % (Auto) 0.4 Neut % (Auto) 91.5 H Lymph % (Auto) 3.8 L Clarke % (Auto) 4.0 Eos % (Auto) 0.1 Baso % (Auto) 0.2 Lymph # (Auto) 0.5 L Clarke # (Auto) 0.6 Eos # (Auto) 0.0 Baso # (Auto) 0.0 Abs Immat Gran (auto) 0.05 H Absolute Neuts (auto) 12.9 H Absolute Nucleated RBC 0.000 Nucleated RBC % (auto) 0.0 Smear Tech's Comments VERIFIED O2 Saturation ABG pH at Pt Temp ABG pCO2 at Pt Temp ABG pO2 at Pt Temp ABG HCO3 ABG Base Excess (Actual) VBG pH VBG pCO2 VBG pO2 VBG HCO3 VBG O2 Saturation VBG Base Excess Sodium 137 Potassium 4.4 Chloride 98 Carbon Dioxide 29 Anion Gap 14 BUN 36 H Creatinine 1.51 H Estim Creat Clear Calc 51.3 Estimated GFR 35 POC Glucose Random Glucose 202 H Lactic Acid Lactic Acid F/U @ 2Hr Lactic Acid F/U @ 4Hr Calcium 10.4 H D Phosphorus Magnesium 2.7 H Total Bilirubin 1.0 AST 24 ALT 19 Alkaline Phosphatase 111 Troponin I High Sens 5.7 D 6.5 B-Natriuretic Peptide Total Protein 8.7 H Albumin 4.2 Urine Color Urine Appearance Urine pH Ur Specific Shiner Urine Protein Urine Glucose (UA) Urine Ketones Urine Blood Urine Nitrite Ur Leukocyte Esterase Urine RBC Urine WBC Ur Squamous Epith Cells Urine Bacteria Hyaline Casts Urine Opiates Screen Urine Fentanyl Screen Ur Barbiturates Screen Ur Phencyclidine Scrn Ur Amphetamines Screen U Benzodiazepines Scrn Urine Cocaine Screen U Marijuana (THC) Screen Influenza Type A (PCR) NEGATIVE Influenza Type B (PCR) NEGATIVE RSV RNA Qual (PCR) NEGATIVE SARS-CoV-2 RNA (RT-PCR) NEGATIVE 12/08/23 12/08/23 12/08/23 16:24 22:52 23:22 WBC RBC Hgb Hct MCV MCH MCHC RDW Plt Count MPV Immature Gran % (Auto) Neut % (Auto) Lymph % (Auto) Clarke % (Auto) Eos % (Auto) Baso % (Auto) Lymph # (Auto) Clarke # (Auto) Eos # (Auto) Baso # (Auto) Abs Immat Gran (auto) Absolute Neuts (auto) Absolute Nucleated RBC Nucleated RBC % (auto) Smear Tech's Comments O2 Saturation ABG pH at Pt Temp ABG pCO2 at Pt Temp ABG pO2 at Pt Temp ABG HCO3 ABG Base Excess (Actual) VBG pH VBG pCO2 VBG pO2 VBG HCO3 VBG O2 Saturation VBG Base Excess Sodium Potassium Chloride Carbon Dioxide Anion Gap BUN Creatinine Estim Creat Clear Calc Estimated GFR POC Glucose Random Glucose Lactic Acid 2.1 H* Lactic Acid F/U @ 2Hr 5.2 H* Lactic Acid F/U @ 4Hr Calcium Phosphorus Magnesium Total Bilirubin AST ALT Alkaline Phosphatase Troponin I High Sens B-Natriuretic Peptide 145 H Total Protein Albumin Urine Color Urine Appearance Urine pH Ur Specific Shiner Urine Protein Urine Glucose (UA) Urine Ketones Urine Blood Urine Nitrite Ur Leukocyte Esterase Urine RBC Urine WBC Ur Squamous Epith Cells Urine Bacteria Hyaline Casts Urine Opiates Screen Urine Fentanyl Screen Ur Barbiturates Screen Ur Phencyclidine Scrn Ur Amphetamines Screen U Benzodiazepines Scrn Urine Cocaine Screen U Marijuana (THC) Screen Influenza Type A (PCR) Influenza Type B (PCR) RSV RNA Qual (PCR) SARS-CoV-2 RNA (RT-PCR) 12/08/23 12/08/23 12/09/23 23:25 23:51 00:33 WBC RBC Hgb Hct MCV MCH MCHC RDW Plt Count MPV Immature Gran % (Auto) Neut % (Auto) Lymph % (Auto) Clarke % (Auto) Eos % (Auto) Baso % (Auto) Lymph # (Auto) Clarke # (Auto) Eos # (Auto) Baso # (Auto) Abs Immat Gran (auto) Absolute Neuts (auto) Absolute Nucleated RBC Nucleated RBC % (auto) Smear Tech's Comments O2 Saturation 100.0 ABG pH at Pt Temp 7.26 L ABG pCO2 at Pt Temp 28 L ABG pO2 at Pt Temp 172 H ABG HCO3 12 L ABG Base Excess (Actual) -12.4 VBG pH 7.39 7.34 VBG pCO2 25 29 VBG pO2 86 61 VBG HCO3 15 L 16 L VBG O2 Saturation 98.0 89.0 VBG Base Excess -6.9 -7.6 Sodium Potassium Chloride Carbon Dioxide Anion Gap BUN Creatinine Estim Creat Clear Calc Estimated GFR POC Glucose Random Glucose Lactic Acid Lactic Acid F/U @ 2Hr Lactic Acid F/U @ 4Hr Calcium Phosphorus Magnesium Total Bilirubin AST ALT Alkaline Phosphatase Troponin I High Sens B-Natriuretic Peptide Total Protein Albumin Urine Color Urine Appearance Urine pH Ur Specific Shiner Urine Protein Urine Glucose (UA) Urine Ketones Urine Blood Urine Nitrite Ur Leukocyte Esterase Urine RBC Urine WBC Ur Squamous Epith Cells Urine Bacteria Hyaline Casts Urine Opiates Screen Urine Fentanyl Screen Ur Barbiturates Screen Ur Phencyclidine Scrn Ur Amphetamines Screen U Benzodiazepines Scrn Urine Cocaine Screen U Marijuana (THC) Screen Influenza Type A (PCR) Influenza Type B (PCR) RSV RNA Qual (PCR) SARS-CoV-2 RNA (RT-PCR) 12/09/23 12/09/23 12/09/23 01:04 02:04 02:16 WBC 14.1 H RBC 5.06 Hgb 15.1 Hct 48.0 H MCV 94.9 MCH 29.8 MCHC 31.5 RDW 14.6 Plt Count 349 MPV 9.6 Immature Gran % (Auto) 0.4 Neut % (Auto) 87.3 H Lymph % (Auto) 7.2 L Clarke % (Auto) 4.6 Eos % (Auto) 0.1 Baso % (Auto) 0.4 Lymph # (Auto) 1.0 L Clarke # (Auto) 0.7 Eos # (Auto) 0.0 Baso # (Auto) 0.1 Abs Immat Gran (auto) 0.06 H Absolute Neuts (auto) 12.3 H Absolute Nucleated RBC 0.000 Nucleated RBC % (auto) 0.0 Smear Tech's Comments O2 Saturation ABG pH at Pt Temp ABG pCO2 at Pt Temp ABG pO2 at Pt Temp ABG HCO3 ABG Base Excess (Actual) VBG pH VBG pCO2 VBG pO2 VBG HCO3 VBG O2 Saturation VBG Base Excess Sodium 142 Potassium 3.8 Chloride 106 Carbon Dioxide 20 L Anion Gap 20 BUN 53 H Creatinine 2.67 H Estim Creat Clear Calc 29.0 Estimated GFR 18 POC Glucose 159 H Random Glucose 168 H Lactic Acid Lactic Acid F/U @ 2Hr Lactic Acid F/U @ 4Hr Calcium 9.4 D Phosphorus 3.5 Magnesium 3.1 H Total Bilirubin 1.3 H AST 40 H ALT 25 Alkaline Phosphatase 109 Troponin I High Sens B-Natriuretic Peptide Total Protein 7.5 Albumin 3.7 Urine Color Dark Yellow Urine Appearance Clear Urine pH 5.0 Ur Specific Shiner 1.025 Urine Protein Trace Urine Glucose (UA) Negative Urine Ketones Trace Urine Blood Negative Urine Nitrite Negative Ur Leukocyte Esterase Small (1+) H Urine RBC 0-2 Urine WBC 0-5 Ur Squamous Epith Cells 0-2 Urine Bacteria None Seen Hyaline Casts 0-2 Urine Opiates Screen Urine Fentanyl Screen Ur Barbiturates Screen Ur Phencyclidine Scrn Ur Amphetamines Screen U Benzodiazepines Scrn Urine Cocaine Screen U Marijuana (THC) Screen Influenza Type A (PCR) Influenza Type B (PCR) RSV RNA Qual (PCR) SARS-CoV-2 RNA (RT-PCR) 12/09/23 12/09/23 12/09/23 02:20 02:59 05:12 WBC RBC Hgb Hct MCV MCH MCHC RDW Plt Count MPV Immature Gran % (Auto) Neut % (Auto) Lymph % (Auto) Clarke % (Auto) Eos % (Auto) Baso % (Auto) Lymph # (Auto) Clarke # (Auto) Eos # (Auto) Baso # (Auto) Abs Immat Gran (auto) Absolute Neuts (auto) Absolute Nucleated RBC Nucleated RBC % (auto) Smear Tech's Comments O2 Saturation ABG pH at Pt Temp ABG pCO2 at Pt Temp ABG pO2 at Pt Temp ABG HCO3 ABG Base Excess (Actual) VBG pH VBG pCO2 VBG pO2 VBG HCO3 VBG O2 Saturation VBG Base Excess Sodium Potassium Chloride Carbon Dioxide Anion Gap BUN Creatinine Estim Creat Clear Calc Estimated GFR POC Glucose Random Glucose Lactic Acid 3.3 H* Lactic Acid F/U @ 2Hr 3.3 H* Lactic Acid F/U @ 4Hr Calcium Phosphorus Magnesium Total Bilirubin AST ALT Alkaline Phosphatase Troponin I High Sens B-Natriuretic Peptide Total Protein Albumin Urine Color Urine Appearance Urine pH Ur Specific Shiner Urine Protein Urine Glucose (UA) Urine Ketones Urine Blood Urine Nitrite Ur Leukocyte Esterase Urine RBC Urine WBC Ur Squamous Epith Cells Urine Bacteria Hyaline Casts Urine Opiates Screen POSITIVE H Urine Fentanyl Screen Not Detected Ur Barbiturates Screen Not Detected Ur Phencyclidine Scrn Not Detected Ur Amphetamines Screen Not Detected U Benzodiazepines Scrn Not Detected Urine Cocaine Screen Not Detected U Marijuana (THC) Screen Not Detected Influenza Type A (PCR) Influenza Type B (PCR) RSV RNA Qual (PCR) SARS-CoV-2 RNA (RT-PCR) 12/09/23 12/09/23 12/09/23 05:20 05:27 07:26 WBC 21.5 H RBC 5.24 Hgb 15.7 Hct 48.6 H MCV 92.7 MCH 30.0 MCHC 32.3 RDW 14.7 Plt Count 322 MPV 9.7 Immature Gran % (Auto) Neut % (Auto) Lymph % (Auto) Clarke % (Auto) Eos % (Auto) Baso % (Auto) Lymph # (Auto) Clarke # (Auto) Eos # (Auto) Baso # (Auto) Abs Immat Gran (auto) Absolute Neuts (auto) Absolute Nucleated RBC 0.000 Nucleated RBC % (auto) 0.0 Smear Tech's Comments O2 Saturation ABG pH at Pt Temp ABG pCO2 at Pt Temp ABG pO2 at Pt Temp ABG HCO3 ABG Base Excess (Actual) VBG pH 7.30 L VBG pCO2 49 VBG pO2 46 VBG HCO3 24 VBG O2 Saturation 70.0 VBG Base Excess -2.3 Sodium 141 Potassium 3.0 L D Chloride 104 Carbon Dioxide 23 Anion Gap 17 BUN 55 H Creatinine 2.71 H Estim Creat Clear Calc 28.7 Estimated GFR 18 POC Glucose 120 H Random Glucose 168 H Lactic Acid Lactic Acid F/U @ 2Hr Lactic Acid F/U @ 4Hr Calcium 8.8 D Phosphorus Magnesium Total Bilirubin 1.6 H AST 156 H ALT 130 H Alkaline Phosphatase 94 Troponin I High Sens B-Natriuretic Peptide Total Protein 5.8 L Albumin 3.0 L Urine Color Urine Appearance Urine pH Ur Specific Shiner Urine Protein Urine Glucose (UA) Urine Ketones Urine Blood Urine Nitrite Ur Leukocyte Esterase Urine RBC Urine WBC Ur Squamous Epith Cells Urine Bacteria Hyaline Casts Urine Opiates Screen Urine Fentanyl Screen Ur Barbiturates Screen Ur Phencyclidine Scrn Ur Amphetamines Screen U Benzodiazepines Scrn Urine Cocaine Screen U Marijuana (THC) Screen Influenza Type A (PCR) Influenza Type B (PCR) RSV RNA Qual (PCR) SARS-CoV-2 RNA (RT-PCR) 12/09/23 07:47 WBC RBC Hgb Hct MCV MCH MCHC RDW Plt Count MPV Immature Gran % (Auto) Neut % (Auto) Lymph % (Auto) Clarke % (Auto) Eos % (Auto) Baso % (Auto) Lymph # (Auto) Clarke # (Auto) Eos # (Auto) Baso # (Auto) Abs Immat Gran (auto) Absolute Neuts (auto) Absolute Nucleated RBC Nucleated RBC % (auto) Smear Tech's Comments O2 Saturation ABG pH at Pt Temp ABG pCO2 at Pt Temp ABG pO2 at Pt Temp ABG HCO3 ABG Base Excess (Actual) VBG pH VBG pCO2 VBG pO2 VBG HCO3 VBG O2 Saturation VBG Base Excess Sodium Potassium Chloride Carbon Dioxide Anion Gap BUN Creatinine Estim Creat Clear Calc Estimated GFR POC Glucose Random Glucose Lactic Acid Lactic Acid F/U @ 2Hr Lactic Acid F/U @ 4Hr 3.9 H* Calcium Phosphorus Magnesium Total Bilirubin AST ALT Alkaline Phosphatase Troponin I High Sens B-Natriuretic Peptide Total Protein Albumin Urine Color Urine Appearance Urine pH Ur Specific Shiner Urine Protein Urine Glucose (UA) Urine Ketones Urine Blood Urine Nitrite Ur Leukocyte Esterase Urine RBC Urine WBC Ur Squamous Epith Cells Urine Bacteria Hyaline Casts Urine Opiates Screen Urine Fentanyl Screen Ur Barbiturates Screen Ur Phencyclidine Scrn Ur Amphetamines Screen U Benzodiazepines Scrn Urine Cocaine Screen U Marijuana (THC) Screen Influenza Type A (PCR) Influenza Type B (PCR) RSV RNA Qual (PCR) SARS-CoV-2 RNA (RT-PCR) Progress Note: A&P Assessment and plan (1) Ileus: Status: Acute (2) Aspiration into airway: Status: Acute (3) Shock: Status: Acute (4) TR[place]ON (obstructive sleep apnea): Status: Acute (5) Obesity: Status: Acute (6) Obesity hypoventilation syndrome: Status: Acute (7) Polysubstance (excluding opioids) dependence: Status: Acute Plan Patient is a 63 Y F with morbid obesity, c/b obesity hypoventilation syndrome, obstructive sleep apnea, chronic mixed respiratory failure on 1L NC, paroxysmal atrial fibrillation on apixaban, polysubstance misuse, initially presenting on 12/07 w/ abdominal pain, found to have CT A/P c/f small bowel obstruction vs ileus, planned for medical management; ED course c/b aspiration, c/b acute on chronic hypoxic respiratory failure, intubated; ICU course c/b shock N: intubated, sedated w/ propofol gtt; wean as tolerated CV: shock, likely distributive and hypovolemic; norepinephrine, vasopression gtt; wean as tolerated R: acute on chronic hypoxic respiratory failure; intubated GI: c/f SBO vs ileus, c/b aspiration; to appreciate general surgery, gastroenterology recommendations; to monitor output : acute renal insufficiency; to monitor renal indices very closely H: leukocytosis, likely reactive; no acute issues ID: c/f aspiration empiric zosyn E: to monitor for hypo-/hyper-glycemia P: no acute issues Quality Stroke Does the patient have a stroke diagnosis?: No VTE Prior VTE?: No VTE Risk Level:: Medical - moderate - high VTE Device Contraindication: Treatment Not Indicated VTE Drug Contraindication: N/A - Med Ordered
[2023-12-09] MEDS: Albumin Human 25 % 100 ML IV ×4 (08:18→11:11)
[2023-12-09] MEDS: Vasopressin 20 UNIT/100 ML INFUS..BTL 12 UNIT IVCONT ×3 (08:30→22:37)
[2023-12-09] MEDS: propofoL 1,000 MG/100 ML VIAL 11.21 MG IVCONT (08:45)
[2023-12-09 09:27] LABS: Anion Gap 19 (12-20); Blood Urea Nitrogen 55 mg/dL (9-16); Calcium 8.4 mg/dL (8.4-10.2); Carbon Dioxide 21 mmol/L (22-29); Chloride 102 mmol/L (96-108); Estimated Glomerular Filt Rate 16; Glucose Random 179 mg/dL (60-115); Potassium 3.7 mmol/L (3.3-5.1); Sodium 138 mmol/L (135-145)
[2023-12-09 09:28] LABS: Venous Blood Gas Refer to POC result
[2023-12-09 09:28] LABS: VBG Base Excess -2.6 mmol/L; VBG HCO3 23 mmol/L (22-26); VBG pCO2 42 mmHg; VBG pH 7.34 (7.32-7.43); VBG pO2 51 mmHg
[2023-12-09] MEDS: vancomycin/NS 2,000 MG/500 ML PLAST..BAG 250 MG IV (10:02)
--- NOTE | 2023-12-09 10:13 | CONS_ITS ---
DATE OF SERVICE: 12/09/2023 REFERRING PHYSICIAN: Luis Meléndez MD REASON FOR CONSULTATION: Question of terminal ileitis with vomiting and abnormal CAT scan. HISTORY OF PRESENT ILLNESS: The patient is a 63-year-old woman, who was admitted to the hospital after presenting to the emergency room yesterday with complaints of abdominal pain. The history is obtained from the medical record as the patient is currently intubated and sedated in the ICU. She reportedly presented with right lower quadrant pain with associated nausea and vomiting without fevers, chills, or previous similar symptoms. She was evaluated in the emergency department with laboratory studies and imaging, which are reviewed. Her CT scan is interpreted as showing prominent small bowel loops, which are fluid-filled with scattered air-fluid levels in normal colon. Distal ileum showed some formed stool and mild inflammatory stranding in the distal ileum where there was small bowel slight dilation. This was thought to be represent a low grade partial small bowel obstruction and/or enteritis. The patient has no prior history of inflammatory bowel disease, and underwent colonoscopy in January 2013, which showed normal mucosa and a small 2-3 mm tubular adenoma. There are no records of a followup examination in the electronic medical record system. She has also had kidney cancer with right nephrectomy. Following placement of an NG tube, she developed respiratory distress and was transferred to the ICU after being intubated. Followup imaging studies are reviewed including KUB, which shows nonobstructive bowel gas pattern. PAST MEDICAL HISTORY: 1. Atrial fibrillation. 2. Substance abuse. 3. Renal cell cancer with right nephrectomy. 4. Morbid obesity. 5. Hypertension. 6. Hypoxic and hypercapnic respiratory failure, on home O2. 7. Mood disorder. 8. Asthma. 9. Diastolic CHF. CURRENT MEDICATIONS: Her current medication list is reviewed in the chart. ALLERGIES: THERE ARE NONE REPORTED. FAMILY HISTORY: This is reviewed in electronic medical record. SOCIAL HISTORY: There is a history of substance abuse. She has been on methadone. Urine tox screen on admission was positive for opiates. REVIEW OF SYSTEMS: This is not obtainable. PHYSICAL EXAMINATION: GENERAL: Shows a female lying in bed. VITAL SIGNS: Reviewed in electronic medical record and are stable. SKIN: Anicteric. HEENT: Shows no scleral icterus. NECK: Without lymphadenopathy or thyromegaly. LUNGS: Clear. HEART: Shows regular rate and rhythm. S1, S2. No murmur. ABDOMEN: Soft without focal masses or tenderness. Bowel sounds are present. No organomegaly is noted. EXTREMITIES: Without edema. LABORATORY DATA AND IMAGING STUDIES: Reviewed. IMPRESSION: Abdominal pain with nausea and vomiting. Her presentation appears more consistent with an ileus and a small bowel obstruction and there may be some associated enteritis in the terminal ileum. I would obtain a GI panel as well as other stool studies. She is on broad-spectrum antibiotics. I do not think colonoscopy at this time would be helpful. Thanks for asking me to see her. I will follow her in the hospital with you. MD BRITTANI Alfredo/OSCAR / [phone]
[2023-12-09] MEDS: Hydrocortisone Sod Succ/PF 100 MG VIAL 50 MG IVPUSH ×3 (10:44→21:21)
[2023-12-09] MEDS: Norepinephrine Bitartrate/D5W 8 MG/250 ML PLAST..BAG 77.03 MG IV (10:45)
--- NOTE | 2023-12-09 10:47 | W.MHC.ACPN ---
Advanced Care Planning Note Advanced Care Planning Note Discussed with: family member(s) Time spent (in minutes): 60 Narrative: I called Ms. Ramirez' sister, Emmie, earlier this morning. I introduced myself and offered updates and clarifications. We discussed her critical illness, which includes ileus, aspiration, likely complicated by pneumonia, and subsequent shock and multi-system organ failure. Emmie expressed frustration with regards to Ms. Ramirez' ileus and questions if an intervention could be done prior to Ms. Ramirez aspirating. I offered my empathy and sympathy, though iterated that Ms. Ramirez was evaluated by multiple teams, including general surgery, that her plan was to be medically managed and optimized, but unfortunately aspiration is a potential complication of ileus despite preventative measures. I encouraged Emmie to come to the hospital to see Ms. Ramirez. I also met Ms. Ramirez' nephew and his . We also discussed Ms. Ramirez' critical illness, which they expressed understanding. They discussed Ms. Ramirez' quality of life prior to this admission, which was unfortunately limited. They question if invasive measures should be pursued should Ms. Ramirez clinically declines. I encouraged them to talk amongst themselves. I also spoke with a family friend, Yarelis, on the phone, who was a prior nurse practitioner in the ICU here at [facility], and discussed Ms. Ramirez' critical illness, which she expressed understanding. Problems Discussed (1) Ileus: (2) Aspiration into airway: (3) Shock: (4) [place] (obstructive sleep apnea): (5) Obesity: (6) Obesity hypoventilation syndrome: (7) Polysubstance (excluding opioids) dependence:
[2023-12-09] MEDS: Lactated Ringers 500 ML 999 ML IV (10:54)
--- NOTE | 2023-12-09 11:31 | MHC.CM.PN ---
Pt admitted to ICU with multi system failure: MD had conversations w/pt's sister and other family members concerning her overall grave status superimposed on chronic comorbid conditions. Family is presently discussing goals of care and will speak w/MD once a determination has been made. Pt is on ventilatory support. Pt's sister listed as HCP but no copy could be found in EMR. CM to follow on 12/09 to allow family time to process pt's prognosis and will assist when appropriate.
[2023-12-09] MEDS: Insulin Lispro 100 UNIT/ML 3 ML VIAL SUBCUT ×2 (11:57→17:31)
[2023-12-09 12:01] LABS: Glucose, Whole Blood 173 mg/dL (60-115)
--- NOTE | 2023-12-09 12:12 | P.CDIM_ITS ---
PROVIDER RESPONSE TEXT: To clarify, the appropriate diagnosis supported by the clinical indicators: Sepsis: Suspected QUERY TEXT: PHYSICIAN'S DOCUMENTATION REQUEST Date of Query: 12/09/2023 11:51 AM EDT Patient Name: Nicolasa Ramirez Admit Date: 12/08/2023 Dear Tracy Bryson, A review of the medical record indicates additional documentation may be needed. Please review below and update the documentation accordingly. Clinical indicators: H&P 12/07 - ADDENDUM: Patient with Sepsis (about 4pm, 12/08/23) received ceftriaxone, lactate 2.1, rece ived ivf, blood cultures drawn. ICU progress note dated 12/07 - Lab were significant for white count 14.1 shows signs of respiratory d istress, tachypneic and tachycardic, At this point I advised that the best thing would be to intubate the patient for airway protection. S urgery informed, continue antibiotics adding Zosyn. WBC 21.5 LA 3.3 Temp 103.8 HR 118 RR 27 Sepsis Systemic manifestations of infection, with 2 or more SIRS criteria which include: Fever > 100.4?F or hypothermia < 96.8?F Leukocytosis - WBC > 12,000 or leukopenia, WBC < 4,000, or > 10% bands Tachycardia- > 90 beats/minute Tachypnea- RR > 20 breaths/minute or PaCO2 < 32mmHg Consistency and clarity of the documented diagnosis of Sepsis: Sepsis suspected, possible, probable etc. After study (the condition) has been ruled out Other (explain) Clinically unable to determine (explain) Thank you, Estrellita Fall, CCS, CDIS Use of terms such as suspected, likely, concern for, or probable (associated with a specific diagnosi s that is being evaluated, monitored, or treated as if it exists) are acceptable and can be coded in the inpatient se tting, when documented at the time of discharge. Please use your independent medical judgment in providing your response. THIS QUERY IS PART OF THE PERMANENT MEDICAL RECORD
--- NOTE | 2023-12-09 12:15 | P.CDIM_ITS ---
PROVIDER RESPONSE TEXT: To clarify, the appropriate diagnosis supported by the clinical indicators: Acute renal injury (ZANDRA) QUERY TEXT: PHYSICIAN'S DOCUMENTATION REQUEST Date of Query: 12/09/2023 12:04 PM EDT Patient Name: Nicolasa Ramirez Admit Date: 12/08/2023 Dear Tracy Bryson, A review of the medical record indicates additional documentation may be needed. Please review below and update the documentation accordingly. Clinical Indicators: ICU progress notes : Plan - Acute renal insufficiency, to monitor renal indices very closely. GFR 38 18 Cr 1.51 2.99 Bun 36 55 Fluids Please clarify which of the following accurately represents the patient's renal status: Acute renal injury (ZANDRA) Acute renal insufficiency ATN Other (explain) Clinically unable to determine (explain) Thank you, Estrellita Fall, CCS, CDIS Use of terms such as suspected, likely, concern for, or probable (associated with a specific diagnosi s that is being evaluated, monitored, or treated as if it exists) are acceptable and can be coded in the inpatient se tting, when documented at the time of discharge. Please use your independent medical judgment in providing your response. THIS QUERY IS PART OF THE PERMANENT MEDICAL RECORD
[2023-12-09] MEDS: Norepinephrine Bitartrate/D5W 8 MG/250 ML PLAST..BAG 63.03 MG IV ×3 (13:33→21:20)
--- NOTE | 2023-12-09 15:02 | PC.NURSE ---
Patients yordan Cruz took patients clothing, shoes and cellphone home. Patients sister Emmie took patients 2 necklaces and four rings home.
[2023-12-09] MEDS: Acetaminophen 1,000 MG/100 ML PIGGYBACK 400 MG IV (15:58)
[2023-12-09] MEDS: propofoL 1,000 MG/100 ML VIAL 22.41 MG IVCONT ×2 (16:04→20:07)
[2023-12-09 17:17] LABS: Glucose, Whole Blood 189 mg/dL (60-115)
[2023-12-09 18:23] LABS: VBG Base Excess -3.1 mmol/L; VBG HCO3 21 mmol/L (22-26); VBG pCO2 35 mmHg; VBG pH 7.38 (7.32-7.43); VBG pO2 43 mmHg
[2023-12-09 18:30] LABS: Hematocrit 46.6 % (37.0-47.0); Hemoglobin 15.3 g/dl (12.0-16.0); Mean Corpuscular HGB Conc 32.8 g/dl (31.0-35.0); Mean Corpuscular Hemoglobin 29.6 pg (27.0-33.0); Mean Corpuscular Volume 90.1 fL (80.0-98.0); Mean Platelet Volume 10.7 fL (9.4-12.3); NRBC Pct Auto 0.2 /100WBC (0.0-0.2); Platelet Count 174 X10*3/uL (160-400); Red Blood Count 5.17 X10*6/uL (4.20-5.50); Red Cell Distribution Width 14.8 % (11.0-16.0)
[2023-12-09 18:42] LABS: Anion Gap 23 (12-20); Blood Urea Nitrogen 58 mg/dL (9-16); Calcium 7.7 mg/dL (8.4-10.2); Carbon Dioxide 20 mmol/L (22-29); Chloride 98 mmol/L (96-108); Creatinine Clr Calc Pharmacy 26.4; Estimated Glomerular Filt Rate 16; Glucose Random 211 mg/dL (60-115); Lactic Acid 5.7 mmol/L (0.5-2.0); Potassium 3.3 mmol/L (3.3-5.1); Sodium 138 mmol/L (135-145)
[2023-12-09 18:55] LABS: WBC ABN SCTR FOR CBC 1
[2023-12-09 19:38] LABS: Eosinophils Percent Manual 1 % (0-4); Lymphocytes Percent Manual 7 % (20-40); Metamyelocytes Percent 17 %; Monocytes Percent Manual 1 % (2-11); Myelocytes Percent 6 %; Neutrophils Percent Manual 25 % (45-73); Toxic Granulation PRESENT; Toxic Vacuolation PRESENT
[2023-12-09 19:39] LABS: Burr Cells 3+ (>5) /OIF
[2023-12-09 19:40] LABS: Ovalocytes 1+ (5-14) /OIF; RBC Morphology NOTED
[2023-12-09 19:42] LABS: Platelet Estimate NORMAL (NORMAL); Platelet Morphology Comment NORMAL
[2023-12-09 19:47] LABS: Eosinophils Absolute Manual 0.2 X10*3/uL (0.0-0.4); Lymphocytes Absolute Manual 1.6 X10*3/uL (1.2-4.9); Metamyelocytes Absolute 3.8 X10*3/uL; Monocytes Absolute Manual 0.2 X10*3/uL (0.1-1.2); Myelocytes Absolute 1.3 X10*/uL; Neutrophils Absolute Manual 15.2 X10*3/uL (2.0-8.3); White Blood Count 22.3 X10*3/uL (4.8-10.8)
[2023-12-09 19:50] LABS: Band Neutrophils Percent 43 % (3-5)
[2023-12-09 20:23] LABS: Reflex Lactate? Lactic Acid Added
--- NOTE | 2023-12-09 20:30 | P.CDIM_ITS ---
PROVIDER RESPONSE TEXT: To clarify, the appropriate diagnosis supported by the clinical indicators: Acute QUERY TEXT: PHYSICIAN'S DOCUMENTATION REQUEST Date of Query: 12/09/2023 12:09 PM EDT Patient Name: Nicolasa Ramirez Admit Date: 12/08/2023 Dear Toñito Bentley, A review of the medical record indicates additional documentation may be needed. Please review below and update the documentation accordingly. Clinical Indicators: ICU progress note dated 12/08/23 - ABG revealing metabolic acidosis. IV fluids, bicarb 2 amps push given Clarify which of the following accurately represents the acuity of the metabolic acidosis: Possible options might include: Acute Acute on chronic Other (explain) Clinically unable to determine (explain) Thank you, Estrellita Fall, CCS, CDIS Use of terms such as suspected, likely, concern for, or probable (associated with a specific diagnosi s that is being evaluated, monitored, or treated as if it exists) are acceptable and can be coded in the inpatient se tting, when documented at the time of discharge. Please use your independent medical judgment in providing your response. THIS QUERY IS PART OF THE PERMANENT MEDICAL RECORD
[2023-12-09 21:17] LABS: ~Lactic Acid-LAB USE ONLY 6.4 mmol/L (0.5-2.0)
[2023-12-09 22:42] LABS: Venous Blood Gas Refer to POC result
[2023-12-09 23:02] LABS: Reflex Lactate? 2 Y
[2023-12-09 23:34] LABS: ~Lactic Acid-LAB USE ONLY 7.4 mmol/L (0.5-2.0)
[2023-12-10] VITALS (58 sets, daily range): BP systolic 48–172; BP diastolic 22–134; PULSE 90–144; RESP 13–25; TEMP 34.6–40.3; O2SAT 86–95; BMI 48.2
[2023-12-10] MEDS: Piperacillin Sodium/Tazobactam 4.5 GM in 0.9 % Sodium Chloride 100 ML IV ×4 (00:01→18:17)
[2023-12-10] MEDS: Insulin Lispro 100 UNIT/ML 3 ML VIAL SUBCUT ×3 (00:08→12:25)
[2023-12-10 00:10] LABS: Glucose, Whole Blood 196 mg/dL (60-115)
[2023-12-10] MEDS: propofoL 1,000 MG/100 ML VIAL 22.41 MG IVCONT ×6 (00:58→23:38)
[2023-12-10] MEDS: Norepinephrine Bitartrate/D5W 8 MG/250 ML PLAST..BAG 63.03 MG IV ×3 (01:10→09:29)
[2023-12-10 05:23] LABS: VBG Base Excess -6.9 mmol/L; VBG HCO3 19 mmol/L (22-26); VBG pCO2 41 mmHg; VBG pH 7.27 (7.32-7.43); VBG pO2 40 mmHg
[2023-12-10] MEDS: Hydrocortisone Sod Succ/PF 100 MG VIAL 50 MG IVPUSH ×4 (05:30→21:36)
[2023-12-10] MEDS: Heparin Sodium,Porcine 5,000 UNIT/ML VIAL 5000 UNIT SUBCUT (05:30)
[2023-12-10 05:36] LABS: Glucose, Whole Blood 160 mg/dL (60-115)
[2023-12-10 05:52] LABS: Hemoglobin 15.8 g/dl (12.0-16.0); Mean Corpuscular HGB Conc 32.9 g/dl (31.0-35.0); Mean Corpuscular Hemoglobin 30.3 pg (27.0-33.0); Mean Corpuscular Volume 92.1 fL (80.0-98.0); Mean Platelet Volume 11.3 fL (9.4-12.3); NRBC Pct Auto 0.2 /100WBC (0.0-0.2); Platelet Count 106 X10*3/uL (160-400); Red Blood Count 5.21 X10*6/uL (4.20-5.50); Red Cell Distribution Width 15.2 % (11.0-16.0)
[2023-12-10 05:58] LABS: WBC ABN SCTR FOR CBC 1; White Blood Count 21.4 X10*3/uL (4.8-10.8)
[2023-12-10 06:01] LABS: Venous Blood Gas Refer to POC result
[2023-12-10 06:11] LABS: Anion Gap 28 (12-20); Blood Urea Nitrogen 61 mg/dL (9-16); Calcium 7.3 mg/dL (8.4-10.2); Carbon Dioxide 17 mmol/L (22-29); Chloride 92 mmol/L (96-108); Creatinine Clr Calc Pharmacy 25.5; Estimated Glomerular Filt Rate 15; Glucose Random 226 mg/dL (60-115); Magnesium 2.4 mg/dL (1.6-2.6); Phosphorus 5.8 mg/dL (2.7-4.5); Sodium 133 mmol/L (135-145)
[2023-12-10 06:24] LABS: Band Neutrophils Percent 45 % (3-5); Eosinophils Absolute Manual 0.2 X10*3/uL (0.0-0.4); Eosinophils Percent Manual 1 % (0-4); Lymphocytes Absolute Manual 1.1 X10*3/uL (1.2-4.9); Lymphocytes Percent Manual 5 % (20-40); Metamyelocytes Absolute 2.6 X10*3/uL; Metamyelocytes Percent 12 %; Monocytes Absolute Manual 0.9 X10*3/uL (0.1-1.2); Monocytes Percent Manual 4 % (2-11); Myelocytes Absolute 1.3 X10*/uL; Myelocytes Percent 6 %; Neutrophils Absolute Manual 15.4 X10*3/uL (2.0-8.3); Neutrophils Percent Manual 27 % (45-73)
[2023-12-10 06:25] LABS: RBC Morphology NOTED
[2023-12-10 06:27] LABS: Platelet Estimate DECREASED (NORMAL); Platelet Morphology Comment NORMAL; Toxic Granulation PRESENT; Toxic Vacuolation PRESENT
[2023-12-10] MEDS: Vasopressin 20 UNIT/100 ML INFUS..BTL 12 UNIT IVCONT ×3 (06:28→22:15)
[2023-12-10 06:29] LABS: Burr Cells 1+ (0-2) /OIF; Schistocytes 1+ (0-2) /OIF
[2023-12-10 06:30] LABS: Dohle Bodies PRESENT; Polychromasia 1+ (0-2) /OIF
--- NOTE | 2023-12-10 07:29 | PC.NURSE ---
During reposition, ice packs removed and pt noted to bloody macerated area to L abdominal fold. area cleaned with saline dried and intadry applied. area is c/d/i at this time.
[2023-12-10] MEDS: Sodium Bicarbonate 8.4% 150 MEQ in Dextrose 5 % 850 ML 100 MEQ IV (07:30)
--- NOTE | 2023-12-10 08:23 | PM.CCPN ---
Subjective Subjective Date of Service: 12/10/23 Interval History: of note, patient's sister, Emmie, wanted to speak with me last night re: code status; Emmie feels that changing Ms. Ramirez' code status to DNR is in essense killing Ms. Ramirez; Emmie reports she is the primary healthcare proxy, and Ms. Ramirez' son is the secondary healthcare proxy, though [facility] has no documentation of this; I encouraged Emmie to bring in Ms. Ramirez' healthcare proxy paperwork; in the meantime, Ms. Ramirez was changed back to full code; medically, Ms. Ramirez remains critically ill, requiring full ventilator support, high vasopressor support, and with increasing metabolic acidosis Critical Care Time (minutes): 120 Physical Exam Vital Signs: Vital Signs: Last Vital Signs Temp 98 F 12/10/23 08:00 Pulse 93 12/10/23 08:00 Resp 19 12/10/23 08:00 BP 103/62 12/10/23 08:00 Pulse Ox 91 L 12/10/23 08:00 O2 Del Method Mechanical Ventil ation 12/10/23 08:00 O2 Flow Rate 4 12/08/23 23:12 FiO2 85 12/10/23 08:00 Oxygen Flow Rate 4 12/08/23 10:18 BMI result Body Mass Index 48.2 Const: Other: intubated, sedated General: no acute distress HEENT: Head: Yes normal to inspection, Yes normocephalic and Yes atraumatic Eyes: General: appearance normal, both eyes and all related structures Neck: Neck: Yes normal visual inspection, Yes full ROM and Yes supple Chest: Chest palpation & inspection: normal inspection of the chest Resp: Other: diminished breath sounds throughout Cardio: Rate: regular rate Rhythm: regular rhythm GI: Inspection: Yes normal to inspection, No Abdominal wall edema and No distended Palpation (GI): Soft to palpation, not firm, nontender, no guarding and not rigid Skin: Other: appreciable skin breakdown L groin greater than R groin Neuro: Other: some appreciable spontaneous eye movements, hand flickering bilaterally General: tone normal and no focal motor deficits Extrem: General: Yes normal to inspection, Yes capillary refill normal and Yes no clubbing, cyanosis or edema Psych: Other: unable to assess Objective Data Labs 12/10/23 05:05 12/10/23 05:05 Labs: Laboratory Results - last 24 hr 12/09/23 12/09/23 12/09/23 09:03 09:21 11:54 WBC RBC Hgb Hct MCV MCH MCHC RDW Plt Count MPV Immature Gran % (Auto) Neut % (Auto) Lymph % (Auto) [place] % (Auto) Eos % (Auto) Baso % (Auto) Lymph # (Auto) [place] # (Auto) Eos # (Auto) Baso # (Auto) Abs Immat Gran (auto) Absolute Neuts (auto) Absolute Nucleated RBC Nucleated RBC % (auto) Neutrophils % (Manual) Band Neutrophils % Lymphocytes % (Manual) Monocytes % (Manual) Eosinophils % (Manual) Metamyelocytes % Myelocytes % Abs Neuts (Manual) Lymphocytes # (Manual) Monocytes # (Manual) Eosinophils # (Manual) Metamyelocytes # Myelocytes # Toxic Granulation Toxic Vacuolation Dohle Bodies Platelet Estimate Plt Morphology Comment RBC Morphology Polychromasia Ovalocytes Thermal Cells Schistocytes VBG pH 7.34 VBG pCO2 42 VBG pO2 51 VBG HCO3 23 VBG O2 Saturation 82.0 VBG Base Excess -2.6 Sodium 138 Potassium 3.7 D Chloride 102 Carbon Dioxide 21 L Anion Gap 19 BUN 55 H Creatinine 2.99 H Estim Creat Clear Calc 26.0 Estimated GFR 16 POC Glucose 173 H Random Glucose 179 H Lactic Acid Lactic Acid F/U @ 2Hr Lactic Acid F/U @ 4Hr Calcium 8.4 Phosphorus Magnesium 12/09/23 12/09/23 12/09/23 17:13 18:16 18:17 WBC 22.3 H RBC 5.17 Hgb 15.3 Hct 46.6 MCV 90.1 MCH 29.6 MCHC 32.8 RDW 14.8 Plt Count 174 D MPV 10.7 Immature Gran % (Auto) Cancelled Neut % (Auto) Cancelled Lymph % (Auto) Cancelled [place] % (Auto) Cancelled Eos % (Auto) Cancelled Baso % (Auto) Cancelled Lymph # (Auto) Cancelled [place] # (Auto) Cancelled Eos # (Auto) Cancelled Baso # (Auto) Cancelled Abs Immat Gran (auto) Cancelled Absolute Neuts (auto) Cancelled Absolute Nucleated RBC 0.040 H Nucleated RBC % (auto) 0.2 Neutrophils % (Manual) 25 L Band Neutrophils % 43 H Lymphocytes % (Manual) 7 L Monocytes % (Manual) 1 L Eosinophils % (Manual) 1 Metamyelocytes % 17 Myelocytes % 6 Abs Neuts (Manual) 15.2 H Lymphocytes # (Manual) 1.6 Monocytes # (Manual) 0.2 Eosinophils # (Manual) 0.2 Metamyelocytes # 3.8 Myelocytes # 1.3 Toxic Granulation PRESENT Toxic Vacuolation PRESENT Dohle Bodies Platelet Estimate NORMAL Plt Morphology Comment NORMAL RBC Morphology NOTED Polychromasia Ovalocytes 1+ (5-14) Thermal Cells 3+ (>5) Schistocytes VBG pH 7.38 VBG pCO2 35 VBG pO2 43 VBG HCO3 21 L VBG O2 Saturation 70.0 VBG Base Excess -3.1 Sodium 138 Potassium 3.3 Chloride 98 Carbon Dioxide 20 L Anion Gap 23 H BUN 58 H Creatinine 2.95 H Estim Creat Clear Calc 26.4 Estimated GFR 16 POC Glucose 189 H Random Glucose 211 H Lactic Acid 5.7 H* Lactic Acid F/U @ 2Hr Lactic Acid F/U @ 4Hr Calcium 7.7 L D Phosphorus Magnesium 12/09/23 12/09/23 12/10/23 20:59 23:10 00:06 WBC RBC Hgb Hct MCV MCH MCHC RDW Plt Count MPV Immature Gran % (Auto) Neut % (Auto) Lymph % (Auto) [place] % (Auto) Eos % (Auto) Baso % (Auto) Lymph # (Auto) [place] # (Auto) Eos # (Auto) Baso # (Auto) Abs Immat Gran (auto) Absolute Neuts (auto) Absolute Nucleated RBC Nucleated RBC % (auto) Neutrophils % (Manual) Band Neutrophils % Lymphocytes % (Manual) Monocytes % (Manual) Eosinophils % (Manual) Metamyelocytes % Myelocytes % Abs Neuts (Manual) Lymphocytes # (Manual) Monocytes # (Manual) Eosinophils # (Manual) Metamyelocytes # Myelocytes # Toxic Granulation Toxic Vacuolation Dohle Bodies Platelet Estimate Plt Morphology Comment RBC Morphology Polychromasia Ovalocytes Leeanna Cells Schistocytes VBG pH VBG pCO2 VBG pO2 VBG HCO3 VBG O2 Saturation VBG Base Excess Sodium Potassium Chloride Carbon Dioxide Anion Gap BUN Creatinine Estim Creat Clear Calc Estimated GFR POC Glucose 196 H Random Glucose Lactic Acid Lactic Acid F/U @ 2Hr 6.4 H* Lactic Acid F/U @ 4Hr 7.4 H* Calcium Phosphorus Magnesium 12/10/23 12/10/23 12/10/23 05:05 05:16 05:29 WBC 21.4 H RBC 5.21 Hgb 15.8 Hct 48.0 H MCV 92.1 MCH 30.3 MCHC 32.9 RDW 15.2 Plt Count 106 L D MPV 11.3 Immature Gran % (Auto) Cancelled Neut % (Auto) Cancelled Lymph % (Auto) Cancelled [place] % (Auto) Cancelled Eos % (Auto) Cancelled Baso % (Auto) Cancelled Lymph # (Auto) Cancelled [place] # (Auto) Cancelled Eos # (Auto) Cancelled Baso # (Auto) Cancelled Abs Immat Gran (auto) Cancelled Absolute Neuts (auto) Cancelled Absolute Nucleated RBC 0.050 H Nucleated RBC % (auto) 0.2 Neutrophils % (Manual) 27 L Band Neutrophils % 45 H Lymphocytes % (Manual) 5 L Monocytes % (Manual) 4 Eosinophils % (Manual) 1 Metamyelocytes % 12 Myelocytes % 6 Abs Neuts (Manual) 15.4 H Lymphocytes # (Manual) 1.1 L Monocytes # (Manual) 0.9 Eosinophils # (Manual) 0.2 Metamyelocytes # 2.6 Myelocytes # 1.3 Toxic Granulation PRESENT Toxic Vacuolation PRESENT Dohle Bodies PRESENT Platelet Estimate DECREASED Plt Morphology Comment NORMAL RBC Morphology NOTED Polychromasia 1+ (0-2) Ovalocytes Leeanna Cells 1+ (0-2) Schistocytes 1+ (0-2) VBG pH 7.27 L VBG pCO2 41 VBG pO2 40 VBG HCO3 19 L VBG O2 Saturation 63.0 VBG Base Excess -6.9 Sodium 133 L Potassium 4.0 D Chloride 92 L Carbon Dioxide 17 L Anion Gap 28 H BUN 61 H Creatinine 3.05 H Estim Creat Clear Calc 25.5 Estimated GFR 15 POC Glucose 160 H Random Glucose 226 H Lactic Acid Lactic Acid F/U @ 2Hr Lactic Acid F/U @ 4Hr Calcium 7.3 L Phosphorus 5.8 H Magnesium 2.4 Microbiology Microbiology Results: Microbiology 12/08/23 16:33 Blood - Venous Blood Culture - Preliminary No growth after 24 hours. 12/08/23 16:24 Blood - Venous Blood Culture - Preliminary Prelim: GPC Gram Stain only Progress Note: A&P Assessment and plan (1) Ileus: Status: Acute (2) Aspiration pneumonia: Status: Acute (3) Shock: Status: Acute (4) Obesity hypoventilation syndrome: Status: Acute (5) History of nephrectomy: Status: Acute Plan Patient is a 63 Y F with morbid obesity, c/b obesity hypoventilation syndrome, obstructive sleep apnea, chronic mixed respiratory failure on 1L NC, paroxysmal atrial fibrillation on apixaban, polysubstance misuse, initially presenting on 12/07 w/ abdominal pain, found to have CT A/P c/f small bowel obstruction vs ileus, planned for medical management; ED course c/b aspiration, c/b acute on chronic hypoxic respiratory failure, intubated; ICU course c/b shock N: intubated, sedated w/ propofol gtt; wean as tolerated CV: shock, likely distributive and hypovolemic; on high-dose norepinephrine, vasopression gtt, stress-dose steroids; wean as tolerated R: acute on chronic hypoxic respiratory failure on maximium ventilator support; intubated GI: c/f SBO vs ileus, c/b aspiration; to appreciate general surgery, gastroenterology recommendations; to monitor output : acute renal insufficiency, worsening; to continue to monitor for urgent/emergent needs for hemodialysis H: leukocytosis, likely reactive ID: c/f aspiration c/b septic shock empiric vancomycin, zosyn E: to monitor for hypo-/hyper-glycemia P: no acute issues Quality Stroke Does the patient have a stroke diagnosis?: No VTE Prior VTE?: No VTE Risk Level:: Medical - moderate - high VTE Device Contraindication: Treatment Not Indicated VTE Drug Contraindication: N/A - Med Ordered
[2023-12-10] MEDS: Calcium Chloride 1 GM/10 ML SYRINGE 0.5 GM IVPUSH (09:00)
[2023-12-10] MEDS: Furosemide 200 MG in 0.9 % Sodium Chloride 80 ML IVCONT (09:30)
[2023-12-10 10:07] LABS: Vancomycin Random 16.5 mcg/mL (15-20)
[2023-12-10 10:15] LABS: Lactic Acid 9.6 mmol/L (0.5-2.0)
[2023-12-10 10:16] LABS: Troponin-I High Sensitivity 298.1 ng/L (<3.5-17.0)
--- NOTE | 2023-12-10 10:27 | HE.PHANOTE ---
RE [facility] patients level came back at 16.5 after just a load. renal function continues to decline. will go with 500 mg Q24H. next level pulled 12/10 @0900
--- NOTE | 2023-12-10 11:13 | MHC.CLN ---
F/U PT REMAINS INTUBATED AND SEDATED DISCUSSED WITH MD AT ROUNDS CURRENTLY NPO; DAY 3 IF TF NEEDED; RECOMMEND PROMOTE AT MAX GOAL RATE 45ML/HR WITH 300ML FREE WATER FLUSHES Q 8 HRS TO PROVIDE 1080KCALS (1376KCALS WITH SEDATION; 23KCALS/KG), 67.5G PROTEIN (1.1G/KG), 1806ML TOTAL WATER FROM FORMULA AND FLUSHES (30.6ML/KG) MONITOR TOLERANCE, RESIDUALS AND LYTES MONITOR FOR DIET ADVANCEMENT RD CAN BE REACHED VIA TIGER CONNECT DURING OFF HOURS
[2023-12-10] MEDS: vancomycin HCL 500 MG in 0.9 % Sodium Chloride 100 ML 110 MG IV (11:34)
[2023-12-10] MEDS: Sodium Bicarbonate 8.4% 50 MEQ/50 ML VIAL IVPUSH (11:34)
[2023-12-10 11:41] LABS: Troponin-I High Sensitivity 273.1 ng/L (<3.5-17.0)
[2023-12-10 11:41] LABS: Reflex Lactate? Lactic Acid Added
[2023-12-10 11:44] LABS: Glucose, Whole Blood 181 mg/dL (60-115)
[2023-12-10 11:48] LABS: VBG Base Excess -1.9 mmol/L; VBG HCO3 24 mmol/L (22-26); VBG pCO2 48 mmHg; VBG pH 7.31 (7.32-7.43); VBG pO2 47 mmHg
[2023-12-10 11:57] LABS: Hematocrit 44.9 % (37.0-47.0); Hemoglobin 14.8 g/dl (12.0-16.0); Mean Corpuscular Hemoglobin 30.6 pg (27.0-33.0); Mean Corpuscular Volume 92.8 fL (80.0-98.0); Mean Platelet Volume 11.4 fL (9.4-12.3); NRBC Pct Auto 0.5 /100WBC (0.0-0.2); PLT CLUMP 1; Red Blood Count 4.84 X10*6/uL (4.20-5.50); Red Cell Distribution Width 15.4 % (11.0-16.0)
[2023-12-10 11:58] LABS: WBC ABN SCTR FOR CBC 1; White Blood Count 21.5 X10*3/uL (4.8-10.8)
--- NOTE | 2023-12-10 12:03 | P.CDIM_ITS ---
PROVIDER RESPONSE TEXT: To clarify, the appropriate diagnosis supported by the clinical indicators: Aspiration Pneumonia: Vomitus QUERY TEXT: PHYSICIAN'S DOCUMENTATION REQUEST Date of Query: 12/10/2023 08:48 AM EDT Patient Name: Nicolasa Ramirez Admit Date: 12/08/2023 Dear Tracy Bryson, A review of the medical record indicates additional documentation may be needed. Please review below and update the documentation accordingly. Clinical Indicators: ICU progress note 12/08 - critical illness which includes ileus, aspiration likely complicated by pneu monia and shock. Multisystem organ failure. ED: Vomiting/nausea, hypoxic, patient likely aspirated earlier today - intubate Empiric Zosyn Based on the above, could you clarify in the Progress Notes further specificity regarding the most li hanna type of pneumonia you suspect you are treating (even if specific organism may not be known)? Aspiration Pneumonia Please indicate substance such as food or vomitus, oils, or other solids or liquids Aspiration Pneumonitis possible, suspected, probable etc. Aspiration Pneumonia bacterial, viral, other Other (explain) Clinically unable to determine (explain) Thank you, Estrellita Fall, CCS, CDIS Use of terms such as suspected, likely, concern for, or probable (associated with a specific diagnosi s that is being evaluated, monitored, or treated as if it exists) are acceptable and can be coded in the inpatient se tting, when documented at the time of discharge. Please use your independent medical judgment in providing your response. THIS QUERY IS PART OF THE PERMANENT MEDICAL RECORD
[2023-12-10 12:15] LABS: Alanine Aminotransferase 739 U/L (0-31); Albumin Level 2.5 g/dL (3.5-5.0); Alkaline Phosphatase 175 U/L (39-117); Anion Gap 26 (12-20); Aspartate Amino Transferase 937 U/L (5-31); Bilirubin Total 2.3 mg/dL (0.0-1.0); Blood Urea Nitrogen 63 mg/dL (9-16); Calcium 7.4 mg/dL (8.4-10.2); Carbon Dioxide 22 mmol/L (22-29); Chloride 90 mmol/L (96-108); Estimated Glomerular Filt Rate 13; Glucose Random 186 mg/dL (60-115); Potassium 3.9 mmol/L (3.3-5.1); Sodium 134 mmol/L (135-145); Total Protein 5.4 g/dL (6.5-8.0)
--- NOTE | 2023-12-10 12:16 | HO.WOUND ---
Wound Consult: Initial 63yr old?Female admitted to [facility] on 12/08/23 - See progress notes and H&P for detailed history.? Wound consult placed for Left Abdominal Skin Fold.? Patient intubated at the time of my consultation. ? Abdominal skin folds assessed - Left base of fold noted for large intertriginous area of tissue loss. Interdry in place but folded within the skin fold - no wick exposed for moisture translocation. Application education provided to staff for effective moisture translocation. There periwound is noted for hyperpigmentation but no rash or erythema noted at this time. Etiology: ??Present on Admission Measurements: 1.2cm x 18cm x 0.12cm Wound Bed: marbled wound bed with red pink and pale tissue noted - thin layer of scattered slough observed - relatively clean wound bed - no s/s of infection at this time. Drainage / Odor: scant amount of serosang drainage noted on Interdry No odor observed Edges: ? Linear and attached Chiara wound: Intact - ? No Induration, Fluctuance or Warmth noted Pain: Intubated Goals of Treatment: ? Triad for enhanced autolytic healing and to protect from friction Recommendations: 1. Turn and Reposition every 2 hours and as needed for patient comfort.? Use pillows or wedges to support off loading positions. 2. Off Load all bony prominences with use of pillows and heel boots if needed.? Apply Preventative foams where needed. ? 3. Monitor for incontinence and moisture control, use barrier creams when needed for prevention and treatment. 4. Provide adequate and supplemental nutrition.? 5. Order or Continue low air loss mattress. 6. When applicable maintain blood glucose levels per Providers order. 7. Left Abdominal Fold - Cleanse with routine cleansing, pat dry. Apply thin layer of Triad to wound bed - only pat and dab no scrub and rub when soiling occurs. Reapply thin layer twice a day and PRN. Re-consult wound care Nurse for wound deterioration or wound changes.
[2023-12-10 12:17] LABS: ~Lactic Acid-LAB USE ONLY 9.7 mmol/L (0.5-2.0)
[2023-12-10 12:20] LABS: Venous Blood Gas Refer to POC result
[2023-12-10] MEDS: Calcium Chloride 1 GM/10 ML SYRINGE IVPUSH (12:36)
[2023-12-10 12:38] LABS: Band Neutrophils Percent 52 % (3-5); Lymphocytes Absolute Manual 0.6 X10*3/uL (1.2-4.9); Lymphocytes Percent Manual 3 % (20-40); Metamyelocytes Absolute 1.1 X10*3/uL; Metamyelocytes Percent 5 %; Myelocytes Absolute 0.2 X10*/uL; Myelocytes Percent 1 %; Neutrophils Absolute Manual 19.4 X10*3/uL (2.0-8.3); Neutrophils Percent Manual 38 % (45-73); Nucleated Red Blood Cells 1 /100WBC (0-0); Promyelocytes Absolute 0.2 X10*3/uL; Promyelocytes Percent 1 %
[2023-12-10 12:43] LABS: Acanthocytes 3+ (>5) /OIF; Burr Cells 3+ (>5) /OIF; RBC Morphology NOTED
[2023-12-10 12:45] LABS: Large Platelet PRESENT; Platelet Estimate DECREASED (NORMAL); Platelet Morphology Comment NOTED
[2023-12-10 12:46] LABS: Dohle Bodies PRESENT; Toxic Granulation PRESENT; Toxic Vacuolation PRESENT
[2023-12-10 12:55] LABS: Platelet Count 79 X10*3/uL (160-400)
[2023-12-10] MEDS: Norepinephrine Bitartrate/D5W 8 MG/250 ML PLAST..BAG 81.7 MG IV (12:57)
[2023-12-10] MEDS: Albumin Human 25 % 50 ML 100 ML IV (12:58)
--- NOTE | 2023-12-10 14:01 | MHC.CM.PN ---
Pt remains intubated and in very guarded condition. HCP from 2019 obtained from [facility] and scanned into EMR. Proxy lists pt's son Samy as primary agent and pt's sister Emmie as second. Family to decide on goals of care after pt's son arrives from [place]. CM to follow for finalization of d/c needs
[2023-12-10 14:02] LABS: Reflex Lactate? 2 Y
--- NOTE | 2023-12-10 14:08 | P.PNGI_ITS ---
Subjective Subjective Date of Service: 12/10/23 Critical Care Time (minutes): 30 Physical Exam 2 Vital Signs: Vital Signs: Last Vital Signs Temp 100 F 12/10/23 13:00 Pulse 111 H 12/10/23 13:00 Resp 22 H 12/10/23 13:00 BP 106/60 12/10/23 13:00 Pulse Ox 90 L 12/10/23 13:00 O2 Del Method Mechanical Ventil ation 12/10/23 13:00 O2 Flow Rate 4 12/08/23 23:12 FiO2 100 12/10/23 13:00 Oxygen Flow Rate 4 12/08/23 10:18 BMI result Body Mass Index 48.2 GI: Other: abdomen is soft, bowel sounds present Objective Data Labs 12/10/23 11:43 12/10/23 11:43 Microbiology Microbiology Results: Microbiology 12/08/23 16:24 Blood - Venous Blood Culture - Final Streptococcus viridans group 12/09/23 Unknown Urine clean catch - Urine aldrich top Urine Culture - Final No growth. 12/08/23 16:33 Blood - Venous Blood Culture - Preliminary No growth after 24 hours. Procedures Date of Service Date of Service: 12/10/23 Progress Note: A&P Assessment and plan (1) Abdominal pain: Status: Acute Assessment and Plan: gi issues appear stable xray showed improvement in bowel gas pattern with improvement in ileus from admission stool testing pending. Time Spent With Patient Time: Total time managing care of this patient today ____ minutes. Quality Stroke Does the patient have a stroke diagnosis?: No VTE Prior VTE?: No VTE Risk Level:: Medical - moderate - high VTE Device Contraindication: Treatment Not Indicated VTE Drug Contraindication: N/A - Med Ordered
--- NOTE | 2023-12-10 14:34 | W.MHC.ACPN ---
Advanced Care Planning Note Advanced Care Planning Note Discussed with: family member(s) Time spent (in minutes): 60 Narrative: I have spent a significant amount of time communicating with Ms. Ramirez' son, sister, Emmie, [id number], and niece. Mr. Ramirez' son, Samy, as well as Ms. Ramirez' [id number] and niece have expressed that they believe Ms. Ramirez, given her critical illness, should be DNR, and further invasive measures, such as hemodialysis, should not be persued. Ms. Ramirez' sister believes Ms. Ramirez should remain full code. Both Samy and Emmie believe they are Ms. Ramirez' primary healthcare proxy, and the other is secondary. They both report Ms. Ramirez filled a healthcare proxy 4 months ago when she was last admitted to [facility]. However, there is no record of this healthcare proxy, and neither Samy nor Emmie are able to provide healthcare proxy forms. Our showcase maker was able to obtain a healthcare proxy form signed by Ms. Ramirez on 11/18/18 at [facility], which lists Samy as the primary healthcare agent, and Emmie as the secondary healthcare agent. I stated to Samy, that unless a valid and more recent healthcare proxy form is available, Samy will be the primary decision maker. With that, Samy decided he would not want Ms. Ramirez to undergo CPR or any other invasive measures. Ms. Ramirez' code status was changed to DNR. Problems Discussed (1) Ileus: (2) Aspiration pneumonia: (3) Shock: (4) Obesity hypoventilation syndrome:
[2023-12-10 14:48] LABS: ~Lactic Acid-LAB USE ONLY 8.8 mmol/L (0.5-2.0)
[2023-12-10] MEDS: Sodium Bicarbonate 8.4% 150 MEQ in Dextrose 5 % 850 ML IV ×2 (14:49→21:33)
[2023-12-10] MEDS: Norepinephrine Bitartrate/D5W 8 MG/250 ML PLAST..BAG 86.37 MG IV ×2 (16:03→19:03)
[2023-12-10 16:43] LABS: Troponin-I High Sensitivity 270.7 ng/L (<3.5-17.0)
[2023-12-10 17:57] LABS: Hematocrit 44.7 % (37.0-47.0); Mean Corpuscular HGB Conc 33.6 g/dl (31.0-35.0); Mean Corpuscular Hemoglobin 30.9 pg (27.0-33.0); Mean Platelet Volume 11.6 fL (9.4-12.3); NRBC Pct Auto 0.6 /100WBC (0.0-0.2); Red Blood Count 4.86 X10*6/uL (4.20-5.50); Red Cell Distribution Width 15.4 % (11.0-16.0)
[2023-12-10 18:05] LABS: Glucose, Whole Blood 135 mg/dL (60-115)
[2023-12-10] MEDS: Acetaminophen 1,000 MG/100 ML PIGGYBACK 400 MG IV ×2 (18:17→21:44)
[2023-12-10 18:24] LABS: Anion Gap 27 (12-20); Blood Urea Nitrogen 61 mg/dL (9-16); Calcium 7.6 mg/dL (8.4-10.2); Carbon Dioxide 22 mmol/L (22-29); Chloride 86 mmol/L (96-108); Estimated Glomerular Filt Rate 14; Glucose Random 154 mg/dL (60-115); Potassium 4.8 mmol/L (3.3-5.1); Sodium 130 mmol/L (135-145)
[2023-12-10 18:25] LABS: Lactic Acid 8.8 mmol/L (0.5-2.0)
[2023-12-10 18:26] LABS: Platelet Count 51 X10*3/uL (160-400); WBC ABN SCTR FOR CBC 1
[2023-12-10 18:34] LABS: Band Neutrophils Percent 3 % (3-5); Lymphocytes Percent Manual 4 % (20-40); Monocytes Percent Manual 3 % (2-11); Neutrophils Percent Manual 90 % (45-73); RBC Morphology NOTED
[2023-12-10 18:35] LABS: Ovalocytes 1+ (5-14) /OIF; Schistocytes 1+ (0-2) /OIF
[2023-12-10 18:36] LABS: Acanthocytes 2+ (3-5) /OIF; Burr Cells 3+ (>5) /OIF; Dohle Bodies PRESENT
[2023-12-10 18:37] LABS: Platelet Estimate DECREASED (NORMAL); Platelet Morphology Comment NORMAL
[2023-12-10 18:38] LABS: Lymphocytes Absolute Manual 1.1 X10*3/uL (1.2-4.9); Monocytes Absolute Manual 0.8 X10*3/uL (0.1-1.2); White Blood Count 26.9 X10*3/uL (4.8-10.8)
[2023-12-10 19:52] LABS: Reflex Lactate? Lactic Acid Added
[2023-12-10] MEDS: Norepinephrine Bitartrate/D5W 8 MG/250 ML PLAST..BAG 116.72 MG IV (21:24)
[2023-12-10] MEDS: Norepinephrine Bitartrate/D5W 8 MG/250 ML PLAST..BAG 93.38 MG IV (23:40)
[2023-12-10 23:54] LABS: Glucose, Whole Blood 170 mg/dL (60-115)
[2023-12-11] VITALS (34 sets, daily range): BP systolic 64–115; BP diastolic 31–75; PULSE 87–134; RESP 16–24; TEMP 34.8–40.5; O2SAT 88–98; BMI 50.9
[2023-12-11] MEDS: Insulin Lispro 100 UNIT/ML 3 ML VIAL SUBCUT ×2 (00:01→05:30)
[2023-12-11] MEDS: Piperacillin Sodium/Tazobactam 4.5 GM in 0.9 % Sodium Chloride 100 ML IV ×2 (00:01→05:26)
[2023-12-11] MEDS: Norepinephrine Bitartrate/D5W 8 MG/250 ML PLAST..BAG 116.72 MG IV (01:56)
[2023-12-11] MEDS: Norepinephrine Bitartrate/D5W 8 MG/250 ML PLAST..BAG 149.4 MG IV (03:38)
[2023-12-11] MEDS: propofoL 1,000 MG/100 ML VIAL 22.41 MG IVCONT ×2 (03:39→07:31)
[2023-12-11] MEDS: Hydrocortisone Sod Succ/PF 100 MG VIAL 50 MG IVPUSH ×2 (03:42→09:18)
[2023-12-11 05:09] LABS: VBG Base Excess -2.6 mmol/L; VBG HCO3 24 mmol/L (22-26); VBG pCO2 51 mmHg; VBG pH 7.28 (7.32-7.43); VBG pO2 42 mmHg
[2023-12-11 05:10] LABS: Venous Blood Gas Refer to POC result
[2023-12-11] MEDS: Norepinephrine Bitartrate/D5W 8 MG/250 ML PLAST..BAG 163.41 MG IV ×2 (05:11→06:21)
[2023-12-11] MEDS: Vasopressin 20 UNIT/100 ML INFUS..BTL 12 UNIT IVCONT (05:13)
[2023-12-11 05:24] LABS: Mean Corpuscular Volume 93.4 fL (80.0-98.0); PLT CLUMP 1; Red Cell Distribution Width 15.7 % (11.0-16.0)
[2023-12-11 05:26] LABS: Hematocrit 42.3 % (37.0-47.0); Hemoglobin 14.1 g/dl (12.0-16.0); Mean Corpuscular HGB Conc 33.3 g/dl (31.0-35.0); Mean Corpuscular Hemoglobin 31.1 pg (27.0-33.0); Mean Platelet Volume 12.6 fL (9.4-12.3); Red Blood Count 4.53 X10*6/uL (4.20-5.50)
[2023-12-11 05:27] LABS: NRBC Pct Auto 3.1 /100WBC (0.0-0.2); WBC ABN SCTR FOR CBC 1
[2023-12-11 05:28] LABS: Platelet Count 26 X10*3/uL (160-400); White Blood Count 26.8 X10*3/uL (4.8-10.8)
[2023-12-11 05:32] LABS: Glucose, Whole Blood 170 mg/dL (60-115)
[2023-12-11 06:11] LABS: Anion Gap 31 (12-20); Blood Urea Nitrogen 67 mg/dL (9-16); Calcium 6.7 mg/dL (8.4-10.2); Carbon Dioxide 21 mmol/L (22-29); Chloride 79 mmol/L (96-108); Creatinine Clr Calc Pharmacy 18.7; Estimated Glomerular Filt Rate 10; Glucose Random 200 mg/dL (60-115); Potassium 4.8 mmol/L (3.3-5.1); Sodium 126 mmol/L (135-145)
[2023-12-11 07:38] LABS: Band Neutrophils Percent 19 % (3-5); Eosinophils Absolute Manual 0.8 X10*3/uL (0.0-0.4); Eosinophils Percent Manual 3 % (0-4); Lymphocytes Absolute Manual 0.5 X10*3/uL (1.2-4.9); Lymphocytes Percent Manual 2 % (20-40); Metamyelocytes Absolute 1.6 X10*3/uL; Metamyelocytes Percent 6 %; Myelocytes Absolute 0.3 X10*/uL; Myelocytes Percent 1 %; Neutrophils Absolute Manual 23.6 X10*3/uL (2.0-8.3); Neutrophils Percent Manual 69 % (45-73); Nucleated Red Blood Cells 5 /100WBC (0-0)
[2023-12-11 07:41] LABS: Acanthocytes 1+ (0-2) /OIF; Burr Cells 2+ (3-5) /OIF; Dohle Bodies PRESENT; RBC Morphology NOTED; Schistocytes 1+ (0-2) /OIF; Toxic Vacuolation PRESENT
[2023-12-11 07:42] LABS: Platelet Estimate DECREASED (NORMAL); Platelet Morphology Comment NORMAL
[2023-12-11] MEDS: Norepinephrine Bitartrate/D5W 8 MG/250 ML PLAST..BAG 186.75 MG IV ×2 (07:44→09:10)
--- NOTE | 2023-12-11 08:28 | P.PNCC_ITS ---
Subjective Subjective Date of Service: 12/11/23 Interval History: interval worsening of critical illness, including vasopressor requirement and renal failure Critical Care Time (minutes): 90 Physical Exam 2 Vital Signs: Vital Signs: Last Vital Signs Temp 102.1 F H 12/11/23 08:00 Pulse 92 12/11/23 08:00 Resp 18 12/11/23 08:00 BP 109/74 12/11/23 08:00 Pulse Ox 96 12/11/23 08:00 O2 Del Method Mechanical Ventil ation 12/11/23 08:00 O2 Flow Rate 4 12/08/23 23:12 FiO2 100 12/11/23 08:16 Oxygen Flow Rate 4 12/08/23 10:18 BMI result Body Mass Index 50.9 Const: Other: intubated, sedated General: no acute distress HEENT: Head: Yes normal to inspection, Yes normocephalic and Yes atraumatic Eyes: General: appearance normal, both eyes and all related structures Neck: Neck: Yes normal visual inspection, Yes full ROM and Yes supple Chest: Chest palpation & inspection: normal inspection of the chest Resp: Other: diminished breath sounds throughout Cardio: Rate: regular rate Rhythm: regular rhythm GI: Other: hypoactive bowel sounds Inspection: Yes normal to inspection, No Abdominal wall edema and No distended Palpation (GI): Soft to palpation, not firm, nontender, no guarding and not rigid Skin: Other: appreciable diffuse mottling Neuro: General: tone normal Extrem: Other: appreciable diffuse mottling; appreciable 2+ pitting edema to bilateral knees Psych: Other: unable to assess Objective Data Labs 12/11/23 04:55 12/11/23 04:55 Labs: Laboratory Results - last 24 hr 12/10/23 12/10/23 12/10/23 09:12 09:13 10:49 WBC RBC Hgb Hct MCV MCH MCHC RDW Plt Count MPV Immature Gran % (Auto) Neut % (Auto) Lymph % (Auto) Summers % (Auto) Eos % (Auto) Baso % (Auto) Lymph # (Auto) Summers # (Auto) Eos # (Auto) Baso # (Auto) Abs Immat Gran (auto) Absolute Neuts (auto) Absolute Nucleated RBC Nucleated RBC % (auto) Neutrophils % (Manual) Band Neutrophils % Lymphocytes % (Manual) Monocytes % (Manual) Eosinophils % (Manual) Metamyelocytes % Myelocytes % Promyelocytes % Abs Neuts (Manual) Lymphocytes # (Manual) Monocytes # (Manual) Eosinophils # (Manual) Metamyelocytes # Myelocytes # Promyelocytes # Nucleated RBCs Toxic Granulation Toxic Vacuolation Dohle Bodies Platelet Estimate Large Platelets Plt Morphology Comment RBC Morphology Ovalocytes [place] Cells Acanthocytes (Spur) Schistocytes VBG pH VBG pCO2 VBG pO2 VBG HCO3 VBG O2 Saturation VBG Base Excess Sodium Potassium Chloride Carbon Dioxide Anion Gap BUN Creatinine Estim Creat Clear Calc Estimated GFR POC Glucose Random Glucose Lactic Acid 9.6 H* Lactic Acid F/U @ 2Hr Lactic Acid F/U @ 4Hr Calcium Total Bilirubin AST ALT Alkaline Phosphatase Troponin I High Sens 298.1 H* D 273.1 H* Total Protein Albumin Random Vancomycin 16.5 12/10/23 12/10/23 12/10/23 11:34 11:41 11:43 WBC 21.5 H RBC 4.84 Hgb 14.8 Hct 44.9 MCV 92.8 MCH 30.6 MCHC 33.0 RDW 15.4 Plt Count 79 L D MPV 11.4 Immature Gran % (Auto) Cancelled Neut % (Auto) Cancelled Lymph % (Auto) Cancelled Summers % (Auto) Cancelled Eos % (Auto) Cancelled Baso % (Auto) Cancelled Lymph # (Auto) Cancelled Summers # (Auto) Cancelled Eos # (Auto) Cancelled Baso # (Auto) Cancelled Abs Immat Gran (auto) Cancelled Absolute Neuts (auto) Cancelled Absolute Nucleated RBC 0.100 H Nucleated RBC % (auto) 0.5 H Neutrophils % (Manual) 38 L Band Neutrophils % 52 H Lymphocytes % (Manual) 3 L Monocytes % (Manual) Eosinophils % (Manual) Metamyelocytes % 5 Myelocytes % 1 Promyelocytes % 1 Abs Neuts (Manual) 19.4 H Lymphocytes # (Manual) 0.6 L Monocytes # (Manual) Eosinophils # (Manual) Metamyelocytes # 1.1 Myelocytes # 0.2 Promyelocytes # 0.2 Nucleated RBCs 1 H Toxic Granulation PRESENT Toxic Vacuolation PRESENT Dohle Bodies PRESENT Platelet Estimate DECREASED Large Platelets PRESENT Plt Morphology Comment NOTED RBC Morphology NOTED Ovalocytes [place] Cells 3+ (>5) Acanthocytes (Spur) 3+ (>5) Schistocytes VBG pH 7.31 L VBG pCO2 48 VBG pO2 47 VBG HCO3 24 VBG O2 Saturation 74.0 VBG Base Excess -1.9 Sodium 134 L Potassium 3.9 Chloride 90 L Carbon Dioxide 22 Anion Gap 26 H BUN 63 H Creatinine 3.53 H Estim Creat Clear Calc 23.0 Estimated GFR 13 POC Glucose 181 H Random Glucose 186 H Lactic Acid Cancelled Lactic Acid F/U @ 2Hr 9.7 H* Lactic Acid F/U @ 4Hr Calcium 7.4 L Total Bilirubin 2.3 H AST 937 H ALT 739 H Alkaline Phosphatase 175 H Troponin I High Sens Total Protein 5.4 L Albumin 2.5 L Random Vancomycin 12/10/23 12/10/23 12/10/23 14:17 16:13 17:48 WBC 26.9 H RBC 4.86 Hgb 15.0 Hct 44.7 MCV 92.0 MCH 30.9 MCHC 33.6 RDW 15.4 Plt Count 51 L D MPV 11.6 Immature Gran % (Auto) Cancelled Neut % (Auto) Cancelled Lymph % (Auto) Cancelled Summers % (Auto) Cancelled Eos % (Auto) Cancelled Baso % (Auto) Cancelled Lymph # (Auto) Cancelled Summers # (Auto) Cancelled Eos # (Auto) Cancelled Baso # (Auto) Cancelled Abs Immat Gran (auto) Cancelled Absolute Neuts (auto) Cancelled Absolute Nucleated RBC 0.170 H Nucleated RBC % (auto) 0.6 H Neutrophils % (Manual) 90 H Band Neutrophils % 3 Lymphocytes % (Manual) 4 L Monocytes % (Manual) 3 Eosinophils % (Manual) Metamyelocytes % Myelocytes % Promyelocytes % Abs Neuts (Manual) 25.0 H Lymphocytes # (Manual) 1.1 L Monocytes # (Manual) 0.8 Eosinophils # (Manual) Metamyelocytes # Myelocytes # Promyelocytes # Nucleated RBCs Toxic Granulation Toxic Vacuolation Dohle Bodies PRESENT Platelet Estimate DECREASED Large Platelets Plt Morphology Comment NORMAL RBC Morphology NOTED Ovalocytes 1+ (5-14) [place] Cells 3+ (>5) Acanthocytes (Spur) 2+ (3-5) Schistocytes 1+ (0-2) VBG pH VBG pCO2 VBG pO2 VBG HCO3 VBG O2 Saturation VBG Base Excess Sodium 130 L Potassium 4.8 D Chloride 86 L Carbon Dioxide 22 Anion Gap 27 H BUN 61 H Creatinine 3.40 H Estim Creat Clear Calc 24.0 Estimated GFR 14 POC Glucose Random Glucose 154 H Lactic Acid 8.8 H* Lactic Acid F/U @ 2Hr Lactic Acid F/U @ 4Hr 8.8 H* Calcium 7.6 L Total Bilirubin AST ALT Alkaline Phosphatase Troponin I High Sens 270.7 H* Total Protein Albumin Random Vancomycin 12/10/23 12/10/23 12/11/23 17:58 23:51 04:55 WBC 26.8 H RBC 4.53 Hgb 14.1 Hct 42.3 MCV 93.4 MCH 31.1 MCHC 33.3 RDW 15.7 Plt Count 26 L D MPV 12.6 H Immature Gran % (Auto) Cancelled Neut % (Auto) Cancelled Lymph % (Auto) Cancelled [place]mers % (Auto) Cancelled Eos % (Auto) Cancelled Baso % (Auto) Cancelled Lymph # (Auto) Cancelled [place] # (Auto) Cancelled Eos # (Auto) Cancelled Baso # (Auto) Cancelled Abs Immat Gran (auto) Cancelled Absolute Neuts (auto) Cancelled Absolute Nucleated RBC 0.830 H Nucleated RBC % (auto) 3.1 H Neutrophils % (Manual) 69 Band Neutrophils % 19 H Lymphocytes % (Manual) 2 L Monocytes % (Manual) Eosinophils % (Manual) 3 Metamyelocytes % 6 Myelocytes % 1 Promyelocytes % Abs Neuts (Manual) 23.6 H Lymphocytes # (Manual) 0.5 L Monocytes # (Manual) Eosinophils # (Manual) 0.8 H Metamyelocytes # 1.6 Myelocytes # 0.3 Promyelocytes # Nucleated RBCs 5 H Toxic Granulation Toxic Vacuolation PRESENT Dohle Bodies PRESENT Platelet Estimate DECREASED Large Platelets Plt Morphology Comment NORMAL RBC Morphology NOTED Ovalocytes [place] Cells 2+ (3-5) Acanthocytes (Spur) 1+ (0-2) Schistocytes 1+ (0-2) VBG pH VBG pCO2 VBG pO2 VBG HCO3 VBG O2 Saturation VBG Base Excess Sodium 126 L Potassium 4.8 Chloride 79 L Carbon Dioxide 21 L Anion Gap 31 H BUN 67 H Creatinine 4.51 H* Estim Creat Clear Calc 18.7 Estimated GFR 10 POC Glucose 135 H 170 H Random Glucose 200 H Lactic Acid Lactic Acid F/U @ 2Hr Lactic Acid F/U @ 4Hr Calcium 6.7 L D Total Bilirubin AST ALT Alkaline Phosphatase Troponin I High Sens Total Protein Albumin Random Vancomycin 12/11/23 12/11/23 05:02 05:28 WBC RBC Hgb Hct MCV MCH MCHC RDW Plt Count MPV Immature Gran % (Auto) Neut % (Auto) Lymph % (Auto) [place]mers % (Auto) Eos % (Auto) Baso % (Auto) Lymph # (Auto) [place] # (Auto) Eos # (Auto) Baso # (Auto) Abs Immat Gran (auto) Absolute Neuts (auto) Absolute Nucleated RBC Nucleated RBC % (auto) Neutrophils % (Manual) Band Neutrophils % Lymphocytes % (Manual) Monocytes % (Manual) Eosinophils % (Manual) Metamyelocytes % Myelocytes % Promyelocytes % Abs Neuts (Manual) Lymphocytes # (Manual) Monocytes # (Manual) Eosinophils # (Manual) Metamyelocytes # Myelocytes # Promyelocytes # Nucleated RBCs Toxic Granulation Toxic Vacuolation Dohle Bodies Platelet Estimate Large Platelets Plt Morphology Comment RBC Morphology Ovalocytes [place] Cells Acanthocytes (Spur) Schistocytes VBG pH 7.28 L VBG pCO2 51 VBG pO2 42 VBG HCO3 24 VBG O2 Saturation 64.0 VBG Base Excess -2.6 Sodium Potassium Chloride Carbon Dioxide Anion Gap BUN Creatinine Estim Creat Clear Calc Estimated GFR POC Glucose 170 H Random Glucose Lactic Acid Lactic Acid F/U @ 2Hr Lactic Acid F/U @ 4Hr Calcium Total Bilirubin AST ALT Alkaline Phosphatase Troponin I High Sens Total Protein Albumin Random Vancomycin Microbiology Microbiology Results: Microbiology 12/08/23 16:24 Blood - Venous Blood Culture - Final Streptococcus viridans group 12/08/23 16:33 Blood - Venous Blood Culture - Preliminary No growth after 48 hours. 12/09/23 Unknown Urine clean catch - Urine aldrich top Urine Culture - Final No growth. Progress Note: A&P Assessment and plan (1) Aspiration pneumonia: Status: Acute (2) Ileus: Status: Acute (3) Shock: Status: Acute (4) Obesity hypoventilation syndrome: Status: Acute (5) Acute renal failure: Status: Acute Plan Patient is a 63 Y F with morbid obesity, c/b obesity hypoventilation syndrome, obstructive sleep apnea, chronic mixed respiratory failure on 1L NC, paroxysmal atrial fibrillation on apixaban, polysubstance misuse, initially presenting on 12/07 w/ abdominal pain, found to have CT A/P c/f small bowel obstruction vs ileus, planned for medical management; ED course c/b aspiration, c/b acute on chronic hypoxic respiratory failure, intubated; ICU course c/b shock, acute renal failure N: intubated, sedated w/ propofol gtt CV: shock, likely distributive; on high and escalating doses of norepinephrine, vasopression gtt, stress-dose steroids R: acute on chronic hypoxic respiratory failure on maximium ventilator support; intubated GI: c/f SBO vs ileus, c/b aspiration; to appreciate general surgery, gastroenterology recommendations; to monitor output : acute renal failure, worsening despite bicarbonate and furosemide gtt H: leukocytosis, thrombocytopenia, likely reactive in the setting of critical illness ID: c/f aspiration c/b septic shock empiric vancomycin, zosyn E: to monitor for hypo-/hyper-glycemia P: no acute issues Quality Stroke Does the patient have a stroke diagnosis?: No VTE Prior VTE?: No VTE Risk Level:: Medical - moderate - high VTE Device Contraindication: Treatment Not Indicated VTE Drug Contraindication: N/A - Med Ordered
[2023-12-11] MEDS: Calcium Chloride 1 GM/10 ML SYRINGE IVPUSH (09:11)
[2023-12-11] MEDS: Phenylephrine HCL 20 MG in 0.9 % Sodium Chloride 250 ML 54.05 MG IVCONT (09:25)
[2023-12-11 09:34] LABS: Vancomycin Random 19.9 mcg/mL (15-20)
[2023-12-11 09:35] LABS: Lactic Acid 12.5 mmol/L (0.5-2.0)
--- NOTE | 2023-12-11 10:11 | HE.PHANOTE ---
vancomcyin dosing level 19.9 today, will adjust dose to vancomycin 750 mg Q48h starting 12/11 @ 0800. new predicted AUC 501 with a tough of 16.5. Next level 12/11 prior to new dose to evaluate clearance of the vancomycin with worsening renal function. Chelsea Brown ,BekahD
--- NOTE | 2023-12-11 10:15 | W.MHC.ACPN ---
Advanced Care Planning Note Advanced Care Planning Note Discussed with: family member(s) Time spent (in minutes): 10 Narrative: Samy arrived this morning. At this time, he would like to transition Ms. Ramirez' philosophy of care to comfort-focused care. Problems Discussed (1) Aspiration pneumonia: (2) Ileus: (3) Shock: (4) Obesity hypoventilation syndrome: (5) Acute renal failure:
[2023-12-11] MEDS: Norepinephrine Bitartrate/D5W 8 MG/250 ML PLAST..BAG 191.42 MG IV (10:30)
[2023-12-11] MEDS: ondansetron HCL 4 MG/2 ML VIAL IVPUSH (10:30)
[2023-12-11] MEDS: Glycopyrrolate 0.2 MG/ML VIAL IVPUSH (10:30)
[2023-12-11] MEDS: fentaNYL citrate/NS 1,000 MCG/100 ML PLAST..BAG 2.5 MCG IVCONT (10:31)
--- NOTE | 2023-12-11 10:54 | PM.DDS ---
Discharge Sum: Prov Provider Primary care physician: JOHN Gary Pronouncing clinician: Tracy Bryson Discharge Sum: Diag PCOD Cause of : Respiratory arrest Contributing Factors (1) Acute hypoxic respiratory failure: (2) Aspiration pneumonia: (3) Ileus: (4) Shock: (5) Acute renal failure: (6) Obesity hypoventilation syndrome: Discharge Sum: Summary Date and Time Date of admission: 12/08/23 17:29 Summary Details: Ms. Ramirez is a 63 Y F with morbid obesity, complicated by obesity hypoventilation syndrome, obstructive sleep apnea, chronic mixed respiratory failure on 1L NC, paroxysmal atrial fibrillation on apixaban, and polysubstance misuse, who initially presented to the emergency department on 12/07 with abdominal pain, and was found to have a small bowel obstruction versus ileus on imaging. Ms. Ramirez' emergency department course was complicated by aspiration, further complicated acute on chronic hypoxic respiratory failure, requiring intubation. Ms. Ramirez' ICU course was complicated by shock, further complicated by multi-system organ failure. On 12/10, Ms. Ramirez' philosophy of care was transitioned to comfort-focused care. Ms. Ramirez later that day, with family at her bedside. Additional Data Confirmation of as documented by pronouncing clinician: no pulse, no respirations, no heart sounds and pupils fixed and dilated Family: at bedside Attending physician: Tracy Bryson MD
[2023-12-11 11:12] LABS: Reflex Lactate? Lactic Acid Added
--- NOTE | 2023-12-11 11:15 | PC.NURSE ---
race and sports book writer spoke with [facility]. Pt was declined; ref number [id number]
--- NOTE | 2023-12-11 11:22 | PC.RT ---
Pt was extubated per MD order at 10:55am. RN present, family at bedside.
--- NOTE | 2023-12-11 14:27 | PC.NURSE ---
patient family states they would like to use [facility]
== END 2023-12-11 11:00 | disposition expired | DRG 871 ==
LOC: HO.ED 16:43 → HO.EDOVER 18:15 → HO.ICU 12-09 00:29
PROVIDERS: Physician Assistant Medical; Registered Nurse Emergency; Student in an Organized Health Care Education/Training Program; Admitting Provider Internal Medicine; Emergency Provider Emergency Medicine Emergency Medical Services; PCP Nurse Practitioner Family; Visit Provider Internal Medicine Critical Care Medicine
DX: A41.9 Sepsis, unspecified organism (principal); J69.0 Pneumonitis due to inhalation of food and vomit; J96.21 Acute and chronic respiratory failure with hypoxia; J96.22 Acute and chronic respiratory failure with hypercapnia; K56.7 Ileus, unspecified; F11.20 Opioid dependence, uncomplicated; I13.0 Hypertensive heart and chronic kidney disease with heart failure and stage 1 through stage 4 chronic kidney disease, or unspecified chronic kidney disease; E66.2 Morbid (severe) obesity with alveolar hypoventilation; Z68.43 Body mass index [BMI] 50.0-59.9, adult; I50.32 Chronic diastolic (congestive) heart failure; F19.20 Other psychoactive substance dependence, uncomplicated; N17.9 Acute kidney failure, unspecified; E87.21 Acute metabolic acidosis; Z51.5 Encounter for palliative care; Z66 Do not resuscitate; E86.1 Hypovolemia; R57.8 Other shock; I48.0 Paroxysmal atrial fibrillation; J45.40 Moderate persistent asthma, uncomplicated; Z99.81 Dependence on supplemental oxygen; Z20.822 Contact with and (suspected) exposure to COVID-19; Z90.5 Acquired absence of kidney; Z85.528 Personal history of other malignant neoplasm of kidney; Z79.01 Long term (current) use of anticoagulants; Z79.51 Long term (current) use of inhaled steroids; Z79.899 Other long term (current) drug therapy
CPT/HCPCS: 0241U; 36415; 71045; 74018; 74176; 80048; 80053; 80202; 80307; 81001; 82803; 82947; 83605; 83735; 83880; 84100; 84484; 85007; 85025; 85027; 86850; 86900; 86901; 87040; 87086; 87205; 92950; 93005; 94002; 94003; 94799; 99285; 99498; C1758; J0131; J0696; J1170; J1200; J1596; J1644; J1720; J1836; J1940; J2270; J2371; J2405; J2543; J2598; J2704; J3010; J3370; J3480; J7120; P9047

== ENCOUNTER → 2023-12-08 10:16 | Outpatient (BNV) | payer OTHER, SELFPAY | PROVIDERS: Emergency Provider Emergency Medicine Emergency Medical Services; PCP Nurse Practitioner Family; Visit Provider Internal Medicine Cardiovascular Disease | DX: R00.0 Tachycardia, unspecified (principal) | CPT/HCPCS: 93010 ==

== ENCOUNTER → 2023-12-08 10:30 | Outpatient (BNV) | payer OTHER, SELFPAY | PROVIDERS: Emergency Provider Emergency Medicine Emergency Medical Services; PCP Nurse Practitioner Family; Visit Provider Internal Medicine | DX: A41.9 Sepsis, unspecified organism (principal); R11.2 Nausea with vomiting, unspecified | CPT/HCPCS: 99223 ==

== ENCOUNTER → 2023-12-08 17:29 | Outpatient (BNV) | payer OTHER, SELFPAY | PROVIDERS: Admitting Provider Internal Medicine; Emergency Provider Emergency Medicine Emergency Medical Services; PCP Nurse Practitioner Family; Visit Provider Physician Assistant Medical | DX: J69.0 Pneumonitis due to inhalation of food and vomit (principal); R57.9 Shock, unspecified; K56.7 Ileus, unspecified; E66.2 Morbid (severe) obesity with alveolar hypoventilation; Z90.5 Acquired absence of kidney | CPT/HCPCS: 36556; 99238; 99291; 99292 ==

== ENCOUNTER → 2023-12-08 17:29 | Outpatient (BNV) | payer OTHER, SELFPAY | PROVIDERS: Admitting Provider Internal Medicine; Emergency Provider Emergency Medicine Emergency Medical Services; PCP Nurse Practitioner Family; Visit Provider Surgery | DX: R11.14 Bilious vomiting (principal); R10.31 Right lower quadrant pain | CPT/HCPCS: 99222 ==